=== PATIENT | female | born 1935 | race Caucasian/White ===

== ENCOUNTER 2016-08-13 14:19 | Inpatient (IN) | payer OTHER, BC ==
--- NOTE | 2016-08-13 14:41 | PDOC ---
History of Present Illness - General History Source: Patient, Family Exam Limitations: No Limitations - History of Present Illness Initial Comments: 08/13/16 14:44 Patient is a 81 year old female with significant PMH of Orthostatic HTN, Pulmonary fibrosis, hypothyroidism, sjogrens/scleroderma & addisons disease who presents to ED with abdominal pain. As per daughter, patient was diagnosed with UTI 2 weeks ago and started on Cipro. She was called on Thursday and told cultures showed bacteria was resistant to cipro and they started her on Cefdinir. Patient was nauseous all weekend with multiple episodes of vomiting. Patient attributed nausea to Cefdinir and stopped taking it Thursday morning. Since then vomiting has resolved but patient developed bilateral flank pain, LEFT>RIGHT. She also has had increased frequency of urination since then. She has had a mild fever at time, highest being 100.8. Patient also notes a mild nonproductive cough & constipation since thursday. Denies dysuria, but is a poor historian. <Rhys Wright - Last Filed: 08/13/16 16:10> <Ruben Collins - Last Filed: 08/13/16 16:50> - General Chief Complaint: Pain, Acute Stated Complaint: ABD PAIN Time Seen by Provider: 08/13/16 14:25 Past History - Travel Traveled outside of the country in the last 30 days: No Close contact w/someone who was outside of country & ill: No - Past Medical History Anemia: No COPD: Yes (pulmonary fibrosis) GI Disorders: Yes (reflux) HTN: (hypotension, orthostatic HTN) Thyroid Disease: Yes (hypo) Other medical history: Addisons, Sjogrens, Scleroderma - Surgical History Abdominal Surgery: Yes Cholecystectomy: Yes (1973) Orthopedic Surgery: Yes (rt knee arthroscopy) - Psycho/Social/Smoking Cessation Hx Anxiety: No Suicidal Ideation: No Smoking History: Former smoker Have you smoked in the past 12 months: No Number of Cigarettes Smoked Daily: 20 If you are a former smoker, when did you quit?: 1969 Hx Alcohol Use: No Drug/Substance Use Hx: No Substance Use Type: None Hx Substance Use Treatment: No <Rhys Wright - Last Filed: 08/13/16 16:10> <Ruben Collins - Last Filed: 08/13/16 16:50> - Past Medical History Allergies/Adverse Reactions: Allergies Allergy/AdvReac Type Severity Reaction Status Date / Time No Known Allergies Allergy Verified 08/13/16 14:37 Home Medications: Ambulatory Orders Ascorbic Acid [C-1000] 1,000 mg PO BID 08/13/16 Cholecalciferol (Vitamin D3) [Vitamin D3 -] 5,000 unit PO DAILY 08/13/16 Docusate Sodium 100 mg PO BID PRN 08/13/16 Fludrocortisone Acetate 0.15 mg PO BID 08/13/16 Fluoxetine HCl 20 mg PO HS 08/13/16 Hydrocortisone [Cortef -] 10 mg PO DAILY 08/13/16 Hydrocortisone [Cortef -] 15 mg PO HS 08/13/16 Lifitegrast [Xiidra] 1 each OP BID 08/13/16 Magnesium Chloride [Mag64] 64 mg PO DAILY 08/13/16 Magnesium Hydrox 2400MG/30Ml [Milk of Magnesia -] 30 ml PO QID PRN 08/13/16 Midodrine HCl 2.5 mg PO BID 08/13/16 Mineral Oil/Petrolatum,White [Genteal Pm Ointment] 3.5 gm OP PRN PRN 08/13/16 Mirtazapine 3.75 mg PO HS 08/13/16 Mv-Mn/FA/Coq10/Lycopene/Lutein [Theragran-M Premier 50+ Caplet] 1 each PO DAILY 08/13/16 Pantoprazole Sodium 40 mg PO DAILY 08/13/16 Potassium Chloride [Klor-Con] 20 meq PO BID 08/13/16 Prednisone [Deltasone -] 5 mg PO DAILY 08/13/16 Promethazine HCl 12.5 mg PO Q6H 08/13/16 Thyroid,Pork [[place] Thyroid] 30 mg PO BID 08/13/16 Review of Systems - Review of Systems Able to Perform ROS?: Yes Is the patient limited Lao proficient: No Constitutional: Yes: Fever HEENTM: No: Blurred Vision, Throat Swelling, Difficulty Swallowing Respiratory: Yes: Cough. No: SOB at Rest, Wheezing, Productive cough Cardiac (ROS): No: Chest Pain, Edema, Lightheadedness ABD/GI: Yes: Constipated, Nausea, Vomiting. No: Diarrhea : Yes: Frequency, Urgency. No: Burning Integumentary: No: Bruising, Change in Color Neurological: No: Headache, Numbness, Paresthesia, Tremors All Other Systems: Reviewed and Negative <Rhys Wright - Last Filed: 08/13/16 16:10> *Physical Exam - Physical Exam General Appearance: Yes: Nourished, Appropriately Dressed HEENT: positive: EOMI, [place], Pharynx Normal Neck: positive: Trachea midline, Normal Thyroid, Supple Respiratory/Chest: positive: Other (diminished breath sounds bilaterally, coarse breath sounds bilaterally). negative: Stridor, Wheezing Cardiovascular: positive: Regular Rhythm, Regular Rate, S1, S2 Gastrointestinal/Abdominal: positive: Normal Bowel Sounds, Other (mildly distended, mildly tenderness to deep palpation, constipated) Musculoskeletal: positive: Normal Inspection Extremity: positive: Normal Inspection, Normal Range of Motion Integumentary: positive: Normal Color, Dry, Warm Neurologic: positive: Fully Oriented, Alert, Normal Mood/Affect, Motor Strength 5/5 <Rhys Wright - Last Filed: 08/13/16 16:10> - Vital Signs Last Vital Signs Temp Pulse Resp BP Pulse Ox 98.4 F 89 18 144/100 100 08/13/16 14:37 08/13/16 14:37 08/13/16 14:37 08/13/16 14:37 08/13/16 15:00 <Ruben Collins - Last Filed: 08/13/16 16:50> Heart Score/ECG Review - ECG Impressions Comment:: 08/13/16 16:49 Twelve-lead EKG was performed and reviewed by me. There is normal sinus rhythm with a normal rate. rate of 84 RBBB new when compared with prior ekg 02/05/2016 <Ruben Collins - Last Filed: 08/13/16 16:50> ED Treatment Course - LABORATORY CBC & Chemistry Diagram: 08/13/16 15:00 08/13/16 15:00 - RADIOLOGY Radiology Studies Ordered: Category Date Time Status CHEST X-RAY PORTABLE* [RAD] Stat Radiology 08/13/16 14:39 Ordered <Rhys Wright - Last Filed: 08/13/16 16:10> - LABORATORY CBC & Chemistry Diagram: 08/13/16 15:00 08/13/16 15:00 - ADDITIONAL ORDERS Additional order review: Laboratory Results 0208/13/16 08/13/16 16:10 15:00 15:00 Sodium Potassium Chloride Carbon Dioxide Anion Gap BUN Creatinine Creat Clearance w eGFR Random Glucose Lactic Acid 1.521 Calcium Magnesium 2.2 D Total Bilirubin AST ALT Alkaline Phosphatase Creatine Kinase 98 Troponin I 0.02 Total Protein Albumin Urine Color Urine Appearance Urine pH Ur Specific [place] Urine Protein Urine Glucose (UA) Urine Ketones Urine Blood Urine Nitrite Urine Bilirubin Urine Urobilinogen Ur Leukocyte Esterase Urine RBC Urine WBC Urine Mucus 08/13/16 08/13/16 15:00 15:00 Sodium 133 L Potassium 2.6 L* D Chloride 89 L Carbon Dioxide 33 H D Anion Gap 11 BUN 21 H D Creatinine 1.0 D Creat Clearance w eGFR 53.21 Random Glucose 88 Lactic Acid Calcium 8.2 L Magnesium Total Bilirubin 0.4 AST 31 D ALT 15 Alkaline Phosphatase 117 D Creatine Kinase Troponin I Total Protein 6.9 Albumin 3.2 L Urine Color Yellow Urine Appearance Clear Urine pH 5.0 Ur Specific [place] 1.018 Urine Protein 1+ H Urine Glucose (UA) Negative Urine Ketones Trace H Urine Blood Negative Urine Nitrite Negative Urine Bilirubin Negative Urine Urobilinogen Negative Ur Leukocyte Esterase Negative Urine RBC 1 Urine WBC 1 Urine Mucus Rare 08/13/16 15:00 Influenza Types A,B Antigen (ANTIONETTE) - Final Nasopharyngeal Swab - Final 08/13/16 15:00 RBC 4.50 MCV 85.0 MCHC 33.2 RDW 16.5 H MPV 7.3 L - Medications Given in the ED: ED Medications Discontinued Medications Generic Name Dose Route Start Last Admin Trade Name Freq PRN Reason Stop Dose Admin Alprazolam 0.25 mg 08/13/16 15:28 08/13/16 15:37 Xanax - PO 08/13/16 15:29 0.25 mg ONCE ONE Administration Potassium Chloride 40 meq 08/13/16 16:07 08/13/16 16:16 Kcl Oral Solution - PO 08/13/16 16:08 40 meq ONCE ONE Administration <Ruben Collins - Last Filed: 08/13/16 16:50> Medical Decision Making - Medical Decision Making 08/13/16 14:55 Patient likely has UTI, as she has not been taking her antibiotic (Cefdinir) as prescribed due to nausea. As per her residence, cough is new and patient's oxygen saturation is 90%, which is below her baseline. Will order CBC, CMP, Lactic acid, Troponins. Ordered UA with culture for UTI. Ordered CXR & Influenza swab as well for cough. 08/13/16 16:02 Tested positive for influenza A. Will need to be admitted given her poor baseline pulmonary function & low oxygen saturation at present. Discussed with her PCP Dr. [place] and he agrees to admit patient under hospitalist service. Will discuss with hospitalist. 08/13/16 16:[address] Glez who agrees to admit patient for influenza. Potassium returned at 2.6. Ordered 40mEq oral potassium and will test magnesium level. <Rhys Wright - Last Filed: 08/13/16 16:10> *DC/Admit/Observation/Transfer - Discharge Dispostion Admit: Yes <Rhys Wright - Last Filed: 08/13/16 16:10> <Ruben Collins - Last Filed: 08/13/16 16:50> Diagnosis at time of Disposition: Influenza A, Hypokalemia, Pulmonary fibrosis - Referrals Referrals: STAFF,NOT ON [Primary Care Provider] -
[2016-08-13 14:47] VITALS: BMI 20.1
--- NOTE | 2016-08-13 14:58 | PDOC ---
Attending Attestation - Resident Resident Name: Rhys Wright - ED Attending Attestation I have performed the following: I have examined & evaluated the patient, The case was reviewed & discussed with the resident, I agree w/resident's findings & plan - HPI HPI: 08/13/16 16:11 81y F hx of pulmonary fibrosis, orthostatic htn, hypothyroidism sjorgrens/ scleroderma, addisons dz, presents with cough/fever, pt noted to have uti last week, was dx with uti when she went to urgent care, had her rx changed due, and presents today due to nausea/vomiting. pt also noted to have increased cough, since thursday that is nonproductive. on exam pt noted with sat of 88% on RA, pulm exam revealed diffuse crackles bilaterally. pt otherwise in no acute distress with no tacypnhea. pt flu +, cxr clear bijan ladmit due to hypoxia and comorbidities - Physicial Exam PE: 08/18/16 08:04 see above - Medical Decision Making 08/18/16 08:04 see above
[2016-08-13 15:28] LABS: MCH 28.2 pg (25.7-33.7); MCHC 33.2 g/dl (32.0-36.0); MEAN PLT VOLUME 7.3 fl (7.5-11.1); PLATELET COUNT 263 K/MM3 (134-434); RDW 16.5 % (11.6-15.6); WHITE BLOOD COUNT 6.9 K/mm3 (4.0-10.0)
[2016-08-13] MEDS ORDERED: ALPRAZolam 0.25 MG TABLET PO ONE (15:28)
[2016-08-13 15:32] LABS: URINE APPEARANCE CLEAR; URINE BILIRUBIN NEGATIVE (NEGATIVE); URINE BLOOD NEGATIVE (NEGATIVE); URINE COLOR YELLOW; URINE GLUCOSE (UA) NEGATIVE (NEGATIVE); URINE KETONE TRACE (NEGATIVE); URINE LEUK ESTERASE NEGATIVE (NEGATIVE); URINE NITRITE NEGATIVE (NEGATIVE); URINE UROBILINOGEN NEGATIVE E.U./dl (0.2-1.0)
[2016-08-13] MEDS ORDERED: ALPRAZolam 0.25 MG TABLET ONE (15:32)
[2016-08-13 15:38] LABS: URINE PROTEIN 1+ (NEGATIVE)
[2016-08-13 15:42] LABS: URINE MUCUS RARE; URINE RBC 1 /hpf (0-3); URINE WBC 1 /hpf (3-5)
[2016-08-13 15:58] LABS: ALBUMIN 3.2 g/dl (3.4-5.0); CALCIUM 8.2 mg/dL (8.5-10.1)
[2016-08-13 16:00] LABS: TROPONIN I 0.02 ng/ml (0.00-0.05)
[2016-08-13 16:01] LABS: BILIRUBIN,TOTAL 0.4 mg/dL (0.2-1.0); TOT PROT 6.9 g/dl (6.4-8.2)
[2016-08-13] MEDS ORDERED: POTASSIUM CHLORIDE 40 MEQ/30 ML UNIT DOSE CUP PO ONE (16:07)
[2016-08-13] MEDS ORDERED: POTASSIUM CHLORIDE 40 MEQ/30 ML UNIT DOSE CUP ONE (16:13)
[2016-08-13] MEDS ORDERED: OSELTAMIVIR PHOSPHATE 75 MG CAPSULE PO ONE (16:48)
--- NOTE | 2016-08-13 17:09 | HP ---
PCP: Guero Cuba CHIEF COMPLAINT: Weakness HISTORY OF PRESENT ILLNESS: This is an 81-year-old woman, resident of [facility], who comes to the ER today because of generalized weakness. About 2 weeks ago, she was treated for a UTI with Cipro. On 08/08, she was started on Cefdinir because the urine culture showed the bacteria was resistant to Cipro. Once she started taking Cefdinir, she developed abdominal pain, nausea, vomiting. She stopped taking it on 08/11 and the vomiting resolved. However, she has since had a non-productive cough, shortness of breath, chills and sweats. She has not had an appetite and has not been eating and drinking much. She was noted to have a temp 100.8. PAST MEDICAL HISTORY Pulmonary fibrosis Hypothyroidism Sjogren syndrome Scleroderma Raynaud's syndrome Adrenal insufficiency Orthostatic hypotension PAST SURGICAL HISTORY Cholecystectomy Allergies No Known Allergies Allergy (Verified 08/13/16 14:37) HOME MEDICATIONS 3 Medication Instructions Recorded Ascorbic Acid [C-1000] 1,000 mg PO BID 08/13/16 Cholecalciferol (Vitamin D3) 5,000 unit PO DAILY 08/13/16 [Vitamin D3 -] Docusate Sodium 100 mg PO BID PRN 08/13/16 Fludrocortisone Acetate 0.15 mg PO BID 08/13/16 Fluoxetine HCl 20 mg PO HS 08/13/16 Hydrocortisone [Cortef -] 10 mg PO DAILY 08/13/16 Hydrocortisone [Cortef -] 15 mg PO HS 08/13/16 Lifitegrast [Xiidra] 1 each OP BID 08/13/16 Magnesium Chloride [Mag64] 64 mg PO DAILY 08/13/16 Magnesium Hydrox 2400MG/30Ml [Milk 30 ml PO QID PRN 08/13/16 of Magnesia -] Midodrine HCl 2.5 mg PO BID 08/13/16 Mineral Oil/Petrolatum,White 3.5 gm OP PRN PRN 08/13/16 [Genteal Pm Ointment] Mirtazapine 3.75 mg PO HS 08/13/16 Mv-Mn/FA/Coq10/Lycopene/Lutein 1 each PO DAILY 08/13/16 [Theragran-M Premier 50+ Caplet] Pantoprazole Sodium 40 mg PO DAILY 08/13/16 Potassium Chloride [Klor-Con] 20 meq PO BID 08/13/16 Prednisone [Deltasone -] 5 mg PO DAILY 08/13/16 Promethazine HCl 12.5 mg PO Q6H 08/13/16 Thyroid,Pork [[place] Thyroid] 30 mg PO BID 08/13/16 Social History: Smoking: Quit smoking 44 years ago Alcohol: None Drugs: None Recent Travel: No Family History Mother - Heart disease Father - colon cancer REVIEW OF SYSTEMS CONSTITUTIONAL: Present: fever, chills, generalized weakness, malaise, loss of appetite HEENT: Absent: rhinorrhea, nasal congestion, throat pain, throat swelling, difficulty swallowing, mouth swelling, ear pain, eye pain, visual changes CARDIOVASCULAR: Absent: chest pain, syncope, palpitations, lightheadedness, peripheral edema RESPIRATORY: Present: cough, shortness of breath. Absent: orthopnea, wheezing, stridor, hemoptysis GASTROINTESTINAL: Present: abdominal pain, nausea, vomiting, constipation. Absent: abdominal distension, diarrhea, melena, hematochezia GENITOURINARY: Present: urinary frequency, flank pain. Absent: dysuria, urgency , hesitancy, hematuria MUSCULOSKELETAL: Absent: myalgia, arthralgia, joint swelling, back pain, neck pain SKIN: Absent: rash, itching, pallor HEMATOLOGIC/IMMUNOLOGIC: Absent: easy bleeding, easy bruising, lymphadenopathy, frequent infections ENDOCRINE: Absent: unexplained weight gain, unexplained weight loss, heat intolerance, cold intolerance NEUROLOGIC: Absent: headache, focal weakness, paresthesias, dizziness, unsteady gait, seizure, mental status changes, bladder or bowel incontinence PSYCHIATRIC: Absent: anxiety, depression, suicidal or homicidal ideation, hallucinations. PHYSICAL EXAMINATION Vital Signs Period Temp Pulse Resp BP Sys/Xavier Pulse Ox Last 24 Hr 98.4 F-100.2 F 89 18 144/100 90-100 GENERAL: Awake, alert, and fully oriented, in no acute distress. HEAD: Normal with no signs of trauma. EYES: Pupils equal, round and reactive to light, extraocular movements intact, sclerae anicteric, conjunctivae clear. EARS, NOSE, THROAT: Ears normal, nares patent, oropharynx clear without exudates. Moist mucous membranes. NECK: Normal range of motion, supple without lymphadenopathy, JVD, or masses. LUNGS: Bilateral rhonchi and crackles. No accessory muscle use. HEART: Regular rate and rhythm, normal S1 and S2, (+) 2/6 systolic murmur. ABDOMEN: Soft, nontender, not distended, normoactive bowel sounds, no guarding, no rebound, no masses. No hepatomegaly or splenomegaly. MUSCULOSKELETAL: Normal range of motion at all joints. No bony deformities or tenderness. No CVA tenderness. UPPER EXTREMITIES: 2+ pulses, warm, well-perfused. No cyanosis. No clubbing. Cap refill <2 seconds. No peripheral edema. LOWER EXTREMITIES: 1+ pulses, warm, well-perfused. No calf tenderness. No peripheral edema. NEUROLOGICAL: Cranial nerves II-XII intact. Normal speech. Gait not observed. PSYCHIATRIC: Cooperative. Good eye contact. Appropriate mood and affect. SKIN: Warm, dry, normal turgor, no rashes or lesions noted. Laboratory Results - last 24 hr 08/13/16 08/13/16 08/13/16 15:00 15:00 15:00 WBC 6.9 D RBC 4.50 Hgb 12.7 Hct 38.2 MCV 85.0 MCHC 33.2 RDW 16.5 H Plt Count 263 D MPV 7.3 L Sodium 133 L Potassium 2.6 L* D Chloride 89 L Carbon Dioxide 33 H D Anion Gap 11 BUN 21 H D Creatinine 1.0 D Creat Clearance w eGFR 53.21 Random Glucose 88 Lactic Acid Calcium 8.2 L Magnesium Total Bilirubin 0.4 AST 31 D ALT 15 Alkaline Phosphatase 117 D Creatine Kinase Troponin I Total Protein 6.9 Albumin 3.2 L Urine Color Yellow Urine Appearance Clear Urine pH 5.0 Ur Specific [place] 1.018 Urine Protein 1+ H Urine Glucose (UA) Negative Urine Ketones Trace H Urine Blood Negative Urine Nitrite Negative Urine Bilirubin Negative Urine Urobilinogen Negative Ur Leukocyte Esterase Negative Urine RBC 1 Urine WBC 1 Urine Mucus Rare 08/13/16 08/13/16 08/13/16 15:00 15:00 16:10 WBC RBC Hgb Hct MCV MCHC RDW Plt Count MPV Sodium Potassium Chloride Carbon Dioxide Anion Gap BUN Creatinine Creat Clearance w eGFR Random Glucose Lactic Acid 1.521 Calcium Magnesium 2.2 D Total Bilirubin AST ALT Alkaline Phosphatase Creatine Kinase 98 Troponin I 0.02 Total Protein Albumin Urine Color Urine Appearance Urine pH Ur Specific [place] Urine Protein Urine Glucose (UA) Urine Ketones Urine Blood Urine Nitrite Urine Bilirubin Urine Urobilinogen Ur Leukocyte Esterase Urine RBC Urine WBC Urine Mucus Chest x-ray: Chronic interstitial lung disease. No acute process. EKG: Sinus rhythm, rate 84. PACs. RBBB. ASSESSMENT/PLAN: This is an 81-year-old woman who presented to the ER with generalized weakness, cough, abdominal pain, nausea and vomiting. She was recently treated with Cipro followed by Cefdinir for UTI. She was found to have temp 100.2, O2 sat 90% on RA , WBC 6.9, sodium 133, potassium 2.6, BUN 21, creatinine 1.0. She is being admitted now for treatment of an emergent condition. 1. Hypokalemia secondary to vomiting and steroid use - Replete potassium IV and oral 2. Hyponatremia secondary to dehydration, vomiting, adrenal insufficiency - IV normal saline 3. Dehydration - IV fluid 4. Hypoxia secondary to influenza A with pulmonary fibrosis - Patient is not on oxygen at home - Tamiflu - Albuterol nebs as needed - Oxygen to keep saturation > 90% 5. Orthostatic hypotension, adrenal insufficiency - Continue [place]amini [place]jo 6. Scleroderma, Sjogren syndrome, Raynaud's syndrome 7. Hypothyroidism - Continue [place] thyroid Problem List - Problem (1) Hyponatremia Code(s): E87.1 - HYPO-OSMOLALITY AND HYPONATREMIA (2) Hypoxia Code(s): R09.02 - HYPOXEMIA Visit type - Emergency Visit Emergency Visit: Yes ED Registration Date: 08/13/16 Care time: The patient presented to the Emergency Department on the above date and was hospitalized for further evaluation of their emergent condition. - New Patient This patient is new to me today: Yes Date on this admission: 08/13/16 - Critical Care Critical Care patient: No
[2016-08-13] MEDS ORDERED: OSELTAMIVIR PHOSPHATE 75 MG CAPSULE ONE (17:10)
[2016-08-13] MEDS ORDERED: DOCUSATE SODIUM 100 MG CAPSULE (FP) PO PRN (17:13)
[2016-08-13] MEDS ORDERED: ACETAMINOPHEN 325 MG TABLET (FP) PO PRN (17:17)
[2016-08-13] MEDS ORDERED: ALBUTEROL SO4 0.083% IH SOL 2.5 MG/3 ML VIAL.NEB. NEB PRN (17:17)
[2016-08-13] MEDS ORDERED: ONDANSETRON 4 MG/2 ML VIAL IVPB PRN (17:17)
[2016-08-13] MEDS: SODIUM CHLORIDE 0.9%/KCL 1,000 ML IV SCH (18:42)
[2016-08-13] MEDS ORDERED: HYDROCORTISONE 5 MG TABLET PO SCH (22:00)
[2016-08-13] MEDS: MIRTAZAPINE 15 MG TABLET (FP) PO SCH (22:01)
[2016-08-13] MEDS: HEPARIN NA (PORCINE) 5,000 UNITS/ML 1ML VIAL SQ SCH ×2 (22:02→23:04)
[2016-08-13] MEDS: POTASSIUM CHLORIDE TABS 20 MEQ TABLET.ER (FP) PO SCH (22:02)
[2016-08-13] MEDS: ASCORBIC ACID 500 MG TABLET (FP) PO SCH (22:02)
[2016-08-13] MEDS: FLUoxetine HCL 20 MG CAPSULE (FP) PO SCH (22:36)
[2016-08-13] MEDS: FLUDROCORTISONE ACETATE 0.1 MG TABLET (FP) PO SCH (22:36)
[2016-08-13] MEDS: THYROID 30 MG TABLET PO SCH (22:36)
[2016-08-14] MEDS: HEPARIN NA (PORCINE) 5,000 UNITS/ML 1ML VIAL SQ SCH ×3 (05:10→21:45)
[2016-08-14] MEDS: SODIUM CHLORIDE 0.9%/KCL 1,000 ML IV SCH ×2 (06:27→16:37)
[2016-08-14] MEDS ORDERED: PT OWN MED DRAWER 7, Y5N ONE (09:28)
[2016-08-14] MEDS: MAGNESIUM CL 64 MG TABLET.SA PO SCH (09:54)
[2016-08-14] MEDS: CHOLECALCIFEROL (VITAMIN D3) 1,000 UNIT TABLET (FP) PO SCH (09:54)
[2016-08-14] MEDS: FLUDROCORTISONE ACETATE 0.1 MG TABLET (FP) PO SCH ×2 (09:54→22:52)
[2016-08-14] MEDS: MIDODRINE HCL 2.5 MG TABLET PO SCH ×2 (09:54→17:49)
[2016-08-14] MEDS: PANTOPRAZOLE 40 MG TABLET (FP) PO SCH (09:54)
[2016-08-14] MEDS: THYROID 30 MG TABLET PO SCH ×2 (09:54→21:43)
[2016-08-14] MEDS: POTASSIUM CHLORIDE TABS 20 MEQ TABLET.ER (FP) PO SCH ×2 (09:54→21:43)
[2016-08-14] MEDS: ASCORBIC ACID 500 MG TABLET (FP) PO SCH ×2 (09:54→21:43)
[2016-08-14] MEDS: MULTIVITAMINS THER W-MINERALS COMBO TABLET (FP) PO SCH (09:54)
[2016-08-14] MEDS ORDERED: HYDROCORTISONE 10 MG TABLET PO SCH (10:00)
[2016-08-14 10:11] LABS: BASOPHIL 0.8 % (0-2.0); MCH 28.9 pg (25.7-33.7); MCHC 33.8 g/dl (32.0-36.0); MEAN CELL VOLUME 85.7 fl (80-96); MEAN PLT VOLUME 7.1 fl (7.5-11.1); NEUTROPHILS 66.7 % (42.8-82.8); PLATELET COUNT 222 K/MM3 (134-434); WHITE BLOOD COUNT 6.6 K/mm3 (4.0-10.0)
[2016-08-14] MEDS ORDERED: OSELTAMIVIR PHOSPHATE 75 MG CAPSULE PO SCH (10:15)
[2016-08-14 10:33] LABS: ALBUMIN 3.2 g/dl (3.4-5.0); ANION GAP 11 (8-16); BILIRUBIN,TOTAL 0.3 mg/dL (0.2-1.0); CALCIUM 8.6 mg/dL (8.5-10.1); CO2 29 mmol/L (21-32); CREATININE 0.7 mg/dL (0.55-1.02); GLUCOSE,RANDOM 81 mg/dL (74-106); MAGNESIUM 2.2 mg/dL (1.8-2.4); SGOT/AST 37 U/L (15-37); SGPT/ALT 19 U/L (12-78); TOT PROT 6.7 g/dl (6.4-8.2)
[2016-08-14 10:38] LABS: ALK PHOS 115 U/L (45-117)
[2016-08-14] MEDS ORDERED: POTASSIUM CHLORIDE TABS 20 MEQ TABLET.ER (FP) PO ONE (12:05)
--- NOTE | 2016-08-14 12:05 | PN ---
Physical Exam: SUBJECTIVE: Patient seen and examined at bedside. Adult daughter Amber present. OBJECTIVE: Vital Signs Period Temp Pulse Resp BP Sys/Xavier Pulse Ox Last 24 Hr 98.1 F-98.8 F 73-85 18-20 138-154/82-99 98-98 GENERAL: The patient is awake, alert, and fully oriented, in no acute distress. Weak appearing. HEAD: Normal with no signs of trauma. EYES: PERRL, extraocular movements intact, sclera anicteric, conjunctiva clear. No ptosis. LUNGS: Diffuse rhonchi, expiratory wheezing. HEART: Regular rate and rhythm, S1, S2 without murmur, rub or gallop. ABDOMEN: Soft, nontender, nondistended, normoactive bowel sounds, no guarding, no rebound EXTREMITIES: 2+ pulses, warm, well-perfused, no edema. MUSCULOSKELETAL: bilateral lower rib tenderness NEUROLOGICAL: Cranial nerves II through XII grossly intact. Normal speech, gait not observed. PSYCH: Normal mood, normal affect. SKIN: Warm, dry, normal turgor, no rashes or lesions noted Laboratory Results - last 24 hr 08/14/16 08/14/16 08/14/16 09:55 09:55 14:40 WBC 6.6 RBC 4.31 Hgb 12.5 Hct 36.9 MCV 85.7 MCHC 33.8 RDW 17.0 H Plt Count 222 MPV 7.1 L Neutrophils % 66.7 Lymphocytes % 22.0 D Monocytes % 10.5 H Eosinophils % 0.0 D Basophils % 0.8 Puncture Site Right radial ABG pH 7.49 H ABG pCO2 at Pt Temp 39.9 ABG pO2 at Pt Temp 52.2 L ABG HCO3 29.9 H ABG O2 Sat (Measured) 88.4 L ABG O2 Content 14.3 L ABG Base Excess 6.4 H Francisco Test Positive O2 Delivery Device Nasal Oxygen Flow Rate 4lpm PEEP 0.0 Sodium 139 Potassium 3.2 L D Chloride 99 D Carbon Dioxide 29 Anion Gap 11 BUN 16 D Creatinine 0.7 D Creat Clearance w eGFR > 60 Random Glucose 81 Calcium 8.6 Magnesium 2.2 Total Bilirubin 0.3 D AST 37 ALT 19 D Alkaline Phosphatase 115 Total Protein 6.7 Albumin 3.2 L Active Medications Generic Name Dose Route Start Last Admin Trade Name Freq PRN Reason Stop Dose Admin Acetaminophen 650 mg 08/13/16 17:17 08/14/16 09:55 Tylenol - PO 650 mg Q4H PRN Administration FEVER OR PAIN Albuterol Sulfate 1 amp 08/13/16 17:17 08/14/16 09:20 Ventolin 0.083% Nebulizer Soln - NEB 1 amp Q4H PRN Administration SHORT OF BREATH/WHEEZING Ascorbic Acid 1,000 mg 08/13/16 22:00 08/14/16 09:54 Vitamin C - PO 1,000 mg BID СВЕТЛАНА Administration Cholecalciferol 5,000 unit 08/14/16 10:00 08/14/16 09:54 Vitamin D3 - PO 5,000 unit DAILY СВЕТЛАНА Administration Docusate Sodium 100 mg 08/13/16 17:13 Colace - PO BID PRN CONSTIPATION Fludrocortisone Acetate 0.15 mg 08/13/16 22:00 08/14/16 09:54 Florinef - PO 0.15 mg BID СВЕТЛАНА Administration Fluoxetine HCl 20 mg 08/13/16 22:00 08/13/16 22:36 Prozac - PO 20 mg HS СВЕТЛАНА Administration Heparin Sodium (Porcine) 5,000 unit 08/13/16 22:00 08/14/16 05:10 Heparin - SQ Not Given TID СВЕТЛАНА Hydrocortisone 10 mg 08/14/16 10:00 08/14/16 09:54 Cortef - PO 10 mg DAILY СВЕТЛАНА Administration Hydrocortisone 15 mg 08/13/16 22:00 08/13/16 22:02 Cortef - PO 15 mg HS СВЕТЛАНА Administration Potassium Chloride/Sodium Chloride 1,000 mls @ 83 mls/hr 08/13/16 17:30 06:27 Ns+20 Meq Kcl - IV 83 mls/hr ASDIR СВЕТЛАНА Administration Magnesium Chloride 64 mg 08/14/16 10:00 08/14/16 09:54 Slow-Mag - PO 64 mg DAILY СВЕТЛАНА Administration Midodrine 2.5 mg 08/13/16 18:00 08/14/16 09:54 Proamatine - PO 2.5 mg BID-MID СВЕТЛАНА Administration Mirtazapine 3.75 mg 08/13/16 22:00 08/13/16 22:01 Remeron - PO 3.75 mg HS СВЕТЛАНА Administration Multivitamins/Minerals 1 each 08/14/16 10:00 08/14/16 09:54 Theragran-M PO 1 each DAILY СВЕТЛАНА Administration Non-Formulary Medication 1 each 08/13/16 22:00 Lifitegrast [Xiidra] OP BID СВЕТЛАНА Ondansetron HCl 4 mg 08/13/16 17:17 Zofran Injection IVPB Q6H PRN NAUSEA Oseltamivir Phosphate 30 mg 08/14/16 12:00 Tamiflu - PO 08/19/16 11:59 BID СВЕТЛАНА Pantoprazole Sodium 40 mg 08/14/16 10:00 08/14/16 09:54 Protonix - PO 40 mg DAILY СВЕТЛАНА Administration Potassium Chloride 20 meq 08/13/16 22:00 08/14/16 09:54 K-Dur - PO 20 meq BID СВЕТЛАНА Administration Potassium Chloride 20 meq 08/14/16 12:05 K-Dur - PO 08/14/16 12:06 ONCE ONE Thyroid 30 mg 08/13/16 22:00 08/14/16 09:54 [place] Thyroid - PO 30 mg BID СВЕТЛАНА Administration Chest x-ray: Chronic interstitial lung disease. No acute process. ASSESSMENT/PLAN 81 year-old woman with a PMH of pulmonary fibrosis, achalasia s/p botox treatment (October 2015), aspiration pneumonia (October 2015), Sjogrens, Raynauds, hypothyroidism, adrenal insufficiency, orthostatic hypotension, scleroderma, T12 compression fracture, and frequent falls. Has been on antibiotics for past month for resistant UTI. Admitted for influenza A. Hypoxic respiratory failure secondary to Influenza A and pulmonary fibrosis --culture + influenza A --Tm 100.2, Tc 98.8, WBC wnl --may be aspiration component --elderly patient with adrenal insufficiency on chronic steroids, immunosuppressed, start Zosyn per ID --renally dosed Tamiflu --duonebs QID светлана --alb nebs PRN --IS Idiopathic pulmonary fibrosis --continue hydrocortisone Achalasia s/p botox treatment --coughing with liquids, h/o aspiration pna --will get swallow evaluation Orthostatic hypotension --continue florinef, midodrine Hypokalemia secondary to vomiting and steroid use - Replete potassium IV and oral Hyponatremia, resolved Orthostatic hypotension, adrenal insufficiency - Continue Cortef, Florinef Scleroderma, Sjogren syndrome, Raynaud's syndrome r/o UTI --treated over the past month with three different PO abx regimens for UTI --UA neg, UC neg, US renal unremarkable --no further workup indicated Bilateral lower rib pain --likely musculoskeletal --lidoderm patches Hypothyroidism - Continue [place] thyroid F/E/N Fluids: NS+20K@83mL/hr Electrolytes: replete as indicated Nutrition: soft diet DVT prophylaxis: subq heparin Dispo: continues to require inpatient care. Full Code. Visit type - Emergency Visit Emergency Visit: Yes ED Registration Date: 08/13/16 Care time: The patient presented to the Emergency Department on the above date and was hospitalized for further evaluation of their emergent condition. - New Patient This patient is new to me today: Yes Date on this admission: 08/14/16 - Critical Care Critical Care patient: No
[2016-08-14] MEDS: OSELTAMIVIR PHOSPHATE 30 MG CAPSULE PO SCH ×2 (12:58→21:43)
[2016-08-14] MEDS ORDERED: AMPICILLIN NA/SULBACTAM NA 3 GM in SODIUM CHLORIDE 100 ML IVPB ONE (14:15)
[2016-08-14 14:44] LABS: ARTERIAL BLD GAS O2 SATURATION 88.4 % (90-98.9); ARTERIAL BLOOD GAS BASE EXCESS 6.4 meq/l (-2-2); ARTERIAL BLOOD GAS HCO3 29.9 meq/L (22-26)
[2016-08-14 14:46] LABS: ALLENS TEST POSITIVE; ART PUNCT SITE RIGHT RADIAL; LPM/O2% 4LPM; PT. ON O2? YES; TYPE OF O2 NASAL
[2016-08-14 14:47] LABS: ARTERIAL BLOOD GAS PO2 52.2 mmHg (68-100); ARTERIAL BLOOD GAS pH 7.49 (7.35-7.45)
--- NOTE | 2016-08-14 16:48 | CON.PULM ---
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 She had been receiving antibiotics as an outpt for UTI. is sick at home, started coughing with no sputum 4 days prior to admission and experiencing subjective fevers and chills. Worsening shortness of breath, found to be hypoxic in the ER. She is a remote smoker, does not use any maintenance inhalers. 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 - History Source History Provided By: Patient, Family Member, Medical Record Limitations to Obtaining History: Clinical Condition - Past Medical History Cardio/Vascular: Yes: Other (orthostatic hypotension) Pulmonary: Yes: Pulmonary Fibrosis Rheumatology: Yes: Other (Sjogrens, Raynauds, scleroderma) Endocrine: Yes: Hypothyroidism, [place]'s Disease - Past Surgical History Past Surgical History: Yes: Cholecystectomy (open) - Alcohol/Substance Use Hx Alcohol Use: No History of Substance Use: reports: None - Smoking History Smoking history: Former smoker Have you smoked in the past 12 months: No Aproximately how many cigarettes per day: 20 If you are a former smoker, when did you quit?: 1969 - Social History ADL: Independent (lives with [facility]) 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 History of Recent Travel: No Home Medications - Allergies Allergies/Adverse Reactions: Allergies Allergy/AdvReac Type Severity Reaction Status Date / Time No Known Allergies Allergy Verified 08/13/16 14:37 - Home Medications Home Medications: Ambulatory Orders Ascorbic Acid [C-1000] 1,000 mg PO BID 08/13/16 Cholecalciferol (Vitamin D3) [Vitamin D3 -] 5,000 unit PO DAILY 08/13/16 Docusate Sodium 100 mg PO BID PRN 08/13/16 Fludrocortisone Acetate 0.15 mg PO BID 08/13/16 Fluoxetine HCl 20 mg PO HS 08/13/16 Hydrocortisone [Cortef -] 10 mg PO DAILY 08/13/16 Hydrocortisone [Cortef -] 15 mg PO HS 08/13/16 Lifitegrast [Xiidra] 1 each OP BID 08/13/16 Magnesium Chloride [Mag64] 64 mg PO DAILY 08/13/16 Magnesium Hydrox 2400MG/30Ml [Milk of Magnesia -] 30 ml PO QID PRN 08/13/16 Midodrine HCl 2.5 mg PO BID 08/13/16 Mineral Oil/Petrolatum,White [Genteal Pm Ointment] 3.5 gm OP PRN PRN 08/13/16 Mirtazapine 3.75 mg PO HS 08/13/16 Mv-Mn/FA/Coq10/Lycopene/Lutein [Theragran-M Premier 50+ Caplet] 1 each PO DAILY 08/13/16 Pantoprazole Sodium 40 mg PO DAILY 08/13/16 Potassium Chloride [Klor-Con] 20 meq PO BID 08/13/16 Prednisone [Deltasone -] 5 mg PO DAILY 08/13/16 Promethazine HCl 12.5 mg PO Q6H 08/13/16 Thyroid,Pork [[place] Thyroid] 30 mg PO BID 08/13/16 Family Disease History - Family Disease History Family Disease History: Heart Disease: Mother, CA: Father (colon) Review of Systems - Review of Systems Constitutional: reports: Chills, Fever, Malaise, Weakness Eyes: denies: Recent Change in Vision HENT: denies: Nasal Congestion, Throat Pain Neck: denies: Stiffness, Tenderness Cardiovascular: reports: Shortness of Breath. denies: Chest Pain, Edema, Palpitations Respiratory: reports: Cough, SOB, SOB on Exertion, Wheezing. denies: Hemoptysis Gastrointestinal: reports: Abdominal Pain, Constipation, Nausea, Vomiting Genitourinary: denies: Dysuria, Hematuria Neurological: denies: Dizziness, Headache Physical Exam Vital Sings: Vital Signs Temperature 98.6 F 08/14/16 08:00 Pulse Rate 73 08/14/16 08:00 Respiratory Rate 20 08/14/16 08:00 Blood Pressure 154/87 08/14/16 08:00 O2 Sat by Pulse Oximetry (%) 98 08/14/16 08:00 Constitutional: Yes: Mild Distress Eyes: Yes: Conjunctiva Clear, EOM Intact HENT: Yes: Atraumatic, Normocephalic Neck: Yes: Supple, Trachea Midline Cardiovascular: Yes: Regular Rate and Rhythm Respiratory: Yes: Rales, Rhonchi, Wheezes ...Clubbing: No Gastrointestinal: Yes: Normal Bowel Sounds, Soft. No: Tenderness Edema: No Neurological: Yes: Alert, Oriented Labs: CBC, BMP 08/14/16 09:55 08/14/16 09:55 ABG Results ABG pH 7.49 (7.35-7.45) H 08/14/16 14:40 ABG pCO2 at Pt Temp 39.9 mmHg (35-45) 08/14/16 14:40 ABG pO2 at Pt Temp 52.2 mmHg (68-100) L 08/14/16 14:40 ABG HCO3 29.9 meq/L (22-26) H 08/14/16 14:40 ABG O2 Sat (Measured) 88.4 % (90-98.9) L 08/14/16 14:40 ABG O2 Content 14.3 % vol (15-22) L 08/14/16 14:40 ABG Base Excess 6.4 meq/l (-2-2) H 08/14/16 14:40 Imaging - Results Chest X-ray: Report Reviewed, Image Reviewed (chronic interstitial changes) Problem List - Problems (1) Acute respiratory failure with hypoxia Code(s): J96.01 - ACUTE RESPIRATORY FAILURE WITH HYPOXIA (2) Influenza A Code(s): J10.1 - FLU DUE TO OTH IDENT INFLUENZA VIRUS W OTH RESP MANIFEST (3) Pulmonary fibrosis Code(s): J84.10 - PULMONARY FIBROSIS, UNSPECIFIED (4) Scleroderma Code(s): M34.9 - SYSTEMIC SCLEROSIS, UNSPECIFIED (5) Sjoegren syndrome Code(s): M35.00 - SICCA SYNDROME, UNSPECIFIED (6) Interstitial lung disease Code(s): J84.9 - INTERSTITIAL PULMONARY DISEASE, UNSPECIFIED (7) Hypothyroid Code(s): E03.9 - HYPOTHYROIDISM, UNSPECIFIED (8) Orthostatic hypotension Code(s): I95.1 - ORTHOSTATIC HYPOTENSION Assessment/Plan Acute Hypoxic Respiratory Failure Influenza A r/o Aspiration Pneumonia Scleroderma/Sjogrens Adrenal Insufficiency Immunocompromised Interstitial Lung Disease/Pulmonary Fibrosis - tamiflu - empiric antibiotics - f/u cultures - O2 to keep SpO2 >90% - will change her hydrocortisone to medrol for now - inhaled bronchodilators - aspiration precautions - DVT/GI prophylaxis - will follow Thank you for this consult Neftali More MD
--- NOTE | 2016-08-14 16:48 | CONSULT ---
Consult Consult Specialty:: infectious diseases Reason for Consultation:: influenza,cough,fever - History of Present Illness History of Present Illness: Mrs. Horn is a very pleasant 80 year old female with history of adrenal insufficiency and orthostatic hypotension whom i have known before and taken care of comes in with sob and cough and weakness patient has extensive history of rheumatological prolems including crest and pul fibrosis she is imuunocompromised and has had multiple UTI infections which were resistant to abx Now the patient comes with weakness cough and fever and was worked up and was found to had flu positive also the patient is c/o of bilateral back pain mainly on the lower rib cage patient currently feels weak daughter in room discussed the case with the daughter about the plan - History Source History Provided By: Patient, Family Member Limitations to Obtaining History: No Limitations - Past Medical History Cardio/Vascular: Yes: Other (orthostatic hypotension) Pulmonary: Yes: Pulmonary Fibrosis Rheumatology: Yes: Other (Sjogrens, Raynauds, scleroderma) Endocrine: Yes: Hypothyroidism, Horry's Disease - Past Surgical History Past Surgical History: Yes: Cholecystectomy (open) - Alcohol/Substance Use Hx Alcohol Use: No History of Substance Use: reports: None - Smoking History Smoking history: Former smoker Have you smoked in the past 12 months: No Aproximately how many cigarettes per day: 20 If you are a former smoker, when did you quit?: 1969 - Social History ADL: Independent (lives with [facility]) 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 History of Recent Travel: No Home Medications - Allergies Allergies/Adverse Reactions: Allergies Allergy/AdvReac Type Severity Reaction Status Date / Time No Known Allergies Allergy Verified 08/13/16 14:37 - Home Medications Home Medications: Ambulatory Orders Ascorbic Acid [C-1000] 1,000 mg PO BID 08/13/16 Cholecalciferol (Vitamin D3) [Vitamin D3 -] 5,000 unit PO DAILY 08/13/16 Docusate Sodium 100 mg PO BID PRN 08/13/16 Fludrocortisone Acetate 0.15 mg PO BID 08/13/16 Fluoxetine HCl 20 mg PO HS 08/13/16 Hydrocortisone [Cortef -] 10 mg PO DAILY 08/13/16 Hydrocortisone [Cortef -] 15 mg PO HS 08/13/16 Lifitegrast [Xiidra] 1 each OP BID 08/13/16 Magnesium Chloride [Mag64] 64 mg PO DAILY 08/13/16 Magnesium Hydrox 2400MG/30Ml [Milk of Magnesia -] 30 ml PO QID PRN 08/13/16 Midodrine HCl 2.5 mg PO BID 08/13/16 Mineral Oil/Petrolatum,White [Genteal Pm Ointment] 3.5 gm OP PRN PRN 08/13/16 Mirtazapine 3.75 mg PO HS 08/13/16 Mv-Mn/FA/Coq10/Lycopene/Lutein [Theragran-M Premier 50+ Caplet] 1 each PO DAILY 08/13/16 Pantoprazole Sodium 40 mg PO DAILY 08/13/16 Potassium Chloride [Klor-Con] 20 meq PO BID 08/13/16 Prednisone [Deltasone -] 5 mg PO DAILY 08/13/16 Promethazine HCl 12.5 mg PO Q6H 08/13/16 Thyroid,Pork [[place] Thyroid] 30 mg PO BID 08/13/16 Family Disease History - Family Disease History Family Disease History: Heart Disease: Mother, CA: Father (colon) Review of Systems - Review of Systems Constitutional: reports: Fever, Loss of Appetite, Weakness Eyes: reports: No Symptoms HENT: reports: No Symptoms Neck: reports: No Symptoms Cardiovascular: reports: No Symptoms Respiratory: reports: No Symptoms Gastrointestinal: reports: No Symptoms Genitourinary: reports: No Symptoms Breasts: reports: No Symptoms Reported Musculoskeletal: reports: Muscle Weakness Integumentary: reports: No Symptoms Neurological: reports: No Symptoms Endocrine: reports: No Symptoms Hematology/Lymphatic: reports: No Symptoms Psychiatric: reports: No Symptoms Physical Exam Vital Signs: Vital Signs Temperature 98.6 F 08/14/16 08:00 Pulse Rate 73 08/14/16 08:00 Respiratory Rate 20 08/14/16 08:00 Blood Pressure 154/87 08/14/16 08:00 O2 Sat by Pulse Oximetry (%) 98 08/14/16 08:00 Constitutional: Yes: Mild Distress, Thin Eyes: Yes: Conjunctiva Clear HENT: Yes: Atraumatic, Normocephalic Neck: Yes: Supple, Trachea Midline Cardiovascular: Yes: Regular Rate and Rhythm Respiratory: Yes: Regular, CTA Bilaterally, Rhonchi Gastrointestinal: Yes: Normal Bowel Sounds, Soft Musculoskeletal: Yes: Back Pain (muscular) Extremities: Yes: Other Neurological: Yes: Alert, Oriented Psychiatric: Yes: Alert Labs: CBC, BMP 08/14/16 09:55 08/14/16 09:55 Imaging - Results Chest X-ray: Report Reviewed, Image Reviewed Ultrasound: Report Reviewed, Image Reviewed Assessment/Plan This is an 81-year-old woman who presented to the ER with generalized weakness, cough, abdominal pain, nausea and vomiting. She was recently treated with Cipro followed by Cefdinir for UTI. She was found to have temp 100.2, O2 sat 90% on RA , WBC 6.9, sodium 133, potassium 2.6, BUN 21, creatinine 1.0. She is being admitted now for treatment of an emergent condition. 1. Hypokalemia 2. Hyponatremia 3. Dehydration 4. Hypoxia secondary to influenza A with pulmonary fibrosis 5. Orthostatic hypotension, adrenal insufficiency 6. Scleroderma, Sjogren syndrome, Raynaud's syndrome 7. Hypothyroidism this is a very immunocompromised patient there is a very high risk of her getting infection and pneumonia at the moment patient is afebrile with normal wbc plan i am going to start zosyn on the patient will await for all cx reports incentive rg rest hydration and pain control
[2016-08-14] MEDS ORDERED: LIDOCAINE 5% TOPICAL PATCH TP SCH (17:00)
--- NOTE | 2016-08-14 17:31 | EKG ---
Test Reason : Blood Pressure : / mmHG Vent. Rate : 084 BPM Atrial Rate : 084 BPM P-R Int : 140 ms QRS Dur : 136 ms QT Int : 436 ms P-R-T Axes : 016 010 -05 degrees QTc Int : 515 ms SINUS RHYTHM WITH PREMATURE ATRIAL COMPLEXES RIGHT BUNDLE BRANCH BLOCK ABNORMAL ECG WHEN COMPARED WITH ECG OF 05-FEB-2016 15:47, PREMATURE ATRIAL COMPLEXES ARE NOW PRESENT RIGHT BUNDLE BRANCH BLOCK IS NOW PRESENT Confirmed by LEANA REYNOLDS, MANUEL ([id number]) on 08/14/2016 5:31:16 PM Referred By: Confirmed By:MANUEL DUEÑAS MD
[2016-08-14] MEDS: LIDOCAINE 5% TOPICAL PATCH TP SCH ×2 (17:48)
[2016-08-14] MEDS: PIPERACILLIN/TAZOB 3.375 GM 50 ML IVPB SCH (17:49)
[2016-08-14] MEDS: methylPREDNISolone NA SUCC 40 MG/1 ML VIAL IVPB SCH (17:49)
[2016-08-14] MEDS: ALBUTEROL SO4 0.083% IH SOL 2.5 MG/3 ML VIAL.NEB. NEB SCH ×2 (18:55→23:59)
[2016-08-14] MEDS: MIRTAZAPINE 15 MG TABLET (FP) PO SCH (21:42)
[2016-08-14] MEDS: FLUoxetine HCL 20 MG CAPSULE (FP) PO SCH (21:43)
[2016-08-15] MEDS: methylPREDNISolone NA SUCC 40 MG/1 ML VIAL IVPB SCH ×3 (02:07→17:08)
[2016-08-15] MEDS: PIPERACILLIN/TAZOB 3.375 GM 50 ML IVPB SCH ×3 (02:07→17:08)
[2016-08-15] MEDS: HEPARIN NA (PORCINE) 5,000 UNITS/ML 1ML VIAL SQ SCH ×3 (05:51→22:36)
[2016-08-15] MEDS: ALBUTEROL SO4 0.083% IH SOL 2.5 MG/3 ML VIAL.NEB. NEB SCH ×3 (06:43→17:30)
[2016-08-15 07:44] LABS: BASOPHIL 0.2 % (0-2.0); MCH 28.3 pg (25.7-33.7); MCHC 33.2 g/dl (32.0-36.0); MEAN CELL VOLUME 85.2 fl (80-96); MEAN PLT VOLUME 7.7 fl (7.5-11.1); NEUTROPHILS 91.7 % (42.8-82.8); PLATELET COUNT 205 K/MM3 (134-434); RDW 16.4 % (11.6-15.6); WHITE BLOOD COUNT 9.1 K/mm3 (4.0-10.0)
[2016-08-15 08:18] LABS: ALBUMIN 2.9 g/dl (3.4-5.0); ALK PHOS 92 U/L (45-117); ANION GAP 11 (8-16); BILIRUBIN,TOTAL 0.3 mg/dL (0.2-1.0); CALCIUM 8.1 mg/dL (8.5-10.1); CO2 29 mmol/L (21-32); CREATININE 0.8 mg/dL (0.55-1.02); GLUCOSE,RANDOM 141 mg/dL (74-106); MAGNESIUM 1.9 mg/dL (1.8-2.4); SGOT/AST 37 U/L (15-37); SGPT/ALT 16 U/L (12-78); TOT PROT 6.5 g/dl (6.4-8.2)
[2016-08-15] MEDS ORDERED: PT OWN MED DRAWER 7, Y5N ONE (09:02)
[2016-08-15] MEDS: THYROID 30 MG TABLET PO SCH ×2 (09:32→22:36)
[2016-08-15] MEDS: FLUDROCORTISONE ACETATE 0.1 MG TABLET (FP) PO SCH ×2 (09:32→22:38)
[2016-08-15] MEDS: MIDODRINE HCL 2.5 MG TABLET PO SCH ×2 (09:32→17:08)
[2016-08-15] MEDS: POTASSIUM CHLORIDE TABS 20 MEQ TABLET.ER (FP) PO SCH ×2 (09:33→22:38)
[2016-08-15] MEDS: LIDOCAINE 5% TOPICAL PATCH TP SCH ×2 (09:33)
[2016-08-15] MEDS: MULTIVITAMINS THER W-MINERALS COMBO TABLET (FP) PO SCH (09:34)
[2016-08-15] MEDS: ASCORBIC ACID 500 MG TABLET (FP) PO SCH ×2 (09:34→22:38)
[2016-08-15] MEDS: MAGNESIUM CL 64 MG TABLET.SA PO SCH (09:34)
[2016-08-15] MEDS: CHOLECALCIFEROL (VITAMIN D3) 1,000 UNIT TABLET (FP) PO SCH (09:34)
[2016-08-15] MEDS: OSELTAMIVIR PHOSPHATE 30 MG CAPSULE PO SCH ×2 (09:34→22:37)
[2016-08-15] MEDS: PANTOPRAZOLE 40 MG TABLET (FP) PO SCH (09:34)
--- NOTE | 2016-08-15 09:36 | CONSULT ---
Admitting History and Physical - Primary Care Physician PCP: Layne Holm - Admission History of Present Illness: Per EMR: "HISTORY OF PRESENT ILLNESS: This is an 81-year-old woman, resident of [facility], who comes to the ER today because of generalized weakness. About 2 weeks ago, she was treated for a UTI with Cipro. On 08/08, she was started on Cefdinir because the urine culture showed the bacteria was resistant to Cipro. Once she started taking Cefdinir, she developed abdominal pain, nausea, vomiting. She stopped taking it on 08/11 and the vomiting resolved. However, she has since had a non-productive cough, shortness of breath, chills and sweats. She has not had an appetite and has not been eating and drinking much. She was noted to have a temp 100.8. PAST MEDICAL HISTORY Pulmonary fibrosis Hypothyroidism Sjogren syndrome Scleroderma Raynaud's syndrome Adrenal insufficiency Orthostatic hypotension PAST SURGICAL HISTORY Cholecystectomy" (+) Influenza Pt known to me from October 2015 admission. MBS- High grade esophageal obstruction EGD - Dr. Boogie Kuhn- Foreign body removal Ba swallow- [place] CT chest bilateral infiltrates EGD Schatzkis ring dilated/Botox injections "Date: 11/06/15 11:58 Initialization Date: 11/06/15 11:58 Progress Note, SHOP TAILOR - Note Progress Note: Tolerating chopped foods eg spaghetti and meatballs, roll from bakery. Dislikes sauces on food.Prefers bland tasting food. Drinking 1 ensure clear daily. Prefers Ensure compact. Reviewed elevated HOB, alternate solids with liquids, complete meal with liquid , several small meals per day. Follow up by RD regarding best supplement for this pt. Also reports getting diarrhea if she drinks to much." History Source: Patient, Family Member Limitations to Obtaining History: No Limitations - Past Medical History Cardiovascular: Yes: Other (orthostatic hypotension) Pulmonary: Yes: Pulmonary Fibrosis Rheumatology: Yes: Other (Sjogrens, Raynauds, scleroderma) Endocrine: Yes: Hypothyroidism, Raul's Disease - Past Surgical History Past Surgical History: Yes: Cholecystectomy (open) - Smoking History Smoking history: Former smoker Have you smoked in the past 12 months: No Aproximately how many cigarettes per day: 20 If you are a former smoker, when did you quit?: 1969 - Alcohol/Substance Use Hx Alcohol Use: No History of Substance Use: reports: None - Social History ADL: Independent (lives with last) 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 History of Recent Travel: No History - Admission Reason For Visit: INFLUENZA DUE TO INFLUENZA VIRUS; HYPOKALEMIA - Diagnostics X-ray: Report Reviewed - General Mental Status: Alert and Oriented, Awake and Alert, Able to Follow Commands Attention: Intact Ability to Follow Directions: Excellent Head/Neck Control: WFL - Hearing Hearing: Functional Hearing: Normal Speech Evaluation - Communication Primary Language: ERITREAN Communication: Yes: Within Normal Limits Oral Expression Ability: Yes: No Impairment - Speech Production Able to Make Needs Known: Yes: WNL Intelligibility: Yes: WNL - Speech Characteristics Voice Loudness: Normal Voice Pitch: Yes: Normal Voice Phonatory-based Quality: Yes: Dysphonia (mild. mild wheezing) Speech Clarity: < 100% Nasal Resonance: Normal Articulation: Yes: Precise Rate of Speech: Intact - Language/Auditory Comprehension Follows: Yes: 2 Stage Simple Commands Observation: Able to respond to yes/no queries: Yes, Comprehends Conversational Speech: Yes - Language/Verbal Expression Able to Respond to Simple Queries: Yes: WNL Able to Communicate Wants and Needs: Yes: WNL Functional Communication Status: Yes: WNL - Memory/Perception shelter Memory: Yes: WNL Short Term Memory: Yes: WNL - Swallow Evaluation/Bedside Assessment Current Nutritional Intake: Soft, Thin Liquids Oral Secretions: Yes: WFL (mild wheezing after pt drinks. reports a "tickle") Dentition: Yes: Adequate Facial Symmetry at Rest: Symmetrical Facial Symmetry on Retraction: Symmetrical Facial Movement: Controlled Sensation: Normal Against Resistance Opening: Normal Against Resistance Closing: Normal Pucker Lips: Normal Smile: Normal Lingual Movement: Normal Lingual Speed of Movement: Normal Lingual Movement Strgth Against Opposition: Normal Lingual Movement Characteristics: Normal Laryngeal Elevation: WFL Labial Seal: WFL Chewing: WFL Oral Prep Time: WFL A-P Transit: WFL Pocketing: None Timing of Swallow: WFL Coughing/Throat Clear: Yes (wheeze, brief throat clear) Recommendations - Speech Evaluation, Impression/Plan Impression: Pt with influenza. h/o achalasia/schatzski's ring, treated with dilitation/botox 10/26. Has been eating well, reg food/thin liquid, until a week ago with early saiety, wheezing, now with (+) flu. Bedside evaluation not conclusive. Case discussed with EXERCISE SCIENTIST/pt/daughter. - Dysphagia Impressions/Plan Dysphagia Impressions: Ongoing Evaluation *Silent aspiration: cannot be R/O at bedside Recommendations: BRITTANEY Ortega
--- NOTE | 2016-08-15 15:57 | PN ---
Physical Exam: SUBJECTIVE: Patient seen and examined at bedside. Feels better. OBJECTIVE: Vital Signs Period Temp Pulse Resp BP Sys/Xavier Pulse Ox Last 24 Hr 97.4 F-98.1 F 75-91 16-20 131-186/76-90 92-97 GENERAL: The patient is awake, alert, and fully oriented, in no acute distress. Voice is stronger today. HEAD: Normal with no signs of trauma. EYES: PERRL, extraocular movements intact, sclera anicteric, conjunctiva clear. No ptosis. LUNGS: Mild diffuse wheezing, improved from yesterday HEART: Regular rate and rhythm, S1, S2 without murmur, rub or gallop. ABDOMEN: Soft, nontender, nondistended, normoactive bowel sounds, no guarding, no rebound EXTREMITIES: 2+ pulses, warm, well-perfused, no edema. MUSCULOSKELETAL: bilateral lower rib tenderness NEUROLOGICAL: Cranial nerves II through XII grossly intact. Normal speech, gait not observed. PSYCH: Normal mood, normal affect. SKIN: Warm, dry, normal turgor, no rashes or lesions noted Laboratory Results - last 24 hr 08/15/16 08/15/16 06:00 06:00 WBC 9.1 D RBC 4.38 Hgb 12.4 Hct 37.3 MCV 85.2 MCHC 33.2 RDW 16.4 H Plt Count 205 MPV 7.7 Neutrophils % 91.7 H D Lymphocytes % 4.6 L D Monocytes % 3.5 L Eosinophils % 0.0 Basophils % 0.2 Sodium 139 Potassium 3.3 L Chloride 99 Carbon Dioxide 29 Anion Gap 11 BUN 11 D Creatinine 0.8 Creat Clearance w eGFR > 60 Random Glucose 141 H D Calcium 8.1 L Magnesium 1.9 Total Bilirubin 0.3 AST 37 ALT 16 Alkaline Phosphatase 92 Total Protein 6.5 Albumin 2.9 L Active Medications Generic Name Dose Route Start Last Admin Trade Name Freq PRN Reason Stop Dose Admin Acetaminophen 650 mg 08/13/16 17:17 08/14/16 09:55 Tylenol - PO 650 mg Q4H PRN Administration FEVER OR PAIN Albuterol Sulfate 1 amp 08/14/16 18:00 08/15/16 13:05 Ventolin 0.083% Nebulizer Soln - NEB Not Given QIDR СВЕТЛАНА Ascorbic Acid 1,000 mg 08/13/16 22:00 08/15/16 09:34 Vitamin C - PO 1,000 mg BID СВЕТЛАНА Administration Cholecalciferol 5,000 unit 08/14/16 10:00 08/15/16 09:34 Vitamin D3 - PO 5,000 unit DAILY СВЕТЛАНА Administration Docusate Sodium 100 mg 08/13/16 17:13 Colace - PO BID PRN CONSTIPATION Fludrocortisone Acetate 0.15 mg 08/13/16 22:00 08/15/16 09:32 Florinef - PO 0.15 mg BID СВЕТЛАНА Administration Fluoxetine HCl 20 mg 08/13/16 22:00 08/14/16 21:43 Prozac - PO 20 mg HS СВЕТЛАНА Administration Heparin Sodium (Porcine) 5,000 unit 08/13/16 22:00 08/15/16 15:00 Heparin - SQ 5,000 unit TID СВЕТЛАНА Administration Potassium Chloride/Sodium Chloride 1,000 mls @ 83 mls/hr 08/13/16 17:30 16:37 Ns+20 Meq Kcl - IV Not Given ASDIR СВЕТЛАНА Piperacillin Sod/Tazobactam Sod 50 mls @ 100 mls/hr 08/14/16 18:00 08/15/16 09: 34 Zosyn 3.375gm Ivpb (Pre-Docked) IVPB 100 mls/hr Q8H-IV СВЕТЛАНА Administration Lidocaine 1 patch 08/14/16 17:00 08/15/16 09:33 Lidoderm Patch - TP 1 patch DAILY СВЕТЛАНА Administration Lidocaine 1 patch 08/14/16 17:00 08/15/16 09:33 Lidoderm Patch - TP 1 patch DAILY СВЕТЛАНА Administration Magnesium Chloride 64 mg 08/14/16 10:00 08/15/16 09:34 Slow-Mag - PO 64 mg DAILY СВЕТЛАНА Administration Methylprednisolone Sodium Succinate 40 mg 08/14/16 18:00 08/15/16 09:34 Solu-Medrol - IVPB 40 mg Q8H-IV СВЕТЛАНА Administration Midodrine 2.5 mg 08/13/16 18:00 08/15/16 09:32 Proamatine - PO 2.5 mg BID-MID СВЕТЛАНА Administration Mirtazapine 3.75 mg 08/13/16 22:00 08/14/16 21:42 Remeron - PO 3.75 mg HS СВЕТЛАНА Administration Multivitamins/Minerals 1 each 08/14/16 10:00 08/15/16 09:34 Theragran-M PO 1 each DAILY СВЕТЛАНА Administration Non-Formulary Medication 1 each 08/13/16 22:00 Lifitegrast [Xiidra] OP BID СВЕТЛАНА Ondansetron HCl 4 mg 08/13/16 17:17 Zofran Injection IVPB Q6H PRN NAUSEA Oseltamivir Phosphate 30 mg 08/14/16 12:00 08/15/16 09:34 Tamiflu - PO 08/19/16 11:59 30 mg BID СВЕТЛАНА Administration Pantoprazole Sodium 40 mg 08/14/16 10:00 08/15/16 09:34 Protonix - PO 40 mg DAILY СВЕТЛАНА Administration Potassium Chloride 40 meq 08/15/16 22:00 K-Dur - PO BID СВЕТЛАНА Thyroid 30 mg 08/13/16 22:00 08/15/16 09:32 [place] Thyroid - PO 30 mg BID СВЕТЛАНА Administration ASSESSMENT/PLAN: Chest x-ray: Chronic interstitial lung disease. No acute process. ASSESSMENT/PLAN 81 year-old woman with a PMH of pulmonary fibrosis, achalasia s/p botox treatment (October 2015), aspiration pneumonia (October 2015), Sjogrens, Raynauds, hypothyroidism, adrenal insufficiency, orthostatic hypotension, scleroderma, T12 compression fracture, and frequent falls. Has been on antibiotics for past month for resistant UTI. Admitted for influenza A. Hypoxic respiratory failure secondary to Influenza A and pulmonary fibrosis --continuing to require 6L on NC --culture + influenza A --continue empiric Zosyn (day #2) --renally dosed Tamiflu --duonebs QID светлана --alb nebs PRN --IS Idiopathic pulmonary fibrosis --continue IV steroids per pulmonolgy Achalasia s/p botox treatment --modified barium swallow done; see diet below Orthostatic hypotension --continue florinef, midodrine Hypokalemia --repleted Orthostatic hypotension, adrenal insufficiency --continue Cortef, Florinef Scleroderma, Sjogren syndrome, Raynaud's syndrome r/o UTI --treated over the past month with three different PO abx regimens for UTI --UA neg, UC neg, US renal unremarkable --no further workup indicated Bilateral lower rib pain, improved --patient reports good relief with lidoderm patches Hypothyroidism - Continue [facility] thyroid F/E/N Fluids: NS+20K@83mL/hr Electrolytes: replete as indicated Nutrition: soft diet DVT prophylaxis: subq heparin Dispo: continues to require inpatient care. Full Code. Visit type - Emergency Visit Emergency Visit: Yes ED Registration Date: 08/13/16 Care time: The patient presented to the Emergency Department on the above date and was hospitalized for further evaluation of their emergent condition. - New Patient This patient is new to me today: No - Critical Care Critical Care patient: No
--- NOTE | 2016-08-15 15:59 | PN ---
Progress Note, Physician History of Present Illness: patient feels much better breathing better says her strength is coming back on nasal cannula - Current Medication List Current Medications: Active Medications Acetaminophen (Tylenol -) 650 mg PO Q4H PRN PRN Reason: FEVER OR PAIN Last Admin: 08/14/16 09:55 Dose: 650 mg Albuterol Sulfate (Ventolin 0.083% Nebulizer Soln -) 1 amp NEB QIDR [facility] Last Admin: 08/15/16 13:05 Dose: Not Given Ascorbic Acid (Vitamin C -) 1,000 mg PO BID [facility] Last Admin: 08/15/16 09:34 Dose: 1,000 mg Cholecalciferol (Vitamin D3 -) 5,000 unit PO DAILY [facility] Last Admin: 08/15/16 09:34 Dose: 5,000 unit Docusate Sodium (Colace -) 100 mg PO BID PRN PRN Reason: CONSTIPATION Fludrocortisone Acetate (Florinef -) 0.15 mg PO BID [facility] Last Admin: 08/15/16 09:32 Dose: 0.15 mg Fluoxetine HCl (Prozac -) 20 mg PO HS [facility] Last Admin: 08/14/16 21:43 Dose: 20 mg Heparin Sodium (Porcine) (Heparin -) 5,000 unit SQ TID [facility] Last Admin: 08/15/16 15:00 Dose: 5,000 unit Potassium Chloride/Sodium Chloride (Ns+20 Meq Kcl -) 1,000 mls @ 83 mls/hr IV ASDIR [facility] Last Admin: 08/14/16 16:37 Dose: Not Given Piperacillin Sod/Tazobactam Sod (Zosyn 3.375gm Ivpb (Pre-Docked)) 50 mls @ 100 mls/hr IVPB Q8H-IV [facility] Last Admin: 08/15/16 09:34 Dose: 100 mls/hr Lidocaine (Lidoderm Patch -) 1 patch TP DAILY [facility] Last Admin: 08/15/16 09:33 Dose: 1 patch Lidocaine (Lidoderm Patch -) 1 patch TP DAILY [facility] Last Admin: 08/15/16 09:33 Dose: 1 patch Magnesium Chloride (Slow-Mag -) 64 mg PO DAILY [facility] Last Admin: 08/15/16 09:34 Dose: 64 mg Methylprednisolone Sodium Succinate (Solu-Medrol -) 40 mg IVPB Q8H-IV [facility] Last Admin: 08/15/16 09:34 Dose: 40 mg Midodrine (Proamatine -) 2.5 mg PO BID-MID [facility] Last Admin: 08/15/16 09:32 Dose: 2.5 mg Mirtazapine (Remeron -) 3.75 mg PO HS [facility] Last Admin: 08/14/16 21:42 Dose: 3.75 mg Multivitamins/Minerals (Theragran-M) 1 each PO DAILY [facility] Last Admin: 08/15/16 09:34 Dose: 1 each Non-Formulary Medication (Lifitegrast [Xiidra]) 1 each OP BID [facility] Ondansetron HCl (Zofran Injection) 4 mg IVPB Q6H PRN PRN Reason: NAUSEA Oseltamivir Phosphate (Tamiflu -) 30 mg PO BID [facility] Stop: 08/19/16 11:59 Last Admin: 08/15/16 09:34 Dose: 30 mg Pantoprazole Sodium (Protonix -) 40 mg PO DAILY [facility] Last Admin: 08/15/16 09:34 Dose: 40 mg Potassium Chloride (K-Dur -) 40 meq PO BID [facility] Thyroid ([place] Thyroid -) 30 mg PO BID [facility] Last Admin: 08/15/16 09:32 Dose: 30 mg - Objective Vital Signs: Vital Signs Temperature 97.4 F L 08/15/16 14:19 Pulse Rate 87 08/15/16 14:19 Respiratory Rate 20 08/15/16 08:00 Blood Pressure 160/85 08/15/16 14:19 O2 Sat by Pulse Oximetry (%) 97 08/15/16 08:00 Constitutional: Yes: No Distress, Calm HENT: Yes: Atraumatic Neck: Yes: Supple Cardiovascular: Yes: Regular Rate and Rhythm Respiratory: Yes: Regular, Poor Air Entry, Rhonchi Gastrointestinal: Yes: Normal Bowel Sounds, Soft Musculoskeletal: Yes: WNL Extremities: Yes: Other Integumentary: Yes: WNL Neurological: Yes: Alert, Oriented Psychiatric: Yes: Alert Labs: CBC, BMP 08/15/16 06:00 08/15/16 06:00 Assessment/Plan This is an 81-year-old woman who presented to the ER with generalized weakness, cough, abdominal pain, nausea and vomiting. She was recently treated with Cipro followed by Cefdinir for UTI. She was found to have temp 100.2, O2 sat 90% on RA , WBC 6.9, sodium 133, potassium 2.6, BUN 21, creatinine 1.0. She is being admitted now for treatment of an emergent condition. 1. Hypokalemia 2. Hyponatremia 3. Dehydration 4. Hypoxia secondary to influenza A with pulmonary fibrosis 5. Orthostatic hypotension, adrenal insufficiency 6. Scleroderma, Sjogren syndrome, Raynaud's syndrome 7. Hypothyroidism immunocompromised - Problems (1) Acute respiratory failure with hypoxia Code(s): J96.01 - ACUTE RESPIRATORY FAILURE WITH HYPOXIA (2) Influenza A Code(s): J10.1 - FLU DUE TO OTH IDENT INFLUENZA VIRUS W OTH RESP MANIFEST (3) Pulmonary fibrosis Code(s): J84.10 - PULMONARY FIBROSIS, UNSPECIFIED (4) Scleroderma Code(s): M34.9 - SYSTEMIC SCLEROSIS, UNSPECIFIED (5) Sjoegren syndrome Code(s): M35.00 - SICCA SYNDROME, UNSPECIFIED (6) Interstitial lung disease Code(s): J84.9 - INTERSTITIAL PULMONARY DISEASE, UNSPECIFIED (7) Hypothyroid Code(s): E03.9 - HYPOTHYROIDISM, UNSPECIFIED (8) Orthostatic hypotension Code(s): I95.1 - ORTHOSTATIC HYPOTENSION plan continue current mgmt continue to monitor if patient stable we will deescalate abx continue incentive rg
--- NOTE | 2016-08-15 16:09 | PN ---
Progress Note, Physician History of Present Illness: PULMONARY ALERT,FEELING BETTER,LESS CONGESTED,LESS COUGH - Current Medication List Current Medications: Active Medications Acetaminophen (Tylenol -) 650 mg PO Q4H PRN PRN Reason: FEVER OR PAIN Last Admin: 08/14/16 09:55 Dose: 650 mg Albuterol Sulfate (Ventolin 0.083% Nebulizer Soln -) 1 amp NEB QIDR [facility] Last Admin: 08/15/16 13:05 Dose: Not Given Ascorbic Acid (Vitamin C -) 1,000 mg PO BID [facility] Last Admin: 08/15/16 09:34 Dose: 1,000 mg Cholecalciferol (Vitamin D3 -) 5,000 unit PO DAILY [facility] Last Admin: 08/15/16 09:34 Dose: 5,000 unit Docusate Sodium (Colace -) 100 mg PO BID PRN PRN Reason: CONSTIPATION Fludrocortisone Acetate (Florinef -) 0.15 mg PO BID [facility] Last Admin: 08/15/16 09:32 Dose: 0.15 mg Fluoxetine HCl (Prozac -) 20 mg PO HS [facility] Last Admin: 08/14/16 21:43 Dose: 20 mg Heparin Sodium (Porcine) (Heparin -) 5,000 unit SQ TID [facility] Last Admin: 08/15/16 15:00 Dose: 5,000 unit Potassium Chloride/Sodium Chloride (Ns+20 Meq Kcl -) 1,000 mls @ 83 mls/hr IV ASDIR [facility] Last Admin: 08/14/16 16:37 Dose: Not Given Piperacillin Sod/Tazobactam Sod (Zosyn 3.375gm Ivpb (Pre-Docked)) 50 mls @ 100 mls/hr IVPB Q8H-IV [facility] Last Admin: 08/15/16 09:34 Dose: 100 mls/hr Lidocaine (Lidoderm Patch -) 1 patch TP DAILY [facility] Last Admin: 08/15/16 09:33 Dose: 1 patch Lidocaine (Lidoderm Patch -) 1 patch TP DAILY [facility] Last Admin: 08/15/16 09:33 Dose: 1 patch Magnesium Chloride (Slow-Mag -) 64 mg PO DAILY [facility] Last Admin: 08/15/16 09:34 Dose: 64 mg Methylprednisolone Sodium Succinate (Solu-Medrol -) 40 mg IVPB Q8H-IV [facility] Last Admin: 08/15/16 09:34 Dose: 40 mg Midodrine (Proamatine -) 2.5 mg PO BID-MID [facility] Last Admin: 08/15/16 09:32 Dose: 2.5 mg Mirtazapine (Remeron -) 3.75 mg PO HS [facility] Last Admin: 08/14/16 21:42 Dose: 3.75 mg Multivitamins/Minerals (Theragran-M) 1 each PO DAILY [facility] Last Admin: 08/15/16 09:34 Dose: 1 each Non-Formulary Medication (Lifitegrast [Xiidra]) 1 each OP BID [facility] Ondansetron HCl (Zofran Injection) 4 mg IVPB Q6H PRN PRN Reason: NAUSEA Oseltamivir Phosphate (Tamiflu -) 30 mg PO BID [facility] Stop: 08/19/16 11:59 Last Admin: 08/15/16 09:34 Dose: 30 mg Pantoprazole Sodium (Protonix -) 40 mg PO DAILY [facility] Last Admin: 08/15/16 09:34 Dose: 40 mg Potassium Chloride (K-Dur -) 40 meq PO BID [facility] Thyroid ([place] Thyroid -) 30 mg PO BID [facility] Last Admin: 08/15/16 09:32 Dose: 30 mg - Objective Vital Signs: Vital Signs Temperature 97.4 F L 08/15/16 14:19 Pulse Rate 87 08/15/16 14:19 Respiratory Rate 20 08/15/16 08:00 Blood Pressure 160/85 08/15/16 14:19 O2 Sat by Pulse Oximetry (%) 97 08/15/16 08:00 Constitutional: Yes: Calm, Thin Eyes: Yes: WNL HENT: Yes: WNL, Other Cardiovascular: Yes: Regular Rate and Rhythm, S1, S2 Respiratory: Yes: Rales, Rhonchi Gastrointestinal: Yes: Normal Bowel Sounds, Soft Extremities: Yes: WNL Edema: No Labs: CBC, BMP 08/15/16 06:00 08/15/16 06:00 Assessment/Plan Problem List - Problems (1) Acute respiratory failure with hypoxia Code(s): J96.01 - ACUTE RESPIRATORY FAILURE WITH HYPOXIA (2) Influenza A Code(s): J10.1 - FLU DUE TO OTH IDENT INFLUENZA VIRUS W OTH RESP MANIFEST (3) Pulmonary fibrosis Code(s): J84.10 - PULMONARY FIBROSIS, UNSPECIFIED (4) Scleroderma Code(s): M34.9 - SYSTEMIC SCLEROSIS, UNSPECIFIED (5) Sjoegren syndrome Code(s): M35.00 - SICCA SYNDROME, UNSPECIFIED (6) Interstitial lung disease Code(s): J84.9 - INTERSTITIAL PULMONARY DISEASE, UNSPECIFIED (7) Hypothyroid Code(s): E03.9 - HYPOTHYROIDISM, UNSPECIFIED (8) Orthostatic hypotension Code(s): I95.1 - ORTHOSTATIC HYPOTENSION Assessment/Plan Acute Hypoxic Respiratory Failure Influenza A r/o Aspiration Pneumonia Scleroderma/Sjogrens Adrenal Insufficiency Immunocompromised Interstitial Lung Disease/Pulmonary Fibrosis - tamiflu - empiric antibiotics - f/u cultures - O2 to keep SpO2 >90 - inhaled bronchodilators - aspiration precautions - DVT/GI prophylaxis DR ALEJO
[2016-08-15] MEDS: SODIUM CHLORIDE 0.9%/KCL 1,000 ML IV SCH (17:08)
[2016-08-15] MEDS: FLUoxetine HCL 20 MG CAPSULE (FP) PO SCH (22:37)
[2016-08-15] MEDS: MIRTAZAPINE 15 MG TABLET (FP) PO SCH (22:37)
[2016-08-15] MEDS: TETRACAINE/BENZOCAINE/BUTAMBEN 20 GM SPR TP ONE ×2 (23:01→23:15)
[2016-08-16] MEDS: PIPERACILLIN/TAZOB 3.375 GM 50 ML IVPB SCH ×3 (02:28→17:40)
[2016-08-16] MEDS: methylPREDNISolone NA SUCC 40 MG/1 ML VIAL IVPB SCH ×3 (02:28→17:40)
[2016-08-16] MEDS: HEPARIN NA (PORCINE) 5,000 UNITS/ML 1ML VIAL SQ SCH ×3 (05:21→21:57)
[2016-08-16] MEDS: SODIUM CHLORIDE 0.9%/KCL 1,000 ML IV SCH (05:27)
[2016-08-16] MEDS: ALBUTEROL SO4 0.083% IH SOL 2.5 MG/3 ML VIAL.NEB. NEB SCH ×5 (05:44→23:45)
[2016-08-16] MEDS: LIDOCAINE 5% TOPICAL PATCH TP SCH ×2 (10:40)
[2016-08-16] MEDS: ASCORBIC ACID 500 MG TABLET (FP) PO SCH ×2 (10:44→21:58)
[2016-08-16] MEDS: THYROID 30 MG TABLET PO SCH ×2 (10:45→21:55)
[2016-08-16] MEDS: MIDODRINE HCL 2.5 MG TABLET PO SCH ×3 (10:45→19:53)
[2016-08-16] MEDS: MAGNESIUM CL 64 MG TABLET.SA PO SCH (10:45)
[2016-08-16] MEDS: FLUDROCORTISONE ACETATE 0.1 MG TABLET (FP) PO SCH ×2 (10:45→21:56)
[2016-08-16] MEDS: PANTOPRAZOLE 40 MG TABLET (FP) PO SCH (10:46)
[2016-08-16] MEDS: POTASSIUM CHLORIDE TABS 20 MEQ TABLET.ER (FP) PO SCH ×2 (10:46→17:39)
[2016-08-16] MEDS: MULTIVITAMINS THER W-MINERALS COMBO TABLET (FP) PO SCH (10:46)
[2016-08-16] MEDS: OSELTAMIVIR PHOSPHATE 30 MG CAPSULE PO SCH ×2 (10:47→21:58)
[2016-08-16] MEDS: CHOLECALCIFEROL (VITAMIN D3) 1,000 UNIT TABLET (FP) PO SCH (10:47)
--- NOTE | 2016-08-16 10:55 | PN ---
Progress Note (short form) - Note Progress Note: Still with congested cough. No CP. No acute events overnight. Intake & Output 08/13/16 08/14/16 08/15/16 08/16/16 23:59 23:59 23:59 23:59 Intake Total 2123 2966 963 Output Total 700 Balance -700 3 2966 963 Weight 109 lb 105 lb 4.8 oz 104 lb 12.8 oz 106 lb 1 oz Last Vital Signs Temp Pulse Resp BP Pulse Ox 97.5 F L 86 18 144/67 97 08/16/16 05:35 08/16/16 05:35 08/16/16 05:35 08/16/16 05:35 08/15/16 21:00 Active Medications Acetaminophen (Tylenol -) 650 mg PO Q4H PRN PRN Reason: FEVER OR PAIN Last Admin: 08/14/16 09:55 Dose: 650 mg Albuterol Sulfate (Ventolin 0.083% Nebulizer Soln -) 1 amp NEB QIDR [facility] Last Admin: 08/16/16 05:44 Dose: 1 amp Ascorbic Acid (Vitamin C -) 1,000 mg PO BID [facility] Last Admin: 08/15/16 22:38 Dose: 1,000 mg Cholecalciferol (Vitamin D3 -) 5,000 unit PO DAILY [facility] Last Admin: 08/15/16 09:34 Dose: 5,000 unit Docusate Sodium (Colace -) 100 mg PO BID PRN PRN Reason: CONSTIPATION Fludrocortisone Acetate (Florinef -) 0.15 mg PO BID [facility] Last Admin: 08/15/16 22:38 Dose: 0.15 mg Fluoxetine HCl (Prozac -) 20 mg PO HS [facility] Last Admin: 08/15/16 22:37 Dose: 20 mg Heparin Sodium (Porcine) (Heparin -) 5,000 unit SQ TID [facility] Last Admin: 08/16/16 05:21 Dose: 5,000 unit Potassium Chloride/Sodium Chloride (Ns+20 Meq Kcl -) 1,000 mls @ 83 mls/hr IV ASDIR [facility] Last Admin: 08/16/16 05:27 Dose: 83 mls/hr Piperacillin Sod/Tazobactam Sod (Zosyn 3.375gm Ivpb (Pre-Docked)) 50 mls @ 100 mls/hr IVPB Q8H-IV [facility] Last Admin: 08/16/16 02:28 Dose: 100 mls/hr Lidocaine (Lidoderm Patch -) 1 patch TP DAILY [facility] Last Admin: 08/15/16 09:33 Dose: 1 patch Lidocaine (Lidoderm Patch -) 1 patch TP DAILY [facility] Last Admin: 08/15/16 09:33 Dose: 1 patch Magnesium Chloride (Slow-Mag -) 64 mg PO DAILY [facility] Last Admin: 08/15/16 09:34 Dose: 64 mg Methylprednisolone Sodium Succinate (Solu-Medrol -) 40 mg IVPB Q8H-IV [facility] Last Admin: 08/16/16 02:28 Dose: 40 mg Midodrine (Proamatine -) 2.5 mg PO BID-MID [facility] Last Admin: 08/15/16 17:08 Dose: 2.5 mg Mirtazapine (Remeron -) 3.75 mg PO HS [facility] Last Admin: 08/15/16 22:37 Dose: 3.75 mg Multivitamins/Minerals (Theragran-M) 1 each PO DAILY [facility] Last Admin: 08/15/16 09:34 Dose: 1 each Non-Formulary Medication (Lifitegrast [Xiidra]) 1 each OP BID [facility] Ondansetron HCl (Zofran Injection) 4 mg IVPB Q6H PRN PRN Reason: NAUSEA Oseltamivir Phosphate (Tamiflu -) 30 mg PO BID [facility] Stop: 08/19/16 11:59 Last Admin: 08/15/16 22:37 Dose: 30 mg Pantoprazole Sodium (Protonix -) 40 mg PO DAILY [facility] Last Admin: 08/15/16 09:34 Dose: 40 mg Potassium Chloride (K-Dur -) 40 meq PO BID [facility] Last Admin: 08/15/16 22:38 Dose: 40 meq Thyroid ([place] Thyroid -) 30 mg PO BID [facility] Last Admin: 08/15/16 22:36 Dose: 30 mg Ascorbic Acid (Vitamin C -) 1,000 mg PO BID [facility] Last Admin: 08/15/16 09:34 Dose: 1,000 mg Cholecalciferol (Vitamin D3 -) 5,000 unit PO DAILY [facility] Last Admin: 08/15/16 09:34 Dose: 5,000 unit Docusate Sodium (Colace -) 100 mg PO BID PRN PRN Reason: CONSTIPATION Fludrocortisone Acetate (Florinef -) 0.15 mg PO BID [facility] Last Admin: 08/15/16 09:32 Dose: 0.15 mg Fluoxetine HCl (Prozac -) 20 mg PO HS [facility] Last Admin: 08/14/16 21:43 Dose: 20 mg Heparin Sodium (Porcine) (Heparin -) 5,000 unit SQ TID [facility] Last Admin: 08/15/16 15:00 Dose: 5,000 unit Potassium Chloride/Sodium Chloride (Ns+20 Meq Kcl -) 1,000 mls @ 83 mls/hr IV ASDIR [facility] Last Admin: 08/14/16 16:37 Dose: Not Given Piperacillin Sod/Tazobactam Sod (Zosyn 3.375gm Ivpb (Pre-Docked)) 50 mls @ 100 mls/hr IVPB Q8H-IV [facility] Last Admin: 08/15/16 09:34 Dose: 100 mls/hr Lidocaine (Lidoderm Patch -) 1 patch TP DAILY [facility] Constitutional: Yes: Thin, NAD Eyes: Yes: WNL HENT: Yes: WNL, Other Cardiovascular: Yes: Regular Rate and Rhythm, S1, S2 Respiratory: Yes: (+) congested cough, bilateral coarse Rhonchi, no wheeze Gastrointestinal: Yes: Normal Bowel Sounds, Soft Extremities: Yes: WNL Edema: No Labs: Assessment/Plan Problem List - Problems (1) Acute respiratory failure with hypoxia Code(s): J96.01 - ACUTE RESPIRATORY FAILURE WITH HYPOXIA (2) Influenza A Code(s): J10.1 - FLU DUE TO OTH IDENT INFLUENZA VIRUS W OTH RESP MANIFEST (3) Pulmonary fibrosis Code(s): J84.10 - PULMONARY FIBROSIS, UNSPECIFIED (4) Scleroderma Code(s): M34.9 - SYSTEMIC SCLEROSIS, UNSPECIFIED (5) Sjoegren syndrome Code(s): M35.00 - SICCA SYNDROME, UNSPECIFIED (6) Interstitial lung disease Code(s): J84.9 - INTERSTITIAL PULMONARY DISEASE, UNSPECIFIED (7) Hypothyroid Code(s): E03.9 - HYPOTHYROIDISM, UNSPECIFIED (8) Orthostatic hypotension Code(s): I95.1 - ORTHOSTATIC HYPOTENSION Assessment/Plan Acute Hypoxic Respiratory Failure Influenza A r/o Aspiration Pneumonia Scleroderma/Sjogrens Adrenal Insufficiency Immunocompromised Interstitial Lung Disease/Pulmonary Fibrosis - tamiflu - empiric antibiotics - f/u cultures - O2 to keep SpO2 >90 - inhaled bronchodilators - aspiration precautions - DVT/GI prophylaxis - Will start to taper Steroids in the AM is she remains stable/improved Dr Kincaid
[2016-08-16 11:03] LABS: BASOPHIL 0.1 % (0-2.0); MCHC 33.2 g/dl (32.0-36.0); MEAN CELL VOLUME 84.5 fl (80-96); MEAN PLT VOLUME 7.2 fl (7.5-11.1); NEUTROPHILS 91.2 % (42.8-82.8); PLATELET COUNT 201 K/MM3 (134-434); RDW 16.8 % (11.6-15.6); WHITE BLOOD COUNT 14.5 K/mm3 (4.0-10.0)
[2016-08-16 11:26] LABS: ALBUMIN 2.8 g/dl (3.4-5.0); ALK PHOS 93 U/L (45-117); ANION GAP 11 (8-16); BILIRUBIN,TOTAL 0.3 mg/dL (0.2-1.0); CALCIUM 8.2 mg/dL (8.5-10.1); CO2 30 mmol/L (21-32); CREATININE 0.8 mg/dL (0.55-1.02); GLUCOSE,RANDOM 125 mg/dL (74-106); MAGNESIUM 1.9 mg/dL (1.8-2.4); SGOT/AST 29 U/L (15-37); SGPT/ALT 16 U/L (12-78); TOT PROT 6.3 g/dl (6.4-8.2)
--- NOTE | 2016-08-16 13:22 | PN ---
Physical Exam: SUBJECTIVE: Patient seen and examined at bedside. Did not sleep well because she felt anxious. Denies pain. Denies sweats and chills. Weak cough. OBJECTIVE: Vital Signs Period Temp Pulse Resp BP Sys/Xavier Pulse Ox Last 24 Hr 97.4 F-97.8 F 50-89 18-20 144-160/67-86 97 GENERAL: The patient is awake, alert, and fully oriented, in no acute distress. HEAD: Normal with no signs of trauma. EYES: PERRL, extraocular movements intact, sclera anicteric, conjunctiva clear. No ptosis. LUNGS: Diffuse wheezing and rhonchi today HEART: Regular rate and rhythm, S1, S2 without murmur, rub or gallop. ABDOMEN: Soft, nontender, nondistended, normoactive bowel sounds, no guarding, no rebound EXTREMITIES: 2+ pulses, warm, well-perfused, no edema. MUSCULOSKELETAL: bilateral lower rib tenderness NEUROLOGICAL: Cranial nerves II through XII grossly intact. Normal speech, gait not observed. PSYCH: Normal mood, normal affect. SKIN: Warm, dry, normal turgor, no rashes or lesions noted Laboratory Results - last 24 hr 08/16/16 08/16/16 10:57 10:57 WBC 14.5 H D RBC 4.33 Hgb 12.1 Hct 36.5 MCV 84.5 MCHC 33.2 RDW 16.8 H Plt Count 201 MPV 7.2 L Neutrophils % 91.2 H Lymphocytes % 4.2 L Monocytes % 4.5 Eosinophils % 0.0 Basophils % 0.1 Sodium 142 Potassium 3.1 L Chloride 101 Carbon Dioxide 30 Anion Gap 11 BUN 9 Creatinine 0.8 Creat Clearance w eGFR > 60 Random Glucose 125 H Calcium 8.2 L Magnesium 1.9 Total Bilirubin 0.3 AST 29 D ALT 16 Alkaline Phosphatase 93 Total Protein 6.3 L Albumin 2.8 L Active Medications Generic Name Dose Route Start Last Admin Trade Name Freq PRN Reason Stop Dose Admin Acetaminophen 650 mg 08/13/16 17:17 08/14/16 09:55 Tylenol - PO 650 mg Q4H PRN Administration FEVER OR PAIN Albuterol Sulfate 1 amp 08/14/16 18:00 08/16/16 11:25 Ventolin 0.083% Nebulizer Soln - NEB 1 amp QIDR [facility] Administration Ascorbic Acid 1,000 mg 08/13/16 22:00 08/16/16 10:44 Vitamin C - PO 1,000 mg BID [facility] Administration Cholecalciferol 5,000 unit 08/14/16 10:00 08/16/16 10:47 Vitamin D3 - PO 5,000 unit DAILY [facility] Administration Docusate Sodium 100 mg 08/13/16 17:13 Colace - PO BID PRN CONSTIPATION Fludrocortisone Acetate 0.15 mg 08/13/16 22:00 08/16/16 10:45 Florinef - PO 0.15 mg BID [facility] Administration Fluoxetine HCl 20 mg 08/13/16 22:00 08/15/16 22:37 Prozac - PO 20 mg HS [facility] Administration Heparin Sodium (Porcine) 5,000 unit 08/13/16 22:00 08/16/16 05:21 Heparin - SQ 5,000 unit TID [facility] Administration Piperacillin Sod/Tazobactam Sod 50 mls @ 100 mls/hr 08/14/16 18:00 08/16/16 10: 40 Zosyn 3.375gm Ivpb (Pre-Docked) IVPB 100 mls/hr Q8H-IV [facility] Administration Lidocaine 1 patch 08/14/16 17:00 08/16/16 10:40 Lidoderm Patch - TP 1 patch DAILY [facility] Administration Lidocaine 1 patch 08/14/16 17:00 08/16/16 10:40 Lidoderm Patch - TP 1 patch DAILY [facility] Administration Magnesium Chloride 64 mg 08/14/16 10:00 08/16/16 10:45 Slow-Mag - PO 64 mg DAILY [facility] Administration Methylprednisolone Sodium Succinate 40 mg 08/14/16 18:00 08/16/16 10:47 Solu-Medrol - IVPB 40 mg Q8H-IV [facility] Administration Midodrine 2.5 mg 08/13/16 18:00 08/16/16 10:45 Proamatine - PO 2.5 mg BID-MID [facility] Administration Mirtazapine 3.75 mg 08/13/16 22:00 08/15/16 22:37 Remeron - PO 3.75 mg HS [facility] Administration Multivitamins/Minerals 1 each 08/14/16 10:00 08/16/16 10:46 Theragran-M PO 1 each DAILY [facility] Administration Non-Formulary Medication 1 each 08/16/16 22:00 Lifitegrast [Xiidra] OU BID [facility] Ondansetron HCl 4 mg 08/13/16 17:17 08/16/16 11:22 Zofran Injection IVPB 4 mg Q6H PRN Administration NAUSEA Oseltamivir Phosphate 30 mg 08/14/16 12:00 08/16/16 10:47 Tamiflu - PO 08/19/16 11:59 30 mg BID [facility] Administration Pantoprazole Sodium 40 mg 08/14/16 10:00 08/16/16 10:46 Protonix - PO 40 mg DAILY [facility] Administration Potassium Chloride 40 meq 08/16/16 13:30 K-Dur - PO Q6H [facility] Thyroid 30 mg 08/13/16 22:00 08/16/16 10:45 [place] Thyroid - PO 30 mg BID [facility] Administration ASSESSMENT/PLAN: Chest x-ray: Chronic interstitial lung disease. No acute process. ASSESSMENT/PLAN 81 year-old woman with a PMH of pulmonary fibrosis, achalasia s/p botox treatment (October 2015), aspiration pneumonia (October 2015), Sjogrens, Raynauds, hypothyroidism, adrenal insufficiency, orthostatic hypotension, scleroderma, T12 compression fracture, and frequent falls. Admitted for influenza A. Hypoxic respiratory failure secondary to Influenza A and pulmonary fibrosis --lungs slightly worse today and patient with weak cough; educated patient on need to get oob, ambulate, and cough with enough force to clear secretions; patient demonstrated strong cough --culture + influenza A --continue empiric Zosyn (day #3) --renally dosed Tamiflu --nebs, IS, daily bedside peakflows, chest PT BID --pre-post today to determine O2 requirements Idiopathic pulmonary fibrosis --continue IV steroids per pulmonolgy Achalasia s/p botox treatment --modified barium swallow done; see diet below Orthostatic hypotension --continue florinef, midodrine Hypokalemia secondary to chronic steroid use --increased oral K to 40meq q6h Orthostatic hypotension, adrenal insufficiency --continue Cortef, Florinef Scleroderma, Sjogren syndrome, Raynaud's syndrome r/o UTI --treated over the past month with three different PO abx regimens for UTI --UA neg, UC neg, US renal unremarkable --no further workup indicated Bilateral lower rib pain, improved --patient reports good relief with lidoderm patches Hypothyroidism - Continue [place] thyroid F/E/N Fluids: PO intake adequate Electrolytes: replete as indicated Nutrition: dysphagia chopped with thin liquids DVT prophylaxis: subq heparin Dispo: continues to require inpatient care. Full Code. Visit type - Emergency Visit Emergency Visit: Yes ED Registration Date: 08/13/16 Care time: The patient presented to the Emergency Department on the above date and was hospitalized for further evaluation of their emergent condition. - New Patient This patient is new to me today: No - Critical Care Critical Care patient: No
--- NOTE | 2016-08-16 17:08 | PN ---
Progress Note, Physician History of Present Illness: feels better says she is not able to bring anything feels something inside her chest breathing better - Current Medication List Current Medications: Active Medications Acetaminophen (Tylenol -) 650 mg PO Q4H PRN PRN Reason: FEVER OR PAIN Last Admin: 08/14/16 09:55 Dose: 650 mg Albuterol Sulfate (Ventolin 0.083% Nebulizer Soln -) 1 amp NEB QIDR [facility] Last Admin: 08/16/16 11:25 Dose: 1 amp Ascorbic Acid (Vitamin C -) 1,000 mg PO BID [facility] Last Admin: 08/16/16 10:44 Dose: 1,000 mg Cholecalciferol (Vitamin D3 -) 5,000 unit PO DAILY [facility] Last Admin: 08/16/16 10:47 Dose: 5,000 unit Docusate Sodium (Colace -) 100 mg PO BID PRN PRN Reason: CONSTIPATION Fludrocortisone Acetate (Florinef -) 0.15 mg PO BID [facility] Last Admin: 08/16/16 10:45 Dose: 0.15 mg Fluoxetine HCl (Prozac -) 20 mg PO HS [facility] Last Admin: 08/15/16 22:37 Dose: 20 mg Heparin Sodium (Porcine) (Heparin -) 5,000 unit SQ TID [facility] Last Admin: 08/16/16 15:43 Dose: 5,000 unit Piperacillin Sod/Tazobactam Sod (Zosyn 3.375gm Ivpb (Pre-Docked)) 50 mls @ 100 mls/hr IVPB Q8H-IV [facility] Last Admin: 08/16/16 10:40 Dose: 100 mls/hr Lidocaine (Lidoderm Patch -) 1 patch TP DAILY [facility] Last Admin: 08/16/16 10:40 Dose: 1 patch Lidocaine (Lidoderm Patch -) 1 patch TP DAILY [facility] Last Admin: 08/16/16 10:40 Dose: 1 patch Magnesium Chloride (Slow-Mag -) 64 mg PO DAILY [facility] Last Admin: 08/16/16 10:45 Dose: 64 mg Methylprednisolone Sodium Succinate (Solu-Medrol -) 40 mg IVPB Q8H-IV [facility] Last Admin: 08/16/16 10:47 Dose: 40 mg Midodrine (Proamatine -) 2.5 mg PO BID-MID [facility] Last Admin: 08/16/16 10:45 Dose: 2.5 mg Mirtazapine (Remeron -) 3.75 mg PO HS [facility] Last Admin: 08/15/16 22:37 Dose: 3.75 mg Multivitamins/Minerals (Theragran-M) 1 each PO DAILY [facility] Last Admin: 08/16/16 10:46 Dose: 1 each Non-Formulary Medication (Lifitegrast [Xiidra]) 1 each OU BID [facility] Ondansetron HCl (Zofran Injection) 4 mg IVPB Q6H PRN PRN Reason: NAUSEA Last Admin: 08/16/16 11:22 Dose: 4 mg Oseltamivir Phosphate (Tamiflu -) 30 mg PO BID [facility] Stop: 08/19/16 11:59 Last Admin: 08/16/16 10:47 Dose: 30 mg Pantoprazole Sodium (Protonix -) 40 mg PO DAILY [facility] Last Admin: 08/16/16 10:46 Dose: 40 mg Potassium Chloride (K-Dur -) 40 meq PO Q6HPO [facility] Thyroid ([place] Thyroid -) 30 mg PO BID [facility] Last Admin: 08/16/16 10:45 Dose: 30 mg - Objective Vital Signs: Vital Signs Temperature 98.0 F 08/16/16 14:00 Pulse Rate 77 08/16/16 15:50 Respiratory Rate 18 08/16/16 14:00 Blood Pressure 141/89 08/16/16 14:00 O2 Sat by Pulse Oximetry (%) 96 08/16/16 15:50 Constitutional: Yes: No Distress, Calm Cardiovascular: Yes: Regular Rate and Rhythm Respiratory: Yes: Regular, Poor Air Entry, Rhonchi Gastrointestinal: Yes: Normal Bowel Sounds, Soft Musculoskeletal: Yes: Other Extremities: Yes: WNL Neurological: Yes: Alert, Oriented Psychiatric: Yes: Alert Labs: CBC, BMP 08/16/16 10:57 08/16/16 10:57 Assessment/Plan This is an 81-year-old woman who presented to the ER with generalized weakness, cough, abdominal pain, nausea and vomiting. She was recently treated with Cipro followed by Cefdinir for UTI. She was found to have temp 100.2, O2 sat 90% on RA , WBC 6.9, sodium 133, potassium 2.6, BUN 21, creatinine 1.0. She is being admitted now for treatment of an emergent condition. 1. Hypokalemia 2. Hyponatremia 3. Dehydration 4. Hypoxia secondary to influenza A with pulmonary fibrosis 5. Orthostatic hypotension, adrenal insufficiency 6. Scleroderma, Sjogren syndrome, Raynaud's syndrome 7. Hypothyroidism immunocompromised - Problems (1) Acute respiratory failure with hypoxia Code(s): J96.01 - ACUTE RESPIRATORY FAILURE WITH HYPOXIA (2) Influenza A Code(s): J10.1 - FLU DUE TO OTH IDENT INFLUENZA VIRUS W OTH RESP MANIFEST (3) Pulmonary fibrosis Code(s): J84.10 - PULMONARY FIBROSIS, UNSPECIFIED (4) Scleroderma Code(s): M34.9 - SYSTEMIC SCLEROSIS, UNSPECIFIED (5) Sjoegren syndrome Code(s): M35.00 - SICCA SYNDROME, UNSPECIFIED (6) Interstitial lung disease Code(s): J84.9 - INTERSTITIAL PULMONARY DISEASE, UNSPECIFIED (7) Hypothyroid Code(s): E03.9 - HYPOTHYROIDISM, UNSPECIFIED (8) Orthostatic hypotension Code(s): I95.1 - ORTHOSTATIC HYPOTENSION plan continue current mgmt continue to monitor if patient stable we will stop abx tomorrow as patient stable continue incentive rg steroid taper
[2016-08-16] MEDS ORDERED: PT OWN MED DRAWER 7, Y5N ONE (21:25)
[2016-08-16] MEDS: MIRTAZAPINE 15 MG TABLET (FP) PO SCH (21:57)
[2016-08-16] MEDS: FLUoxetine HCL 20 MG CAPSULE (FP) PO SCH (21:57)
[2016-08-16] MEDS: PATIENT'S OWN MEDICATION (NON-FORMULARY) (Lifitegrast [Xiidra] 1 EACH) OU SCH (22:11)
[2016-08-16] MEDS: AMPICILLIN NA/SULBACTAM NA 3 GM in SODIUM CHLORIDE 100 ML IVPB SCH (23:59)
[2016-08-17] MEDS: AMPICILLIN NA/SULBACTAM NA 3 GM in SODIUM CHLORIDE 100 ML IVPB SCH
[2016-08-17] MEDS: POTASSIUM CHLORIDE TABS 20 MEQ TABLET.ER (FP) PO SCH ×5 (00:46→23:02)
[2016-08-17] MEDS: PIPERACILLIN/TAZOB 3.375 GM 50 ML IVPB SCH ×2 (02:56→09:43)
[2016-08-17] MEDS: methylPREDNISolone NA SUCC 40 MG/1 ML VIAL IVPB SCH ×3 (02:56→22:49)
[2016-08-17] MEDS: ALBUTEROL SO4 0.083% IH SOL 2.5 MG/3 ML VIAL.NEB. NEB SCH ×4 (06:30→23:13)
[2016-08-17] MEDS: HEPARIN NA (PORCINE) 5,000 UNITS/ML 1ML VIAL SQ SCH ×3 (06:58→22:47)
[2016-08-17 07:57] LABS: ALK PHOS 90 U/L (45-117); ANION GAP 11 (8-16); BILIRUBIN,TOTAL 0.4 mg/dL (0.2-1.0); CALCIUM 8.7 mg/dL (8.5-10.1); CO2 30 mmol/L (21-32); CREATININE 0.8 mg/dL (0.55-1.02); GLUCOSE,RANDOM 134 mg/dL (74-106); MAGNESIUM 1.8 mg/dL (1.8-2.4); SGOT/AST 26 U/L (15-37); SGPT/ALT 15 U/L (12-78); TOT PROT 6.6 g/dl (6.4-8.2)
[2016-08-17 08:35] LABS: MCHC 32.6 g/dl (32.0-36.0); MEAN CELL VOLUME 85.9 fl (80-96); MEAN PLT VOLUME 8.1 fl (7.5-11.1); NEUTROPHILS 93.7 % (42.8-82.8); PLATELET COUNT 217 K/MM3 (134-434); RDW 17.1 % (11.6-15.6); WHITE BLOOD COUNT 16.2 K/mm3 (4.0-10.0)
[2016-08-17] MEDS: LIDOCAINE 5% TOPICAL PATCH TP SCH ×2 (09:44)
[2016-08-17] MEDS: FLUDROCORTISONE ACETATE 0.1 MG TABLET (FP) PO SCH ×2 (09:44→22:46)
[2016-08-17] MEDS: CHOLECALCIFEROL (VITAMIN D3) 1,000 UNIT TABLET (FP) PO SCH (09:45)
[2016-08-17] MEDS: OSELTAMIVIR PHOSPHATE 30 MG CAPSULE PO SCH ×2 (09:45→22:49)
[2016-08-17] MEDS: MIDODRINE HCL 2.5 MG TABLET PO SCH ×2 (09:46→17:06)
[2016-08-17] MEDS: PANTOPRAZOLE 40 MG TABLET (FP) PO SCH (09:46)
[2016-08-17] MEDS: MULTIVITAMINS THER W-MINERALS COMBO TABLET (FP) PO SCH (09:46)
[2016-08-17] MEDS: ASCORBIC ACID 500 MG TABLET (FP) PO SCH ×2 (09:46→22:53)
[2016-08-17] MEDS: THYROID 30 MG TABLET PO SCH ×2 (09:47→22:46)
[2016-08-17] MEDS: MAGNESIUM CL 64 MG TABLET.SA PO SCH (09:47)
[2016-08-17] MEDS ORDERED: LORazepam 0.5 MG TABLET PO ONE (10:00)
--- NOTE | 2016-08-17 11:39 | PN ---
Progress Note (short form) - Note Progress Note: Still with congested cough. Phlegm is yellow/greenish. No CP. No acute events overnight. Intake & Output 08/14/16 08/15/16 08/16/16 08/17/16 23:59 23:59 23:59 23:59 Intake Total 3 2966 1813 50 Balance 3 2966 1813 50 Weight 105 lb 4.8 oz 104 lb 12.8 oz 106 lb 1 oz 106 lb 6 oz Last Vital Signs Temp Pulse Resp BP Pulse Ox 97.4 F L 84 18 141/82 96 08/17/16 01:56 08/17/16 01:56 08/17/16 01:56 08/17/16 01:56 08/16/16 21:00 Active Medications Acetaminophen (Tylenol -) 650 mg PO Q4H PRN PRN Reason: FEVER OR PAIN Last Admin: 08/14/16 09:55 Dose: 650 mg Albuterol Sulfate (Ventolin 0.083% Nebulizer Soln -) 1 amp NEB QIDR [facility] Last Admin: 08/17/16 06:30 Dose: 1 amp Ascorbic Acid (Vitamin C -) 1,000 mg PO BID [facility] Last Admin: 08/17/16 09:46 Dose: 1,000 mg Cholecalciferol (Vitamin D3 -) 5,000 unit PO DAILY [facility] Last Admin: 08/17/16 09:45 Dose: 5,000 unit Docusate Sodium (Colace -) 100 mg PO BID PRN PRN Reason: CONSTIPATION Fludrocortisone Acetate (Florinef -) 0.15 mg PO BID [facility] Last Admin: 08/17/16 09:44 Dose: 0.15 mg Fluoxetine HCl (Prozac -) 20 mg PO HS [facility] Last Admin: 08/16/16 21:57 Dose: 20 mg Heparin Sodium (Porcine) (Heparin -) 5,000 unit SQ TID [facility] Last Admin: 08/17/16 06:58 Dose: 5,000 unit Piperacillin Sod/Tazobactam Sod (Zosyn 3.375gm Ivpb (Pre-Docked)) 50 mls @ 100 mls/hr IVPB Q8H-IV [facility] Last Admin: 08/17/16 09:43 Dose: 100 mls/hr Lidocaine (Lidoderm Patch -) 1 patch TP DAILY [facility] Last Admin: 08/17/16 09:44 Dose: 1 patch Lidocaine (Lidoderm Patch -) 1 patch TP DAILY [facility] Last Admin: 08/17/16 09:44 Dose: 1 patch Magnesium Chloride (Slow-Mag -) 64 mg PO DAILY [facility] Last Admin: 08/17/16 09:47 Dose: 64 mg Methylprednisolone Sodium Succinate (Solu-Medrol -) 40 mg IVPB Q8H-IV [facility] Last Admin: 08/17/16 09:44 Dose: 40 mg Midodrine (Proamatine -) 2.5 mg PO BID-MID [facility] Last Admin: 08/17/16 09:46 Dose: 2.5 mg Mirtazapine (Remeron -) 3.75 mg PO HS [facility] Last Admin: 08/16/16 21:57 Dose: 3.75 mg Multivitamins/Minerals (Theragran-M) 1 each PO DAILY [facility] Last Admin: 08/17/16 09:46 Dose: 1 each Non-Formulary Medication (Lifitegrast [Xiidra]) 1 each OU BID [facility] Last Admin: 08/16/16 22:11 Dose: 1 each Ondansetron HCl (Zofran Injection) 4 mg IVPB Q6H PRN PRN Reason: NAUSEA Last Admin: 08/16/16 11:22 Dose: 4 mg Oseltamivir Phosphate (Tamiflu -) 30 mg PO BID [facility] Stop: 08/19/16 11:59 Last Admin: 08/17/16 09:45 Dose: 30 mg Pantoprazole Sodium (Protonix -) 40 mg PO DAILY [facility] Last Admin: 08/17/16 09:46 Dose: 40 mg Potassium Chloride (K-Dur -) 40 meq PO Q6HPO [facility] Last Admin: 08/17/16 06:58 Dose: 40 meq Thyroid ([place] Thyroid -) 30 mg PO BID [facility] Last Admin: 08/17/16 09:47 Dose: 30 mg Constitutional: Yes: Thin, NAD Eyes: Yes: WNL HENT: Yes: WNL, Other Cardiovascular: Yes: Regular Rate and Rhythm, S1, S2 Respiratory: Yes: (+) congested cough, bilateral coarse Rhonchi, no wheeze Gastrointestinal: Yes: Normal Bowel Sounds, Soft Extremities: Yes: WNL Edema: No Labs: Laboratory Results - last 24 hr 08/17/16 08/17/16 06:15 06:15 WBC 16.2 H RBC 4.74 Hgb 13.3 Hct 40.7 MCV 85.9 MCHC 32.6 RDW 17.1 H Plt Count 217 MPV 8.1 D Neutrophils % 93.7 H Lymphocytes % 2.7 L D Monocytes % 3.6 L Eosinophils % 0.0 Basophils % 0.0 Sodium 142 Potassium 3.7 Chloride 101 Carbon Dioxide 30 Anion Gap 11 BUN 10 Creatinine 0.8 Creat Clearance w eGFR > 60 Random Glucose 134 H Calcium 8.7 Magnesium 1.8 Total Bilirubin 0.4 D AST 26 ALT 15 Alkaline Phosphatase 90 Total Protein 6.6 Albumin 3.0 L Assessment/Plan Problem List - Problems (1) Acute respiratory failure with hypoxia Code(s): J96.01 - ACUTE RESPIRATORY FAILURE WITH HYPOXIA (2) Influenza A Code(s): J10.1 - FLU DUE TO OTH IDENT INFLUENZA VIRUS W OTH RESP MANIFEST (3) Pulmonary fibrosis Code(s): J84.10 - PULMONARY FIBROSIS, UNSPECIFIED (4) Scleroderma Code(s): M34.9 - SYSTEMIC SCLEROSIS, UNSPECIFIED (5) Sjoegren syndrome Code(s): M35.00 - SICCA SYNDROME, UNSPECIFIED (6) Interstitial lung disease Code(s): J84.9 - INTERSTITIAL PULMONARY DISEASE, UNSPECIFIED (7) Hypothyroid Code(s): E03.9 - HYPOTHYROIDISM, UNSPECIFIED (8) Orthostatic hypotension Code(s): I95.1 - ORTHOSTATIC HYPOTENSION Assessment/Plan Acute Hypoxic Respiratory Failure Influenza A R/O Aspiration Pneumonia Scleroderma/Sjogrens Adrenal Insufficiency Immunocompromised Interstitial Lung Disease/Pulmonary Fibrosis - tamiflu 30 BID - (?) D/C Zosyn - No respiratory cultures are sent / pending - O2 to keep SpO2 >90 - inhaled bronchodilators - aspiration precautions - DVT/GI prophylaxis - Steroid taper Dr Kincaid
[2016-08-17] MEDS ORDERED: methylPREDNISolone NA SUCC 40 MG/1 ML VIAL IVPB SCH (11:45)
[2016-08-17] MEDS ORDERED: MELATONIN 5 MG TABLETS PO PRN (12:04)
[2016-08-17] MEDS: PATIENT'S OWN MEDICATION (NON-FORMULARY) (Lifitegrast [Xiidra] 1 EACH) OU SCH ×2 (12:15→22:48)
--- NOTE | 2016-08-17 13:24 | PN ---
Physical Exam: SUBJECTIVE: Patient seen and examined at bedside. States she feels very weak and with rattling cough. At baseline she does not cough even though she has IPF. She gets dressed every day, occasionally goes shopping (does not drive) and to restaurants for meals. OBJECTIVE: Vital Signs Period Temp Pulse Resp BP Sys/Xavier Pulse Ox Last 24 Hr 97.4 F-98.1 F 77-95 18-20 141-164/68-106 96-97 GENERAL: The patient is awake, alert, and fully oriented, in no acute distress. HEAD: Normal with no signs of trauma. EYES: PERRL, extraocular movements intact, sclera anicteric, conjunctiva clear. No ptosis. LUNGS: Coarse breath sounds, no wheezing HEART: Regular rate and rhythm, S1, S2 without murmur, rub or gallop. ABDOMEN: Soft, nontender, nondistended, normoactive bowel sounds, no guarding, no rebound EXTREMITIES: 2+ pulses, warm, well-perfused, no edema. MUSCULOSKELETAL: bilateral lower rib tenderness NEUROLOGICAL: Cranial nerves II through XII grossly intact. Normal speech, gait not observed. PSYCH: Normal mood, normal affect. SKIN: Warm, dry, normal turgor, no rashes or lesions noted Laboratory Results - last 24 hr 08/17/16 08/17/16 06:15 06:15 WBC 16.2 H RBC 4.74 Hgb 13.3 Hct 40.7 MCV 85.9 MCHC 32.6 RDW 17.1 H Plt Count 217 MPV 8.1 D Neutrophils % 93.7 H Lymphocytes % 2.7 L D Monocytes % 3.6 L Eosinophils % 0.0 Basophils % 0.0 Sodium 142 Potassium 3.7 Chloride 101 Carbon Dioxide 30 Anion Gap 11 BUN 10 Creatinine 0.8 Creat Clearance w eGFR > 60 Random Glucose 134 H Calcium 8.7 Magnesium 1.8 Total Bilirubin 0.4 D AST 26 ALT 15 Alkaline Phosphatase 90 Total Protein 6.6 Albumin 3.0 L Active Medications Generic Name Dose Route Start Last Admin Trade Name Freq PRN Reason Stop Dose Admin Acetaminophen 650 mg 08/13/16 17:17 08/14/16 09:55 Tylenol - PO 650 mg Q4H PRN Administration FEVER OR PAIN Albuterol Sulfate 1 amp 08/14/16 18:00 08/17/16 06:30 Ventolin 0.083% Nebulizer Soln - NEB 1 amp QIDR [facility] Administration Ascorbic Acid 1,000 mg 08/13/16 22:00 08/17/16 09:46 Vitamin C - PO 1,000 mg BID [facility] Administration Cholecalciferol 5,000 unit 08/14/16 10:00 08/17/16 09:45 Vitamin D3 - PO 5,000 unit DAILY [facility] Administration Docusate Sodium 100 mg 08/13/16 17:13 Colace - PO BID PRN CONST[facility] Fludrocortisone Acetate 0.15 mg 08/13/16 22:00 08/17/16 09:44 Florinef - PO 0.15 mg BID [facility] Administration Fluoxetine HCl 20 mg 08/13/16 22:00 08/16/16 21:57 Prozac - PO 20 mg HS [facility] Administration Heparin Sodium (Porcine) 5,000 unit 08/13/16 22:00 08/17/16 06:58 Heparin - SQ 5,000 unit TID [facility] Administration Piperacillin Sod/Tazobactam Sod 50 mls @ 100 mls/hr 08/14/16 18:00 08/17/16 09: 43 Zosyn 3.375gm Ivpb (Pre-Docked) IVPB 100 mls/hr Q8H-IV [facility] Administration Lidocaine 1 patch 08/14/16 17:00 08/17/16 09:44 Lidoderm Patch - TP 1 patch DAILY [facility] Administration Lidocaine 1 patch 08/14/16 17:00 08/17/16 09:44 Lidoderm Patch - TP 1 patch DAILY [facility] Administration Magnesium Chloride 64 mg 08/14/16 10:00 08/17/16 09:47 Slow-Mag - PO 64 mg DAILY [facility] Administration Melatonin 5 mg 08/17/16 12:04 Melatonin PO HS PRN [facility]OMN[facility] Methylprednisolone Sodium Succinate 30 mg 08/17/16 12:00 Solu-Medrol - IVPB BID [facility] Midodrine 2.5 mg 08/13/16 18:00 08/17/16 09:46 Proamatine - PO 2.5 mg BID-MID [facility] Administration Mirtazapine 3.75 mg 08/13/16 22:00 08/16/16 21:57 Remeron - PO 3.75 mg HS [facility] Administration Multivitamins/Minerals 1 each 08/14/16 10:00 08/17/16 09:46 Theragran-M PO 1 each DAILY [facility] Administration Non-Formulary Medication 1 each 08/16/16 22:00 08/17/16 12:15 Lifitegrast [Xiidra] OU 1 each BID [facility] Administration Ondansetron HCl 4 mg 08/13/16 17:17 08/16/16 11:22 Zofran Injection IVPB 4 mg Q6H PRN Administration NAUSEA Oseltamivir Phosphate 30 mg 08/17/16 22:00 Tamiflu - PO 08/18/16 22:01 BID [facility] Pantoprazole Sodium 40 mg 08/14/16 10:00 08/17/16 09:46 Protonix - PO 40 mg DAILY [facility] Administration Potassium Chloride 40 meq 08/16/16 18:00 08/17/16 12:15 K-Dur - PO 40 meq Q6HPO [facility] Administration Thyroid 30 mg 08/13/16 22:00 08/17/16 09:47 [place] Thyroid - PO 30 mg BID [facility] Administration Chest x-ray: Chronic interstitial lung disease. No acute process. ASSESSMENT/PLAN 81 year-old woman with a PMH of pulmonary fibrosis, achalasia s/p botox treatment (October 2015), aspiration pneumonia (October 2015), Sjogrens, Raynauds, hypothyroidism, adrenal insufficiency, orthostatic hypotension, scleroderma, T12 compression fracture, and frequent falls. Admitted for influenza A. Hypoxic respiratory failure secondary to Influenza A and pulmonary fibrosis --lungs slightly improved on exam today, but continues to be hypoxic satting 83% on room air --continue empiric Zosyn (day #4) --renally dosed Tamiflu, last dose Thursday night --nebs, IS, daily bedside peakflows, chest PT BID Idiopathic pulmonary fibrosis --tapering IV steroids Achalasia s/p botox treatment --modified barium swallow done; see diet below Orthostatic hypotension --continue florinef, midodrine Hypokalemia secondary to chronic steroid use --increased oral K to 40meq q6h Orthostatic hypotension, adrenal insufficiency --continue Cortef, Florinef Scleroderma, Sjogren syndrome, Raynaud's syndrome r/o UTI --treated over the past month with three different PO abx regimens for UTI --UA neg, UC neg, US renal unremarkable --no further workup indicated Bilateral lower rib pain, improved --patient reports good relief with lidoderm patches Hypothyroidism - Continue [place] thyroid F/E/N Fluids: PO intake adequate Electrolytes: replete as indicated Nutrition: dysphagia chopped with thin liquids DVT prophylaxis: subq heparin Dispo: continues to require inpatient care. Full Code. Visit type - Emergency Visit Emergency Visit: Yes ED Registration Date: 08/13/16 Care time: The patient presented to the Emergency Department on the above date and was hospitalized for further evaluation of their emergent condition. - New Patient This patient is new to me today: No - Critical Care Critical Care patient: No
--- NOTE | 2016-08-17 14:42 | PN ---
Progress Note, CARE MANAGER CNA - Note Progress Note: 81 yo female seen at bedside for follow up to [facility] by LLISS with a recommendation for ground solids and thin liquids at tolerated. Chart review indicates pt is consuming approximately 50% of all meals. Pt just finished lunch and did not want to attempt po trial at this time. Pt and chargeback specialist Cheri reported no evidence of aspiration with po intake. Recommendations: continue dysphagia ground and thin liquids as tolerated. OOB for meals and 1hr post (when possible). Alternate solids and liquids. Observed standard aspiration precautions. Consider liquid supplements.
--- NOTE | 2016-08-17 15:29 | PN ---
Progress Note, Physician History of Present Illness: patient doing much better feels better no complaints - Current Medication List Current Medications: Active Medications Acetaminophen (Tylenol -) 650 mg PO Q4H PRN PRN Reason: FEVER OR PAIN Last Admin: 08/14/16 09:55 Dose: 650 mg Albuterol Sulfate (Ventolin 0.083% Nebulizer Soln -) 1 amp NEB QIDR [facility] Last Admin: 08/17/16 12:05 Dose: 1 amp Ascorbic Acid (Vitamin C -) 1,000 mg PO BID [facility] Last Admin: 08/17/16 09:46 Dose: 1,000 mg Cholecalciferol (Vitamin D3 -) 5,000 unit PO DAILY [facility] Last Admin: 08/17/16 09:45 Dose: 5,000 unit Docusate Sodium (Colace -) 100 mg PO BID PRN PRN Reason: CONSTIPATION Fludrocortisone Acetate (Florinef -) 0.15 mg PO BID [facility] Last Admin: 08/17/16 09:44 Dose: 0.15 mg Fluoxetine HCl (Prozac -) 20 mg PO HS [facility] Last Admin: 08/16/16 21:57 Dose: 20 mg Heparin Sodium (Porcine) (Heparin -) 5,000 unit SQ TID [facility] Last Admin: 08/17/16 06:58 Dose: 5,000 unit Piperacillin Sod/Tazobactam Sod (Zosyn 3.375gm Ivpb (Pre-Docked)) 50 mls @ 100 mls/hr IVPB Q8H-IV [facility] Last Admin: 08/17/16 09:43 Dose: 100 mls/hr Lidocaine (Lidoderm Patch -) 1 patch TP DAILY [facility] Last Admin: 08/17/16 09:44 Dose: 1 patch Lidocaine (Lidoderm Patch -) 1 patch TP DAILY [facility] Last Admin: 08/17/16 09:44 Dose: 1 patch Magnesium Chloride (Slow-Mag -) 64 mg PO DAILY [facility] Last Admin: 08/17/16 09:47 Dose: 64 mg Melatonin (Melatonin) 5 mg PO HS PRN PRN Reason: INSOMNIA Methylprednisolone Sodium Succinate (Solu-Medrol -) 30 mg IVPB BID [facility] Midodrine (Proamatine -) 2.5 mg PO BID-MID [facility] Last Admin: 08/17/16 09:46 Dose: 2.5 mg Mirtazapine (Remeron -) 3.75 mg PO HS [facility] Last Admin: 08/16/16 21:57 Dose: 3.75 mg Multivitamins/Minerals (Theragran-M) 1 each PO DAILY [facility] Last Admin: 08/17/16 09:46 Dose: 1 each Non-Formulary Medication (Lifitegrast [Xiidra]) 1 each OU BID [facility] Last Admin: 08/17/16 12:15 Dose: 1 each Ondansetron HCl (Zofran Injection) 4 mg IVPB Q6H PRN PRN Reason: NAUSEA Last Admin: 08/16/16 11:22 Dose: 4 mg Oseltamivir Phosphate (Tamiflu -) 30 mg PO BID [facility] Stop: 08/18/16 22:01 Pantoprazole Sodium (Protonix -) 40 mg PO DAILY [facility] Last Admin: 08/17/16 09:46 Dose: 40 mg Potassium Chloride (K-Dur -) 40 meq PO Q6HPO [facility] Last Admin: 08/17/16 12:15 Dose: 40 meq Thyroid ([place] Thyroid -) 30 mg PO BID [facility] Last Admin: 08/17/16 09:47 Dose: 30 mg - Objective Vital Signs: Vital Signs Temperature 97.8 F 08/17/16 15:00 Pulse Rate 92 H 08/17/16 15:00 Respiratory Rate 18 08/17/16 15:00 Blood Pressure 150/80 08/17/16 07:00 O2 Sat by Pulse Oximetry (%) 97 08/17/16 09:00 Constitutional: Yes: No Distress, Calm Cardiovascular: Yes: Regular Rate and Rhythm Respiratory: Yes: Regular, Rhonchi Gastrointestinal: Yes: Normal Bowel Sounds, Soft Musculoskeletal: Yes: WNL Extremities: Yes: WNL Neurological: Yes: Alert, Oriented Psychiatric: Yes: Alert Labs: CBC, BMP 08/17/16 06:15 08/17/16 06:15 Assessment/Plan This is an 81-year-old woman who presented to the ER with generalized weakness, cough, abdominal pain, nausea and vomiting. She was recently treated with Cipro followed by Cefdinir for UTI. She was found to have temp 100.2, O2 sat 90% on RA , WBC 6.9, sodium 133, potassium 2.6, BUN 21, creatinine 1.0. She is being admitted now for treatment of an emergent condition. 1. Hypokalemia 2. Hyponatremia 3. Dehydration 4. Hypoxia secondary to influenza A with pulmonary fibrosis 5. Orthostatic hypotension, adrenal insufficiency 6. Scleroderma, Sjogren syndrome, Raynaud's syndrome 7. Hypothyroidism immunocompromised - Problems (1) Acute respiratory failure with hypoxia Code(s): J96.01 - ACUTE RESPIRATORY FAILURE WITH HYPOXIA (2) Influenza A Code(s): J10.1 - FLU DUE TO OTH IDENT INFLUENZA VIRUS W OTH RESP MANIFEST (3) Pulmonary fibrosis Code(s): J84.10 - PULMONARY FIBROSIS, UNSPECIFIED (4) Scleroderma Code(s): M34.9 - SYSTEMIC SCLEROSIS, UNSPECIFIED (5) Sjoegren syndrome Code(s): M35.00 - SICCA SYNDROME, UNSPECIFIED (6) Interstitial lung disease Code(s): J84.9 - INTERSTITIAL PULMONARY DISEASE, UNSPECIFIED (7) Hypothyroid Code(s): E03.9 - HYPOTHYROIDISM, UNSPECIFIED (8) Orthostatic hypotension Code(s): I95.1 - ORTHOSTATIC HYPOTENSION plan continue to monitor if patient stable stopped abx continue incentive rg
[2016-08-17] MEDS ORDERED: PT OWN MED DRAWER 7, Y5N ONE (16:38)
[2016-08-17] MEDS: MIRTAZAPINE 15 MG TABLET (FP) PO SCH (22:48)
[2016-08-17] MEDS: FLUoxetine HCL 20 MG CAPSULE (FP) PO SCH (22:48)
[2016-08-18] MEDS ORDERED: amLODIPine BESYLATE 5 MG TABLET (FP) PO ONE ×2 (01:13→05:45)
--- NOTE | 2016-08-18 01:19 | HOSP ---
Subjective - Review of Symptoms Events since last encounter: Hospitalist Encounter Notified by RN that the patient's BP is 155-199 118-110 Per RN patient has no complaints of CP or SOB Hx Orthostatic HTN on Midodrine 2.5mg BID Norvasc 5mg po x1 now Midodrine held x 1 day secondary to HTN Continue to monitor BP 05:43- Informed by RN the BP remains elevated, 2nd dose Norvasc given Physical Examination Vital Signs: Vital Signs Temperature 98.1 F 08/18/16 00:30 Pulse Rate 93 H 08/18/16 00:30 Respiratory Rate 22 08/18/16 00:30 Blood Pressure 193/110 08/18/16 00:30 O2 Sat by Pulse Oximetry (%) 92 L 08/17/16 21:00 Labs: CBC, BMP 08/17/16 06:15 08/17/16 06:15
[2016-08-18] MEDS: ALBUTEROL SO4 0.083% IH SOL 2.5 MG/3 ML VIAL.NEB. NEB SCH ×4 (05:50→23:45)
[2016-08-18] MEDS: HEPARIN NA (PORCINE) 5,000 UNITS/ML 1ML VIAL SQ SCH ×3 (06:17→21:20)
[2016-08-18] MEDS: POTASSIUM CHLORIDE TABS 20 MEQ TABLET.ER (FP) PO SCH ×4 (06:18→17:53)
--- NOTE | 2016-08-18 08:59 | PN ---
Progress Note (short form) - Note Progress Note: Subjective: The patient was seen and examined at the bedside, she states she is feeling better today. She reports her breathing has improved. Hypertensive overnight, Norvasc 10mg given. Now BP 142/90 (my manual read). Midodrine discontinued Current Medications Generic Name Dose Route Start Last Admin Trade Name Freq PRN Reason Stop Dose Admin Acetaminophen 650 mg 08/13/16 17:17 08/14/16 09:55 Tylenol - PO 650 mg Q4H PRN Administration FEVER OR PAIN Albuterol Sulfate 1 amp 08/14/16 18:00 08/18/16 05:50 Ventolin 0.083% Nebulizer Soln - NEB 1 amp QIDR BOBBY Administration Ascorbic Acid 1,000 mg 08/13/16 22:00 08/17/16 22:53 Vitamin C - PO 1,000 mg BID BOBBY Administration Cholecalciferol 5,000 unit 08/14/16 10:00 08/17/16 09:45 Vitamin D3 - PO 5,000 unit DAILY BOBBY Administration Docusate Sodium 100 mg 08/13/16 17:13 Colace - PO BID PRN CONSTIPATION Fludrocortisone Acetate 0.15 mg 08/13/16 22:00 08/17/16 22:46 Florinef - PO 0.15 mg BID BOBBY Administration Fluoxetine HCl 20 mg 08/13/16 22:00 08/17/16 22:48 Prozac - PO 20 mg HS BOBBY Administration Heparin Sodium (Porcine) 5,000 unit 08/13/16 22:00 08/18/16 06:17 Heparin - SQ 5,000 unit TID BOBBY Administration Lidocaine 1 patch 08/14/16 17:00 08/17/16 09:44 Lidoderm Patch - TP 1 patch DAILY BOBBY Administration Lidocaine 1 patch 08/14/16 17:00 08/17/16 09:44 Lidoderm Patch - TP 1 patch DAILY BOBBY Administration Magnesium Chloride 64 mg 08/14/16 10:00 08/17/16 09:47 Slow-Mag - PO 64 mg DAILY BOBBY Administration Melatonin 5 mg 08/17/16 12:04 Melatonin PO HS PRN INSOMNIA Methylprednisolone Sodium Succinate 30 mg 08/17/16 12:00 08/17/16 22:49 Solu-Medrol - IVPB 30 mg BID BOBBY Administration Mirtazapine 3.75 mg 08/13/16 22:00 08/17/16 22:48 Remeron - PO 3.75 mg HS BOBBY Administration Multivitamins/Minerals 1 each 08/14/16 10:00 08/17/16 09:46 Theragran-M PO 1 each DAILY BOBBY Administration Non-Formulary Medication 1 each 08/16/16 22:00 08/17/16 22:48 Lifitegrast [Xiidra] OU 1 each BID BOBBY Administration Ondansetron HCl 4 mg 08/13/16 17:17 08/16/16 11:22 Zofran Injection IVPB 4 mg Q6H PRN Administration NAUSEA Oseltamivir Phosphate 30 mg 08/17/16 22:00 08/17/16 22:49 Tamiflu - PO 08/18/16 22:01 30 mg BID BOBBY Administration Pantoprazole Sodium 40 mg 08/14/16 10:00 08/17/16 09:46 Protonix - PO 40 mg DAILY BOBBY Administration Potassium Chloride 40 meq 08/16/16 18:00 08/18/16 06:18 K-Dur - PO 40 meq Q6HPO BOBBY Administration Thyroid 30 mg 08/13/16 22:00 08/17/16 22:46 [place] Thyroid - PO 30 mg BID BOBBY Administration Objective: Vital Signs Period Temp Pulse Resp BP Sys/Xavier Pulse Ox Last 24 Hr 97.7 F-98.1 F 88-96 18-22 143-203/79-118 92-97 Physical Exam: General: NAD, A&Ox3 Lungs: B/l course rhonchi. + cough Heart: RRR, S1S2 Abd: Soft, non-tender, non-distended. Normoactive bowel sounds Ext: Warm, well-perfused. 2+ DP/PT bilaterally Neuro: CN 2-12 intact CBCD WBC 16.2 K/mm3 (4.0-10.0) H 08/17/16 06:15 RBC 4.74 M/mm3 (3.60-5.2) 08/17/16 06:15 Hgb 13.3 GM/dL (10.7-15.3) 08/17/16 06:15 Hct 40.7 % (32.4-45.2) 08/17/16 06:15 MCV 85.9 fl (80-96) 08/17/16 06:15 MCHC 32.6 g/dl (32.0-36.0) 08/17/16 06:15 RDW 17.1 % (11.6-15.6) H 08/17/16 06:15 Plt Count 217 K/MM3 (134-434) 08/17/16 06:15 MPV 8.1 fl (7.5-11.1) D 08/17/16 06:15 CMP Sodium 142 mmol/L (136-145) 08/17/16 06:15 Potassium 3.7 mmol/L (3.5-5.1) 08/17/16 06:15 Chloride 101 mmol/L (98-107) 08/17/16 06:15 Carbon Dioxide 30 mmol/L (21-32) 08/17/16 06:15 Anion Gap 11 (8-16) 08/17/16 06:15 BUN 10 mg/dL (7-18) 08/17/16 06:15 Creatinine 0.8 mg/dL (0.55-1.02) 08/17/16 06:15 Creat Clearance w eGFR > 60 (>60) 08/17/16 06:15 Random Glucose 134 mg/dL (74-106) H 08/17/16 06:15 Calcium 8.7 mg/dL (8.5-10.1) 08/17/16 06:15 Total Bilirubin 0.4 mg/dL (0.2-1.0) D 08/17/16 06:15 AST 26 U/L (15-37) 08/17/16 06:15 ALT 15 U/L (12-78) 08/17/16 06:15 Alkaline Phosphatase 90 U/L (45-117) 08/17/16 06:15 Total Protein 6.6 g/dl (6.4-8.2) 08/17/16 06:15 Albumin 3.0 g/dl (3.4-5.0) L 08/17/16 06:15 CARDIAC ENZYMES Creatine Kinase 98 IU/L (26-192) 08/13/16 15:00 Troponin I 0.02 ng/ml (0.00-0.05) 08/13/16 15:00 Microbiology 08/13/16 15:00 Urine - Urine Clean Catch Urine Culture - Final NO GROWTH OBTAINED 08/13/16 15:00 Nasopharyngeal Swab Influenza Types A,B Antigen (ANTIONETTE) - Final. Influenza A positive 08/13/16 15:00 Nasopharyngeal Swab - Final Imaging: Chest x-ray: Chronic interstitial lung disease. No acute process. Assessment: This is an 81 year old female with PMHx of pulmonary fibrosis, achalasia s/p botox treatment (October 2015), aspiration pneumonia (October 2015), Sjogrens, Raynauds, hypothyroidism, adrenal insufficiency, orthostatic hypotension, scleroderma, T12 compression fracture, and frequent falls who presented to the ED with generalized weakness and was found to have influenza A. Plan: 1) Pulmonary: Acute hypoxic respiratory failure 08/14 influenza A and complicated by pulmonary fibrosis - Patient requiring more O2 via NC today, continue to wean down - Continue Tamiflu - Zosyn 08/14-08/17 - Keep O2 saturation >90% - Continue Solu-medrol, taper per pulmonary - Will need per/post O2 prior to discharge - Chest PT bid - Appreciate pulmonary consult - Appreciate ID consult 2) Cardiology: Orthostatic hypotension - Now with hypertension during hospitalization - Stop Midodrine - Given Norvasc 10mg po this AM - BP now 142/90 - Continue to monitor closely - Orthostatics 3) Neuro: B/l lower rib pain - Improving with Lidoderm patches 4) Scleroderma, Sjogren syndrome, Raynaud's syndrome - Stable 5) Endocrine: Hypothyroidism - Continue [place] thyroid 6) F/E/N: - Dysphagia chopped - Monitor electrolytes 7) Prophylaxis: - Heparin 5,000u sq tid - PT 8) Dispo: - Requires continued inpatient care CODE STATUS: FULL CODE Visit type - Emergency Visit Emergency Visit: Yes ED Registration Date: 08/13/16 Care time: The patient presented to the Emergency Department on the above date and was hospitalized for further evaluation of their emergent condition. - New Patient This patient is new to me today: Yes Date on this admission: 08/18/16 - Critical Care Critical Care patient: No
[2016-08-18] MEDS: ASCORBIC ACID 500 MG TABLET (FP) PO SCH ×2 (10:21→21:20)
[2016-08-18] MEDS: PANTOPRAZOLE 40 MG TABLET (FP) PO SCH (10:22)
[2016-08-18] MEDS: methylPREDNISolone NA SUCC 40 MG/1 ML VIAL IVPB SCH (10:22)
[2016-08-18] MEDS: THYROID 30 MG TABLET PO SCH ×2 (10:22→21:21)
[2016-08-18] MEDS: FLUDROCORTISONE ACETATE 0.1 MG TABLET (FP) PO SCH ×2 (10:22→21:13)
[2016-08-18] MEDS: OSELTAMIVIR PHOSPHATE 30 MG CAPSULE PO SCH ×2 (10:22→21:18)
[2016-08-18] MEDS: LIDOCAINE 5% TOPICAL PATCH TP SCH ×2 (10:22→10:23)
[2016-08-18] MEDS: MULTIVITAMINS THER W-MINERALS COMBO TABLET (FP) PO SCH (10:23)
[2016-08-18] MEDS: CHOLECALCIFEROL (VITAMIN D3) 1,000 UNIT TABLET (FP) PO SCH (10:23)
[2016-08-18] MEDS: MAGNESIUM CL 64 MG TABLET.SA PO SCH (10:23)
--- NOTE | 2016-08-18 11:25 | PN ---
Progress Note (short form) - Note Progress Note: PULMONARY/CCM Pt more short of breath this AM. Hypertensive overnight to 180s/110. +cough and wheezing. No fevers recorded. Saturating 93% on 50% ventimask. Tachypneic at rest. Last Vital Signs Temp Pulse Resp BP Pulse Ox 98.0 F 95 H 22 182/110 92 L 08/18/16 01:30 08/18/16 05:41 08/18/16 01:30 08/18/16 05:41 08/17/16 21:00 Intake & Output 08/15/16 08/16/16 08/17/16 08/18/16 23:59 23:59 23:59 23:59 Intake Total 2966 1813 50 0 Balance 2966 1813 50 0 Weight 104 lb 12.8 oz 106 lb 1 oz 106 lb 6 oz 101 lb 6 oz Gen: tachypneic at rest with SCM retractions Heart: RRR Lung: diffuse rhonchi, wheezes Abd: soft, nontender Ext: no edema CBC, BMP 08/17/16 06:15 08/17/16 06:15 Active Medications Acetaminophen (Tylenol -) 650 mg PO Q4H PRN PRN Reason: FEVER OR PAIN Last Admin: 08/14/16 09:55 Dose: 650 mg Albuterol Sulfate (Ventolin 0.083% Nebulizer Soln -) 1 amp NEB QIDR [facility] Last Admin: 08/18/16 05:50 Dose: 1 amp Ascorbic Acid (Vitamin C -) 1,000 mg PO BID [facility] Last Admin: 08/18/16 10:21 Dose: 1,000 mg Cholecalciferol (Vitamin D3 -) 5,000 unit PO DAILY [facility] Last Admin: 08/18/16 10:23 Dose: 5,000 unit Docusate Sodium (Colace -) 100 mg PO BID PRN PRN Reason: CONSTIPATION Fludrocortisone Acetate (Florinef -) 0.15 mg PO BID [facility] Last Admin: 08/18/16 10:22 Dose: 0.15 mg Fluoxetine HCl (Prozac -) 20 mg PO HS [facility] Last Admin: 08/17/16 22:48 Dose: 20 mg Heparin Sodium (Porcine) (Heparin -) 5,000 unit SQ TID [facility] Last Admin: 08/18/16 06:17 Dose: 5,000 unit Lidocaine (Lidoderm Patch -) 1 patch TP DAILY [facility] Last Admin: 08/18/16 10:22 Dose: 1 patch Lidocaine (Lidoderm Patch -) 1 patch TP DAILY [facility] Last Admin: 08/18/16 10:23 Dose: 1 patch Magnesium Chloride (Slow-Mag -) 64 mg PO DAILY [facility] Last Admin: 08/18/16 10:23 Dose: 64 mg Melatonin (Melatonin) 5 mg PO HS PRN PRN Reason: INSOMNIA Methylprednisolone Sodium Succinate (Solu-Medrol -) 30 mg IVPB TID [facility] Mirtazapine (Remeron -) 3.75 mg PO HS [facility] Last Admin: 08/17/16 22:48 Dose: 3.75 mg Multivitamins/Minerals (Theragran-M) 1 each PO DAILY [facility] Last Admin: 08/18/16 10:23 Dose: 1 each Non-Formulary Medication (Lifitegrast [Xiidra]) 1 each OU BID [facility] Last Admin: 08/17/16 22:48 Dose: 1 each Ondansetron HCl (Zofran Injection) 4 mg IVPB Q6H PRN PRN Reason: NAUSEA Last Admin: 08/16/16 11:22 Dose: 4 mg Oseltamivir Phosphate (Tamiflu -) 30 mg PO BID [facility] Stop: 08/18/16 22:01 Last Admin: 08/18/16 10:22 Dose: 30 mg Pantoprazole Sodium (Protonix -) 40 mg PO DAILY [facility] Last Admin: 08/18/16 10:22 Dose: 40 mg Potassium Chloride (K-Dur -) 40 meq PO Q6HPO [facility] Last Admin: 08/18/16 06:18 Dose: 40 meq Thyroid ([place] Thyroid -) 30 mg PO BID [facility] Last Admin: 08/18/16 10:22 Dose: 30 mg A/P Acute Hypoxic Respiratory Failure Influenza A Interstitial Lung Disease Scleroderma/Sjogren Syndrome Adrenal Insufficiency Hypertensive Urgency overnight - ?Acute Pulmonary Edema - stat CXR - will increase medrol empirically - will give lasix if CXR showing congestion - continue tamiflu - O2 to keep SpO2 >90% - may need BiPAP to assist in work of breathing - low threshold for ICU transfer - DVT prophylaxis Problem List - Problems (1) Acute respiratory failure with hypoxia Code(s): J96.01 - ACUTE RESPIRATORY FAILURE WITH HYPOXIA (2) Influenza A Code(s): J10.1 - FLU DUE TO OTH IDENT INFLUENZA VIRUS W OTH RESP MANIFEST (3) Pulmonary fibrosis Code(s): J84.10 - PULMONARY FIBROSIS, UNSPECIFIED (4) Scleroderma Code(s): M34.9 - SYSTEMIC SCLEROSIS, UNSPECIFIED (5) Sjoegren syndrome Code(s): M35.00 - SICCA SYNDROME, UNSPECIFIED (6) Interstitial lung disease Code(s): J84.9 - INTERSTITIAL PULMONARY DISEASE, UNSPECIFIED (7) Hypothyroid Code(s): E03.9 - HYPOTHYROIDISM, UNSPECIFIED (8) Orthostatic hypotension Code(s): I95.1 - ORTHOSTATIC HYPOTENSION
[2016-08-18] MEDS ORDERED: FUROSEMIDE 40 MG/4 ML INJECTABLE VIAL IVPUSH ONE (11:32)
[2016-08-18] MEDS: PATIENT'S OWN MEDICATION (NON-FORMULARY) (Lifitegrast [Xiidra] 1 EACH) OU SCH ×2 (12:33→21:20)
[2016-08-18] MEDS ORDERED: PIPERACILLIN/TAZOB 3.375 GM/50 ML PRE-DOCKED IVPB ONE (13:15)
[2016-08-18] MEDS ORDERED: PT OWN MED DRAWER 7, Y5N ONE ×2 (13:44→21:10)
[2016-08-18] MEDS ORDERED: methylPREDNISolone NA SUCC 40 MG/1 ML VIAL IVPB SCH (14:00)
[2016-08-18] MEDS ORDERED: ONDANSETRON 4 MG/2 ML VIAL IVPB PRN (14:48)
[2016-08-18] MEDS ORDERED: DOCUSATE SODIUM 100 MG CAPSULE (FP) PO PRN (14:48)
[2016-08-18] MEDS ORDERED: ACETAMINOPHEN 325 MG TABLET (FP) PO PRN (14:48)
[2016-08-18] MEDS: PIPERACILLIN/TAZOB 3.375 GM 50 ML IVPB SCH (17:39)
[2016-08-18] MEDS: methylPREDNISolone NA SUCC 125 MG/2 ML VIAL IVPB SCH (17:40)
--- NOTE | 2016-08-18 17:44 | PN ---
Progress Note, Physician History of Present Illness: events noted patient suddenly became hypoxic was not able to talk was transferred to icu on venti mask now on 50 percent still sob but feeling better icu thought there might be pul congestion, xray showin bilateral increased infiltrates patient was given diuretic - Current Medication List Current Medications: Active Medications Acetaminophen (Tylenol -) 650 mg PO Q4H PRN PRN Reason: FEVER OR PAIN Albuterol Sulfate (Ventolin 0.083% Nebulizer Soln -) 1 amp NEB QIDR BOBBY Ascorbic Acid (Vitamin C -) 1,000 mg PO BID BOBBY Cholecalciferol (Vitamin D3 -) 5,000 unit PO DAILY BOBBY Docusate Sodium (Colace -) 100 mg PO BID PRN PRN Reason: CONSTIPATION Fludrocortisone Acetate (Florinef -) 0.15 mg PO BID BOBBY Fluoxetine HCl (Prozac -) 20 mg PO HS [facility] Heparin Sodium (Porcine) (Heparin -) 5,000 unit SQ TID BOBBY Piperacillin Sod/Tazobactam Sod (Zosyn 3.375gm Ivpb (Pre-Docked)) 50 mls @ 100 mls/hr IVPB Q8H-IV [facility] Lidocaine (Lidoderm Patch -) 1 patch TP DAILY [facility] Lidocaine (Lidoderm Patch -) 1 patch TP DAILY [facility] Magnesium Chloride (Slow-Mag -) 64 mg PO DAILY [facility] Melatonin (Melatonin) 5 mg PO HS PRN PRN Reason: INSOMNIA Methylprednisolone Sodium Succinate (Solu-Medrol -) 60 mg IVPB Q8H-IV [facility] Mirtazapine (Remeron -) 3.75 mg PO HS [facility] Multivitamins/Minerals (Theragran-M) 1 each PO DAILY [facility] Non-Formulary Medication (Lifitegrast [Xiidra]) 1 each OU BID [facility] Ondansetron HCl (Zofran Injection) 4 mg IVPB Q6H PRN PRN Reason: NAUSEA Oseltamivir Phosphate (Tamiflu -) 30 mg PO BID BOBBY Stop: 08/18/16 22:01 Oseltamivir Phosphate (Tamiflu -) 30 mg PO BID BOBBY Stop: 08/19/16 22:01 Pantoprazole Sodium (Protonix -) 40 mg PO DAILY [facility] Potassium Chloride (K-Dur -) 40 meq PO Q6HPO BOBBY Thyroid ([place] Thyroid -) 30 mg PO BID BOBBY - Objective Vital Signs: Vital Signs Temperature 97.2 F L 08/18/16 14:30 Pulse Rate 94 H 08/18/16 16:10 Respiratory Rate 22 08/18/16 16:10 Blood Pressure 145/96 08/18/16 16:10 O2 Sat by Pulse Oximetry (%) 95 08/18/16 14:23 Constitutional: Yes: Calm, Mild Distress HENT: Yes: Atraumatic Neck: Yes: Supple Cardiovascular: Yes: Regular Rate and Rhythm Respiratory: Yes: On Venti-Mask, Poor Air Entry, Rhonchi, Other (crackles diffuse) Gastrointestinal: Yes: Normal Bowel Sounds, Soft Musculoskeletal: Yes: WNL Extremities: Yes: WNL Neurological: Yes: Alert, Oriented Psychiatric: Yes: Alert, Oriented Labs: CBC, BMP 08/17/16 06:15 08/17/16 06:15 Assessment/Plan This is an 81-year-old woman who presented to the ER with generalized weakness, cough, abdominal pain, nausea and vomiting. She was recently treated with Cipro followed by Cefdinir for UTI. She was found to have temp 100.2, O2 sat 90% on RA , WBC 6.9, sodium 133, potassium 2.6, BUN 21, creatinine 1.0. She is being admitted now for treatment of an emergent condition. 1. Hypokalemia 2. Hyponatremia 3. Dehydration 4. Hypoxia secondary to influenza A with pulmonary fibrosis 5. Orthostatic hypotension, adrenal insufficiency 6. Scleroderma, Sjogren syndrome, Raynaud's syndrome 7. Hypothyroidism immunocompromised - Problems (1) Acute respiratory failure with hypoxia Code(s): J96.01 - ACUTE RESPIRATORY FAILURE WITH HYPOXIA (2) Influenza A Code(s): J10.1 - FLU DUE TO OTH IDENT INFLUENZA VIRUS W OTH RESP MANIFEST (3) Pulmonary fibrosis Code(s): J84.10 - PULMONARY FIBROSIS, UNSPECIFIED (4) Scleroderma Code(s): M34.9 - SYSTEMIC SCLEROSIS, UNSPECIFIED (5) Sjoegren syndrome Code(s): M35.00 - SICCA SYNDROME, UNSPECIFIED (6) Interstitial lung disease Code(s): J84.9 - INTERSTITIAL PULMONARY DISEASE, UNSPECIFIED (7) Hypothyroid Code(s): E03.9 - HYPOTHYROIDISM, UNSPECIFIED (8) Orthostatic hypotension Code(s): I95.1 - ORTHOSTATIC HYPOTENSION resp failure looking at her xray and the symptoms the patient could have congestion as well as new infiltrates also one thing which is worrying me is does the patient have PJP pneumonia plan i have restarted iv abx close watch on the patient if does not improve ct scan of the chest i have send b-d glucan if continues to remain hypoxic might consider adding abx incentive rg rest as per primary cc time 45 min
[2016-08-18] MEDS ORDERED: POTASSIUM CHLORIDE 40 MEQ/30 ML UNIT DOSE CUP PO SCH (18:00)
[2016-08-18] MEDS ORDERED: methylPREDNISolone NA SUCC 125 MG/2 ML VIAL IVPB SCH (18:00)
[2016-08-18] MEDS ORDERED: PIPERACILLIN/TAZOB 3.375 GM/50 ML PRE-DOCKED IVPB SCH ×2 (18:00)
[2016-08-18] MEDS: FLUoxetine HCL 20 MG CAPSULE (FP) PO SCH (21:17)
[2016-08-18] MEDS: MIRTAZAPINE 15 MG TABLET (FP) PO SCH (21:18)
[2016-08-18] MEDS ORDERED: MELATONIN 5 MG TABLETS PO PRN (22:00)
[2016-08-18] MEDS ORDERED: OSELTAMIVIR PHOSPHATE 30 MG CAPSULE PO SCH (22:00)
[2016-08-19] MEDS: methylPREDNISolone NA SUCC 125 MG/2 ML VIAL IVPB SCH ×3 (01:07→17:01)
[2016-08-19] MEDS: PIPERACILLIN/TAZOB 3.375 GM 50 ML IVPB SCH ×3 (01:08→17:00)
[2016-08-19 05:40] LABS: MCH 28.1 pg (25.7-33.7); MCHC 32.7 g/dl (32.0-36.0); MEAN CELL VOLUME 85.8 fl (80-96); PLATELET COUNT 238 K/MM3 (134-434); RDW 17.5 % (11.6-15.6); WHITE BLOOD COUNT 14.9 K/mm3 (4.0-10.0)
[2016-08-19 06:00] LABS: CALCIUM 8.9 mg/dL (8.5-10.1); MAGNESIUM 1.9 mg/dL (1.8-2.4); PHOSPHOROUS 3.1 mg/dL (2.5-4.9)
[2016-08-19] MEDS: HEPARIN NA (PORCINE) 5,000 UNITS/ML 1ML VIAL SQ SCH ×3 (06:09→21:54)
[2016-08-19] MEDS: ALBUTEROL SO4 0.083% IH SOL 2.5 MG/3 ML VIAL.NEB. NEB SCH ×4 (06:31→23:04)
[2016-08-19 07:40] LABS: ARTERIAL BLD GAS O2 SATURATION 81.6 % (90-98.9); ARTERIAL BLOOD GAS BASE EXCESS 5.4 meq/l (-2-2)
[2016-08-19 07:46] LABS: ALLENS TEST POSITIVE; ART PUNCT SITE LEFT RADIAL; PT. ON O2? YES
[2016-08-19 07:47] LABS: ARTERIAL BLOOD GAS PO2 42.6 mmHg (68-100); ARTERIAL BLOOD GAS pH 7.52 (7.35-7.45); LPM/O2% 3L; TYPE OF O2 NASAL
[2016-08-19] MEDS ORDERED: PT OWN MED DRAWER 7, Y5N ONE ×3 (10:00→22:51)
[2016-08-19] MEDS: FLUDROCORTISONE ACETATE 0.1 MG TABLET (FP) PO SCH ×2 (10:38→21:56)
[2016-08-19] MEDS: POTASSIUM CHLORIDE 40 MEQ/30 ML UNIT DOSE CUP PO SCH (10:38)
[2016-08-19] MEDS: THYROID 30 MG TABLET PO SCH ×2 (10:38→22:50)
[2016-08-19] MEDS: LIDOCAINE 5% TOPICAL PATCH TP SCH ×2 (10:39→10:40)
[2016-08-19] MEDS: PANTOPRAZOLE 40 MG TABLET (FP) PO SCH (10:41)
[2016-08-19] MEDS: PATIENT'S OWN MEDICATION (NON-FORMULARY) (Lifitegrast [Xiidra] 1 EACH) OU SCH ×2 (10:41→22:03)
[2016-08-19] MEDS: MAGNESIUM CL 64 MG TABLET.SA PO SCH (10:41)
[2016-08-19] MEDS: MULTIVITAMINS THER W-MINERALS COMBO TABLET (FP) PO SCH (10:42)
[2016-08-19] MEDS: OSELTAMIVIR PHOSPHATE 30 MG CAPSULE PO SCH ×2 (10:42→21:55)
[2016-08-19] MEDS: ASCORBIC ACID 500 MG TABLET (FP) PO SCH ×2 (10:42→21:54)
[2016-08-19] MEDS: CHOLECALCIFEROL (VITAMIN D3) 1,000 UNIT TABLET (FP) PO SCH (10:42)
--- NOTE | 2016-08-19 11:36 | PN ---
Physical Exam: SUBJECTIVE: Patient seen and examined at bedside on venti mask 50%, able to speak in full sentences with slight difficulty. She states she is feeling better , and denies headache, dizziness, light headedness or vertigo, chest pain, nausea/vomiting/diarrhea. OBJECTIVE: Vital Signs Period Temp Pulse Resp BP Sys/Xavier Pulse Ox Last 24 Hr 97.2 F-98.3 F 86-102 18-26 100-154/67-98 90-97 GENERAL: The patient is awake, alert, and oriented to person and place, in no acute distress. LUNGS: Bilateral rhonchi to auscultation bilaterally. HEART: Regular rate and rhythm, S1, S2 ABDOMEN: Soft, nontender, nondistended, normoactive bowel sounds. EXTREMITIES: [place], warm, dry, no edema, capillary refill 3 seconds. NEUROLOGICAL: Cranial nerves II through XII grossly intact. Normal slow with breathing, gait not observed. PSYCH: Normal mood, normal affect. SKIN: Warm, dry, poor turgor CBCD WBC 14.9 K/mm3 (4.0-10.0) H 08/19/16 05:00 RBC 4.37 M/mm3 (3.60-5.2) 08/19/16 05:00 Hgb 12.3 GM/dL (10.7-15.3) 08/19/16 05:00 Hct 37.5 % (32.4-45.2) 08/19/16 05:00 MCV 85.8 fl (80-96) 08/19/16 05:00 MCHC 32.7 g/dl (32.0-36.0) 08/19/16 05:00 RDW 17.5 % (11.6-15.6) H 08/19/16 05:00 Plt Count 238 K/MM3 (134-434) 08/19/16 05:00 MPV 8.0 fl (7.5-11.1) 08/19/16 05:00 CMP Sodium 143 mmol/L (136-145) 08/19/16 05:00 Potassium 4.3 mmol/L (3.5-5.1) 08/19/16 05:00 Chloride 98 mmol/L (98-107) 08/19/16 05:00 Carbon Dioxide 31 mmol/L (21-32) 08/19/16 05:00 Anion Gap 14 (8-16) 08/19/16 05:00 BUN 21 mg/dL (7-18) H D 08/19/16 05:00 Creatinine 1.0 mg/dL (0.55-1.02) D 08/19/16 05:00 Creat Clearance w eGFR > 60 (>60) 08/17/16 06:15 Random Glucose 138 mg/dL (74-106) H 08/19/16 05:00 Calcium 8.9 mg/dL (8.5-10.1) 08/19/16 05:00 Total Bilirubin 0.4 mg/dL (0.2-1.0) D 08/17/16 06:15 AST 26 U/L (15-37) 08/17/16 06:15 ALT 15 U/L (12-78) 08/17/16 06:15 Alkaline Phosphatase 90 U/L (45-117) 08/17/16 06:15 Total Protein 6.6 g/dl (6.4-8.2) 08/17/16 06:15 Albumin 3.0 g/dl (3.4-5.0) L 08/17/16 06:15 CARDIAC ENZYMES Creatine Kinase 98 IU/L (26-192) 08/13/16 15:00 Troponin I 0.02 ng/ml (0.00-0.05) 08/13/16 15:00 Laboratory Results - last 24 hr 08/19/16 08/19/16 08/19/16 05:00 05:00 07:25 WBC 14.9 H RBC 4.37 Hgb 12.3 Hct 37.5 MCV 85.8 MCHC 32.7 RDW 17.5 H Plt Count 238 MPV 8.0 Puncture Site Left radial ABG pH 7.52 H ABG pCO2 at Pt Temp 34.9 L ABG pO2 at Pt Temp 42.6 L* ABG HCO3 28.0 H ABG O2 Sat (Measured) 81.6 L ABG O2 Content 14.5 L ABG Base Excess 5.4 H [place] Test Positive O2 Delivery Device Nasal Oxygen Flow Rate 3l PEEP 0.0 Sodium 143 Potassium 4.3 Chloride 98 Carbon Dioxide 31 Anion Gap 14 BUN 21 H D Creatinine 1.0 D Random Glucose 138 H Calcium 8.9 Phosphorus 3.1 D Magnesium 1.9 Active Medications Generic Name Dose Route Start Last Admin Trade Name Freq PRN Reason Stop Dose Admin Acetaminophen 650 mg 08/18/16 14:48 Tylenol - PO Q4H PRN FEVER OR PAIN Albuterol Sulfate 1 amp 08/18/16 18:00 08/19/16 06:31 Ventolin 0.083% Nebulizer Soln - NEB 1 amp QIDR BOBBY Administration Ascorbic Acid 1,000 mg 08/18/16 22:00 08/19/16 10:42 Vitamin C - PO 1,000 mg BID BOBBY Administration Cholecalciferol 5,000 unit 08/19/16 10:00 08/19/16 10:42 Vitamin D3 - PO 5,000 unit DAILY BOBBY Administration Docusate Sodium 100 mg 08/18/16 14:48 Colace - PO BID PRN CONSTIPATION Fludrocortisone Acetate 0.15 mg 08/18/16 22:00 08/19/16 10:38 Florinef - PO 0.15 mg BID BOBBY Administration Fluoxetine HCl 20 mg 08/18/16 22:00 08/18/16 21:17 Prozac - PO 20 mg HS BOBBY Administration Heparin Sodium (Porcine) 5,000 unit 08/18/16 22:00 08/19/16 06:09 Heparin - SQ 5,000 unit TID BOBBY Administration Piperacillin Sod/Tazobactam Sod 50 mls @ 100 mls/hr 08/18/16 18:00 08/19/16 10: 43 Zosyn 3.375gm Ivpb (Pre-Docked) IVPB 100 mls/hr Q8H-IV BOBBY Administration Lidocaine 1 patch 08/19/16 10:00 08/19/16 10:39 Lidoderm Patch - TP 1 patch DAILY BOBBY Administration Lidocaine 1 patch 08/19/16 10:00 08/19/16 10:40 Lidoderm Patch - TP 1 patch DAILY [facility]BY Administration Magnesium Chloride 64 mg 08/19/16 10:00 08/19/16 10:41 Slow-Mag - PO 64 mg DAILY [facility] Administration Melatonin 5 mg 08/18/16 22:00 Melatonin PO HS PRN INSOMNIA Methylprednisolone Sodium Succinate 60 mg 08/18/16 18:00 08/19/16 10:41 Solu-Medrol - IVPB 60 mg Q8H-IV [facility]OBBY Administration Mirtazapine 3.75 mg 08/18/16 22:00 08/18/16 21:18 Remeron - PO 3.75 mg HS BOBBY Administration Multivitamins/Minerals 1 each 08/19/16 10:00 08/19/16 10:42 Theragran-M PO 1 each DAILY [facility]BY Administration Non-Formulary Medication 1 each 08/18/16 22:00 08/19/16 10:41 Lifitegrast [Xiidra] OU 1 each BID [facility] Administration Ondansetron HCl 4 mg 08/18/16 14:48 Zofran Injection IVPB Q6H PRN NAUSEA Oseltamivir Phosphate 30 mg 08/18/16 22:00 08/19/16 10:42 Tamiflu - PO 08/19/16 22:01 30 mg BID BOBBY Administration Pantoprazole Sodium 40 mg 08/19/16 10:00 08/19/16 10:41 Protonix - PO 40 mg DAILY BOBBY Administration Potassium Chloride 40 meq 08/19/16 10:00 08/19/16 10:38 Kcl Oral Solution - PO 40 meq DAILY BOBBY Administration Thyroid 30 mg 08/18/16 22:00 08/19/16 10:38 [place] Thyroid - PO 30 mg BID BOBBY Administration Microbiology 08/13/16 15:00 Urine - Urine Clean Catch Urine Culture - Final NO GROWTH OBTAINED 08/13/16 15:00 Nasopharyngeal Swab Influenza Types A,B Antigen (ANTIONETTE) - Final 08/13/16 15:00 Nasopharyngeal Swab - Final Imaging 08/18/16 - Extensive bilateral interstitial thickening is seen with interval patchy air disc space disease is seen in the left and to a lesser extent right upper lobe is suggestive of super imposed pneumonic infiltrates. 08/19/16 - Extensive bilateral interstitial thickening with patchy air disc space disease in the upper lobes is noted again. ASSESSMENT: This is a 81 year old female with a PMHx of pulmonary fibrosis, achalasia (s/p botox in 2016), aspiration pneumonia (2016), Sjogrens, Raynauds, hypothyroidism , adrenal insufficiency, orthostatic hypotension, scleroderma, T12 compression fraction, and frequent falls; presented to the ED with generalized weakness, and was found to have Influenza A. PLAN: Pulmonary: Acute hypoxic respiratory failure d/t influenza A and complicated by pulmonary fibrosis - Pt advanced from 3L/NC to Venti Mask 50% this morning (desaturated to 90%) - Influenza A antigen was detected - If pt continues to desaturate on Venti Mask, advance to high flow NC - Keep oxygen saturation > 90% - Continue Tamiflu - Continue Solumedrol 60 mg IVPB q8h - Zosyn continued (d/c on 08/17 and restarted on 08/18) - Follow up ABG - Chest PT BID Cardiology: Orthostatic Hypotension - Hypertension resolved - Continue to monitor closely - Orthostatic vital signs - Hold midodrine, will restart if patient becomes hypotensive Renal: - BUN increased from 10 to 21, Creatinine increased from 0.8 to 1.0 post lasix - Monitor labs closely Endocrine: Hypothyroidism - Continue [place] thyroid Sclerodoma, Sjogren syndrome, Raynaud's syndrome: - Stable F/E/N: - Advance diet from thin liquids - Replete as needed Propylaxis: - Heparin SQ 5000 units TID - Physical Therapy Dispo: - Requires continued ICU care CODE STATUS: FULL CODE Visit type - Emergency Visit Emergency Visit: Yes ED Registration Date: 08/13/16 Care time: The patient presented to the Emergency Department on the above date and was hospitalized for further evaluation of their emergent condition. - New Patient This patient is new to me today: No - Critical Care Critical Care patient: Yes Total Critical Care Time (in minutes): 45 Critical Care Statement: The care of this patient involved high complexity decision making to prevent further life threatening deterioration of the patient 's condition and/or to evalute & treat vital organ system(s) failure or risk of failure.
--- NOTE | 2016-08-19 12:07 | PN ---
Teaching Attending Note Name of Resident: Juanpablo Rai ATTENDING PHYSICIAN STATEMENT I saw and evaluated the patient. I reviewed the resident's note and discussed the case with the resident. I agree with the resident's findings and plan as documented. SUBJECTIVE: Patient seen and examined in the ICU. Transferred last night due increased SOB and hypoxemia. Awake and alert on VM O2. Congested cough with copius yellow/greenish sputum. Intake & Output 08/16/16 08/17/16 08/18/16 08/19/16 23:59 23:59 23:59 23:59 Intake Total 1813 50 650 100 Balance 1813 50 650 100 Weight 106 lb 1 oz 106 lb 6 oz 106 lb 8 oz 106 lb 4 oz Last Vital Signs Temp Pulse Resp BP Pulse Ox 98.0 F 97 H 18 114/78 97 08/19/16 12:00 08/19/16 12:00 08/19/16 12:00 08/19/16 12:00 08/19/16 09:15 Active Medications Acetaminophen (Tylenol -) 650 mg PO Q4H PRN PRN Reason: FEVER OR PAIN Albuterol Sulfate (Ventolin 0.083% Nebulizer Soln -) 1 amp NEB QIDR [facility] Last Admin: 08/19/16 10:45 Dose: 1 amp Ascorbic Acid (Vitamin C -) 1,000 mg PO BID [facility] Last Admin: 08/19/16 10:42 Dose: 1,000 mg Cholecalciferol (Vitamin D3 -) 5,000 unit PO DAILY [facility] Last Admin: 08/19/16 10:42 Dose: 5,000 unit Docusate Sodium (Colace -) 100 mg PO BID PRN PRN Reason: CONSTIPATION Fludrocortisone Acetate (Florinef -) 0.15 mg PO BID [facility] Last Admin: 08/19/16 10:38 Dose: 0.15 mg Fluoxetine HCl (Prozac -) 20 mg PO HS [facility] Last Admin: 08/18/16 21:17 Dose: 20 mg Heparin Sodium (Porcine) (Heparin -) 5,000 unit SQ TID [facility] Last Admin: 08/19/16 06:09 Dose: 5,000 unit Piperacillin Sod/Tazobactam Sod (Zosyn 3.375gm Ivpb (Pre-Docked)) 50 mls @ 100 mls/hr IVPB Q8H-IV [facility] Last Admin: 08/19/16 10:43 Dose: 100 mls/hr Lidocaine (Lidoderm Patch -) 1 patch TP DAILY [facility] Last Admin: 08/19/16 10:39 Dose: 1 patch Lidocaine (Lidoderm Patch -) 1 patch TP DAILY [facility] Last Admin: 08/19/16 10:40 Dose: 1 patch Magnesium Chloride (Slow-Mag -) 64 mg PO DAILY [facility] Last Admin: 08/19/16 10:41 Dose: 64 mg Melatonin (Melatonin) 5 mg PO HS PRN PRN Reason: INSOMNIA Methylprednisolone Sodium Succinate (Solu-Medrol -) 60 mg IVPB Q8H-IV [facility] Last Admin: 08/19/16 10:41 Dose: 60 mg Mirtazapine (Remeron -) 3.75 mg PO HS [facility] Last Admin: 08/18/16 21:18 Dose: 3.75 mg Multivitamins/Minerals (Theragran-M) 1 each PO DAILY [facility] Last Admin: 08/19/16 10:42 Dose: 1 each Non-Formulary Medication (Lifitegrast [Xiidra]) 1 each OU BID [facility] Last Admin: 08/19/16 10:41 Dose: 1 each Ondansetron HCl (Zofran Injection) 4 mg IVPB Q6H PRN PRN Reason: NAUSEA Oseltamivir Phosphate (Tamiflu -) 30 mg PO BID [facility] Stop: 08/19/16 22:01 Last Admin: 08/19/16 10:42 Dose: 30 mg Pantoprazole Sodium (Protonix -) 40 mg PO DAILY [facility] Last Admin: 08/19/16 10:41 Dose: 40 mg Potassium Chloride (Kcl Oral Solution -) 40 meq PO DAILY [facility] Last Admin: 08/19/16 10:38 Dose: 40 meq Thyroid ([place] Thyroid -) 30 mg PO BID [facility] Last Admin: 08/19/16 10:38 Dose: 30 mg Constitutional: Yes: Thin, Mildly tachypneic Eyes: Yes: WNL HENT: Yes: WNL, Other Cardiovascular: Yes: Regular Rate and Rhythm, S1, S2 Respiratory: Yes: (+) congested cough, bilateral coarse Rhonchi, no wheeze Gastrointestinal: Yes: Normal Bowel Sounds, Soft Extremities: Yes: WNL Edema: No Labs: Laboratory Results - last 24 hr 08/19/16 08/19/16 08/19/16 05:00 05:00 07:25 WBC 14.9 H RBC 4.37 Hgb 12.3 Hct 37.5 MCV 85.8 MCHC 32.7 RDW 17.5 H Plt Count 238 MPV 8.0 Puncture Site Left radial ABG pH 7.52 H ABG pCO2 at Pt Temp 34.9 L ABG pO2 at Pt Temp 42.6 L* ABG HCO3 28.0 H ABG O2 Sat (Measured) 81.6 L ABG O2 Content 14.5 L ABG Base Excess 5.4 H Francisco Test Positive O2 Delivery Device Nasal Oxygen Flow Rate 3l PEEP 0.0 Sodium 143 Potassium 4.3 Chloride 98 Carbon Dioxide 31 Anion Gap 14 BUN 21 H D Creatinine 1.0 D Random Glucose 138 H Calcium 8.9 Phosphorus 3.1 D Magnesium 1.9 Assessment/Plan Problem List - Problems (1) Acute respiratory failure with hypoxia Code(s): J96.01 - ACUTE RESPIRATORY FAILURE WITH HYPOXIA (2) Influenza A Code(s): J10.1 - FLU DUE TO OTH IDENT INFLUENZA VIRUS W OTH RESP MANIFEST (3) Pulmonary fibrosis Code(s): J84.10 - PULMONARY FIBROSIS, UNSPECIFIED (4) Scleroderma Code(s): M34.9 - SYSTEMIC SCLEROSIS, UNSPECIFIED (5) Sjoegren syndrome Code(s): M35.00 - SICCA SYNDROME, UNSPECIFIED (6) Interstitial lung disease Code(s): J84.9 - INTERSTITIAL PULMONARY DISEASE, UNSPECIFIED (7) Hypothyroid Code(s): E03.9 - HYPOTHYROIDISM, UNSPECIFIED (8) Orthostatic hypotension Code(s): I95.1 - ORTHOSTATIC HYPOTENSION Assessment/Plan Acute Hypoxic Respiratory Failure Influenza A R/O Aspiration Pneumonia Scleroderma/Sjogrens Adrenal Insufficiency Immunocompromised Interstitial Lung Disease/Pulmonary Fibrosis - tamiflu 30 BID - ABX per ID - Send respiratory cultures - O2 to keep SpO2 >90 - inhaled bronchodilators - aspiration precautions - DVT/GI prophylaxis - Steroid at current - BD TX - PO as tolerated - Would hold on further diuresis as CXR reveals significant chronic interstitial disease dating back to 2007 Dr Kincaid CCTime 35"
--- NOTE | 2016-08-19 13:16 | PN ---
Progress Note, BLOOD BANK ASSISTANT - Note Progress Note: Selected Entries 08/17/16 08/18/16 08/18/16 18:07 08:00 18:46 Breakfast 50% Lunch Supper 50% 25% 08/19/16 12:45 Breakfast 75% Lunch Supper Laboratory Tests 08/17/16 08/19/16 06:15 05:00 WBC 16.2 H 14.9 H Now in ICU as she became hypoxic. Had a small amount of lunch, per her daughter.Droplet precautions for Influenza a.
--- NOTE | 2016-08-19 15:47 | PN ---
Progress Note, Physician History of Present Illness: patient seen and examined at bedside in ICU complains of green/yellow sputum production with cough transferred to ICU for worsening shortness of breath - Current Medication List Current Medications: Active Medications Acetaminophen (Tylenol -) 650 mg PO Q4H PRN PRN Reason: FEVER OR PAIN Albuterol Sulfate (Ventolin 0.083% Nebulizer Soln -) 1 amp NEB QIDR [facility] Last Admin: 08/19/16 10:45 Dose: 1 amp Ascorbic Acid (Vitamin C -) 1,000 mg PO BID [facility] Last Admin: 08/19/16 10:42 Dose: 1,000 mg Cholecalciferol (Vitamin D3 -) 5,000 unit PO DAILY [facility] Last Admin: 08/19/16 10:42 Dose: 5,000 unit Docusate Sodium (Colace -) 100 mg PO BID PRN PRN Reason: CONSTIPATION Fludrocortisone Acetate (Florinef -) 0.15 mg PO BID [facility] Last Admin: 08/19/16 10:38 Dose: 0.15 mg Fluoxetine HCl (Prozac -) 20 mg PO HS [facility] Last Admin: 08/18/16 21:17 Dose: 20 mg Heparin Sodium (Porcine) (Heparin -) 5,000 unit SQ TID [facility] Last Admin: 08/19/16 13:35 Dose: 5,000 unit Piperacillin Sod/Tazobactam Sod (Zosyn 3.375gm Ivpb (Pre-Docked)) 50 mls @ 100 mls/hr IVPB Q8H-IV [facility] Last Admin: 08/19/16 10:43 Dose: 100 mls/hr Lidocaine (Lidoderm Patch -) 1 patch TP DAILY [facility] Last Admin: 08/19/16 10:39 Dose: 1 patch Lidocaine (Lidoderm Patch -) 1 patch TP DAILY [facility] Last Admin: 08/19/16 10:40 Dose: 1 patch Magnesium Chloride (Slow-Mag -) 64 mg PO DAILY [facility] Last Admin: 08/19/16 10:41 Dose: 64 mg Melatonin (Melatonin) 5 mg PO HS PRN PRN Reason: INSOMNIA Methylprednisolone Sodium Succinate (Solu-Medrol -) 60 mg IVPB Q8H-IV [facility] Last Admin: 08/19/16 10:41 Dose: 60 mg Mirtazapine (Remeron -) 3.75 mg PO HS [facility] Last Admin: 08/18/16 21:18 Dose: 3.75 mg Multivitamins/Minerals (Theragran-M) 1 each PO DAILY [facility] Last Admin: 08/19/16 10:42 Dose: 1 each Non-Formulary Medication (Lifitegrast [Xiidra]) 1 each OU BID [facility] Last Admin: 08/19/16 10:41 Dose: 1 each Ondansetron HCl (Zofran Injection) 4 mg IVPB Q6H PRN PRN Reason: NAUSEA Oseltamivir Phosphate (Tamiflu -) 30 mg PO BID [facility] Stop: 08/19/16 22:01 Last Admin: 08/19/16 10:42 Dose: 30 mg Pantoprazole Sodium (Protonix -) 40 mg PO DAILY [facility] Last Admin: 08/19/16 10:41 Dose: 40 mg Potassium Chloride (Kcl Oral Solution -) 40 meq PO DAILY [facility] Last Admin: 08/19/16 10:38 Dose: 40 meq Thyroid ([place] Thyroid -) 30 mg PO BID [facility] Last Admin: 08/19/16 10:38 Dose: 30 mg - Objective Vital Signs: Vital Signs Temperature 97.8 F 08/19/16 14:00 Pulse Rate 96 H 08/19/16 14:00 Respiratory Rate 19 08/19/16 14:00 Blood Pressure 121/78 08/19/16 14:00 O2 Sat by Pulse Oximetry (%) 97 08/19/16 09:15 Constitutional: Yes: Cachectic, Thin Eyes: Yes: EOM Intact HENT: Yes: Atraumatic Neck: Yes: Supple Cardiovascular: Yes: Regular Rate and Rhythm Respiratory: Yes: Other (crackles bronchial breat sounds) Gastrointestinal: Yes: Normal Bowel Sounds, Soft Edema: No Labs: CBC, BMP 08/19/16 05:00 08/19/16 05:00 - ....Imaging Chest X-ray: Report Reviewed, Image Reviewed Assessment/Plan 81F with multiple medical problems transferred to ICU for worsening shortness of breath. Acute hypoxic respiratory failure: patient has interstitial lung disease/pulmonary fibrosis continue solu-medrol and fludricortisone-will also help with her adrenal insufficiency continue O2 PRN - transitioned from ventimask to nasal cannula bronchodilators patient is immunocompromised continue antibiotics hold off on diuresis for now patient is not fluid overloaded Influenza A: continue tamiflu Leukocystosis: patient may have a super imposed pneumonia possible due to steroids will trend CXR will do BGM and ISS since on steroids continue zosyn Hypothyroidism: continue armour thyroid Mood disorder: continue prozac continue remeron unspecified severe protein calorie malnutrition: patient has poor oral intake she is cachectic borderline BMI FEN: no IVF continue PO magnesium and PO potassium dysphagia chopped diet PPx: HSQ Protonix PT consult to avoid deconditioning
--- NOTE | 2016-08-19 16:49 | PN ---
Progress Note, Physician History of Present Illness: events noted patient was hypoxic this morning also had altered mental status patient was put on venti mask - Current Medication List Current Medications: Active Medications Acetaminophen (Tylenol -) 650 mg PO Q4H PRN PRN Reason: FEVER OR PAIN Albuterol Sulfate (Ventolin 0.083% Nebulizer Soln -) 1 amp NEB QIDR [facility] Last Admin: 08/19/16 10:45 Dose: 1 amp Ascorbic Acid (Vitamin C -) 1,000 mg PO BID [facility] Last Admin: 08/19/16 10:42 Dose: 1,000 mg Cholecalciferol (Vitamin D3 -) 5,000 unit PO DAILY [facility] Last Admin: 08/19/16 10:42 Dose: 5,000 unit Docusate Sodium (Colace -) 100 mg PO BID PRN PRN Reason: CONSTIPATION Fludrocortisone Acetate (Florinef -) 0.15 mg PO BID [facility] Last Admin: 08/19/16 10:38 Dose: 0.15 mg Fluoxetine HCl (Prozac -) 20 mg PO HS [facility] Last Admin: 08/18/16 21:17 Dose: 20 mg Heparin Sodium (Porcine) (Heparin -) 5,000 unit SQ TID [facility] Last Admin: 08/19/16 13:35 Dose: 5,000 unit Piperacillin Sod/Tazobactam Sod (Zosyn 3.375gm Ivpb (Pre-Docked)) 50 mls @ 100 mls/hr IVPB Q8H-IV [facility] Last Admin: 08/19/16 10:43 Dose: 100 mls/hr Insulin Aspart (Novolog Vial Sliding Scale -) 1 vial SQ ACHS [facility] PRN Reason: Protocol Lidocaine (Lidoderm Patch -) 1 patch TP DAILY [facility] Last Admin: 08/19/16 10:39 Dose: 1 patch Lidocaine (Lidoderm Patch -) 1 patch TP DAILY [facility] Last Admin: 08/19/16 10:40 Dose: 1 patch Magnesium Chloride (Slow-Mag -) 64 mg PO DAILY [facility] Last Admin: 08/19/16 10:41 Dose: 64 mg Melatonin (Melatonin) 5 mg PO HS PRN PRN Reason: INSOMNIA Methylprednisolone Sodium Succinate (Solu-Medrol -) 60 mg IVPB Q8H-IV [facility] Last Admin: 08/19/16 10:41 Dose: 60 mg Mirtazapine (Remeron -) 3.75 mg PO HS [facility] Last Admin: 08/18/16 21:18 Dose: 3.75 mg Multivitamins/Minerals (Theragran-M) 1 each PO DAILY [facility] Last Admin: 08/19/16 10:42 Dose: 1 each Non-Formulary Medication (Lifitegrast [Xiidra]) 1 each OU BID [facility] Last Admin: 08/19/16 10:41 Dose: 1 each Ondansetron HCl (Zofran Injection) 4 mg IVPB Q6H PRN PRN Reason: NAUSEA Oseltamivir Phosphate (Tamiflu -) 30 mg PO BID [facility] Stop: 08/19/16 22:01 Last Admin: 08/19/16 10:42 Dose: 30 mg Pantoprazole Sodium (Protonix -) 40 mg PO DAILY [facility] Last Admin: 08/19/16 10:41 Dose: 40 mg Potassium Chloride (Kcl Oral Solution -) 40 meq PO DAILY [facility] Last Admin: 08/19/16 10:38 Dose: 40 meq Thyroid ([place] Thyroid -) 30 mg PO BID [facility] Last Admin: 08/19/16 10:38 Dose: 30 mg - Objective Vital Signs: Vital Signs Temperature 97.6 F 08/19/16 16:00 Pulse Rate 98 H 08/19/16 16:00 Respiratory Rate 19 08/19/16 16:00 Blood Pressure 139/88 08/19/16 16:00 O2 Sat by Pulse Oximetry (%) 97 08/19/16 09:15 Constitutional: Yes: No Distress, Calm Neck: Yes: Supple Cardiovascular: Yes: Regular Rate and Rhythm, Tachycardia Respiratory: Yes: Regular, Rhonchi, Other (crackles all over) Gastrointestinal: Yes: Normal Bowel Sounds, Soft Musculoskeletal: Yes: WNL Extremities: Yes: WNL Neurological: Yes: Alert, Oriented Psychiatric: Yes: Alert Labs: CBC, BMP 08/19/16 05:00 08/19/16 05:00 Assessment/Plan This is an 81-year-old woman who presented to the ER with generalized weakness, cough, abdominal pain, nausea and vomiting. She was recently treated with Cipro followed by Cefdinir for UTI. She was found to have temp 100.2, O2 sat 90% on RA , WBC 6.9, sodium 133, potassium 2.6, BUN 21, creatinine 1.0. She is being admitted now for treatment of an emergent condition. 1. Hypokalemia 2. Hyponatremia 3. Dehydration 4. Hypoxia secondary to influenza A with pulmonary fibrosis 5. Orthostatic hypotension, adrenal insufficiency 6. Scleroderma, Sjogren syndrome, Raynaud's syndrome 7. Hypothyroidism immunocompromised - Problems (1) Acute respiratory failure with hypoxia Code(s): J96.01 - ACUTE RESPIRATORY FAILURE WITH HYPOXIA (2) Influenza A Code(s): J10.1 - FLU DUE TO OTH IDENT INFLUENZA VIRUS W OTH RESP MANIFEST (3) Pulmonary fibrosis Code(s): J84.10 - PULMONARY FIBROSIS, UNSPECIFIED (4) Scleroderma Code(s): M34.9 - SYSTEMIC SCLEROSIS, UNSPECIFIED (5) Sjoegren syndrome Code(s): M35.00 - SICCA SYNDROME, UNSPECIFIED (6) Interstitial lung disease Code(s): J84.9 - INTERSTITIAL PULMONARY DISEASE, UNSPECIFIED (7) Hypothyroid Code(s): E03.9 - HYPOTHYROIDISM, UNSPECIFIED (8) Orthostatic hypotension Code(s): I95.1 - ORTHOSTATIC HYPOTENSION resp failure looking at her xray and the symptoms the patient could have congestion as well as new infiltrates also one thing which is worrying me is does the patient have PJP pneumonia plan patient now better still needing face mask patient daughter in room continue watching very carefully i suggest patient get a ct scan of the chest when patient is stable if patient keeps on getting hypoxic awaiting final results wbc marginally down cc time 45 min
[2016-08-19] MEDS: INSULIN SLIDING SCALE (NOVOLOG) 1 VIAL SQ SCH ×2 (16:59→22:50)
[2016-08-19] MEDS: FLUoxetine HCL 20 MG CAPSULE (FP) PO SCH (21:55)
[2016-08-19] MEDS: MIRTAZAPINE 15 MG TABLET (FP) PO SCH (22:02)
[2016-08-20] MEDS: PIPERACILLIN/TAZOB 3.375 GM 50 ML IVPB SCH ×3 (02:15→17:08)
[2016-08-20] MEDS: methylPREDNISolone NA SUCC 125 MG/2 ML VIAL IVPB SCH ×3 (02:15→17:17)
[2016-08-20 05:59] LABS: MCH 28.3 pg (25.7-33.7); MCHC 33.5 g/dl (32.0-36.0); MEAN CELL VOLUME 84.4 fl (80-96); MEAN PLT VOLUME 7.8 fl (7.5-11.1); PLATELET COUNT 265 K/MM3 (134-434); WHITE BLOOD COUNT 15.4 K/mm3 (4.0-10.0)
[2016-08-20] MEDS: ALBUTEROL SO4 0.083% IH SOL 2.5 MG/3 ML VIAL.NEB. NEB SCH ×2 (06:15→11:46)
[2016-08-20 06:31] LABS: ALBUMIN 2.7 g/dl (3.4-5.0); ANION GAP 10 (8-16); CALCIUM 8.8 mg/dL (8.5-10.1); CO2 32 mmol/L (21-32); GLUCOSE,RANDOM 132 mg/dL (74-106); MAGNESIUM 1.9 mg/dL (1.8-2.4); PHOSPHOROUS 2.9 mg/dL (2.5-4.9); SGOT/AST 14 U/L (15-37)
[2016-08-20 06:34] LABS: ALK PHOS 72 U/L (45-117); BILIRUBIN,TOTAL 0.3 mg/dL (0.2-1.0); CREATININE 0.9 mg/dL (0.55-1.02); SGPT/ALT 18 U/L (12-78); TOT PROT 6.1 g/dl (6.4-8.2)
[2016-08-20] MEDS: HEPARIN NA (PORCINE) 5,000 UNITS/ML 1ML VIAL SQ SCH ×3 (06:49→22:25)
[2016-08-20] MEDS: INSULIN SLIDING SCALE (NOVOLOG) 1 VIAL SQ SCH ×4 (06:49→22:26)
[2016-08-20 07:29] LABS: ARTERIAL BLD GAS O2 SATURATION 98.1 % (90-98.9); ARTERIAL BLOOD GAS BASE EXCESS 6.5 meq/l (-2-2); ARTERIAL BLOOD GAS HCO3 30.2 meq/L (22-26); ARTERIAL BLOOD GAS pH 7.49 (7.35-7.45)
[2016-08-20 07:30] LABS: ALLENS TEST POSITIVE
[2016-08-20 07:31] LABS: ART PUNCT SITE LEFT RADIAL; LPM/O2% 50%; PT. ON O2? YES; TYPE OF O2 VENTI MASK
--- NOTE | 2016-08-20 09:04 | PN ---
Progress Note (short form) - Note Progress Note: Subjective: The patient was seen and examined in the ICU. She reports still having difficulty breathing. She is 98% on 4L NC. BP elevated, will watch for now, add antihypertenisve if remains elevated Current Medications Generic Name Dose Route Start Last Admin Trade Name Freq PRN Reason Stop Dose Admin Acetaminophen 650 mg 08/18/16 14:48 08/20/16 06:51 Tylenol - PO 650 mg Q4H PRN Administration FEVER OR PAIN Albuterol Sulfate 1 amp 08/18/16 18:00 08/20/16 06:15 Ventolin 0.083% Nebulizer Soln - NEB 1 amp QIDR [facility] Administration Ascorbic Acid 1,000 mg 08/18/16 22:00 08/19/16 21:54 Vitamin C - PO 1,000 mg BID [facility] Administration Cholecalciferol 5,000 unit 08/19/16 10:00 08/19/16 10:42 Vitamin D3 - PO 5,000 unit DAILY [facility] Administration Docusate Sodium 100 mg 08/18/16 14:48 Colace - PO BID PRN CONSTIPATION Fludrocortisone Acetate 0.15 mg 08/18/16 22:00 08/19/16 21:56 Florinef - PO 0.15 mg BID [facility] Administration Fluoxetine HCl 20 mg 08/18/16 22:00 08/19/16 21:55 Prozac - PO 20 mg HS [facility] Administration Heparin Sodium (Porcine) 5,000 unit 08/18/16 22:00 08/20/16 06:49 Heparin - SQ 5,000 unit TID [facility] Administration Piperacillin Sod/Tazobactam Sod 50 mls @ 100 mls/hr 08/18/16 18:00 08/20/16 02: 15 Zosyn 3.375gm Ivpb (Pre-Docked) IVPB 100 mls/hr Q8H-IV [facility] Administration Insulin Aspart 1 vial 08/19/16 16:30 08/20/16 06:49 Novolog Vial Sliding Scale - SQ Not Given ACHS [facility] Protocol Lidocaine 1 patch 08/19/16 10:00 08/19/16 10:39 Lidoderm Patch - TP 1 patch DAILY [facility] Administration Lidocaine 1 patch 08/19/16 10:00 08/19/16 10:40 Lidoderm Patch - TP 1 patch DAILY [facility] Administration Magnesium Chloride 64 mg 08/19/16 10:00 08/19/16 10:41 Slow-Mag - PO 64 mg DAILY [facility] Administration Melatonin 5 mg 08/18/16 22:00 Melatonin PO HS PRN INSOMNIA Methylprednisolone Sodium Succinate 60 mg 08/18/16 18:00 08/20/16 02:15 Solu-Medrol - IVPB 60 mg Q8H-IV [facility] Administration Mirtazapine 3.75 mg 08/18/16 22:00 08/19/16 22:02 Remeron - PO 3.75 mg HS [facility] Administration Multivitamins/Minerals 1 each 08/19/16 10:00 08/19/16 10:42 Theragran-M PO 1 each DAILY [facility] Administration Non-Formulary Medication 1 each 08/18/16 22:00 08/19/16 22:03 Lifitegrast [Xiidra] OU 1 each BID [facility] Administration Ondansetron HCl 4 mg 08/18/16 14:48 Zofran Injection IVPB Q6H PRN NAUSEA Pantoprazole Sodium 40 mg 08/19/16 10:00 08/19/16 10:41 Protonix - PO 40 mg DAILY [facility] Administration Potassium Chloride 40 meq 08/19/16 10:00 08/19/16 10:38 Kcl Oral Solution - PO 40 meq DAILY [facility] Administration Thyroid 30 mg 08/18/16 22:00 08/19/16 22:50 [place] Thyroid - PO 30 mg BID [facility] Administration Objective: Vital Signs Period Temp Pulse Resp BP Sys/Xavier Pulse Ox Last 24 Hr 97.4 F-98.3 F 82-102 13-22 97-160/66-92 97-97 Physical Exam: General: NAD, A&Ox3 Lungs: B/l course rhonchi Heart: RRR, S1S2 Abd: Soft, non-tender, non-distended. Normoactive bowel sounds Ext: Warm, well-perfused. 2+ DP/PT bilaterally Neuro: CN 2-12 intact CBCD WBC 15.4 K/mm3 (4.0-10.0) H 08/20/16 05:15 RBC 4.05 M/mm3 (3.60-5.2) 08/20/16 05:15 Hgb 11.5 GM/dL (10.7-15.3) 08/20/16 05:15 Hct 34.2 % (32.4-45.2) 08/20/16 05:15 MCV 84.4 fl (80-96) 08/20/16 05:15 MCHC 33.5 g/dl (32.0-36.0) 08/20/16 05:15 RDW 17.0 % (11.6-15.6) H 08/20/16 05:15 Plt Count 265 K/MM3 (134-434) 08/20/16 05:15 MPV 7.8 fl (7.5-11.1) 08/20/16 05:15 CMP Sodium 141 mmol/L (136-145) 08/20/16 05:15 Potassium 3.7 mmol/L (3.5-5.1) 08/20/16 05:15 Chloride 99 mmol/L (98-107) 08/20/16 05:15 Carbon Dioxide 32 mmol/L (21-32) 08/20/16 05:15 Anion Gap 10 (8-16) 08/20/16 05:15 BUN 30 mg/dL (7-18) H D 08/20/16 05:15 Creatinine 0.9 mg/dL (0.55-1.02) 08/20/16 05:15 Creat Clearance w eGFR > 60 (>60) 08/20/16 05:15 Random Glucose 132 mg/dL (74-106) H 08/20/16 05:15 Calcium 8.8 mg/dL (8.5-10.1) 08/20/16 05:15 Total Bilirubin 0.3 mg/dL (0.2-1.0) D 08/20/16 05:15 AST 14 U/L (15-37) L D 08/20/16 05:15 ALT 18 U/L (12-78) 08/20/16 05:15 Alkaline Phosphatase 72 U/L (45-117) 08/20/16 05:15 Total Protein 6.1 g/dl (6.4-8.2) L 08/20/16 05:15 Albumin 2.7 g/dl (3.4-5.0) L 08/20/16 05:15 CARDIAC ENZYMES Creatine Kinase 98 IU/L (26-192) 08/13/16 15:00 Troponin I 0.02 ng/ml (0.00-0.05) 08/13/16 15:00 Microbiology 08/13/16 15:00 Urine - Urine Clean Catch Urine Culture - Final NO GROWTH OBTAINED 08/13/16 15:00 Nasopharyngeal Swab Influenza Types A,B Antigen (ANTIONETTE) - Final 08/13/16 15:00 Nasopharyngeal Swab - Final Imaging: Chest x-ray: Chronic interstitial lung disease. No acute process. Assessment: This is an 81 year old female with PMHx of pulmonary fibrosis, achalasia s/p botox treatment (October 2015), aspiration pneumonia (October 2015), Sjogrens, Raynauds, hypothyroidism, adrenal insufficiency, orthostatic hypotension, scleroderma, T12 compression fracture, and frequent falls who presented to the ED with generalized weakness and was found to have influenza A. Plan: 1) Pulmonary: Acute hypoxic respiratory failure 08/14 influenza A and complicated by pulmonary fibrosis - Remains in ICU - Chest X-ray with patchy airspace disease - ABG 08/19 with low O2, improving ABG today - O2 via NC as needed, requiring 4L NC now, SpO2 98% - Keep O2 saturation >90% - Completed Tamiflu - Zosyn 08/14-08/17, restarted on 08/18 - Continue Solu-medrol - Chest PT bid - Chest CT once stable - F/u sputum culture - F/u respiratory virus panel - Appreciate pulmonary consult - Appreciate ID consult 2) Cardiology: Orthostatic hypotension - Remains hypertensive - Continue to hold Midodrine - Continue to monitor closely - Orthostatics 3) Neuro: B/l lower rib pain - Improving with Lidoderm patches 4) Scleroderma, Sjogren syndrome, Raynaud's syndrome - Stable 5) Endocrine: Hypothyroidism - Continue [place] thyroid 6) F/E/N: - Dysphagia chopped - Monitor electrolytes - Severe protein malnutrition 7) Prophylaxis: - Heparin 5,000u sq tid - PT 8) Dispo: - Requires continued ICU care CODE STATUS: FULL CODE Visit type - Emergency Visit Emergency Visit: Yes ED Registration Date: 08/13/16 Care time: The patient presented to the Emergency Department on the above date and was hospitalized for further evaluation of their emergent condition. - New Patient This patient is new to me today: No - Critical Care Critical Care patient: Yes Total Critical Care Time (in minutes): 45 Critical Care Statement: The care of this patient involved high complexity decision making to prevent further life threatening deterioration of the patient 's condition and/or to evalute & treat vital organ system(s) failure or risk of failure.
[2016-08-20] MEDS: THYROID 30 MG TABLET PO SCH ×2 (10:48→22:25)
[2016-08-20] MEDS: FLUDROCORTISONE ACETATE 0.1 MG TABLET (FP) PO SCH ×2 (10:48→22:25)
[2016-08-20] MEDS: POTASSIUM CHLORIDE 40 MEQ/30 ML UNIT DOSE CUP PO SCH (10:49)
[2016-08-20] MEDS: ASCORBIC ACID 500 MG TABLET (FP) PO SCH ×2 (10:50→22:26)
[2016-08-20] MEDS: LIDOCAINE 5% TOPICAL PATCH TP SCH ×2 (10:52→10:53)
[2016-08-20] MEDS: CHOLECALCIFEROL (VITAMIN D3) 1,000 UNIT TABLET (FP) PO SCH (10:54)
--- NOTE | 2016-08-20 11:03 | PN ---
Progress Note, PATENT CLERK - Note Progress Note: Limited appetite. Case reviewed with primary nurse and RD. Consider continued Dys chopped, with added foods such as chopped egg/tuna, cottage cheese, per pts preferences. Magic cup,ensure compact.
[2016-08-20] MEDS: PANTOPRAZOLE 40 MG TABLET (FP) PO SCH (11:12)
[2016-08-20] MEDS: MAGNESIUM CL 64 MG TABLET.SA PO SCH (11:13)
[2016-08-20] MEDS: PATIENT'S OWN MEDICATION (NON-FORMULARY) (Lifitegrast [Xiidra] 1 EACH) OU SCH ×2 (11:18→22:26)
--- NOTE | 2016-08-20 12:55 | PN ---
Teaching Attending Note Name of Resident: Juanpablo Rai ATTENDING PHYSICIAN STATEMENT I saw and evaluated the patient. I reviewed the resident's note and discussed the case with the resident. I agree with the resident's findings and plan as documented. SUBJECTIVE: Pt seen and examined in the ICU. Reports breathing better today. +nonproductive cough without wheezing. No fevers or chills. OBJECTIVE: Last Vital Signs Temp Pulse Resp BP Pulse Ox 97.4 F L 95 H 22 160/92 98 08/20/16 08:00 08/20/16 10:03 08/20/16 08:00 08/20/16 08:00 08/20/16 10:03 Intake & Output 08/17/16 08/18/16 08/19/16 08/20/16 23:59 23:59 23:59 23:59 Intake Total 50 650 850 350 Balance 50 650 850 350 Weight 106 lb 6 oz 106 lb 8 oz 106 lb 4 oz 107 lb 2 oz Gen: less tachypneic HEENT: dry mucous membranes Heart: RRR Lung: bilateral rhonchi, rales Abd: soft, nontender Ext: no edema CBC, BMP 08/20/16 05:15 08/20/16 05:15 CXR: clearing upper lobe infiltrates/congestion Active Medications Acetaminophen (Tylenol -) 650 mg PO Q4H PRN PRN Reason: FEVER OR PAIN Last Admin: 08/20/16 06:51 Dose: 650 mg Albuterol Sulfate (Ventolin 0.083% Nebulizer Soln -) 1 amp NEB QIDR [facility] Last Admin: 08/20/16 11:46 Dose: 1 amp Ascorbic Acid (Vitamin C -) 1,000 mg PO BID [facility] Last Admin: 08/20/16 10:50 Dose: 1,000 mg Cholecalciferol (Vitamin D3 -) 5,000 unit PO DAILY [facility] Last Admin: 08/20/16 10:54 Dose: 5,000 unit Docusate Sodium (Colace -) 100 mg PO BID PRN PRN Reason: CONSTIPATION Fludrocortisone Acetate (Florinef -) 0.15 mg PO BID [facility] Last Admin: 08/20/16 10:48 Dose: 0.15 mg Fluoxetine HCl (Prozac -) 20 mg PO HS [facility] Last Admin: 08/19/16 21:55 Dose: 20 mg Heparin Sodium (Porcine) (Heparin -) 5,000 unit SQ TID [facility] Last Admin: 08/20/16 06:49 Dose: 5,000 unit Piperacillin Sod/Tazobactam Sod (Zosyn 3.375gm Ivpb (Pre-Docked)) 50 mls @ 100 mls/hr IVPB Q8H-IV [facility] Last Admin: 08/20/16 10:52 Dose: 100 mls/hr Insulin Aspart (Novolog Vial Sliding Scale -) 1 vial SQ ACHS [facility] PRN Reason: Protocol Last Admin: 08/20/16 06:49 Dose: Not Given Lidocaine (Lidoderm Patch -) 1 patch TP DAILY [facility] Last Admin: 08/20/16 10:52 Dose: 1 patch Lidocaine (Lidoderm Patch -) 1 patch TP DAILY [facility] Last Admin: 08/20/16 10:53 Dose: 1 patch Magnesium Chloride (Slow-Mag -) 64 mg PO DAILY [facility] Last Admin: 08/20/16 11:13 Dose: 64 mg Melatonin (Melatonin) 5 mg PO HS PRN PRN Reason: INSOMNIA Methylprednisolone Sodium Succinate (Solu-Medrol -) 60 mg IVPB Q8H-IV [facility] Last Admin: 08/20/16 11:12 Dose: 60 mg Mirtazapine (Remeron -) 3.75 mg PO HS [facility] Last Admin: 08/19/16 22:02 Dose: 3.75 mg Multivitamins/Minerals (Theragran-M) 1 each PO DAILY [facility] Last Admin: 08/19/16 10:42 Dose: 1 each Non-Formulary Medication (Lifitegrast [Xiidra]) 1 each OU BID [facility] Last Admin: 08/20/16 11:18 Dose: 1 each Ondansetron HCl (Zofran Injection) 4 mg IVPB Q6H PRN PRN Reason: NAUSEA Pantoprazole Sodium (Protonix -) 40 mg PO DAILY [facility] Last Admin: 08/20/16 11:12 Dose: 40 mg Potassium Chloride (Kcl Oral Solution -) 40 meq PO DAILY [facility] Last Admin: 08/20/16 10:49 Dose: 40 meq Thyroid ([place] Thyroid -) 30 mg PO BID [facility] Last Admin: 08/20/16 10:48 Dose: 30 mg ASSESSMENT AND PLAN: Acute Hypoxic Respiratory Failure Influenza A Interstitial Lung Disease Scleroderma/Sjogren Syndrome Adrenal Insufficiency Hypertensive Urgency episode - ?Acute Pulmonary Edema vs Pneumonia - continue medrol at current dose - continue antibiotics - sputum culture if she produces any - lasix as needed, can hold today as she appears dry - tamiflu completed - O2 to keep SpO2 >90% - PO as tolerated - DVT/GI prophylaxis - continue ICU monitoring Problem List - Problems (1) Acute respiratory failure with hypoxia Code(s): J96.01 - ACUTE RESPIRATORY FAILURE WITH HYPOXIA (2) Influenza A Code(s): J10.1 - FLU DUE TO OTH IDENT INFLUENZA VIRUS W OTH RESP MANIFEST (3) Pulmonary fibrosis Code(s): J84.10 - PULMONARY FIBROSIS, UNSPECIFIED (4) Scleroderma Code(s): M34.9 - SYSTEMIC SCLEROSIS, UNSPECIFIED (5) Sjoegren syndrome Code(s): M35.00 - SICCA SYNDROME, UNSPECIFIED (6) Interstitial lung disease Code(s): J84.9 - INTERSTITIAL PULMONARY DISEASE, UNSPECIFIED (7) Hypothyroid Code(s): E03.9 - HYPOTHYROIDISM, UNSPECIFIED (8) Orthostatic hypotension Code(s): I95.1 - ORTHOSTATIC HYPOTENSION
[2016-08-20] MEDS ORDERED: ALBUTEROL SO4 0.083% IH SOL 2.5 MG/3 ML VIAL.NEB. NEB PRN (13:36)
--- NOTE | 2016-08-20 14:31 | PN ---
Progress Note, Physician History of Present Illness: patient seen and examined at bedside in ICU complains of dry cough today otherwise feels better - Current Medication List Current Medications: Active Medications Acetaminophen (Tylenol -) 650 mg PO Q4H PRN PRN Reason: FEVER OR PAIN Last Admin: 08/20/16 06:51 Dose: 650 mg Albuterol Sulfate (Ventolin 0.083% Nebulizer Soln -) 1 amp NEB QIDR PRN PRN Reason: shortness of breath/wheezing Albuterol/Ipratropium (Duoneb -) 1 amp NEB QIDR [facility] Ascorbic Acid (Vitamin C -) 1,000 mg PO BID [facility] Last Admin: 08/20/16 10:50 Dose: 1,000 mg Cholecalciferol (Vitamin D3 -) 5,000 unit PO DAILY [facility] Last Admin: 08/20/16 10:54 Dose: 5,000 unit Docusate Sodium (Colace -) 100 mg PO BID PRN PRN Reason: CONSTIPATION Fludrocortisone Acetate (Florinef -) 0.15 mg PO BID [facility] Last Admin: 08/20/16 10:48 Dose: 0.15 mg Fluoxetine HCl (Prozac -) 20 mg PO HS [facility] Last Admin: 08/19/16 21:55 Dose: 20 mg Heparin Sodium (Porcine) (Heparin -) 5,000 unit SQ TID [facility] Last Admin: 08/20/16 06:49 Dose: 5,000 unit Piperacillin Sod/Tazobactam Sod (Zosyn 3.375gm Ivpb (Pre-Docked)) 50 mls @ 100 mls/hr IVPB Q8H-IV [facility] Last Admin: 08/20/16 10:52 Dose: 100 mls/hr Insulin Aspart (Novolog Vial Sliding Scale -) 1 vial SQ ACHS [facility] PRN Reason: Protocol Last Admin: 08/20/16 06:49 Dose: Not Given Lidocaine (Lidoderm Patch -) 1 patch TP DAILY [facility] Last Admin: 08/20/16 10:52 Dose: 1 patch Lidocaine (Lidoderm Patch -) 1 patch TP DAILY [facility] Last Admin: 08/20/16 10:53 Dose: 1 patch Magnesium Chloride (Slow-Mag -) 64 mg PO DAILY [facility] Last Admin: 08/20/16 11:13 Dose: 64 mg Melatonin (Melatonin) 5 mg PO HS PRN PRN Reason: INSOMNIA Methylprednisolone Sodium Succinate (Solu-Medrol -) 60 mg IVPB Q8H-IV [facility] Last Admin: 08/20/16 11:12 Dose: 60 mg Mirtazapine (Remeron -) 3.75 mg PO HS [facility] Last Admin: 08/19/16 22:02 Dose: 3.75 mg Multivitamins/Minerals (Theragran-M) 1 each PO DAILY [facility] Last Admin: 08/19/16 10:42 Dose: 1 each Non-Formulary Medication (Lifitegrast [Xiidra]) 1 each OU BID [facility] Last Admin: 08/20/16 11:18 Dose: 1 each Ondansetron HCl (Zofran Injection) 4 mg IVPB Q6H PRN PRN Reason: NAUSEA Pantoprazole Sodium (Protonix -) 40 mg PO DAILY [facility] Last Admin: 08/20/16 11:12 Dose: 40 mg Potassium Chloride (Kcl Oral Solution -) 40 meq PO DAILY [facility] Last Admin: 08/20/16 10:49 Dose: 40 meq Thyroid ([place] Thyroid -) 30 mg PO BID [facility] Last Admin: 08/20/16 10:48 Dose: 30 mg - Objective Vital Signs: Vital Signs Temperature 97.4 F L 08/20/16 08:00 Pulse Rate 95 H 08/20/16 10:03 Respiratory Rate 22 08/20/16 08:00 Blood Pressure 160/92 08/20/16 08:00 O2 Sat by Pulse Oximetry (%) 98 08/20/16 10:03 Constitutional: Yes: Cachectic, Thin Eyes: Yes: EOM Intact HENT: Yes: Atraumatic Neck: Yes: Supple Cardiovascular: Yes: Regular Rate and Rhythm Respiratory: Yes: Other (crackles rhonchi diffusely. bronchial breath sounds) Gastrointestinal: Yes: Normal Bowel Sounds, Soft Edema: No Labs: CBC, BMP 08/20/16 05:15 08/20/16 05:15 Assessment/Plan 81F with multiple medical problems transferred to ICU for worsening shortness of breath. Acute hypoxic respiratory failure: patient has interstitial lung disease/pulmonary fibrosis continue solu-medrol and fludricortisone-will also help with her adrenal insufficiency continue O2 PRN - transitioned from ventimask to nasal cannula bronchodilators patient is immunocompromised continue antibiotics hold off on diuresis for now patient is not fluid overloaded daily CXR Will hold off on chest CT for now. patient states she cannot lay flat at this time and suspicion for PCP pneumonia is very low Influenza A: tamiflu course completed ok to stop droplet precautions Leukocystosis: patient may have a super imposed pneumonia possible to be due to steroids will trend CXR will do BGM and ISS since on steroids continue zosyn per ID Hypothyroidism: continue armour thyroid Mood disorder: continue prozac continue remeron unspecified severe protein calorie malnutrition: patient has poor oral intake she is cachectic borderline BMI FEN: no IVF continue PO magnesium and PO potassium-hypokalemia improved dysphagia chopped diet PPx: HSQ Protonix PT consult to avoid deconditioning
[2016-08-20] MEDS: MULTIVITAMINS THER W-MINERALS COMBO TABLET (FP) PO SCH (16:58)
--- NOTE | 2016-08-20 17:17 | PN ---
Progress Note, Physician History of Present Illness: events noted patient much better today breathing better numbers improving - Current Medication List Current Medications: Active Medications Acetaminophen (Tylenol -) 650 mg PO Q4H PRN PRN Reason: FEVER OR PAIN Last Admin: 08/20/16 06:51 Dose: 650 mg Albuterol Sulfate (Ventolin 0.083% Nebulizer Soln -) 1 amp NEB QIDR PRN PRN Reason: shortness of breath/wheezing Albuterol/Ipratropium (Duoneb -) 1 amp NEB QIDR [facility] Ascorbic Acid (Vitamin C -) 1,000 mg PO BID [facility] Last Admin: 08/20/16 10:50 Dose: 1,000 mg Cholecalciferol (Vitamin D3 -) 5,000 unit PO DAILY [facility] Last Admin: 08/20/16 10:54 Dose: 5,000 unit Docusate Sodium (Colace -) 100 mg PO BID PRN PRN Reason: CONSTIPATION Fludrocortisone Acetate (Florinef -) 0.15 mg PO BID [facility] Last Admin: 08/20/16 10:48 Dose: 0.15 mg Fluoxetine HCl (Prozac -) 20 mg PO HS [facility] Last Admin: 08/19/16 21:55 Dose: 20 mg Heparin Sodium (Porcine) (Heparin -) 5,000 unit SQ TID [facility] Last Admin: 08/20/16 06:49 Dose: 5,000 unit Piperacillin Sod/Tazobactam Sod (Zosyn 3.375gm Ivpb (Pre-Docked)) 50 mls @ 100 mls/hr IVPB Q8H-IV [facility] Last Admin: 08/20/16 10:52 Dose: 100 mls/hr Insulin Aspart (Novolog Vial Sliding Scale -) 1 vial SQ ACHS [facility] PRN Reason: Protocol Last Admin: 08/20/16 06:49 Dose: Not Given Lidocaine (Lidoderm Patch -) 1 patch TP DAILY [facility] Last Admin: 08/20/16 10:52 Dose: 1 patch Lidocaine (Lidoderm Patch -) 1 patch TP DAILY [facility] Last Admin: 08/20/16 10:53 Dose: 1 patch Magnesium Chloride (Slow-Mag -) 64 mg PO DAILY [facility] Last Admin: 08/20/16 11:13 Dose: 64 mg Melatonin (Melatonin) 5 mg PO HS PRN PRN Reason: INSOMNIA Methylprednisolone Sodium Succinate (Solu-Medrol -) 60 mg IVPB Q8H-IV [facility] Last Admin: 08/20/16 11:12 Dose: 60 mg Mirtazapine (Remeron -) 3.75 mg PO HS [facility] Last Admin: 08/19/16 22:02 Dose: 3.75 mg Multivitamins/Minerals (Theragran-M) 1 each PO DAILY [facility] Last Admin: 08/19/16 10:42 Dose: 1 each Non-Formulary Medication (Lifitegrast [Xiidra]) 1 each OU BID [facility] Last Admin: 08/20/16 11:18 Dose: 1 each Ondansetron HCl (Zofran Injection) 4 mg IVPB Q6H PRN PRN Reason: NAUSEA Pantoprazole Sodium (Protonix -) 40 mg PO DAILY [facility] Last Admin: 08/20/16 11:12 Dose: 40 mg Potassium Chloride (Kcl Oral Solution -) 40 meq PO DAILY [facility] Last Admin: 08/20/16 10:49 Dose: 40 meq Thyroid ([place] Thyroid -) 30 mg PO BID [facility] Last Admin: 08/20/16 10:48 Dose: 30 mg - Objective Vital Signs: Vital Signs Temperature 98.4 F 08/20/16 14:00 Pulse Rate 100 H 08/20/16 14:00 Respiratory Rate 18 08/20/16 14:00 Blood Pressure 116/68 08/20/16 14:00 O2 Sat by Pulse Oximetry (%) 98 08/20/16 10:03 Constitutional: Yes: No Distress, Calm Neck: Yes: Supple, Trachea Midline Respiratory: Yes: On Nasal O2, Rhonchi, Other (crackles bilaterally) Gastrointestinal: Yes: Normal Bowel Sounds, Soft Musculoskeletal: Yes: WNL Extremities: Yes: WNL Neurological: Yes: Alert, Oriented Psychiatric: Yes: Alert, Oriented Labs: CBC, BMP 08/20/16 05:15 08/20/16 05:15 Assessment/Plan This is an 81-year-old woman who presented to the ER with generalized weakness, cough, abdominal pain, nausea and vomiting. She was recently treated with Cipro followed by Cefdinir for UTI. She was found to have temp 100.2, O2 sat 90% on RA , WBC 6.9, sodium 133, potassium 2.6, BUN 21, creatinine 1.0. She is being admitted now for treatment of an emergent condition. 1. Hypokalemia 2. Hyponatremia 3. Dehydration 4. Hypoxia secondary to influenza A with pulmonary fibrosis 5. Orthostatic hypotension, adrenal insufficiency 6. Scleroderma, Sjogren syndrome, Raynaud's syndrome 7. Hypothyroidism immunocompromised - Problems (1) Acute respiratory failure with hypoxia Code(s): J96.01 - ACUTE RESPIRATORY FAILURE WITH HYPOXIA (2) Influenza A Code(s): J10.1 - FLU DUE TO OTH IDENT INFLUENZA VIRUS W OTH RESP MANIFEST (3) Pulmonary fibrosis Code(s): J84.10 - PULMONARY FIBROSIS, UNSPECIFIED (4) Scleroderma Code(s): M34.9 - SYSTEMIC SCLEROSIS, UNSPECIFIED (5) Sjoegren syndrome Code(s): M35.00 - SICCA SYNDROME, UNSPECIFIED (6) Interstitial lung disease Code(s): J84.9 - INTERSTITIAL PULMONARY DISEASE, UNSPECIFIED (7) Hypothyroid Code(s): E03.9 - HYPOTHYROIDISM, UNSPECIFIED (8) Orthostatic hypotension Code(s): I95.1 - ORTHOSTATIC HYPOTENSION resp failure looking at her xray and the symptoms the patient could have congestion as well as new infiltrates also one thing which is worrying me is does the patient have PJP pneumonia plan patient now better breathing better still not completely better awaiting final results cc time 40 min
[2016-08-20] MEDS: ALBUTEROL SO4 2.5/IPRATROPIUM 0.5 INH SOL 3 ML VIAL.NEB. NEB SCH (19:15)
[2016-08-20] MEDS ORDERED: PT OWN MED DRAWER 7, Y5N ONE (22:13)
[2016-08-20] MEDS: MIRTAZAPINE 15 MG TABLET (FP) PO SCH (22:26)
[2016-08-20] MEDS: FLUoxetine HCL 20 MG CAPSULE (FP) PO SCH (22:26)
[2016-08-21] MEDS: ALBUTEROL SO4 2.5/IPRATROPIUM 0.5 INH SOL 3 ML VIAL.NEB. NEB SCH ×5 (00:03→23:08)
[2016-08-21] MEDS: methylPREDNISolone NA SUCC 125 MG/2 ML VIAL IVPB SCH ×2 (01:35→09:40)
[2016-08-21] MEDS: PIPERACILLIN/TAZOB 3.375 GM 50 ML IVPB SCH ×3 (01:35→17:30)
[2016-08-21 05:57] LABS: MCH 28.1 pg (25.7-33.7); MCHC 33.2 g/dl (32.0-36.0); MEAN CELL VOLUME 84.8 fl (80-96); MEAN PLT VOLUME 7.5 fl (7.5-11.1); PLATELET COUNT 301 K/MM3 (134-434)
[2016-08-21 06:45] LABS: ALBUMIN 2.6 g/dl (3.4-5.0); ANION GAP 11 (8-16); BILIRUBIN,TOTAL 0.3 mg/dL (0.2-1.0); CALCIUM 8.7 mg/dL (8.5-10.1); CO2 31 mmol/L (21-32); CREATININE 0.8 mg/dL (0.55-1.02); GLUCOSE,RANDOM 114 mg/dL (74-106); MAGNESIUM 2.1 mg/dL (1.8-2.4); PHOSPHOROUS 2.7 mg/dL (2.5-4.9); SGOT/AST 14 U/L (15-37); SGPT/ALT 18 U/L (12-78); TOT PROT 5.9 g/dl (6.4-8.2)
[2016-08-21 06:46] LABS: ALK PHOS 72 U/L (45-117)
[2016-08-21] MEDS: HEPARIN NA (PORCINE) 5,000 UNITS/ML 1ML VIAL SQ SCH ×3 (07:15→21:40)
[2016-08-21] MEDS: INSULIN SLIDING SCALE (NOVOLOG) 1 VIAL SQ SCH ×4 (07:16→21:41)
[2016-08-21 07:22] LABS: ALLENS TEST POSITIVE; ARTERIAL BLD GAS O2 SATURATION 92.1 % (90-98.9); ARTERIAL BLOOD GAS HCO3 30.1 meq/L (22-26)
[2016-08-21 07:23] LABS: ART PUNCT SITE LEFT RADIAL; ARTERIAL BLOOD GAS PO2 58.8 mmHg (68-100); ARTERIAL BLOOD GAS pH 7.52 (7.35-7.45); LPM/O2% 3.5L; PT. ON O2? YES; TYPE OF O2 NASAL
[2016-08-21] MEDS ORDERED: PT OWN MED DRAWER 7, Y5N ONE (09:25)
[2016-08-21] MEDS: LIDOCAINE 5% TOPICAL PATCH TP SCH ×2 (09:30)
[2016-08-21] MEDS: PANTOPRAZOLE 40 MG TABLET (FP) PO SCH (09:32)
[2016-08-21] MEDS: THYROID 30 MG TABLET PO SCH ×2 (09:33→21:39)
[2016-08-21] MEDS: FLUDROCORTISONE ACETATE 0.1 MG TABLET (FP) PO SCH ×2 (09:34→21:39)
[2016-08-21] MEDS: MAGNESIUM CL 64 MG TABLET.SA PO SCH (09:35)
[2016-08-21] MEDS: MULTIVITAMINS THER W-MINERALS COMBO TABLET (FP) PO SCH (09:36)
--- NOTE | 2016-08-21 09:39 | PN ---
Progress Note (short form) - Note Progress Note: Patient seen and examined in the ICU. Remains mildly tachypneic at rest. Reports breathing feels a little better today. Persistent nonproductive cough without wheezing. No fevers or chills. CXR: No gross change from yesterday OBJECTIVE: Intake & Output 08/18/16 08/19/16 08/20/16 08/21/16 23:59 23:59 23:59 23:59 Intake Total 650 850 850 Balance 650 850 850 Weight 106 lb 8 oz 106 lb 4 oz 107 lb 2 oz 111 lb 11.2 oz Last Vital Signs Temp Pulse Resp BP Pulse Ox 97.8 F 97 H 20 170/90 94 L 08/21/16 06:00 08/21/16 08:00 08/21/16 08:00 08/21/16 08:00 08/20/16 20:06 Active Medications Acetaminophen (Tylenol -) 650 mg PO Q4H PRN PRN Reason: FEVER OR PAIN Last Admin: 08/20/16 06:51 Dose: 650 mg Albuterol Sulfate (Ventolin 0.083% Nebulizer Soln -) 1 amp NEB QIDR PRN PRN Reason: shortness of breath/wheezing Albuterol/Ipratropium (Duoneb -) 1 amp NEB QIDR [facility] Last Admin: 08/21/16 05:45 Dose: 1 amp Ascorbic Acid (Vitamin C -) 1,000 mg PO BID [facility] Last Admin: 08/20/16 22:26 Dose: 1,000 mg Cholecalciferol (Vitamin D3 -) 5,000 unit PO DAILY [facility] Last Admin: 08/20/16 10:54 Dose: 5,000 unit Docusate Sodium (Colace -) 100 mg PO BID PRN PRN Reason: CONSTIPATION Fludrocortisone Acetate (Florinef -) 0.15 mg PO BID [facility] Last Admin: 08/20/16 22:25 Dose: 0.15 mg Fluoxetine HCl (Prozac -) 20 mg PO HS [facility] Last Admin: 08/20/16 22:26 Dose: Not Given Heparin Sodium (Porcine) (Heparin -) 5,000 unit SQ TID [facility] Last Admin: 08/21/16 07:15 Dose: 5,000 unit Piperacillin Sod/Tazobactam Sod (Zosyn 3.375gm Ivpb (Pre-Docked)) 50 mls @ 100 mls/hr IVPB Q8H-IV [facility] Last Admin: 08/21/16 01:35 Dose: 100 mls/hr Insulin Aspart (Novolog Vial Sliding Scale -) 1 vial SQ ACHS [facility] PRN Reason: Protocol Last Admin: 08/21/16 07:16 Dose: Not Given Lidocaine (Lidoderm Patch -) 1 patch TP DAILY [facility] Last Admin: 08/20/16 10:52 Dose: 1 patch Lidocaine (Lidoderm Patch -) 1 patch TP DAILY [facility] Last Admin: 08/20/16 10:53 Dose: 1 patch Magnesium Chloride (Slow-Mag -) 64 mg PO DAILY [facility] Last Admin: 08/20/16 11:13 Dose: 64 mg Melatonin (Melatonin) 5 mg PO HS PRN PRN Reason: INSOMNIA Methylprednisolone Sodium Succinate (Solu-Medrol -) 60 mg IVPB Q8H-IV [facility] Last Admin: 08/21/16 01:35 Dose: 60 mg Mirtazapine (Remeron -) 3.75 mg PO HS [facility] Last Admin: 08/20/16 22:26 Dose: Not Given Multivitamins/Minerals (Theragran-M) 1 each PO DAILY [facility] Last Admin: 08/20/16 16:58 Dose: 1 each Non-Formulary Medication (Lifitegrast [Xiidra]) 1 each OU BID [facility] Last Admin: 08/20/16 22:26 Dose: Not Given Ondansetron HCl (Zofran Injection) 4 mg IVPB Q6H PRN PRN Reason: NAUSEA Pantoprazole Sodium (Protonix -) 40 mg PO DAILY [facility] Last Admin: 08/20/16 11:12 Dose: 40 mg Potassium Chloride (Kcl Oral Solution -) 40 meq PO DAILY [facility] Last Admin: 08/20/16 10:49 Dose: 40 meq Thyroid ([place] Thyroid -) 30 mg PO BID [facility] Last Admin: 08/20/16 22:25 Dose: 30 mg Gen: Awake and alert, mildly tachypneic at rest HEENT: dry mucous membranes Heart: RRR Lung: bilateral scattered rhonchi and rales Abd: soft, nontender Ext: no edema Laboratory Results - last 24 hr 08/21/16 08/21/16 08/21/16 05:05 05:05 07:10 WBC 16.0 H RBC 4.08 Hgb 11.5 Hct 34.6 MCV 84.8 MCHC 33.2 RDW 17.0 H Plt Count 301 MPV 7.5 Neutrophils % Y Lymphocytes % Y Puncture Site Left radial ABG pH 7.52 H ABG pCO2 at Pt Temp 37.5 ABG pO2 at Pt Temp 58.8 L D ABG HCO3 30.1 H ABG O2 Sat (Measured) 92.1 ABG O2 Content 14.9 L ABG Base Excess 7.0 H Francisco Test Positive O2 Delivery Device Nasal Oxygen Flow Rate 3.5l PEEP 0.0 Sodium 142 Potassium 4.0 Chloride 100 Carbon Dioxide 31 Anion Gap 11 BUN 29 H Creatinine 0.8 Creat Clearance w eGFR > 60 Random Glucose 114 H Calcium 8.7 Phosphorus 2.7 Magnesium 2.1 Total Bilirubin 0.3 AST 14 L ALT 18 Alkaline Phosphatase 72 Total Protein 5.9 L Albumin 2.6 L Problem List - Problems (1) Acute respiratory failure with hypoxia Code(s): J96.01 - ACUTE RESPIRATORY FAILURE WITH HYPOXIA (2) Influenza A Code(s): J10.1 - FLU DUE TO OTH IDENT INFLUENZA VIRUS W OTH RESP MANIFEST (3) Pulmonary fibrosis Code(s): J84.10 - PULMONARY FIBROSIS, UNSPECIFIED (4) Scleroderma Code(s): M34.9 - SYSTEMIC SCLEROSIS, UNSPECIFIED (5) Sjoegren syndrome Code(s): M35.00 - SICCA SYNDROME, UNSPECIFIED (6) Interstitial lung disease Code(s): J84.9 - INTERSTITIAL PULMONARY DISEASE, UNSPECIFIED (7) Hypothyroid Code(s): E03.9 - HYPOTHYROIDISM, UNSPECIFIED (8) Orthostatic hypotension Code(s): I95.1 - ORTHOSTATIC HYPOTENSION ASSESSMENT AND PLAN: Acute Hypoxic Respiratory Failure Influenza A Interstitial Lung Disease Scleroderma/Sjogren Syndrome Adrenal Insufficiency (?) Hypertensive Urgency episode - ?Acute Pulmonary Edema vs Pneumonia - Taper medrol - continue antibiotics per ID - Daily assessment for lasix, can hold today as she appears dry - tamiflu completed - O2 to keep SpO2 >90% - PO as tolerated - DVT/GI prophylaxis - 4W / 4S monitoring Dr Kincaid CCTime 35"
[2016-08-21] MEDS: CHOLECALCIFEROL (VITAMIN D3) 1,000 UNIT TABLET (FP) PO SCH (09:41)
[2016-08-21] MEDS: ASCORBIC ACID 500 MG TABLET (FP) PO SCH ×2 (09:41→21:42)
[2016-08-21] MEDS ORDERED: methylPREDNISolone NA SUCC 40 MG/1 ML VIAL IVPB SCH (10:00)
[2016-08-21] MEDS: POTASSIUM CHLORIDE 40 MEQ/30 ML UNIT DOSE CUP PO SCH (10:22)
[2016-08-21] MEDS: PATIENT'S OWN MEDICATION (NON-FORMULARY) (Lifitegrast [Xiidra] 1 EACH) OU SCH ×2 (12:23→21:46)
--- NOTE | 2016-08-21 14:06 | PN ---
Progress Note (short form) - Note Progress Note: Subjective: The patient was seen and examined in the ICU. She reports feeling better today. Current Medications Generic Name Dose Route Start Last Admin Trade Name Lc PRN Reason Stop Dose Admin Acetaminophen 650 mg 08/18/16 14:48 08/20/16 06:51 Tylenol - PO 650 mg Q4H PRN Administration FEVER OR PAIN Albuterol Sulfate 1 amp 08/20/16 13:36 Ventolin 0.083% Nebulizer Soln - NEB QIDR PRN shortness of breath/wheezing Albuterol/Ipratropium 1 amp 08/20/16 18:00 08/21/16 05:45 Duoneb - NEB 1 amp QIDR BOBBY Administration Ascorbic Acid 1,000 mg 08/18/16 22:00 08/21/16 09:41 Vitamin C - PO 1,000 mg BID BOBBY Administration Cholecalciferol 5,000 unit 08/19/16 10:00 08/21/16 09:41 Vitamin D3 - PO 5,000 unit DAILY BOBBY Administration Docusate Sodium 100 mg 08/18/16 14:48 Colace - PO BID PRN CONSTIPATION Fludrocortisone Acetate 0.15 mg 08/18/16 22:00 08/21/16 09:34 Florinef - PO 0.15 mg BID BOBBY Administration Fluoxetine HCl 20 mg 08/18/16 22:00 08/20/16 22:26 Prozac - PO Not Given HS BOBBY Heparin Sodium (Porcine) 5,000 unit 08/18/16 22:00 08/21/16 13:39 Heparin - SQ 5,000 unit TID BOBBY Administration Piperacillin Sod/Tazobactam Sod 50 mls @ 100 mls/hr 08/18/16 18:00 08/21/16 09: 29 Zosyn 3.375gm Ivpb (Pre-Docked) IVPB 100 mls/hr Q8H-IV BOBBY Administration Insulin Aspart 1 vial 08/19/16 16:30 08/21/16 12:23 Novolog Vial Sliding Scale - SQ Not Given ACHS BOBBY Protocol Lidocaine 1 patch 08/19/16 10:00 08/21/16 09:30 Lidoderm Patch - TP 1 patch DAILY BOBBY Administration Lidocaine 1 patch 08/19/16 10:00 08/21/16 09:30 Lidoderm Patch - TP 1 patch DAILY BOBBY Administration Magnesium Chloride 64 mg 08/19/16 10:00 08/21/16 09:35 Slow-Mag - PO 64 mg DAILY BOBBY Administration Melatonin 5 mg 08/18/16 22:00 08/21/16 09:34 Melatonin PO 5 mg HS PRN Administration INSOMNIA Methylprednisolone Sodium Succinate 40 mg 08/21/16 10:00 08/21/16 10:22 Solu-Medrol - IVPB 40 mg Q8H-IV BOBBY Administration Mirtazapine 3.75 mg 08/18/16 22:00 08/20/16 22:26 Remeron - PO Not Given HS BOBBY Multivitamins/Minerals 1 each 08/19/16 10:00 08/21/16 09:36 Theragran-M PO 1 each DAILY BOBBY Administration Non-Formulary Medication 1 each 08/18/16 22:00 08/21/16 12:23 Lifitegrast [Xiidra] OU Not Given BID BOBBY Ondansetron HCl 4 mg 08/18/16 14:48 Zofran Injection IVPB Q6H PRN NAUSEA Pantoprazole Sodium 40 mg 08/19/16 10:00 08/21/16 09:32 Protonix - PO 40 mg DAILY BOBBY Administration Potassium Chloride 40 meq 08/19/16 10:00 08/21/16 10:22 Kcl Oral Solution - PO 40 meq DAILY BOBBY Administration Thyroid 30 mg 08/18/16 22:00 08/21/16 09:33 [place] Thyroid - PO 30 mg BID BOBBY Administration Objective: Vital Signs Period Temp Pulse Resp BP Sys/Xavier Pulse Ox Last 24 Hr 97.2 F-98.4 F 85-100 18-24 108-170/68-91 93-94 Physical Exam: General: NAD, A&Ox3 Lungs: B/l course rhonchi Heart: RRR, S1S2 Abd: Soft, non-tender, non-distended. Normoactive bowel sounds Ext: Warm, well-perfused. 2+ DP/PT bilaterally Neuro: CN 2-12 intact CBCD WBC 16.0 K/mm3 (4.0-10.0) H 08/21/16 05:05 RBC 4.08 M/mm3 (3.60-5.2) 08/21/16 05:05 Hgb 11.5 GM/dL (10.7-15.3) 08/21/16 05:05 Hct 34.6 % (32.4-45.2) 08/21/16 05:05 MCV 84.8 fl (80-96) 08/21/16 05:05 MCHC 33.2 g/dl (32.0-36.0) 08/21/16 05:05 RDW 17.0 % (11.6-15.6) H 08/21/16 05:05 Plt Count 301 K/MM3 (134-434) 08/21/16 05:05 MPV 7.5 fl (7.5-11.1) 08/21/16 05:05 CMP Sodium 142 mmol/L (136-145) 08/21/16 05:05 Potassium 4.0 mmol/L (3.5-5.1) 08/21/16 05:05 Chloride 100 mmol/L (98-107) 08/21/16 05:05 Carbon Dioxide 31 mmol/L (21-32) 08/21/16 05:05 Anion Gap 11 (8-16) 08/21/16 05:05 BUN 29 mg/dL (7-18) H 08/21/16 05:05 Creatinine 0.8 mg/dL (0.55-1.02) 08/21/16 05:05 Creat Clearance w eGFR > 60 (>60) 08/21/16 05:05 Random Glucose 114 mg/dL (74-106) H 08/21/16 05:05 Calcium 8.7 mg/dL (8.5-10.1) 08/21/16 05:05 Total Bilirubin 0.3 mg/dL (0.2-1.0) 08/21/16 05:05 AST 14 U/L (15-37) L 08/21/16 05:05 ALT 18 U/L (12-78) 08/21/16 05:05 Alkaline Phosphatase 72 U/L (45-117) 08/21/16 05:05 Total Protein 5.9 g/dl (6.4-8.2) L 08/21/16 05:05 Albumin 2.6 g/dl (3.4-5.0) L 08/21/16 05:05 CARDIAC ENZYMES Creatine Kinase 98 IU/L (26-192) 08/13/16 15:00 Troponin I 0.02 ng/ml (0.00-0.05) 08/13/16 15:00 Microbiology 08/13/16 15:00 Urine - Urine Clean Catch Urine Culture - Final NO GROWTH OBTAINED 08/13/16 15:00 Nasopharyngeal Swab Influenza Types A,B Antigen (ANTIONETTE) - Final 08/13/16 15:00 Nasopharyngeal Swab - Final Imaging: Chest x-ray: Chronic interstitial lung disease. No acute process. Assessment: This is an 81 year old female with PMHx of pulmonary fibrosis, achalasia s/p botox treatment (October 2015), aspiration pneumonia (October 2015), Sjogrens, Raynauds, hypothyroidism, adrenal insufficiency, orthostatic hypotension, scleroderma, T12 compression fracture, and frequent falls who presented to the ED with generalized weakness and was found to have influenza A. Plan: 1) Pulmonary: Acute hypoxic respiratory failure 08/14 influenza A and complicated by pulmonary fibrosis - Chest X-ray today with diffuse interstitial and alveolar changes have increased slightly - Keep O2 saturation >90% - Completed Tamiflu - Zosyn 08/14-08/17, restarted on 08/18 - Continue Solu-medrol, taper per pulmonary - Chest PT bid - F/u sputum culture, uncollected - F/u respiratory virus panel, pending - Appreciate pulmonary consult - Appreciate ID consult 2) Cardiology: Orthostatic hypotension - Still with episodes of hypertensive - Continue to hold Midodrine - Continue to monitor closely - Orthostatics 3) Neuro: B/l lower rib pain - Improving with Lidoderm patches 4) Scleroderma, Sjogren syndrome, Raynaud's syndrome - Stable 5) Endocrine: Hypothyroidism - Continue [place] thyroid 6) F/E/N: - Dysphagia chopped - Monitor electrolytes - Severe protein malnutrition 7) Prophylaxis: - Heparin 5,000u sq tid - PT 8) Dispo: - Requires continued ICU care CODE STATUS: FULL CODE Visit type - Emergency Visit Emergency Visit: Yes ED Registration Date: 08/13/16 Care time: The patient presented to the Emergency Department on the above date and was hospitalized for further evaluation of their emergent condition. - New Patient This patient is new to me today: No - Critical Care Critical Care patient: No
[2016-08-21] MEDS ORDERED: ONDANSETRON 4 MG/2 ML VIAL IVPB PRN (15:48)
[2016-08-21] MEDS ORDERED: MELATONIN 5 MG TABLETS PO PRN (15:48)
[2016-08-21] MEDS ORDERED: ACETAMINOPHEN 325 MG TABLET (FP) PO PRN (15:48)
[2016-08-21] MEDS ORDERED: ALBUTEROL SO4 0.083% IH SOL 2.5 MG/3 ML VIAL.NEB. NEB PRN (15:48)
[2016-08-21] MEDS ORDERED: DOCUSATE SODIUM 100 MG CAPSULE (FP) PO PRN (15:48)
[2016-08-21] MEDS ORDERED: HEMOQUE TEST 1 EACH EACH ONE (17:19)
[2016-08-21] MEDS: methylPREDNISolone NA SUCC 40 MG/1 ML VIAL IVPB SCH (17:30)
[2016-08-21] MEDS ORDERED: METOPROLOL TARTRATE 5 MG/5 ML VIAL IVPUSH ONE (18:28)
[2016-08-21] MEDS ORDERED: METOPROLOL TARTRATE 25 MG TABLET (FP) PO ONE (18:45)
[2016-08-21] MEDS: FLUoxetine HCL 20 MG CAPSULE (FP) PO SCH (21:41)
[2016-08-21] MEDS: MIRTAZAPINE 15 MG TABLET (FP) PO SCH (21:42)
[2016-08-22] MEDS: methylPREDNISolone NA SUCC 40 MG/1 ML VIAL IVPB SCH ×3 (02:00→17:05)
[2016-08-22] MEDS: PIPERACILLIN/TAZOB 3.375 GM 50 ML IVPB SCH ×3 (02:00→17:05)
[2016-08-22] MEDS: HEPARIN NA (PORCINE) 5,000 UNITS/ML 1ML VIAL SQ SCH ×3 (05:44→21:58)
[2016-08-22 06:22] LABS: MCH 28.3 pg (25.7-33.7); MCHC 33.2 g/dl (32.0-36.0); MEAN CELL VOLUME 85.3 fl (80-96); MEAN PLT VOLUME 7.6 fl (7.5-11.1); PLATELET COUNT 320 K/MM3 (134-434); RDW 17.3 % (11.6-15.6); WHITE BLOOD COUNT 15.9 K/mm3 (4.0-10.0)
[2016-08-22] MEDS: ALBUTEROL SO4 2.5/IPRATROPIUM 0.5 INH SOL 3 ML VIAL.NEB. NEB SCH ×4 (06:35→23:05)
[2016-08-22] MEDS: INSULIN SLIDING SCALE (NOVOLOG) 1 VIAL SQ SCH ×4 (07:05→21:56)
[2016-08-22 07:40] LABS: ALBUMIN 2.5 g/dl (3.4-5.0); ANION GAP 8 (8-16); CALCIUM 8.5 mg/dL (8.5-10.1); CO2 34 mmol/L (21-32); CREATININE 0.8 mg/dL (0.55-1.02); GLUCOSE,RANDOM 69 mg/dL (74-106); SGOT/AST 18 U/L (15-37); SGPT/ALT 18 U/L (12-78)
[2016-08-22 07:43] LABS: ALK PHOS 66 U/L (45-117); BILIRUBIN,TOTAL 0.3 mg/dL (0.2-1.0); TOT PROT 5.6 g/dl (6.4-8.2)
[2016-08-22] MEDS: THYROID 30 MG TABLET PO SCH ×2 (09:08→21:58)
[2016-08-22] MEDS: MAGNESIUM CL 64 MG TABLET.SA PO SCH (09:08)
[2016-08-22] MEDS: FLUDROCORTISONE ACETATE 0.1 MG TABLET (FP) PO SCH ×2 (09:09→21:58)
[2016-08-22] MEDS: ASCORBIC ACID 500 MG TABLET (FP) PO SCH ×2 (09:10→21:59)
[2016-08-22] MEDS: METOPROLOL TARTRATE 5 MG/5 ML VIAL IVPUSH ONE ×3 (09:11→12:18)
[2016-08-22] MEDS ORDERED: PT OWN MED DRAWER 7, Y5N ONE (09:18)
[2016-08-22] MEDS: MULTIVITAMINS THER W-MINERALS COMBO TABLET (FP) PO SCH (09:19)
[2016-08-22] MEDS: CHOLECALCIFEROL (VITAMIN D3) 1,000 UNIT TABLET (FP) PO SCH (09:20)
[2016-08-22] MEDS: POTASSIUM CHLORIDE 40 MEQ/30 ML UNIT DOSE CUP PO SCH (09:20)
[2016-08-22] MEDS: PANTOPRAZOLE 40 MG TABLET (FP) PO SCH (09:20)
[2016-08-22] MEDS: PATIENT'S OWN MEDICATION (NON-FORMULARY) (Lifitegrast [Xiidra] 1 EACH) OU SCH ×2 (09:21→21:57)
[2016-08-22] MEDS: LIDOCAINE 5% TOPICAL PATCH TP SCH ×2 (09:21)
--- NOTE | 2016-08-22 13:21 | PN ---
Teaching Attending Note Name of Resident: Rhys Wright ATTENDING PHYSICIAN STATEMENT I saw and evaluated the patient. I reviewed the resident's note and discussed the case with the resident. I agree with the resident's findings and plan as documented. SUBJECTIVE: Patient seen and examined in the ICU. Remains mildly tachypneic at rest. Reports breathing feels about the same as yesterday. Persistent nonproductive cough without wheezing. No fevers or chills. OBJECTIVE: Intake & Output 08/19/16 08/20/16 08/21/16 08/22/16 23:59 23:59 23:59 23:59 Intake Total 850 850 760 250 Balance 850 850 760 250 Weight 106 lb 4 oz 107 lb 2 oz 111 lb 11.2 oz 112 lb 3.2 oz Last Vital Signs Temp Pulse Resp BP Pulse Ox 98.0 F 78 16 164/89 93 L 08/22/16 08:00 08/22/16 12:18 08/22/16 08:15 08/22/16 12:18 08/22/16 11:10 Active Medications Acetaminophen (Tylenol -) 650 mg PO Q4H PRN PRN Reason: FEVER OR PAIN Albuterol Sulfate (Ventolin 0.083% Nebulizer Soln -) 1 amp NEB QIDR PRN PRN Reason: shortness of breath/wheezing Albuterol/Ipratropium (Duoneb -) [address] [facility] Last Admin: 08/22/16 11:10 Dose: 1 amp Ascorbic Acid (Vitamin C -) 1,[address] [facility] Last Admin: 08/22/16 09:10 Dose: 1,000 mg Cholecalciferol (Vitamin D3 -) 5,[address] [facility] Last Admin: 08/22/16 09:20 Dose: 5,000 unit Docusate Sodium (Colace -) 100 mg PO BID PRN PRN Reason: CONSTIPATION Fludrocortisone Acetate (Florinef -) 0.[address] [facility] Last Admin: 08/22/16 09:09 Dose: 0.15 mg Fluoxetine HCl (Prozac -) [address] [facility] Last Admin: 08/21/16 21:41 Dose: 20 mg Heparin Sodium (Porcine) (Heparin -) 5,[address] [facility] Last Admin: 08/22/16 05:44 Dose: 5,000 unit Piperacillin Sod/Tazobactam Sod (Zosyn 3.375gm Ivpb (Pre-Docked)) 50 mls @ 100 mls/hr IVPB Q8H-IV [facility] Last Admin: 08/22/16 09:10 Dose: 100 mls/hr Insulin Aspart (Novolog Vial Sliding Scale -) 1 vial SQ ACHS BOBBY PRN Reason: Protocol Last Admin: 08/22/16 12:17 Dose: Not Given Lidocaine (Lidoderm Patch -) [address] [facility] Last Admin: 08/22/16 09:21 Dose: 1 patch Lidocaine (Lidoderm Patch -) [address] [facility] Last Admin: 08/22/16 09:21 Dose: 1 patch Magnesium Chloride (Slow-Mag -) [address] [facility] Last Admin: 08/22/16 09:08 Dose: 64 mg Melatonin (Melatonin) 5 mg PO HS PRN PRN Reason: INSOMNIA Methylprednisolone Sodium Succinate (Solu-Medrol -) 40 [address] IVPB Q8H-IV [facility] Last Admin: 08/22/16 09:10 Dose: 40 mg Mirtazapine (Remeron -) 3.[address] [facility] Last Admin: 08/21/16 21:42 Dose: 3.75 mg Multivitamins/Minerals (Theragran-M) [address] [facility] Last Admin: 08/22/16 09:19 Dose: 1 each Non-Formulary Medication (Lifitegrast [Xiidra]) [address] [facility] Last Admin: 08/22/16 09:21 Dose: Not Given Ondansetron HCl (Zofran Injection) 4 mg IVPB Q6H PRN PRN Reason: NAUSEA Pantoprazole Sodium (Protonix -) [address] [facility] Last Admin: 08/22/16 09:20 Dose: 40 mg Potassium Chloride (Kcl Oral Solution -) [address] [facility] Last Admin: 08/22/16 09:20 Dose: 40 meq Thyroid ([place] Thyroid -) [address] [facility] Last Admin: 08/22/16 09:08 Dose: 30 mg Gen: Awake and alert, mildly tachypneic at rest HEENT: dry mucous membranes Heart: RRR Lung: bilateral scattered rhonchi and rales Abd: soft, nontender Ext: no edema Laboratory Results - last 24 hr 08/19/16 08/19/16 08/19/16 05:00 16:49 22:46 WBC RBC Hgb Hct MCV MCHC RDW Plt Count MPV Sodium Potassium Chloride Carbon Dioxide Anion Gap BUN Creatinine Creat Clearance w eGFR POC Glucometer 140.47653 163.60502 Random Glucose Calcium Total Bilirubin AST ALT Alkaline Phosphatase Total Protein Albumin Beta-(1,3)-D-Glucan < 31 08/20/16 08/20/16 08/20/16 06:35 12:10 17:04 WBC RBC Hgb Hct MCV MCHC RDW Plt Count MPV Sodium Potassium Chloride Carbon Dioxide Anion Gap BUN Creatinine Creat Clearance w eGFR POC Glucometer 134.54130 140.57516 149.27532 Random Glucose Calcium Total Bilirubin AST ALT Alkaline Phosphatase Total Protein Albumin Beta-(1,3)-D-Glucan 08/20/16 08/21/16 08/21/16 21:25 12:21 17:22 WBC RBC Hgb Hct MCV MCHC RDW Plt Count MPV Sodium Potassium Chloride Carbon Dioxide Anion Gap BUN Creatinine Creat Clearance w eGFR POC Glucometer 176.33193 119.82082 109.75295 Random Glucose Calcium Total Bilirubin AST ALT Alkaline Phosphatase Total Protein Albumin Beta-(1,3)-D-Glucan 08/21/16 08/22/16 08/22/16 21:38 05:15 05:15 WBC 15.9 H RBC 4.04 Hgb 11.4 Hct 34.4 MCV 85.3 MCHC 33.2 RDW 17.3 H Plt Count 320 MPV 7.6 Sodium 142 Potassium 3.6 Chloride 100 Carbon Dioxide 34 H Anion Gap 8 BUN 24 H Creatinine 0.8 Creat Clearance w eGFR > 60 POC Glucometer 174.04438 Random Glucose 69 L D Calcium 8.5 Total Bilirubin 0.3 AST 18 D ALT 18 Alkaline Phosphatase 66 Total Protein 5.6 L Albumin 2.5 L Beta-(1,3)-D-Glucan 08/22/16 05:37 WBC RBC Hgb Hct MCV MCHC RDW Plt Count MPV Sodium Potassium Chloride Carbon Dioxide Anion Gap BUN Creatinine Creat Clearance w eGFR POC Glucometer 82.94091 Random Glucose Calcium Total Bilirubin AST ALT Alkaline Phosphatase Total Protein Albumin Beta-(1,3)-D-Glucan Problem List - Problems (1) Acute respiratory failure with hypoxia Code(s): J96.01 - ACUTE RESPIRATORY FAILURE WITH HYPOXIA (2) Influenza A Code(s): J10.1 - FLU DUE TO OTH IDENT INFLUENZA VIRUS W OTH RESP MANIFEST (3) Pulmonary fibrosis Code(s): J84.10 - PULMONARY FIBROSIS, UNSPECIFIED (4) Scleroderma Code(s): M34.9 - SYSTEMIC SCLEROSIS, UNSPECIFIED (5) Sjoegren syndrome Code(s): M35.00 - SICCA SYNDROME, UNSPECIFIED (6) Interstitial lung disease Code(s): J84.9 - INTERSTITIAL PULMONARY DISEASE, UNSPECIFIED (7) Hypothyroid Code(s): E03.9 - HYPOTHYROIDISM, UNSPECIFIED (8) Orthostatic hypotension Code(s): I95.1 - ORTHOSTATIC HYPOTENSION ASSESSMENT AND PLAN: Acute Hypoxic Respiratory Failure Influenza A Interstitial Lung Disease Scleroderma/Sjogren Syndrome Adrenal Insufficiency (?) Hypertensive Urgency episode - ?Acute Pulmonary Edema vs Pneumonia - Taper medrol - continue antibiotics per ID - Daily assessment for lasix, can hold today as she appears dry - tamiflu completed - O2 to keep SpO2 >90% - PO as tolerated - DVT/GI prophylaxis - 4W / 4S monitoring Dr Kincaid CCTime 35"
--- NOTE | 2016-08-22 13:30 | PN ---
Physical Exam: SUBJECTIVE: Patient seen and examined in the ICU, in no acute distress. States she feels better, but still weak Tolerating the 3 liters of nasal cannula. OBJECTIVE: Vital Signs Period Temp Pulse Resp BP Sys/Xavier Pulse Ox Last 24 Hr 97.8 F-98.8 F 68-95 16-18 140-183/70-98 93-96 GENERAL: The patient is awake, alert, and fully oriented, in no acute distress. HEAD: Normal with no signs of trauma. EYES: PERRL, extraocular movements intact, sclera anicteric, conjunctiva clear. No ptosis. ENT: Ears normal, nares patent, oropharynx clear without exudates, moist mucous membranes. NECK: Trachea midline, full range of motion, supple. LUNGS: anterior lungs sounds with scattered rhonchi and wheezing, congestion, posterior lungs with scattered rhonchi. HEART: Regular rate and rhythm ABDOMEN: Soft, nontender, nondistended, normoactive bowel sounds, no guarding, no rebound, no hepatosplenomegaly, no masses. EXTREMITIES: 2+ pulses, warm, well-perfused, no edema. NEUROLOGICAL: Normal speech, gait not observed. PSYCH: Normal mood, normal affect. SKIN: Warm, dry, normal turgor, no rashes or lesions noted Laboratory Results - last 24 hr 08/19/16 08/19/16 08/19/16 05:00 16:49 22:46 WBC RBC Hgb Hct MCV MCHC RDW Plt Count MPV Sodium Potassium Chloride Carbon Dioxide Anion Gap BUN Creatinine Creat Clearance w eGFR POC Glucometer 140.24668 163.62277 Random Glucose Calcium Total Bilirubin AST ALT Alkaline Phosphatase Total Protein Albumin Beta-(1,3)-D-Glucan < 31 08/20/16 08/20/16 08/20/16 06:35 12:10 17:04 WBC RBC Hgb Hct MCV MCHC RDW Plt Count MPV Sodium Potassium Chloride Carbon Dioxide Anion Gap BUN Creatinine Creat Clearance w eGFR POC Glucometer 134.62282 140.97113 149.42682 Random Glucose Calcium Total Bilirubin AST ALT Alkaline Phosphatase Total Protein Albumin Beta-(1,3)-D-Glucan 08/20/16 08/21/16 08/21/16 21:25 12:21 17:22 WBC RBC Hgb Hct MCV MCHC RDW Plt Count MPV Sodium Potassium Chloride Carbon Dioxide Anion Gap BUN Creatinine Creat Clearance w eGFR POC Glucometer 176.04139 119.73182 109.66642 Random Glucose Calcium Total Bilirubin AST ALT Alkaline Phosphatase Total Protein Albumin Beta-(1,3)-D-Glucan 08/21/16 08/22/16 08/22/16 21:38 05:15 05:15 WBC 15.9 H RBC 4.04 Hgb 11.4 Hct 34.4 MCV 85.3 MCHC 33.2 RDW 17.3 H Plt Count 320 MPV 7.6 Sodium 142 Potassium 3.6 Chloride 100 Carbon Dioxide 34 H Anion Gap 8 BUN 24 H Creatinine 0.8 Creat Clearance w eGFR > 60 POC Glucometer 174.88168 Random Glucose 69 L D Calcium 8.5 Total Bilirubin 0.3 AST 18 D ALT 18 Alkaline Phosphatase 66 Total Protein 5.6 L Albumin 2.5 L Beta-(1,3)-D-Glucan 08/22/16 05:37 WBC RBC Hgb Hct MCV MCHC RDW Plt Count MPV Sodium Potassium Chloride Carbon Dioxide Anion Gap BUN Creatinine Creat Clearance w eGFR POC Glucometer 82.08820 Random Glucose Calcium Total Bilirubin AST ALT Alkaline Phosphatase Total Protein Albumin Beta-(1,3)-D-Glucan Active Medications Generic Name Dose Route Start Last Admin Trade Name Freq PRN Reason Stop Dose Admin Acetaminophen 650 mg 08/21/16 15:48 Tylenol - PO Q4H PRN FEVER OR PAIN Albuterol Sulfate 1 amp 08/21/16 15:48 Ventolin 0.083% Nebulizer Soln - NEB QIDR PRN shortness of breath/wheezing Albuterol/Ipratropium 1 amp 08/21/16 18:00 08/22/16 11:10 Duoneb - NEB 1 amp QIDR BOBBY Administration Ascorbic Acid 1,000 mg 08/21/16 22:00 08/22/16 09:10 Vitamin C - PO 1,000 mg BID BOBBY Administration Cholecalciferol 5,000 unit 08/22/16 10:00 08/22/16 09:20 Vitamin D3 - PO 5,000 unit DAILY BOBBY Administration Docusate Sodium 100 mg 08/21/16 15:48 Colace - PO BID PRN CONSTIPATION Fludrocortisone Acetate 0.15 mg 08/21/16 22:00 08/22/16 09:09 Florinef - PO 0.15 mg BID BOBBY Administration Fluoxetine HCl 20 mg 08/21/16 22:00 08/21/16 21:41 Prozac - PO 20 mg HS BOBBY Administration Heparin Sodium (Porcine) 5,000 unit 08/21/16 22:00 08/22/16 05:44 Heparin - SQ 5,000 unit TID BOBBY Administration Piperacillin Sod/Tazobactam Sod 50 mls @ 100 mls/hr 08/21/16 18:00 08/22/16 09: 10 Zosyn 3.375gm Ivpb (Pre-Docked) IVPB 100 mls/hr Q8H-IV BOBBY Administration Insulin Aspart 1 vial 08/21/16 16:30 08/22/16 12:17 Novolog Vial Sliding Scale - SQ Not Given ACHS BOBBY Protocol Lidocaine 1 patch 08/22/16 10:00 08/22/16 09:21 Lidoderm Patch - TP 1 patch DAILY BOBBY Administration Lidocaine 1 patch 08/22/16 10:00 08/22/16 09:21 Lidoderm Patch - TP 1 patch DAILY BOBBY Administration Magnesium Chloride 64 mg 08/22/16 10:00 08/22/16 09:08 Slow-Mag - PO 64 mg DAILY BOBBY Administration Melatonin 5 mg 08/21/16 15:48 Melatonin PO HS PRN INSOMNIA Methylprednisolone Sodium Succinate 40 mg 08/21/16 18:00 08/22/16 09:10 Solu-Medrol - IVPB 40 mg Q8H-IV BOBBY Administration Mirtazapine 3.75 mg 08/21/16 22:00 08/21/16 21:42 Remeron - PO 3.75 mg HS BOBBY Administration Multivitamins/Minerals 1 each 08/22/16 10:00 08/22/16 09:19 Theragran-M PO 1 each DAILY BOBBY Administration Non-Formulary Medication 1 each 08/21/16 22:00 08/22/16 09:21 Lifitegrast [Xiidra] OU Not Given BID BOBBY Ondansetron HCl 4 mg 08/21/16 15:48 Zofran Injection IVPB Q6H PRN NAUSEA Pantoprazole Sodium 40 mg 08/22/16 10:00 08/22/16 09:20 Protonix - PO 40 mg DAILY BOBBY Administration Potassium Chloride 40 meq 08/22/16 10:00 08/22/16 09:20 Kcl Oral Solution - PO 40 meq DAILY BOBBY Administration Thyroid 30 mg 08/21/16 22:00 08/22/16 09:08 [place] Thyroid - PO 30 mg BID BOBBY Administration ASSESSMENT/PLAN: Patient is an 81 year old female who is a resident of the [facility]. She has a significant past medical history of pulmonary fibrosis, hypothyroidism, sjogren syndrome, scleroderma, raynaud's syndrome, adrenal insufficiency and orthostatic hypotension. She presented to the ED on with generalized weakness. She was being treated as an outpatient for a UTI (with Cipro) but had to be switched to Cefdinir because urine cultures showed that the bacteria was resistent to Cipro. Once she started the Cefdinir , she experienced abdominal pain, nausea and vomiting and therefore has stopped taking it. She has since had a non productive cough, shortness of brath, chills and sweats. She reports poor appetite. On admission she was found to be positive for Influenza A. Pulmonary: Shortness of breath - slowly improving Plan: Hypoxia secondary to influenza A with pulmonary fibrosis On Solumedrol 40mg q8 Influenza A positive, but has since completed Tamiflu On Zosyn per ID Tolerating 3 liters of nasal cannula but having dyspnea on minimal exertion Wean off oxygen as tolerated, not oxygen dependent at [facility] Duonebs, Albuterol for shortness of breath Respiratory panel pending Pulmonary following Cardiology: Chronic orthostatic hypotension Plan: Was hypertensive this morning, given Lopressor Will need orthostatics assessments when she clinically improves Midodrine on hold Endocrine: Hypothyroidism - chronic Plan: On [place] Thyroid 30-mg PO BID Diabetes Mellitus - chronic Plan: Novolog sliding scale, tighter control if BGMs are elevated may add Levemir while on steroids if BGMs become elevated Continue to trend F.E.N. Fluids: tolerating PO - no IVF Electrolytes: within normal limits Nutrition: dysphasia chopped diet, aspiration precautions Prophylaxis: DVT: on Heparin 5000 sq TID GI: Protonix 40mg daily PT evaluation Disposition: Requires ICU monitoring, full code. Visit type - Emergency Visit Emergency Visit: Yes ED Registration Date: 08/13/16 Care time: The patient presented to the Emergency Department on the above date and was hospitalized for further evaluation of their emergent condition. - New Patient This patient is new to me today: Yes Date on this admission: 11/01/16 - Critical Care Critical Care patient: No - Discharge Referral Referred to [facility] No
--- NOTE | 2016-08-22 15:44 | PN ---
Physical Exam: SUBJECTIVE: Patient seen and examined at bedside in ICU. States she feels well but breathing sounds worse. Mildly tachypneic during interview. OBJECTIVE: Vital Signs Period Temp Pulse Resp BP Sys/Xavier Pulse Ox Last 24 Hr 97.8 F-98.4 F 68-90 16-18 118-183/70-98 93-96 GENERAL: AAOx3, pleasant, mildly tachypneic during long sentences HEENT: Atraumatic, EOMI, PERRLA, Dry mucous membranes LUNGS: diminished breath soudns bilaterally, mild sccatered rhonchi & rales HEART: Regular rate and rhythm, S1, S2 without murmur, rub or gallop. ABDOMEN: Soft, nontender, nondistended EXTREMITIES: 2+ pulses, warm, well-perfused, no edema. NEUROLOGICAL: Cranial nerves II through XII grossly intact. Normal speech, gait not observed. PSYCH: Normal mood, normal affect. SKIN: Warm, dry, normal turgor, no rashes or lesions noted Laboratory Results - last 24 hr 08/19/16 08/19/16 08/19/16 05:00 16:49 22:46 WBC RBC Hgb Hct MCV MCHC RDW Plt Count MPV Sodium Potassium Chloride Carbon Dioxide Anion Gap BUN Creatinine Creat Clearance w eGFR POC Glucometer 140.35926 163.38152 Random Glucose Calcium Total Bilirubin AST ALT Alkaline Phosphatase Total Protein Albumin Beta-(1,3)-D-Glucan < 31 08/20/16 08/20/16 08/20/16 06:35 12:10 17:04 WBC RBC Hgb Hct MCV MCHC RDW Plt Count MPV Sodium Potassium Chloride Carbon Dioxide Anion Gap BUN Creatinine Creat Clearance w eGFR POC Glucometer 134.17396 140.71103 [phone] Random Glucose Calcium Total Bilirubin AST ALT Alkaline Phosphatase Total Protein Albumin Beta-(1,3)-D-Glucan 08/20/16 08/21/16 08/21/16 21:25 12:21 17:22 WBC RBC Hgb Hct MCV MCHC RDW Plt Count MPV Sodium Potassium Chloride Carbon Dioxide Anion Gap BUN Creatinine Creat Clearance w eGFR POC Glucometer 176.22235 119.55767 109.10751 Random Glucose Calcium Total Bilirubin AST ALT Alkaline Phosphatase Total Protein Albumin Beta-(1,3)-D-Glucan 08/21/16 08/22/16 08/22/16 21:38 05:15 05:15 WBC 15.9 H RBC 4.04 Hgb 11.4 Hct 34.4 MCV 85.3 MCHC 33.2 RDW 17.3 H Plt Count 320 MPV 7.6 Sodium 142 Potassium 3.6 Chloride 100 Carbon Dioxide 34 H Anion Gap 8 BUN 24 H Creatinine 0.8 Creat Clearance w eGFR > 60 POC Glucometer 174.26827 Random Glucose 69 L D Calcium 8.5 Total Bilirubin 0.3 AST 18 D ALT 18 Alkaline Phosphatase 66 Total Protein 5.6 L Albumin 2.5 L Beta-(1,3)-D-Glucan 08/22/16 05:37 WBC RBC Hgb Hct MCV MCHC RDW Plt Count MPV Sodium Potassium Chloride Carbon Dioxide Anion Gap BUN Creatinine Creat Clearance w eGFR POC Glucometer 82.01210 Random Glucose Calcium Total Bilirubin AST ALT Alkaline Phosphatase Total Protein Albumin Beta-(1,3)-D-Glucan Active Medications Generic Name Dose Route Start Last Admin Trade Name Freq PRN Reason Stop Dose Admin Acetaminophen 650 mg 08/21/16 15:48 Tylenol - PO Q4H PRN FEVER OR PAIN Albuterol Sulfate 1 amp 08/21/16 15:48 Ventolin 0.083% Nebulizer Soln - NEB QIDR PRN shortness of breath/wheezing Albuterol/Ipratropium 1 amp 08/21/16 18:00 08/22/16 11:10 Duoneb - NEB 1 amp QIDR BOBBY Administration Ascorbic Acid 1,000 mg 08/21/16 22:00 08/22/16 09:10 Vitamin C - PO 1,000 mg BID [facility] Administration Cholecalciferol 5,000 unit 08/22/16 10:00 08/22/16 09:20 Vitamin D3 - PO 5,000 unit DAILY [facility]BY Administration Docusate Sodium 100 mg 08/21/16 15:48 Colace - PO BID PRN CONSTIPATION Fludrocortisone Acetate 0.15 mg 08/21/16 22:00 08/22/16 09:09 Florinef - PO 0.15 mg BID [facility] Administration Fluoxetine HCl 20 mg 08/21/16 22:00 08/21/16 21:41 Prozac - PO 20 mg HS B[facility]BY Administration Heparin Sodium (Porcine) 5,000 unit 08/21/16 22:00 08/22/16 14:44 Heparin - SQ 5,000 unit TID [facility] Administration Piperacillin Sod/Tazobactam Sod 50 mls @ 100 mls/hr 08/21/16 18:00 08/22/16 09: 10 Zosyn 3.375gm Ivpb (Pre-Docked) IVPB 100 mls/hr Q8H-IV [facility] Administration Insulin Aspart 1 vial 08/21/16 16:30 08/22/16 12:17 Novolog Vial Sliding Scale - SQ Not Given ACHS [facility] Protocol Lidocaine 1 patch 08/22/16 10:00 08/22/16 09:21 Lidoderm Patch - TP 1 patch DAILY [facility] Administration Lidocaine 1 patch 08/22/16 10:00 08/22/16 09:21 Lidoderm Patch - TP 1 patch DAILY [facility] Administration Magnesium Chloride 64 mg 08/22/16 10:00 08/22/16 09:08 Slow-Mag - PO 64 mg DAILY [facility] Administration Melatonin 5 mg 08/21/16 15:48 Melatonin PO HS PRN INSOMNIA Methylprednisolone Sodium Succinate 40 mg 08/21/16 18:00 08/22/16 09:10 Solu-Medrol - IVPB 40 mg Q8H-IV [facility] Administration Mirtazapine 3.75 mg 08/21/16 22:00 08/21/16 21:42 Remeron - PO 3.75 mg HS [facility]BY Administration Multivitamins/Minerals 1 each 08/22/16 10:00 08/22/16 09:19 Theragran-M PO 1 each DAILY [facility] Administration Non-Formulary Medication 1 each 08/21/16 22:00 08/22/16 09:21 Lifitegrast [Xiidra] OU Not Given BID [facility] Ondansetron HCl 4 mg 08/21/16 15:48 Zofran Injection IVPB Q6H PRN NAUSEA Pantoprazole Sodium 40 mg 08/22/16 10:00 08/22/16 09:20 Protonix - PO 40 mg DAILY [facility] Administration Potassium Chloride 40 meq 08/22/16 10:00 08/22/16 09:20 Kcl Oral Solution - PO 40 meq DAILY [facility] Administration Thyroid 30 mg 08/21/16 22:00 08/22/16 09:08 [place] Thyroid - PO 30 mg BID BOBBY Administration ASSESSMENT/PLAN: 81 year old female with significant PMH of ILD, Aspiration pneumonia, Scleroderma, hypothyroid, adrenal insufficiency who is in ICU with Acute hypoxic respiratory failure. #Acute Hypoxic respiratory failure, Influenza superimposed on history of ILD -CXR mostly unchanged: bilateral interstitial disease w/ possible RUL infiltrate ? -keep o2 sat>90% -Zosyn ongoing, as per ID -Tamiflu completed -Solumedrol ongoing -Chest PT -F/u cultures #Orthostatic Hypotension - holding Midodrine #Hypothyroidism -Continue [place] thyroid Prophylaxis -Heparin -PPI Visit type - Emergency Visit Emergency Visit: Yes ED Registration Date: 08/13/16 Care time: The patient presented to the Emergency Department on the above date and was hospitalized for further evaluation of their emergent condition. - New Patient This patient is new to me today: Yes Date on this admission: 08/22/16 - Critical Care Critical Care patient: Yes Total Critical Care Time (in minutes): 45 Critical Care Statement: The care of this patient involved high complexity decision making to prevent further life threatening deterioration of the patient 's condition and/or to evalute & treat vital organ system(s) failure or risk of failure.
--- NOTE | 2016-08-22 15:48 | PN ---
Progress Note, Physician History of Present Illness: patient not feeling well says she was sob worse than on wed currently comfortable no other events - Current Medication List Current Medications: Active Medications Acetaminophen (Tylenol -) 650 mg PO Q4H PRN PRN Reason: FEVER OR PAIN Albuterol Sulfate (Ventolin 0.083% Nebulizer Soln -) 1 amp NEB QIDR PRN PRN Reason: shortness of breath/wheezing Albuterol/Ipratropium (Duoneb -) 1 amp NEB QIDR [facility] Last Admin: 08/22/16 11:10 Dose: 1 amp Ascorbic Acid (Vitamin C -) 1,000 mg PO BID [facility] Last Admin: 08/22/16 09:10 Dose: 1,000 mg Cholecalciferol (Vitamin D3 -) 5,000 unit PO DAILY [facility] Last Admin: 08/22/16 09:20 Dose: 5,000 unit Docusate Sodium (Colace -) 100 mg PO BID PRN PRN Reason: CONSTIPATION Fludrocortisone Acetate (Florinef -) 0.15 mg PO BID [facility] Last Admin: 08/22/16 09:09 Dose: 0.15 mg Fluoxetine HCl (Prozac -) 20 mg PO HS [facility] Last Admin: 08/21/16 21:41 Dose: 20 mg Heparin Sodium (Porcine) (Heparin -) 5,000 unit SQ TID [facility] Last Admin: 08/22/16 14:44 Dose: 5,000 unit Piperacillin Sod/Tazobactam Sod (Zosyn 3.375gm Ivpb (Pre-Docked)) 50 mls @ 100 mls/hr IVPB Q8H-IV [facility] Last Admin: 08/22/16 09:10 Dose: 100 mls/hr Insulin Aspart (Novolog Vial Sliding Scale -) 1 vial SQ ACHS [facility] PRN Reason: Protocol Last Admin: 08/22/16 12:17 Dose: Not Given Lidocaine (Lidoderm Patch -) 1 patch TP DAILY [facility] Last Admin: 08/22/16 09:21 Dose: 1 patch Lidocaine (Lidoderm Patch -) 1 patch TP DAILY [facility] Last Admin: 08/22/16 09:21 Dose: 1 patch Magnesium Chloride (Slow-Mag -) 64 mg PO DAILY [facility] Last Admin: 08/22/16 09:08 Dose: 64 mg Melatonin (Melatonin) 5 mg PO HS PRN PRN Reason: INSOMNIA Methylprednisolone Sodium Succinate (Solu-Medrol -) 40 mg IVPB Q8H-IV [facility] Last Admin: 08/22/16 09:10 Dose: 40 mg Mirtazapine (Remeron -) 3.75 mg PO HS [facility] Last Admin: 08/21/16 21:42 Dose: 3.75 mg Multivitamins/Minerals (Theragran-M) 1 each PO DAILY [facility] Last Admin: 08/22/16 09:19 Dose: 1 each Non-Formulary Medication (Lifitegrast [Xiidra]) 1 each OU BID [facility] Last Admin: 08/22/16 09:21 Dose: Not Given Ondansetron HCl (Zofran Injection) 4 mg IVPB Q6H PRN PRN Reason: NAUSEA Pantoprazole Sodium (Protonix -) 40 mg PO DAILY [facility] Last Admin: 08/22/16 09:20 Dose: 40 mg Potassium Chloride (Kcl Oral Solution -) 40 meq PO DAILY [facility] Last Admin: 08/22/16 09:20 Dose: 40 meq Thyroid ([place] Thyroid -) 30 mg PO BID [facility] Last Admin: 08/22/16 09:08 Dose: 30 mg - Objective Vital Signs: Vital Signs Temperature 98.0 F 08/22/16 08:00 Pulse Rate 71 08/22/16 12:18 Respiratory Rate 18 08/22/16 12:18 Blood Pressure 118/72 08/22/16 12:18 O2 Sat by Pulse Oximetry (%) 93 L 08/22/16 11:10 Constitutional: Yes: No Distress, Calm Eyes: Yes: Conjunctiva Clear HENT: Yes: Atraumatic Neck: Yes: Supple Cardiovascular: Yes: Regular Rate and Rhythm Respiratory: Yes: Rhonchi, Other (crackles) Gastrointestinal: Yes: Normal Bowel Sounds, Soft Musculoskeletal: Yes: WNL Extremities: Yes: WNL Neurological: Yes: Alert, Oriented Psychiatric: Yes: Alert Labs: CBC, BMP 08/22/16 05:15 08/22/16 05:15 Assessment/Plan This is an 81-year-old woman who presented to the ER with generalized weakness, cough, abdominal pain, nausea and vomiting. She was recently treated with Cipro followed by Cefdinir for UTI. She was found to have temp 100.2, O2 sat 90% on RA , WBC 6.9, sodium 133, potassium 2.6, BUN 21, creatinine 1.0. She is being admitted now for treatment of an emergent condition. 1. Hypokalemia 2. Hyponatremia 3. Dehydration 4. Hypoxia secondary to influenza A with pulmonary fibrosis 5. Orthostatic hypotension, adrenal insufficiency 6. Scleroderma, Sjogren syndrome, Raynaud's syndrome 7. Hypothyroidism immunocompromised - Problems (1) Acute respiratory failure with hypoxia Code(s): J96.01 - ACUTE RESPIRATORY FAILURE WITH HYPOXIA (2) Influenza A Code(s): J10.1 - FLU DUE TO OTH IDENT INFLUENZA VIRUS W OTH RESP MANIFEST (3) Pulmonary fibrosis Code(s): J84.10 - PULMONARY FIBROSIS, UNSPECIFIED (4) Scleroderma Code(s): M34.9 - SYSTEMIC SCLEROSIS, UNSPECIFIED (5) Sjoegren syndrome Code(s): M35.00 - SICCA SYNDROME, UNSPECIFIED (6) Interstitial lung disease Code(s): J84.9 - INTERSTITIAL PULMONARY DISEASE, UNSPECIFIED (7) Hypothyroid Code(s): E03.9 - HYPOTHYROIDISM, UNSPECIFIED (8) Orthostatic hypotension Code(s): I95.1 - ORTHOSTATIC HYPOTENSION resp failure patients b-d glucan wnl plan continue current mgmt watch for hypoxia continue abx for now wbc still on the higher side will consider deescalating in a day or so resp support
[2016-08-22] MEDS ORDERED: HEMOQUE TEST 1 EACH EACH ONE (21:50)
[2016-08-22] MEDS: MIRTAZAPINE 15 MG TABLET (FP) PO SCH (21:59)
[2016-08-22] MEDS: FLUoxetine HCL 20 MG CAPSULE (FP) PO SCH (21:59)
[2016-08-23] MEDS: methylPREDNISolone NA SUCC 40 MG/1 ML VIAL IVPB SCH ×3 (01:15→18:00)
[2016-08-23] MEDS: PIPERACILLIN/TAZOB 3.375 GM 50 ML IVPB SCH ×3 (01:45→18:00)
[2016-08-23] MEDS: ALBUTEROL SO4 2.5/IPRATROPIUM 0.5 INH SOL 3 ML VIAL.NEB. NEB SCH ×4 (06:00→23:25)
[2016-08-23] MEDS: HEPARIN NA (PORCINE) 5,000 UNITS/ML 1ML VIAL SQ SCH ×3 (06:27→22:12)
[2016-08-23] MEDS: INSULIN SLIDING SCALE (NOVOLOG) 1 VIAL SQ SCH ×4 (06:31→22:13)
[2016-08-23 07:43] LABS: MCH 28.1 pg (25.7-33.7); MEAN CELL VOLUME 85.1 fl (80-96); MEAN PLT VOLUME 7.4 fl (7.5-11.1); PLATELET COUNT 310 K/MM3 (134-434); WHITE BLOOD COUNT 14.8 K/mm3 (4.0-10.0)
[2016-08-23 08:24] LABS: ALBUMIN 2.6 g/dl (3.4-5.0); ALK PHOS 76 U/L (45-117); ANION GAP 9 (8-16); BILIRUBIN,TOTAL 0.4 mg/dL (0.2-1.0); CALCIUM 8.7 mg/dL (8.5-10.1); CO2 33 mmol/L (21-32); CREATININE 0.8 mg/dL (0.55-1.02); GLUCOSE,RANDOM 90 mg/dL (74-106); SGOT/AST 16 U/L (15-37); SGPT/ALT 20 U/L (12-78)
[2016-08-23] MEDS ORDERED: POTASSIUM CHLORIDE 40 MEQ/30 ML UNIT DOSE CUP PO ONE (08:37)
[2016-08-23] MEDS: POTASSIUM CHLORIDE 40 MEQ/30 ML UNIT DOSE CUP PO SCH (09:30)
[2016-08-23 09:59] LABS: PLATELET COMMENT2 NO CLOTTING DETECTED; PLATELET ESTIMATE ADEQUATE (NORMAL)
[2016-08-23] MEDS: LIDOCAINE 5% TOPICAL PATCH TP SCH ×2 (10:04→10:06)
[2016-08-23] MEDS: CHOLECALCIFEROL (VITAMIN D3) 1,000 UNIT TABLET (FP) PO SCH (10:05)
[2016-08-23] MEDS: PATIENT'S OWN MEDICATION (NON-FORMULARY) (Lifitegrast [Xiidra] 1 EACH) OU SCH ×2 (10:06→22:13)
[2016-08-23] MEDS: MULTIVITAMINS THER W-MINERALS COMBO TABLET (FP) PO SCH (10:06)
[2016-08-23] MEDS: PANTOPRAZOLE 40 MG TABLET (FP) PO SCH (10:06)
[2016-08-23] MEDS: ASCORBIC ACID 500 MG TABLET (FP) PO SCH ×2 (10:07→22:15)
[2016-08-23] MEDS ORDERED: PT OWN MED DRAWER 7, Y5N ONE (10:09)
[2016-08-23] MEDS: THYROID 30 MG TABLET PO SCH ×2 (10:10→22:11)
[2016-08-23] MEDS: MAGNESIUM CL 64 MG TABLET.SA PO SCH (10:10)
[2016-08-23] MEDS: FLUDROCORTISONE ACETATE 0.1 MG TABLET (FP) PO SCH ×2 (10:11→22:12)
--- NOTE | 2016-08-23 10:56 | PN ---
Progress Note, Physician History of Present Illness: PULMONARY AWAKE,MILDLY CONGESTED,+COUGH - Current Medication List Current Medications: Active Medications Acetaminophen (Tylenol -) 650 mg PO Q4H PRN PRN Reason: FEVER OR PAIN Albuterol Sulfate (Ventolin 0.083% Nebulizer Soln -) 1 amp NEB QIDR PRN PRN Reason: shortness of breath/wheezing Albuterol/Ipratropium (Duoneb -) 1 amp NEB QIDR [facility] Last Admin: 08/23/16 06:00 Dose: 1 amp Ascorbic Acid (Vitamin C -) 1,000 mg PO BID [facility] Last Admin: 08/23/16 10:07 Dose: 1,000 mg Cholecalciferol (Vitamin D3 -) 5,000 unit PO DAILY [facility] Last Admin: 08/23/16 10:05 Dose: 5,000 unit Docusate Sodium (Colace -) 100 mg PO BID PRN PRN Reason: CONSTIPATION Fludrocortisone Acetate (Florinef -) 0.15 mg PO BID [facility] Last Admin: 08/23/16 10:11 Dose: 0.15 mg Fluoxetine HCl (Prozac -) 20 mg PO HS [facility] Last Admin: 08/22/16 21:59 Dose: 20 mg Heparin Sodium (Porcine) (Heparin -) 5,000 unit SQ TID [facility] Last Admin: 08/23/16 06:27 Dose: 5,000 unit Piperacillin Sod/Tazobactam Sod (Zosyn 3.375gm Ivpb (Pre-Docked)) 50 mls @ 100 mls/hr IVPB Q8H-IV [facility] Last Admin: 08/23/16 10:07 Dose: 100 mls/hr Insulin Aspart (Novolog Vial Sliding Scale -) 1 vial SQ ACHS [facility] PRN Reason: Protocol Last Admin: 08/23/16 06:31 Dose: Not Given Lidocaine (Lidoderm Patch -) 1 patch TP DAILY [facility] Last Admin: 08/23/16 10:04 Dose: 1 patch Lidocaine (Lidoderm Patch -) 1 patch TP DAILY [facility] Last Admin: 08/23/16 10:06 Dose: 1 patch Magnesium Chloride (Slow-Mag -) 64 mg PO DAILY [facility] Last Admin: 08/23/16 10:10 Dose: 64 mg Melatonin (Melatonin) 5 mg PO HS PRN PRN Reason: INSOMNIA Methylprednisolone Sodium Succinate (Solu-Medrol -) 40 mg IVPB Q8H-IV [facility] Last Admin: 08/23/16 10:06 Dose: 40 mg Mirtazapine (Remeron -) 3.75 mg PO HS [facility] Last Admin: 08/22/16 21:59 Dose: 3.75 mg Multivitamins/Minerals (Theragran-M) 1 each PO DAILY [facility] Last Admin: 08/23/16 10:06 Dose: 1 each Non-Formulary Medication (Lifitegrast [Xiidra]) 1 each OU BID [facility] Last Admin: 08/23/16 10:06 Dose: Not Given Ondansetron HCl (Zofran Injection) 4 mg IVPB Q6H PRN PRN Reason: NAUSEA Pantoprazole Sodium (Protonix -) 40 mg PO DAILY [facility] Last Admin: 08/23/16 10:06 Dose: 40 mg Potassium Chloride (Kcl Oral Solution -) 40 meq PO DAILY [facility] Last Admin: 08/22/16 09:20 Dose: 40 meq Thyroid ([place] Thyroid -) 30 mg PO BID [facility] Last Admin: 08/23/16 10:10 Dose: 30 mg - Objective Vital Signs: Vital Signs Temperature 97.9 F 08/23/16 07:48 Pulse Rate 76 08/23/16 07:48 Respiratory Rate 18 08/23/16 07:48 Blood Pressure 130/74 08/23/16 07:48 O2 Sat by Pulse Oximetry (%) 93 L 08/22/16 20:00 Constitutional: Yes: Calm, Thin Eyes: Yes: WNL Neck: Yes: WNL Cardiovascular: Yes: Regular Rate and Rhythm, S1, S2 Respiratory: Yes: Rales, Rhonchi (BILATERAL RALES AND RHONCHI) Gastrointestinal: Yes: Normal Bowel Sounds, Soft Extremities: Yes: WNL Edema: No Labs: CBC, BMP 08/23/16 06:00 08/23/16 06:00 Assessment/Plan ASSESSMENT AND PLAN: Acute Hypoxic Respiratory Failure Influenza A Interstitial Lung Disease Scleroderma/Sjogren Syndrome Adrenal Insufficiency Hypertensive Urgency episode - ?Acute Pulmonary Edema vs Pneumonia - continue medrol - antibiotics as per id - sputum culture if she produces any - lasix prn - O2 to keep SpO2 >90% - PO as tolerated - DVT/GI prophylaxis - chest x-ray today Problem List - Problems (1) Acute respiratory failure with hypoxia Code(s): J96.01 - ACUTE RESPIRATORY FAILURE WITH HYPOXIA (2) Influenza A Code(s): J10.1 - FLU DUE TO OTH IDENT INFLUENZA VIRUS W OTH RESP MANIFEST (3) Pulmonary fibrosis Code(s): J84.10 - PULMONARY FIBROSIS, UNSPECIFIED (4) Scleroderma Code(s): M34.9 - SYSTEMIC SCLEROSIS, UNSPECIFIED (5) Sjoegren syndrome Code(s): M35.00 - SICCA SYNDROME, UNSPECIFIED (6) Interstitial lung disease Code(s): J84.9 - INTERSTITIAL PULMONARY DISEASE, UNSPECIFIED (7) Hypothyroid Code(s): E03.9 - HYPOTHYROIDISM, UNSPECIFIED (8) Orthostatic hypotension Code(s): I95.1 - ORTHOSTATIC HYPOTENSION
--- NOTE | 2016-08-23 11:28 | PN ---
Physical Exam: SUBJECTIVE: Patient seen and examined. She is still have some dyspnea on minimal exertion. On 3-4 liters of continuous oxygen Will give Lasix 20mg x 1 today for dyspnea OBJECTIVE: Period Temp Pulse Resp BP Sys/Xavier Pulse Ox Last 24 Hr 97.9 F-98.4 F 71-78 18-20 118-164/72-92 93-93 GENERAL: The patient is awake, alert, and fully oriented, in no acute distress. HEAD: Normal with no signs of trauma. EYES: PERRL, extraocular movements intact, sclera anicteric, conjunctiva clear. No ptosis. ENT: Ears normal, nares patent, oropharynx clear without exudates, moist mucous membranes. NECK: Trachea midline, full range of motion, supple. LUNGS: anterior lungs sounds with scattered rhonchi and wheezing, congestion, posterior lungs with scattered rhonchi. HEART: Regular rate and rhythm ABDOMEN: Soft, nontender, nondistended, normoactive bowel sounds, no guarding, no rebound, no hepatosplenomegaly, no masses. EXTREMITIES: 2+ pulses, warm, well-perfused, no edema. NEUROLOGICAL: Normal speech, gait not observed. PSYCH: Normal mood, normal affect. SKIN: Warm, dry, normal turgor, no rashes or lesions noted Laboratory Results - last 24 hr 08/22/16 08/23/16 08/23/16 21:55 06:00 06:00 WBC 14.8 H RBC 4.31 Hgb 12.1 Hct 36.7 MCV 85.1 MCHC 33.0 RDW 17.0 H Plt Count 310 MPV 7.4 L Neutrophils % 86.0 H Lymphocytes % 3.0 L D Monocytes % 6.0 Eosinophils % 1.0 D Band Neutrophils 4.0 D Platelet Estimate Adequate Platelet Comment No clotting detected Sodium 142 Potassium 3.2 L Chloride 100 Carbon Dioxide 33 H Anion Gap 9 BUN 27 H Creatinine 0.8 Creat Clearance w eGFR > 60 POC Glucometer 163.05878 Random Glucose 90 D Calcium 8.7 Total Bilirubin 0.4 D AST 16 ALT 20 Alkaline Phosphatase 76 Total Protein 6.0 L Albumin 2.6 L 08/23/16 06:01 WBC RBC Hgb Hct MCV MCHC RDW Plt Count MPV Neutrophils % Lymphocytes % Monocytes % Eosinophils % Band Neutrophils Platelet Estimate Platelet Comment Sodium Potassium Chloride Carbon Dioxide Anion Gap BUN Creatinine Creat Clearance w eGFR POC Glucometer 109 Random Glucose Calcium Total Bilirubin AST ALT Alkaline Phosphatase Total Protein Albumin Active Medications Generic Name Dose Route Start Last Admin Trade Name Freq PRN Reason Stop Dose Admin Acetaminophen 650 mg 08/21/16 15:48 Tylenol - PO Q4H PRN FEVER OR PAIN Albuterol Sulfate 1 amp 08/21/16 15:48 Ventolin 0.083% Nebulizer Soln - NEB QIDR PRN shortness of breath/wheezing Albuterol/Ipratropium 1 amp 08/21/16 18:00 08/23/16 06:00 Duoneb - NEB 1 amp QIDR [facility] Administration Ascorbic Acid 1,000 mg 08/21/16 22:00 08/23/16 10:07 Vitamin C - PO 1,000 mg BID [facility] Administration Cholecalciferol 5,000 unit 08/22/16 10:00 08/23/16 10:05 Vitamin D3 - PO 5,000 unit DAILY [facility] Administration Docusate Sodium 100 mg 08/21/16 15:48 Colace - PO BID PRN CONSTIPATION Fludrocortisone Acetate 0.15 mg 08/21/16 22:00 08/23/16 10:11 Florinef - PO 0.15 mg BID [facility] Administration Fluoxetine HCl 20 mg 08/21/16 22:00 08/22/16 21:59 Prozac - PO 20 mg HS [facility] Administration Heparin Sodium (Porcine) 5,000 unit 08/21/16 22:00 08/23/16 06:27 Heparin - SQ 5,000 unit TID [facility] Administration Piperacillin Sod/Tazobactam Sod 50 mls @ 100 mls/hr 08/21/16 18:00 08/23/16 10: 07 Zosyn 3.375gm Ivpb (Pre-Docked) IVPB 100 mls/hr Q8H-IV [facility] Administration Insulin Aspart 1 vial 08/21/16 16:30 08/23/16 06:31 Novolog Vial Sliding Scale - SQ Not Given ACHS [facility] Protocol Lidocaine 1 patch 08/22/16 10:00 08/23/16 10:04 Lidoderm Patch - TP 1 patch DAILY [facility] Administration Lidocaine 1 patch 08/22/16 10:00 08/23/16 10:06 Lidoderm Patch - TP 1 patch DAILY [facility] Administration Magnesium Chloride 64 mg 08/22/16 10:00 08/23/16 10:10 Slow-Mag - PO 64 mg DAILY [facility] Administration Melatonin 5 mg 08/21/16 15:48 Melatonin PO HS PRN INSOMNIA Methylprednisolone Sodium Succinate 40 mg 08/21/16 18:00 08/23/16 10:06 Solu-Medrol - IVPB 40 mg Q8H-IV [facility] Administration Mirtazapine 3.75 mg 08/21/16 22:00 08/22/16 21:59 Remeron - PO 3.75 mg HS [facility] Administration Multivitamins/Minerals 1 each 08/22/16 10:00 08/23/16 10:06 Theragran-M PO 1 each DAILY [facility] Administration Non-Formulary Medication 1 each 08/21/16 22:00 08/23/16 10:06 Lifitegrast [Xiidra] OU Not Given BID [facility] Ondansetron HCl 4 mg 08/21/16 15:48 Zofran Injection IVPB Q6H PRN NAUSEA Pantoprazole Sodium 40 mg 08/22/16 10:00 08/23/16 10:06 Protonix - PO 40 mg DAILY [facility] Administration Potassium Chloride 40 meq 08/22/16 10:00 08/22/16 09:20 Kcl Oral Solution - PO 40 meq DAILY [facility] Administration Thyroid 30 mg 08/21/16 22:00 08/23/16 10:10 [place] Thyroid - PO 30 mg BID [facility] Administration ASSESSMENT/PLAN: Patient is an 81 year old female who is a resident of the [facility]. She has a significant past medical history of pulmonary fibrosis, hypothyroidism, sjogren syndrome, scleroderma, raynaud's syndrome, adrenal insufficiency and orthostatic hypotension. She presented to the ED on with generalized weakness. She was being treated as an outpatient for a UTI (with Cipro) but had to be switched to Cefdinir because urine cultures showed that the bacteria was resistent to Cipro. Once she started the Cefdinir, she experienced abdominal pain, nausea and vomiting and therefore has stopped taking it. She has since had a non productive cough, shortness of brath, chills and sweats. She reports poor appetite. On admission she was found to be positive for Influenza A and has since finished a course of Tamiflu. Pulmonary: Shortness of breath - having dyspnea on 3-4 liters of nasal cannula Plan: Hypoxia secondary to influenza A with pulmonary fibrosis On Solumedrol 40mg q8 Influenza A positive, but has since completed Tamiflu On Zosyn since 08/21/2016 per ID Wean off oxygen as tolerated, not oxygen dependent at assisted living Duonebs, Albuterol for shortness of breath Respiratory panel pending Pulmonary following Lasix 20mg x 1 ordered Cardiology: Chronic orthostatic hypotension Plan: BP stable, will need orthostatics assessments when she clinically improves Midodrine on hold Endocrine: Hypothyroidism - chronic Plan: On [place] Thyroid 30-mg PO BID Diabetes Mellitus - chronic Plan: Novolog sliding scale, tighter control if BGMs are elevated Continue to trend F.E.N. Fluids: tolerating PO - no IVF Electrolytes: HypoKalemia, on 40meq KCL daily, given an additional 20 MEQ KCL x 1 for K of 3.2 Nutrition: dysphasia chopped diet, aspiration precautions Prophylaxis: DVT: on Heparin 5000 sq TID GI: Protonix 40mg daily PT evaluation - fall precautions Disposition: Requires inpatient hospitalization. Full Code. Visit type - Emergency Visit Emergency Visit: Yes ED Registration Date: 08/13/16 Care time: The patient presented to the Emergency Department on the above date and was hospitalized for further evaluation of their emergent condition. - New Patient This patient is new to me today: No - Critical Care Critical Care patient: No - Discharge Referral Referred to [facility] No
[2016-08-23] MEDS ORDERED: FUROSEMIDE 40 MG TABLET (FP) PO ONE (15:33)
--- NOTE | 2016-08-23 16:10 | PN ---
Progress Note, Physician History of Present Illness: doing well no new issues - Current Medication List Current Medications: Active Medications Acetaminophen (Tylenol -) 650 mg PO Q4H PRN PRN Reason: FEVER OR PAIN Albuterol Sulfate (Ventolin 0.083% Nebulizer Soln -) 1 amp NEB QIDR PRN PRN Reason: shortness of breath/wheezing Albuterol/Ipratropium (Duoneb -) 1 amp NEB QIDR [facility] Last Admin: 08/23/16 11:54 Dose: 1 amp Ascorbic Acid (Vitamin C -) 1,000 mg PO BID [facility] Last Admin: 08/23/16 10:07 Dose: 1,000 mg Cholecalciferol (Vitamin D3 -) 5,000 unit PO DAILY [facility] Last Admin: 08/23/16 10:05 Dose: 5,000 unit Docusate Sodium (Colace -) 100 mg PO BID PRN PRN Reason: CONSTIPATION Fludrocortisone Acetate (Florinef -) 0.15 mg PO BID [facility] Last Admin: 08/23/16 10:11 Dose: 0.15 mg Fluoxetine HCl (Prozac -) 20 mg PO HS [facility] Last Admin: 08/22/16 21:59 Dose: 20 mg Heparin Sodium (Porcine) (Heparin -) 5,000 unit SQ TID [facility] Last Admin: 08/23/16 13:55 Dose: 5,000 unit Piperacillin Sod/Tazobactam Sod (Zosyn 3.375gm Ivpb (Pre-Docked)) 50 mls @ 100 mls/hr IVPB Q8H-IV [facility] Last Admin: 08/23/16 10:07 Dose: 100 mls/hr Insulin Aspart (Novolog Vial Sliding Scale -) 1 vial SQ ACHS [facility] PRN Reason: Protocol Lidocaine (Lidoderm Patch -) 1 patch TP DAILY [facility] Last Admin: 08/23/16 10:04 Dose: 1 patch Lidocaine (Lidoderm Patch -) 1 patch TP DAILY [facility] Last Admin: 08/23/16 10:06 Dose: 1 patch Magnesium Chloride (Slow-Mag -) 64 mg PO DAILY [facility] Last Admin: 08/23/16 10:10 Dose: 64 mg Melatonin (Melatonin) 5 mg PO HS PRN PRN Reason: INSOMNIA Methylprednisolone Sodium Succinate (Solu-Medrol -) 40 mg IVPB Q8H-IV [facility] Last Admin: 08/23/16 10:06 Dose: 40 mg Mirtazapine (Remeron -) 3.75 mg PO HS [facility] Last Admin: 08/22/16 21:59 Dose: 3.75 mg Multivitamins/Minerals (Theragran-M) 1 each PO DAILY [facility] Last Admin: 08/23/16 10:06 Dose: 1 each Non-Formulary Medication (Lifitegrast [Xiidra]) 1 each OU BID [facility] Last Admin: 08/23/16 10:06 Dose: Not Given Ondansetron HCl (Zofran Injection) 4 mg IVPB Q6H PRN PRN Reason: NAUSEA Pantoprazole Sodium (Protonix -) 40 mg PO DAILY [facility] Last Admin: 08/23/16 10:06 Dose: 40 mg Potassium Chloride (Kcl Oral Solution -) 40 meq PO DAILY [facility] Last Admin: 08/23/16 09:30 Dose: 40 meq Thyroid ([place] Thyroid -) 30 mg PO BID [facility] Last Admin: 08/23/16 10:10 Dose: 30 mg - Objective Vital Signs: Vital Signs Temperature 97.9 F 08/23/16 07:48 Pulse Rate 76 08/23/16 07:48 Respiratory Rate 18 08/23/16 07:48 Blood Pressure 130/74 08/23/16 07:48 O2 Sat by Pulse Oximetry (%) 93 L 08/22/16 20:00 Constitutional: Yes: No Distress, Calm Cardiovascular: Yes: Regular Rate and Rhythm Respiratory: Yes: Regular, Poor Air Entry, Rhonchi, Wheezes Gastrointestinal: Yes: Normal Bowel Sounds, Soft Musculoskeletal: Yes: WNL Extremities: Yes: WNL Neurological: Yes: Alert, Oriented Psychiatric: Yes: Alert Labs: CBC, BMP 08/23/16 06:00 08/23/16 06:00 Assessment/Plan This is an 81-year-old woman who presented to the ER with generalized weakness, cough, abdominal pain, nausea and vomiting. She was recently treated with Cipro followed by Cefdinir for UTI. She was found to have temp 100.2, O2 sat 90% on RA , WBC 6.9, sodium 133, potassium 2.6, BUN 21, creatinine 1.0. She is being admitted now for treatment of an emergent condition. 1. Hypokalemia 2. Hyponatremia 3. Dehydration 4. Hypoxia secondary to influenza A with pulmonary fibrosis 5. Orthostatic hypotension, adrenal insufficiency 6. Scleroderma, Sjogren syndrome, Raynaud's syndrome 7. Hypothyroidism immunocompromised - Problems (1) Acute respiratory failure with hypoxia Code(s): J96.01 - ACUTE RESPIRATORY FAILURE WITH HYPOXIA (2) Influenza A Code(s): J10.1 - FLU DUE TO OTH IDENT INFLUENZA VIRUS W OTH RESP MANIFEST (3) Pulmonary fibrosis Code(s): J84.10 - PULMONARY FIBROSIS, UNSPECIFIED (4) Scleroderma Code(s): M34.9 - SYSTEMIC SCLEROSIS, UNSPECIFIED (5) Sjoegren syndrome Code(s): M35.00 - SICCA SYNDROME, UNSPECIFIED (6) Interstitial lung disease Code(s): J84.9 - INTERSTITIAL PULMONARY DISEASE, UNSPECIFIED (7) Hypothyroid Code(s): E03.9 - HYPOTHYROIDISM, UNSPECIFIED (8) Orthostatic hypotension Code(s): I95.1 - ORTHOSTATIC HYPOTENSION resp failure patients b-d glucan wnl plan continue current mgmt watch for hypoxia continue abx for now wbc still on the higher side will stop abx tomorrow resp support
[2016-08-23] MEDS: LORAZEPAM CARPU-JECT 2 MG/ML DISP.SYRIN IVPUSH PRN (18:00)
[2016-08-23] MEDS: MIRTAZAPINE 15 MG TABLET (FP) PO SCH (22:15)
[2016-08-23] MEDS: FLUoxetine HCL 20 MG CAPSULE (FP) PO SCH (22:15)
[2016-08-24] MEDS: methylPREDNISolone NA SUCC 40 MG/1 ML VIAL IVPB SCH ×3 (01:00→17:08)
[2016-08-24] MEDS: PIPERACILLIN/TAZOB 3.375 GM 50 ML IVPB SCH ×3 (01:00→17:08)
[2016-08-24] MEDS: HEPARIN NA (PORCINE) 5,000 UNITS/ML 1ML VIAL SQ SCH ×3 (06:28→21:35)
[2016-08-24] MEDS: ALBUTEROL SO4 2.5/IPRATROPIUM 0.5 INH SOL 3 ML VIAL.NEB. NEB SCH ×4 (06:35→23:11)
[2016-08-24 07:31] LABS: MCH 27.8 pg (25.7-33.7); MCHC 32.8 g/dl (32.0-36.0); MEAN CELL VOLUME 84.7 fl (80-96); MEAN PLT VOLUME 7.3 fl (7.5-11.1); PLATELET COUNT 314 K/MM3 (134-434); RDW 17.5 % (11.6-15.6); WHITE BLOOD COUNT 17.1 K/mm3 (4.0-10.0)
[2016-08-24 08:02] LABS: ALBUMIN 2.5 g/dl (3.4-5.0); CALCIUM 8.5 mg/dL (8.5-10.1)
[2016-08-24 08:08] LABS: ALK PHOS 71 U/L (45-117); ANION GAP 8 (8-16); BILIRUBIN,TOTAL 0.5 mg/dL (0.2-1.0); CO2 32 mmol/L (21-32); CREATININE 0.7 mg/dL (0.55-1.02); GLUCOSE,RANDOM 101 mg/dL (74-106); SGOT/AST 19 U/L (15-37); SGPT/ALT 24 U/L (12-78); TOT PROT 5.9 g/dl (6.4-8.2)
[2016-08-24] MEDS: INSULIN SLIDING SCALE (NOVOLOG) 1 VIAL SQ SCH ×4 (08:26→21:55)
[2016-08-24] MEDS: LORAZEPAM CARPU-JECT 2 MG/ML DISP.SYRIN IVPUSH PRN ×2 (08:30→14:26)
[2016-08-24] MEDS ORDERED: POTASSIUM CHLORIDE 40 MEQ/30 ML UNIT DOSE CUP PO ONE (08:57)
[2016-08-24 10:10] LABS: METAMYELOCYTE 2 % (0-2); PLATELET ESTIMATE ADEQUATE (NORMAL)
--- NOTE | 2016-08-24 10:29 | PN ---
Progress Note, Physician History of Present Illness: PULMONARY ALERT,LESS CONGESTED,+COUGH - Current Medication List Current Medications: Active Medications Acetaminophen (Tylenol -) 650 mg PO Q4H PRN PRN Reason: FEVER OR PAIN Albuterol Sulfate (Ventolin 0.083% Nebulizer Soln -) 1 amp NEB QIDR PRN PRN Reason: shortness of breath/wheezing Albuterol/Ipratropium (Duoneb -) 1 amp NEB QIDR [facility] Last Admin: 08/24/16 06:35 Dose: 1 amp Ascorbic Acid (Vitamin C -) 1,000 mg PO BID [facility] Last Admin: 08/23/16 22:15 Dose: Not Given Cholecalciferol (Vitamin D3 -) 5,000 unit PO DAILY [facility] Last Admin: 08/23/16 10:05 Dose: 5,000 unit Docusate Sodium (Colace -) 100 mg PO BID PRN PRN Reason: CONSTIPATION Fludrocortisone Acetate (Florinef -) 0.15 mg PO BID [facility] Last Admin: 08/23/16 22:12 Dose: Not Given Fluoxetine HCl (Prozac -) 20 mg PO HS [facility] Last Admin: 08/23/16 22:15 Dose: Not Given Heparin Sodium (Porcine) (Heparin -) 5,000 unit SQ TID [facility] Last Admin: 08/24/16 06:28 Dose: Not Given Piperacillin Sod/Tazobactam Sod (Zosyn 3.375gm Ivpb (Pre-Docked)) 50 mls @ 100 mls/hr IVPB Q8H-IV [facility] Last Admin: 08/24/16 01:00 Dose: 100 mls/hr Potassium Chloride (Potassium Chloride 10 Meq Premix Ivpb -) 100 mls @ 100 mls/ hr IVPB Q60M [facility] Stop: 08/24/16 11:59 Insulin Aspart (Novolog Vial Sliding Scale -) 1 vial SQ ACHS [facility] PRN Reason: Protocol Last Admin: 08/24/16 08:26 Dose: Not Given Lidocaine (Lidoderm Patch -) 1 patch TP DAILY [facility] Last Admin: 08/23/16 10:04 Dose: 1 patch Lidocaine (Lidoderm Patch -) 1 patch TP DAILY [facility] Last Admin: 08/23/16 10:06 Dose: 1 patch Lorazepam (Ativan Injection -) 0.5 mg IVPUSH Q6H PRN PRN Reason: ANXIETY Last Admin: 02/12/17 08:30 Dose: 0.5 mg Magnesium Chloride (Slow-Mag -) 64 mg PO DAILY [facility] Last Admin: 08/23/16 10:10 Dose: 64 mg Melatonin (Melatonin) 5 mg PO HS PRN PRN Reason: INSOMNIA Methylprednisolone Sodium Succinate (Solu-Medrol -) 40 mg IVPB Q8H-IV [facility] Last Admin: 08/24/16 01:00 Dose: 40 mg Mirtazapine (Remeron -) 3.75 mg PO HS [facility] Last Admin: 08/23/16 22:15 Dose: Not Given Multivitamins/Minerals (Theragran-M) 1 each PO DAILY [facility] Last Admin: 08/23/16 10:06 Dose: 1 each Non-Formulary Medication (Lifitegrast [Xiidra]) 1 each OU BID [facility] Last Admin: 08/23/16 22:13 Dose: Not Given Ondansetron HCl (Zofran Injection) 4 mg IVPB Q6H PRN PRN Reason: NAUSEA Pantoprazole Sodium (Protonix -) 40 mg PO DAILY [facility] Last Admin: 08/23/16 10:06 Dose: 40 mg Potassium Chloride (Kcl Oral Solution -) 40 meq PO DAILY [facility] Last Admin: 08/23/16 09:30 Dose: 40 meq Thyroid ([place] Thyroid -) 30 mg PO BID [facility] Last Admin: 08/23/16 22:11 Dose: Not Given - Objective Vital Signs: Vital Signs Temperature 98.2 F 08/24/16 01:00 Pulse Rate 81 08/24/16 01:00 Respiratory Rate 19 08/24/16 01:00 Blood Pressure 139/75 08/24/16 01:00 O2 Sat by Pulse Oximetry (%) 95 08/23/16 10:00 Constitutional: Yes: Well Nourished, Calm Eyes: Yes: WNL HENT: Yes: WNL Neck: Yes: WNL Cardiovascular: Yes: Regular Rate and Rhythm, S1, S2 Respiratory: Yes: Rales, Rhonchi (SCATTERED RHONCHI AND RALES) Gastrointestinal: Yes: Normal Bowel Sounds, Soft Extremities: Yes: WNL Edema: No Labs: CBC, BMP 08/24/16 05:35 08/24/16 05:35 Assessment/Plan ASSESSMENT AND PLAN: Acute Hypoxic Respiratory Failure Influenza A Interstitial Lung Disease Scleroderma/Sjogren Syndrome Adrenal Insufficiency S/P Hypertensive Urgency episode - ?Acute Pulmonary Edema vs Pneumonia - continue medrol - antibiotics as per id - lasix prn - O2 to keep SpO2 >90% - PO as tolerated - DVT/GI prophylaxis - chest x-ray today Problem List - Problems (1) Acute respiratory failure with hypoxia Code(s): J96.01 - ACUTE RESPIRATORY FAILURE WITH HYPOXIA (2) Influenza A Code(s): J10.1 - FLU DUE TO OTH IDENT INFLUENZA VIRUS W OTH RESP MANIFEST (3) Pulmonary fibrosis Code(s): J84.10 - PULMONARY FIBROSIS, UNSPECIFIED (4) Scleroderma Code(s): M34.9 - SYSTEMIC SCLEROSIS, UNSPECIFIED (5) Sjoegren syndrome Code(s): M35.00 - SICCA SYNDROME, UNSPECIFIED (6) Interstitial lung disease Code(s): J84.9 - INTERSTITIAL PULMONARY DISEASE, UNSPECIFIED (7) Hypothyroid Code(s): E03.9 - HYPOTHYROIDISM, UNSPECIFIED (8) Orthostatic hypotension Code(s): I95.1 - ORTHOSTATIC HYPOTENSION
--- NOTE | 2016-08-24 10:49 | PN ---
Physical Exam: SUBJECTIVE: Patient seen and examined. She denies chest pain or shortness of breath Had episodes of vtach overnight troponins negative Potassium repleted, mag levels within normal limits Reported to be intermittently confused, likely due to Ativan which has been stopped OBJECTIVE: Vital Signs Period Temp Pulse Resp BP Sys/Xavier Pulse Ox Last 24 Hr 97.1 F-98.7 F 70-94 16-19 108-139/70-75 GENERAL: The patient is awake, alert, and fully oriented, in no acute distress - having intermittent confusion after Ativan started. HEAD: Normal with no signs of trauma. EYES: PERRL, extraocular movements intact, sclera anicteric, conjunctiva clear. No ptosis. ENT: Ears normal, nares patent, oropharynx clear without exudates, moist mucous membranes. NECK: Trachea midline, full range of motion, supple. LUNGS: anterior lungs sounds with scattered rhonchi and wheezing, congestion, posterior lungs with scattered rhonchi. HEART: Regular rate and rhythm ABDOMEN: Soft, nontender, nondistended, normoactive bowel sounds, no guarding, no rebound, no hepatosplenomegaly, no masses. EXTREMITIES: 2+ pulses, warm, well-perfused, no edema. NEUROLOGICAL: Normal speech, gait not observed. PSYCH: Normal mood, normal affect. SKIN: Warm, dry, normal turgor, no rashes or lesions noted Laboratory Results - last 24 hr 08/23/16 08/23/16 08/24/16 12:01 17:32 05:35 WBC 17.1 H RBC 4.13 Hgb 11.5 Hct 35.0 MCV 84.7 MCHC 32.8 RDW 17.5 H Plt Count 314 MPV 7.3 L Neutrophils % 84.0 H Lymphocytes % 7.0 L D Monocytes % 1.0 L D Eosinophils % 0.0 D Basophils % 0.0 Band Neutrophils 4.0 Metamyelocytes 2 Myelocytes 2 Differential Comment Manual diff done Platelet Estimate Adequate Sodium Potassium Chloride Carbon Dioxide Anion Gap BUN Creatinine Creat Clearance w eGFR POC Glucometer 137 100 Random Glucose Calcium Total Bilirubin AST ALT Alkaline Phosphatase Total Protein Albumin 08/24/16 05:35 WBC RBC Hgb Hct MCV MCHC RDW Plt Count MPV Neutrophils % Lymphocytes % Monocytes % Eosinophils % Basophils % Band Neutrophils Metamyelocytes Myelocytes Differential Comment Platelet Estimate Sodium 141 Potassium 3.2 L Chloride 101 Carbon Dioxide 32 Anion Gap 8 BUN 23 H Creatinine 0.7 Creat Clearance w eGFR > 60 POC Glucometer Random Glucose 101 Calcium 8.5 Total Bilirubin 0.5 D AST 19 ALT 24 Alkaline Phosphatase 71 Total Protein 5.9 L Albumin 2.5 L Active Medications Generic Name Dose Route Start Last Admin Trade Name Freq PRN Reason Stop Dose Admin Acetaminophen 650 mg 08/21/16 15:48 Tylenol - PO Q4H PRN FEVER OR PAIN Albuterol Sulfate 1 amp 08/21/16 15:48 Ventolin 0.083% Nebulizer Soln - NEB QIDR PRN shortness of breath/wheezing Albuterol/Ipratropium 1 amp 08/21/16 18:00 08/24/16 06:35 Duoneb - NEB 1 amp QIDR [facility] Administration Ascorbic Acid 1,000 mg 08/21/16 22:00 08/23/16 22:15 Vitamin C - PO Not Given BID [facility] Cholecalciferol 5,000 unit 08/22/16 10:00 08/23/16 10:05 Vitamin D3 - PO 5,000 unit DAILY [facility] Administration Docusate Sodium 100 mg 08/21/16 15:48 Colace - PO BID PRN CONSTIPATION Fludrocortisone Acetate 0.15 mg 08/21/16 22:00 08/23/16 22:12 Florinef - PO Not Given BID [facility] Fluoxetine HCl 20 mg 08/21/16 22:00 08/23/16 22:15 Prozac - PO Not Given HS [facility] Heparin Sodium (Porcine) 5,000 unit 08/21/16 22:00 08/24/16 06:28 Heparin - SQ Not Given TID [facility] Piperacillin Sod/Tazobactam Sod 50 mls @ 100 mls/hr 08/21/16 18:00 08/24/16 01: 00 Zosyn 3.375gm Ivpb (Pre-Docked) IVPB 100 mls/hr Q8H-IV [facility] Administration Potassium Chloride 100 mls @ 100 mls/hr 08/24/16 10:00 Potassium Chloride 10 Meq Premix Ivpb - IVPB 08/24/16 11:59 Q60M [facility] Insulin Aspart 1 vial 08/23/16 15:50 08/24/16 08:26 Novolog Vial Sliding Scale - SQ Not Given ACHS [facility] Protocol Lidocaine 1 patch 08/22/16 10:00 08/23/16 10:04 Lidoderm Patch - TP 1 patch DAILY [facility] Administration Lidocaine 1 patch 08/22/16 10:00 08/23/16 10:06 Lidoderm Patch - TP 1 patch DAILY [facility] Administration Lorazepam 0.5 mg 08/23/16 16:34 08/24/16 08:30 Ativan Injection - IVPUSH 0.5 mg Q6H PRN Administration ANXIETY Magnesium Chloride 64 mg 08/22/16 10:00 08/23/16 10:10 Slow-Mag - PO 64 mg DAILY [facility] Administration Melatonin 5 mg 08/21/16 15:48 Melatonin PO HS PRN INSOMNIA Methylprednisolone Sodium Succinate 40 mg 08/21/16 18:00 08/24/16 01:00 Solu-Medrol - IVPB 40 mg Q8H-IV [facility] Administration Mirtazapine 3.75 mg 08/21/16 22:00 08/23/16 22:15 Remeron - PO Not Given HS [facility] Multivitamins/Minerals 1 each 08/22/16 10:00 08/23/16 10:06 Theragran-M PO 1 each DAILY [facility] Administration Non-Formulary Medication 1 each 08/21/16 22:00 08/23/16 22:13 Lifitegrast [Xiidra] OU Not Given BID [facility] Ondansetron HCl 4 mg 08/21/16 15:48 Zofran Injection IVPB Q6H PRN [facility] Pantoprazole Sodium 40 mg 08/22/16 10:00 08/23/16 10:06 Protonix - PO 40 mg DAILY [facility] Administration Potassium Chloride 40 meq 08/22/16 10:00 08/23/16 09:30 Kcl Oral Solution - PO 40 meq DAILY [facility] Administration Thyroid 30 mg 08/21/16 22:00 08/23/16 22:11 [place] Thyroid - PO Not Given BID [facility] ASSESSMENT/PLAN: Patient is an 81 year old female who is a resident of the [facility]. She has a significant past medical history of pulmonary fibrosis, hypothyroidism, sjogren syndrome, scleroderma, raynaud's syndrome, adrenal insufficiency and orthostatic hypotension. She presented to the ED on with generalized weakness. She was being treated as an outpatient for a UTI (with Cipro) but had to be switched to Cefdinir because urine cultures showed that the bacteria was resistent to Cipro. Once she started the Cefdinir, she experienced abdominal pain, nausea and vomiting and therefore has stopped taking it. She has since had a non productive cough, shortness of brath, chills and sweats. She reports poor appetite. On admission she was found to be positive for Influenza A and has since finished a course of Tamiflu. Pulmonary: Shortness of breath - Hypoxia secondary to influenza A with pulmonary fibrosis On Solumedrol 40mg q8 Influenza A positive, but has since completed Tamiflu On Zosyn since 08/21/2016 per ID WBC bumped up today, started on Clindamycin Wean off oxygen as tolerated, not oxygen dependent at assisted living Duonebs, Albuterol for shortness of breath Pulmonary following Chest xray 08/24/16 with no significant changes since prior study Cardiology: Chronic orthostatic hypotension Plan: Midodrine on hold, secondary to hypertensive episodes pt started on Lopressor 12.5 BID Had runs of vtach overnight, she denies chest pain Troponins x 1 negative Cardiology consulted Endocrine: Hypothyroidism - chronic Plan: On [place] Thyroid 30-mg PO BID Diabetes Mellitus - chronic Plan: Novolog sliding scale, tighter control if BGMs are elevated Continue to trend F.E.N. Fluids: tolerating PO - no IVF Electrolytes: HypoKalemia, given two K riders, pt also on 40meq KCL scheduled Nutrition: dysphasia chopped diet, aspiration precautions poor appetite reported, will order supplements Prophylaxis: DVT: on Heparin 5000 sq TID GI: Protonix 40mg daily PT evaluation - fall precautions Disposition: Requires inpatient hospitalization. Full Code. Visit type - Emergency Visit Emergency Visit: Yes ED Registration Date: 08/13/16 Care time: The patient presented to the Emergency Department on the above date and was hospitalized for further evaluation of their emergent condition. - New Patient This patient is new to me today: No - Critical Care Critical Care patient: No - Discharge Referral Referred to [facility] Med P.C.: No
[2016-08-24] MEDS: LIDOCAINE 5% TOPICAL PATCH TP SCH ×2 (10:51→10:52)
[2016-08-24] MEDS: THYROID 30 MG TABLET PO SCH ×2 (10:51→21:34)
[2016-08-24] MEDS: FLUDROCORTISONE ACETATE 0.1 MG TABLET (FP) PO SCH ×2 (10:51→21:35)
[2016-08-24] MEDS: PATIENT'S OWN MEDICATION (NON-FORMULARY) (Lifitegrast [Xiidra] 1 EACH) OU SCH ×2 (10:51→21:54)
[2016-08-24] MEDS: POTASSIUM CHLORIDE 40 MEQ/30 ML UNIT DOSE CUP PO SCH (10:51)
[2016-08-24] MEDS: CHOLECALCIFEROL (VITAMIN D3) 1,000 UNIT TABLET (FP) PO SCH (10:52)
[2016-08-24] MEDS: PANTOPRAZOLE 40 MG TABLET (FP) PO SCH (10:53)
[2016-08-24] MEDS: MAGNESIUM CL 64 MG TABLET.SA PO SCH (10:53)
[2016-08-24] MEDS: ASCORBIC ACID 500 MG TABLET (FP) PO SCH ×2 (10:53→21:40)
[2016-08-24] MEDS: MULTIVITAMINS THER W-MINERALS COMBO TABLET (FP) PO SCH (10:53)
[2016-08-24] MEDS: KCL 10 MEQ IVPB 100 ML IVPB SCH ×2 (11:00→14:44)
[2016-08-24] MEDS ORDERED: KCL 10 MEQ IVPB 100 ML IVPB ONE (14:30)
[2016-08-24 16:23] LABS: ARTERIAL BLD GAS O2 SATURATION 95.7 % (90-98.9); ARTERIAL BLOOD GAS BASE EXCESS 8.6 meq/l (-2-2); ARTERIAL BLOOD GAS HCO3 32.4 meq/L (22-26); ARTERIAL BLOOD GAS PO2 74.6 mmHg (68-100)
[2016-08-24 16:24] LABS: ALLENS TEST POSITIVE; ART PUNCT SITE RIGHT RADIAL; LPM/O2% 4L; PT. ON O2? YES; TYPE OF O2 NASAL
--- NOTE | 2016-08-24 16:32 | PN ---
Progress Note, Physician History of Present Illness: doing well patient was confused again patient was very anxious marinating o2 sat - Current Medication List Current Medications: Active Medications Acetaminophen (Tylenol -) 650 mg PO Q4H PRN PRN Reason: FEVER OR PAIN Albuterol Sulfate (Ventolin 0.083% Nebulizer Soln -) 1 amp NEB QIDR PRN PRN Reason: shortness of breath/wheezing Albuterol/Ipratropium (Duoneb -) 1 amp NEB QIDR [facility] Last Admin: 08/24/16 12:20 Dose: 1 amp Ascorbic Acid (Vitamin C -) 1,000 mg PO BID [facility] Last Admin: 08/24/16 10:53 Dose: 1,000 mg Cholecalciferol (Vitamin D3 -) 5,000 unit PO DAILY [facility] Last Admin: 08/24/16 10:52 Dose: 5,000 unit Clindamycin HCl (Cleocin -) 300 mg PO Q6HPO [facility] Docusate Sodium (Colace -) 100 mg PO BID PRN PRN Reason: CONSTIPATION Fludrocortisone Acetate (Florinef -) 0.15 mg PO BID [facility] Last Admin: 08/24/16 10:51 Dose: 0.15 mg Fluoxetine HCl (Prozac -) 20 mg PO HS [facility] Last Admin: 08/23/16 22:15 Dose: Not Given Heparin Sodium (Porcine) (Heparin -) 5,000 unit SQ TID [facility] Last Admin: 08/24/16 14:25 Dose: 5,000 unit Piperacillin Sod/Tazobactam Sod (Zosyn 3.375gm Ivpb (Pre-Docked)) 50 mls @ 100 mls/hr IVPB Q8H-IV [facility] Last Admin: 08/24/16 10:53 Dose: 100 mls/hr Insulin Aspart (Novolog Vial Sliding Scale -) 1 vial SQ ACHS [facility] PRN Reason: Protocol Last Admin: 08/24/16 12:02 Dose: Not Given Lidocaine (Lidoderm Patch -) 1 patch TP DAILY [facility] Last Admin: 08/24/16 10:51 Dose: 1 patch Lidocaine (Lidoderm Patch -) 1 patch TP DAILY [facility] Last Admin: 08/24/16 10:52 Dose: Not Given Lorazepam (Ativan Injection -) 0.5 mg IVPUSH Q6H PRN PRN Reason: ANXIETY Last Admin: 08/24/16 14:26 Dose: 0.5 mg Magnesium Chloride (Slow-Mag -) 64 mg PO DAILY [facility] Last Admin: 08/24/16 10:53 Dose: 64 mg Melatonin (Melatonin) 5 mg PO HS PRN PRN Reason: INSOMNIA Methylprednisolone Sodium Succinate (Solu-Medrol -) 40 mg IVPB Q8H-IV [facility] Last Admin: 08/24/16 10:53 Dose: 40 mg Mirtazapine (Remeron -) 3.75 mg PO HS [facility] Last Admin: 08/23/16 22:15 Dose: Not Given Multivitamins/Minerals (Theragran-M) 1 each PO DAILY [facility] Last Admin: 08/24/16 10:53 Dose: 1 each Non-Formulary Medication (Lifitegrast [Xiidra]) 1 each OU BID [facility] Last Admin: 08/24/16 10:51 Dose: 1 each Ondansetron HCl (Zofran Injection) 4 mg IVPB Q6H PRN PRN Reason: NAUSEA Pantoprazole Sodium (Protonix -) 40 mg PO DAILY [facility] Last Admin: 08/24/16 10:53 Dose: 40 mg Potassium Chloride (Kcl Oral Solution -) 40 meq PO DAILY [facility] Last Admin: 08/24/16 10:51 Dose: Not Given Thyroid ([place] Thyroid -) 30 mg PO BID [facility] Last Admin: 08/24/16 10:51 Dose: 30 mg - Objective Vital Signs: Vital Signs Temperature 98.2 F 08/24/16 01:00 Pulse Rate 82 08/24/16 14:25 Respiratory Rate 20 08/24/16 14:00 Blood Pressure 118/66 08/24/16 14:00 O2 Sat by Pulse Oximetry (%) 96 08/24/16 14:25 Constitutional: Yes: Calm, Anxious Eyes: Yes: Conjunctiva Clear Cardiovascular: Yes: Regular Rate and Rhythm Respiratory: Yes: Regular, Rales, Wheezes, Other (crackles) Gastrointestinal: Yes: Normal Bowel Sounds, Soft Musculoskeletal: Yes: WNL Extremities: Yes: WNL Neurological: Yes: Alert, Oriented Psychiatric: Yes: Alert Labs: CBC, BMP 08/24/16 05:35 08/24/16 05:35 Assessment/Plan This is an 81-year-old woman who presented to the ER with generalized weakness, cough, abdominal pain, nausea and vomiting. She was recently treated with Cipro followed by Cefdinir for UTI. She was found to have temp 100.2, O2 sat 90% on RA , WBC 6.9, sodium 133, potassium 2.6, BUN 21, creatinine 1.0. She is being admitted now for treatment of an emergent condition. 1. Hypokalemia 2. Hyponatremia 3. Dehydration 4. Hypoxia secondary to influenza A with pulmonary fibrosis 5. Orthostatic hypotension, adrenal insufficiency 6. Scleroderma, Sjogren syndrome, Raynaud's syndrome 7. Hypothyroidism immunocompromised - Problems (1) Acute respiratory failure with hypoxia Code(s): J96.01 - ACUTE RESPIRATORY FAILURE WITH HYPOXIA (2) Influenza A Code(s): J10.1 - FLU DUE TO OTH IDENT INFLUENZA VIRUS W OTH RESP MANIFEST (3) Pulmonary fibrosis Code(s): J84.10 - PULMONARY FIBROSIS, UNSPECIFIED (4) Scleroderma Code(s): M34.9 - SYSTEMIC SCLEROSIS, UNSPECIFIED (5) Sjoegren syndrome Code(s): M35.00 - SICCA SYNDROME, UNSPECIFIED (6) Interstitial lung disease Code(s): J84.9 - INTERSTITIAL PULMONARY DISEASE, UNSPECIFIED (7) Hypothyroid Code(s): E03.9 - HYPOTHYROIDISM, UNSPECIFIED (8) Orthostatic hypotension Code(s): I95.1 - ORTHOSTATIC HYPOTENSION resp failure plan continue current mgmt watch for hypoxia continue abx for now wbc started to climb up patient on steroids will continue abx will see the wbc tomorrow i am very worried that she might be brewing something will add clinda for now will evaluate tomorrow again then we will decide on if the abx should be continued or not
[2016-08-24] MEDS ORDERED: PT OWN MED DRAWER 7, Y5N ONE ×2 (16:51→21:14)
[2016-08-24] MEDS ORDERED: INSULIN (NOVOLOG) ASPART 100 UNITS/ML 10ML VIAL ONE (16:56)
[2016-08-24] MEDS: METOPROLOL TARTRATE 25 MG TABLET (FP) PO SCH ×2 (17:07→21:38)
[2016-08-24] MEDS: CLINDAMYCIN HCL 150 MG CAPSULE (FP) PO SCH (17:55)
[2016-08-24] MEDS: FLUoxetine HCL 20 MG CAPSULE (FP) PO SCH (21:38)
[2016-08-24] MEDS: MIRTAZAPINE 15 MG TABLET (FP) PO SCH (21:39)
[2016-08-25] MEDS: CLINDAMYCIN HCL 150 MG CAPSULE (FP) PO SCH ×5 (00:10→23:25)
[2016-08-25] MEDS: methylPREDNISolone NA SUCC 40 MG/1 ML VIAL IVPB SCH ×3 (02:45→17:24)
[2016-08-25] MEDS: PIPERACILLIN/TAZOB 3.375 GM 50 ML IVPB SCH ×2 (02:45→09:14)
[2016-08-25] MEDS: ALBUTEROL SO4 2.5/IPRATROPIUM 0.5 INH SOL 3 ML VIAL.NEB. NEB SCH ×3 (05:38→18:25)
[2016-08-25] MEDS: INSULIN SLIDING SCALE (NOVOLOG) 1 VIAL SQ SCH ×4 (06:02→21:25)
[2016-08-25] MEDS: HEPARIN NA (PORCINE) 5,000 UNITS/ML 1ML VIAL SQ SCH ×3 (06:02→21:24)
[2016-08-25 07:12] LABS: MCHC 32.7 g/dl (32.0-36.0); MEAN CELL VOLUME 85.6 fl (80-96); MEAN PLT VOLUME 7.3 fl (7.5-11.1); PLATELET COUNT 320 K/MM3 (134-434); WHITE BLOOD COUNT 22.3 K/mm3 (4.0-10.0)
[2016-08-25 07:46] LABS: ALBUMIN 2.8 g/dl (3.4-5.0); ANION GAP 11 (8-16); BILIRUBIN,TOTAL 0.7 mg/dL (0.2-1.0); CALCIUM 8.4 mg/dL (8.5-10.1); CO2 33 mmol/L (21-32); CREATININE 0.7 mg/dL (0.55-1.02); GLUCOSE,RANDOM 91 mg/dL (74-106); SGOT/AST 24 U/L (15-37); SGPT/ALT 31 U/L (12-78); TOT PROT 6.2 g/dl (6.4-8.2)
[2016-08-25 07:47] LABS: ALK PHOS 76 U/L (45-117)
[2016-08-25] MEDS ORDERED: POTASSIUM CHLORIDE 40 MEQ/30 ML UNIT DOSE CUP PO ONE (07:54)
[2016-08-25] MEDS ORDERED: METOPROLOL TARTRATE 25 MG TABLET (FP) PO SCH (07:58)
[2016-08-25] MEDS: KCL 10 MEQ IVPB 100 ML IVPB SCH ×2 (08:23→09:17)
[2016-08-25] MEDS: LIDOCAINE 5% TOPICAL PATCH TP SCH ×2 (09:16)
[2016-08-25] MEDS: ASCORBIC ACID 500 MG TABLET (FP) PO SCH ×2 (09:16→21:24)
[2016-08-25] MEDS: POTASSIUM CHLORIDE 40 MEQ/30 ML UNIT DOSE CUP PO SCH (09:17)
[2016-08-25] MEDS: MULTIVITAMINS THER W-MINERALS COMBO TABLET (FP) PO SCH (09:17)
[2016-08-25] MEDS: PANTOPRAZOLE 40 MG TABLET (FP) PO SCH (09:17)
[2016-08-25] MEDS: CHOLECALCIFEROL (VITAMIN D3) 1,000 UNIT TABLET (FP) PO SCH (09:17)
[2016-08-25 09:47] LABS: PLATELET ESTIMATE ADEQUATE (NORMAL)
[2016-08-25] MEDS ORDERED: amLODIPine BESYLATE 2.5 MG TABLET (FP) PO SCH (10:00)
--- NOTE | 2016-08-25 10:15 | PN ---
Progress Note, Physician History of Present Illness: pulmonary alert,feeling better,less dyspneic,stilll congested. - Current Medication List Current Medications: Active Medications Acetaminophen (Tylenol -) 650 mg PO Q4H PRN PRN Reason: FEVER OR PAIN Albuterol Sulfate (Ventolin 0.083% Nebulizer Soln -) 1 amp NEB QIDR PRN PRN Reason: shortness of breath/wheezing Albuterol/Ipratropium (Duoneb -) 1 amp NEB QIDR [facility] Last Admin: 08/25/16 05:38 Dose: 1 amp Amlodipine Besylate (Norvasc -) 2.5 mg PO DAILY [facility] Last Admin: 08/25/16 09:14 Dose: 2.5 mg Ascorbic Acid (Vitamin C -) 1,000 mg PO BID [facility] Last Admin: 08/25/16 09:16 Dose: 1,000 mg Cholecalciferol (Vitamin D3 -) 5,000 unit PO DAILY [facility] Last Admin: 08/25/16 09:17 Dose: 5,000 unit Clindamycin HCl (Cleocin -) 300 mg PO Q6HPO [facility] Last Admin: 08/25/16 06:02 Dose: 300 mg Docusate Sodium (Colace -) 100 mg PO BID PRN PRN Reason: CONSTIPATION Fludrocortisone Acetate (Florinef -) 0.15 mg PO BID [facility] Last Admin: 08/24/16 21:35 Dose: 0.15 mg Fluoxetine HCl (Prozac -) 20 mg PO HS [facility] Last Admin: 08/24/16 21:38 Dose: 20 mg Heparin Sodium (Porcine) (Heparin -) 5,000 unit SQ TID [facility] Last Admin: 08/25/16 06:02 Dose: 5,000 unit Piperacillin Sod/Tazobactam Sod (Zosyn 3.375gm Ivpb (Pre-Docked)) 50 mls @ 100 mls/hr IVPB Q8H-IV [facility] Last Admin: 08/25/16 09:14 Dose: 100 mls/hr Insulin Aspart (Novolog Vial Sliding Scale -) 1 vial SQ ACHS [facility] PRN Reason: Protocol Last Admin: 08/25/16 06:02 Dose: Not Given Lidocaine (Lidoderm Patch -) 1 patch TP DAILY [facility] Last Admin: 08/25/16 09:16 Dose: 1 patch Lidocaine (Lidoderm Patch -) 1 patch TP DAILY [facility] Last Admin: 08/25/16 09:16 Dose: 1 patch Magnesium Chloride (Slow-Mag -) 64 mg PO DAILY [facility] Last Admin: 08/24/16 10:53 Dose: 64 mg Melatonin (Melatonin) 5 mg PO HS PRN PRN Reason: INSOMNIA Methylprednisolone Sodium Succinate (Solu-Medrol -) 40 mg IVPB Q8H-IV [facility] Last Admin: 08/25/16 09:15 Dose: 40 mg Metoprolol Tartrate (Lopressor -) 25 mg PO BID [facility] Last Admin: 08/25/16 08:30 Dose: 25 mg Mirtazapine (Remeron -) 3.75 mg PO HS [facility] Last Admin: 08/24/16 21:39 Dose: 3.75 mg Multivitamins/Minerals (Theragran-M) 1 each PO DAILY [facility] Last Admin: 08/25/16 09:17 Dose: 1 each Non-Formulary Medication (Lifitegrast [Xiidra]) 1 each OU BID [facility] Last Admin: 08/24/16 21:54 Dose: 1 each Ondansetron HCl (Zofran Injection) 4 mg IVPB Q6H PRN PRN Reason: NAUSEA Pantoprazole Sodium (Protonix -) 40 mg PO DAILY [facility] Last Admin: 08/25/16 09:17 Dose: 40 mg Potassium Chloride (Kcl Oral Solution -) 40 meq PO DAILY [facility] Last Admin: 08/25/16 09:17 Dose: 40 meq Thyroid ([place] Thyroid -) 30 mg PO BID [facility] Last Admin: 08/24/16 21:34 Dose: 30 mg - Objective Vital Signs: Vital Signs Temperature 98.8 F 08/25/16 05:59 Pulse Rate 78 08/25/16 09:00 Respiratory Rate 16 08/25/16 09:00 Blood Pressure 190/110 08/25/16 09:00 O2 Sat by Pulse Oximetry (%) 97 08/24/16 21:00 Constitutional: Yes: Calm, Thin Eyes: Yes: WNL HENT: Yes: WNL Cardiovascular: Yes: Regular Rate and Rhythm, S1, S2 Respiratory: Yes: Rhonchi (bilateral rhonchi) Gastrointestinal: Yes: Normal Bowel Sounds, Soft Extremities: Yes: WNL Edema: No Labs: CBC, BMP 08/25/16 05:35 08/25/16 05:35 - ....Imaging Chest X-ray: Report Reviewed, Image Reviewed (no change) Assessment/Plan ASSESSMENT AND PLAN: Acute Hypoxic Respiratory Failure Influenza A Interstitial Lung Disease Scleroderma/Sjogren Syndrome Adrenal Insufficiency S/P Hypertensive Urgency episode - ?Acute Pulmonary Edema vs Pneumonia - continue medrol - antibiotics as per id - lasix prn - O2 to keep SpO2 >90% - PO as tolerated - DVT/GI prophylaxis - replete lytes - BP meds Problem List - Problems (1) Acute respiratory failure with hypoxia Code(s): J96.01 - ACUTE RESPIRATORY FAILURE WITH HYPOXIA (2) Influenza A Code(s): J10.1 - FLU DUE TO OTH IDENT INFLUENZA VIRUS W OTH RESP MANIFEST (3) Pulmonary fibrosis Code(s): J84.10 - PULMONARY FIBROSIS, UNSPECIFIED (4) Scleroderma Code(s): M34.9 - SYSTEMIC SCLEROSIS, UNSPECIFIED (5) Sjoegren syndrome Code(s): M35.00 - SICCA SYNDROME, UNSPECIFIED (6) Interstitial lung disease Code(s): J84.9 - INTERSTITIAL PULMONARY DISEASE, UNSPECIFIED (7) Hypothyroid Code(s): E03.9 - HYPOTHYROIDISM, UNSPECIFIED (8) Orthostatic hypotension Code(s): I95.1 - ORTHOSTATIC HYPOTENSION
[2016-08-25] MEDS ORDERED: PT OWN MED DRAWER 7, Y5N ONE ×3 (10:19→12:22)
--- NOTE | 2016-08-25 10:41 | PN ---
Physical Exam: SUBJECTIVE: Patient seen and examined. She denies any chest pain, abdominal pain, headaches or any other discomfort. OBJECTIVE: GENERAL: The patient is awake, alert, and fully oriented, in no acute distress - no confusion overnight. HEAD: Normal with no signs of trauma. EYES: PERRL, extraocular movements intact, sclera anicteric, conjunctiva clear. No ptosis. ENT: Ears normal, nares patent, oropharynx clear without exudates, moist mucous membranes. NECK: Trachea midline, full range of motion, supple. LUNGS: anterior lungs sounds with scattered rhonchi and wheezing, congestion, posterior lungs with scattered rhonchi. HEART: Regular rate and rhythm, SR on desk monitor ABDOMEN: Soft, nontender, nondistended, normoactive bowel sounds, no guarding, no rebound, no hepatosplenomegaly, no masses. EXTREMITIES: 2+ pulses, warm, well-perfused, no edema. NEUROLOGICAL: Normal speech, gait not observed. PSYCH: Normal mood, normal affect. SKIN: Warm, dry, normal turgor, no rashes or lesions noted Vital Signs Period Temp Pulse Resp BP Sys/Xavier Pulse Ox Last 24 Hr 97.0 F-98.8 F 78-92 16-20 118-190/66-110 96-97 Laboratory Results - last 24 hr 08/24/16 08/24/16 08/24/16 10:20 10:20 11:54 WBC RBC Hgb Hct MCV MCHC RDW Plt Count MPV Neutrophils % Lymphocytes % Monocytes % Band Neutrophils Differential Comment Platelet Estimate Puncture Site ABG pH ABG pCO2 at Pt Temp ABG pO2 at Pt Temp ABG HCO3 ABG O2 Sat (Measured) ABG O2 Content ABG Base Excess Francisco Test O2 Delivery Device Oxygen Flow Rate PEEP Sodium Potassium Chloride Carbon Dioxide Anion Gap BUN Creatinine Creat Clearance w eGFR POC Glucometer 122 Random Glucose Calcium Magnesium 2.1 Total Bilirubin AST ALT Alkaline Phosphatase Troponin I < 0.02 Total Protein Albumin 08/24/16 08/24/16 08/24/16 16:20 17:05 22:00 WBC RBC Hgb Hct MCV MCHC RDW Plt Count MPV Neutrophils % Lymphocytes % Monocytes % Band Neutrophils Differential Comment Platelet Estimate Puncture Site Right radial ABG pH 7.50 H ABG pCO2 at Pt Temp 41.7 ABG pO2 at Pt Temp 74.6 D ABG HCO3 32.4 H ABG O2 Sat (Measured) 95.7 ABG O2 Content 15.1 ABG Base Excess 8.6 H Francisco Test Positive O2 Delivery Device Nasal Oxygen Flow Rate 4l PEEP 0.0 Sodium Potassium Chloride Carbon Dioxide Anion Gap BUN Creatinine Creat Clearance w eGFR POC Glucometer 77 138 Random Glucose Calcium Magnesium Total Bilirubin AST ALT Alkaline Phosphatase Troponin I Total Protein Albumin 08/25/16 08/25/16 08/25/16 05:35 05:35 06:12 WBC 22.3 H D RBC 4.29 Hgb 12.0 Hct 36.7 MCV 85.6 MCHC 32.7 RDW 17.0 H Plt Count 320 MPV 7.3 L Neutrophils % 93.0 H Lymphocytes % 5.0 L D Monocytes % 1.0 L Band Neutrophils 1.0 D Differential Comment Manual diff done Platelet Estimate Adequate Puncture Site ABG pH ABG pCO2 at Pt Temp ABG pO2 at Pt Temp ABG HCO3 ABG O2 Sat (Measured) ABG O2 Content ABG Base Excess Francisco Test O2 Delivery Device Oxygen Flow Rate PEEP Sodium 139 Potassium 2.7 L* Chloride 95 L Carbon Dioxide 33 H Anion Gap 11 BUN 17 D Creatinine 0.7 Creat Clearance w eGFR > 60 POC Glucometer 97 Random Glucose 91 Calcium 8.4 L Magnesium Total Bilirubin 0.7 D AST 24 D ALT 31 D Alkaline Phosphatase 76 Troponin I Total Protein 6.2 L Albumin 2.8 L Active Medications Generic Name Dose Route Start Last Admin Trade Name Freq PRN Reason Stop Dose Admin Acetaminophen 650 mg 08/21/16 15:48 Tylenol - PO Q4H PRN FEVER OR PAIN Albuterol Sulfate 1 amp 08/21/16 15:48 Ventolin 0.083% Nebulizer Soln - NEB QIDR PRN shortness of breath/wheezing Albuterol/Ipratropium 1 amp 08/21/16 18:00 08/25/16 05:38 Duoneb - NEB 1 amp QIDR [facility] Administration Amlodipine Besylate 2.5 mg 08/25/16 10:00 08/25/16 09:14 Norvasc - PO 2.5 mg DAILY [facility] Administration Ascorbic Acid 1,000 mg 08/21/16 22:00 08/25/16 09:16 Vitamin C - PO 1,000 mg BID [facility] Administration Cholecalciferol 5,000 unit 08/22/16 10:00 08/25/16 09:17 Vitamin D3 - PO 5,000 unit DAILY [facility] Administration Clindamycin HCl 300 mg 08/24/16 18:00 08/25/16 06:02 Cleocin - PO 300 mg Q6HPO [facility] Administration Docusate Sodium 100 mg 08/21/16 15:48 Colace - PO BID PRN CONSTIPATION Fludrocortisone Acetate 0.15 mg 08/21/16 22:00 08/24/16 21:35 Florinef - PO 0.15 mg BID [facility] Administration Fluoxetine HCl 20 mg 08/21/16 22:00 08/24/16 21:38 Prozac - PO 20 mg HS [facility] Administration Heparin Sodium (Porcine) 5,000 unit 08/21/16 22:00 08/25/16 06:02 Heparin - SQ 5,000 unit TID [facility] Administration Piperacillin Sod/Tazobactam Sod 50 mls @ 100 mls/hr 08/21/16 18:00 08/25/16 09: 14 Zosyn 3.375gm Ivpb (Pre-Docked) IVPB 100 mls/hr Q8H-IV [facility] Administration Insulin Aspart 1 vial 08/23/16 15:50 08/25/16 06:02 Novolog Vial Sliding Scale - SQ Not Given ACHS [facility] Protocol Lidocaine 1 patch 08/22/16 10:00 08/25/16 09:16 Lidoderm Patch - TP 1 patch DAILY [facility] Administration Lidocaine 1 patch 08/22/16 10:00 08/25/16 09:16 Lidoderm Patch - TP 1 patch DAILY [facility] Administration Magnesium Chloride 64 mg 08/22/16 10:00 08/24/16 10:53 Slow-Mag - PO 64 mg DAILY [facility] Administration Melatonin 5 mg 08/21/16 15:48 Melatonin PO HS PRN INSOMNIA Methylprednisolone Sodium Succinate 40 mg 08/21/16 18:00 08/25/16 09:15 Solu-Medrol - IVPB 40 mg Q8H-IV [facility] Administration Metoprolol Tartrate 25 mg 08/25/16 07:58 08/25/16 08:30 Lopressor - PO 25 mg BID [facility] Administration Mirtazapine 3.75 mg 08/21/16 22:00 08/24/16 21:39 Remeron - PO 3.75 mg HS [facility] Administration Multivitamins/Minerals 1 each 08/22/16 10:00 08/25/16 09:17 Theragran-M PO 1 each DAILY [facility] Administration Non-Formulary Medication 1 each 08/21/16 22:00 08/24/16 21:54 Lifitegrast [Xiidra] OU 1 each BID [facility] Administration Ondansetron HCl 4 mg 08/21/16 15:48 Zofran Injection IVPB Q6H PRN NAUSEA Pantoprazole Sodium 40 mg 08/22/16 10:00 08/25/16 09:17 Protonix - PO 40 mg DAILY [facility] Administration Potassium Chloride 40 meq 08/22/16 10:00 08/25/16 09:17 Kcl Oral Solution - PO 40 meq DAILY [facility] Administration Thyroid 30 mg 08/21/16 22:00 08/24/16 21:34 [place] Thyroid - PO 30 mg BID [facility] Administration ASSESSMENT/PLAN: Patient is an 81 year old female who is a resident of the [facility]. She has a significant past medical history of pulmonary fibrosis, hypothyroidism, sjogren syndrome, scleroderma, raynaud's syndrome, adrenal insufficiency and orthostatic hypotension. She presented to the ED on with generalized weakness. She was being treated as an outpatient for a UTI (with Cipro) but had to be switched to Cefdinir because urine cultures showed that the bacteria was resistent to Cipro. Once she started the Cefdinir, she experienced abdominal pain, nausea and vomiting and therefore has stopped taking it. She has since had a non productive cough, shortness of breath, chills and sweats. She reports poor appetite. On admission she was found to be positive for Influenza A and has since finished a course of Tamiflu. She was in the ICU from 08/13 - 08/22. She was transferred to telemetry on 08/22. ID: Leukocytosis - acute Assessment/Plan: WBC trending up (17>22.3) she remains afebrile, her vitals signs are stable She is currently on Zosyn and Clindamycin 300mg q 6 was added yesterday She reports having some loose stool, c diff ordered Blood cultures sent yesterday Shortness of breath - Hypoxia secondary to influenza A with pulmonary fibrosis On Solumedrol 40mg q8 Influenza A positive, but has since completed Tamiflu On Zosyn since 08/21/2016 per and Clindamycin started yesterday Wean off oxygen as tolerated, not oxygen dependent at assisted living, currently on 4 liters of nasal cannula Needs chest physiotherapy Duonebs, Albuterol for shortness of breath Pulmonary following Chest xray 08/24/16 with no significant changes since prior study Cardiology: Hypertensive Urgency - acute Assessment/Plan: BP trending up, elevated this morning, Increased Lopressor to 25mg BID and added Norvasc 2.5mg daily Pt remains asymptomatic Cardiology consulted Chronic orthostatic hypotension Assessment/Plan: Midodrine on hold, secondary to hypertensive episodes Endocrine: Hypothyroidism - chronic Plan: On [place] Thyroid 30-mg PO BID Diabetes Mellitus - chronic Plan: Novolog sliding scale, tighter control if BGMs are elevated Continue to trend F.E.N. Fluids: tolerating PO - no IVF Electrolytes: HypoKalemia, given two K riders, pt also on 40meq KCL scheduled - repeat potassium levels this afternoon Nutrition: dysphasia chopped diet, aspiration precautions poor appetite reported, will order supplements Prophylaxis: DVT: on Heparin 5000 sq TID GI: Protonix 40mg daily PT evaluation - fall precautions Disposition: Requires inpatient hospitalization. Full Code. Visit type - Emergency Visit Emergency Visit: Yes ED Registration Date: 08/13/16 Care time: The patient presented to the Emergency Department on the above date and was hospitalized for further evaluation of their emergent condition. - New Patient This patient is new to me today: No - Critical Care Critical Care patient: No - Discharge Referral Referred to [facility] Yes Physician Referral: Eloy Lazar MD ([facility])
[2016-08-25] MEDS: PATIENT'S OWN MEDICATION (NON-FORMULARY) (Lifitegrast [Xiidra] 1 EACH) OU SCH ×2 (11:13→21:38)
[2016-08-25] MEDS: THYROID 30 MG TABLET PO SCH ×2 (12:17→21:25)
[2016-08-25] MEDS: FLUDROCORTISONE ACETATE 0.1 MG TABLET (FP) PO SCH ×2 (12:17→21:26)
[2016-08-25] MEDS: MAGNESIUM CL 64 MG TABLET.SA PO SCH (12:17)
--- NOTE | 2016-08-25 17:03 | PN ---
Progress Note, Physician History of Present Illness: doing well daughter in room doing well today clinically cough still present - Current Medication List Current Medications: Active Medications Acetaminophen (Tylenol -) 650 mg PO Q4H PRN PRN Reason: FEVER OR PAIN Albuterol Sulfate (Ventolin 0.083% Nebulizer Soln -) 1 amp NEB QIDR PRN PRN Reason: shortness of breath/wheezing Albuterol/Ipratropium (Duoneb -) 1 amp NEB QIDR [facility] Last Admin: 08/25/16 12:30 Dose: 1 amp Amlodipine Besylate (Norvasc -) 2.5 mg PO DAILY [facility] Last Admin: 08/25/16 09:14 Dose: 2.5 mg Ascorbic Acid (Vitamin C -) 1,000 mg PO BID [facility] Last Admin: 08/25/16 09:16 Dose: 1,000 mg Cholecalciferol (Vitamin D3 -) 5,000 unit PO DAILY [facility] Last Admin: 08/25/16 09:17 Dose: 5,000 unit Clindamycin HCl (Cleocin -) 300 mg PO Q6HPO [facility] Last Admin: 08/25/16 12:22 Dose: 300 mg Docusate Sodium (Colace -) 100 mg PO BID PRN PRN Reason: CONSTIPATION Fludrocortisone Acetate (Florinef -) 0.15 mg PO BID [facility] Last Admin: 08/25/16 12:17 Dose: 0.15 mg Fluoxetine HCl (Prozac -) 20 mg PO HS [facility] Last Admin: 08/24/16 21:38 Dose: 20 mg Heparin Sodium (Porcine) (Heparin -) 5,000 unit SQ TID [facility] Last Admin: 08/25/16 14:38 Dose: 5,000 unit Piperacillin Sod/Tazobactam Sod (Zosyn 3.375gm Ivpb (Pre-Docked)) 50 mls @ 100 mls/hr IVPB Q8H-IV [facility] Last Admin: 08/25/16 09:14 Dose: 100 mls/hr Insulin Aspart (Novolog Vial Sliding Scale -) 1 vial SQ ACHS [facility] PRN Reason: Protocol Last Admin: 08/25/16 12:18 Dose: Not Given Lidocaine (Lidoderm Patch -) 1 patch TP DAILY [facility] Last Admin: 08/25/16 09:16 Dose: 1 patch Lidocaine (Lidoderm Patch -) 1 patch TP DAILY [facility] Last Admin: 08/25/16 09:16 Dose: 1 patch Magnesium Chloride (Slow-Mag -) 64 mg PO DAILY [facility] Last Admin: 08/25/16 12:17 Dose: 64 mg Melatonin (Melatonin) 5 mg PO HS PRN PRN Reason: INSOMNIA Methylprednisolone Sodium Succinate (Solu-Medrol -) 40 mg IVPB Q8H-IV [facility] Last Admin: 08/25/16 09:15 Dose: 40 mg Metoprolol Tartrate (Lopressor -) 25 mg PO BID [facility] Last Admin: 08/25/16 08:30 Dose: 25 mg Mirtazapine (Remeron -) 3.75 mg PO HS [facility] Last Admin: 08/24/16 21:39 Dose: 3.75 mg Multivitamins/Minerals (Theragran-M) 1 each PO DAILY [facility] Last Admin: 08/25/16 09:17 Dose: 1 each Non-Formulary Medication (Lifitegrast [Xiidra]) 1 each OU BID [facility] Last Admin: 08/24/16 21:54 Dose: 1 each Ondansetron HCl (Zofran Injection) 4 mg IVPB Q6H PRN PRN Reason: NAUSEA Pantoprazole Sodium (Protonix -) 40 mg PO DAILY [facility] Last Admin: 08/25/16 09:17 Dose: 40 mg Potassium Chloride (Kcl Oral Solution -) 40 meq PO DAILY [facility] Last Admin: 08/25/16 09:17 Dose: 40 meq Thyroid ([place] Thyroid -) 30 mg PO BID [facility] Last Admin: 08/25/16 12:17 Dose: 30 mg - Objective Vital Signs: Vital Signs Temperature 97.7 F 08/25/16 14:15 Pulse Rate 81 08/25/16 14:15 Respiratory Rate 18 08/25/16 14:15 Blood Pressure 158/90 08/25/16 14:15 O2 Sat by Pulse Oximetry (%) 93 L 08/25/16 09:00 Constitutional: Yes: No Distress, Calm Cardiovascular: Yes: Regular Rate and Rhythm Respiratory: Yes: Regular, Poor Air Entry, Rhonchi Gastrointestinal: Yes: Normal Bowel Sounds, Soft Musculoskeletal: Yes: WNL Extremities: Yes: WNL Neurological: Yes: Alert, Oriented Psychiatric: Yes: Alert Labs: CBC, BMP 08/25/16 05:35 08/25/16 05:35 Assessment/Plan This is an 81-year-old woman who presented to the ER with generalized weakness, cough, abdominal pain, nausea and vomiting. She was recently treated with Cipro followed by Cefdinir for UTI. She was found to have temp 100.2, O2 sat 90% on RA , WBC 6.9, sodium 133, potassium 2.6, BUN 21, creatinine 1.0. She is being admitted now for treatment of an emergent condition. 1. Hypokalemia 2. Hyponatremia 3. Dehydration 4. Hypoxia secondary to influenza A with pulmonary fibrosis 5. Orthostatic hypotension, adrenal insufficiency 6. Scleroderma, Sjogren syndrome, Raynaud's syndrome 7. Hypothyroidism immunocompromised - Problems (1) Acute respiratory failure with hypoxia Code(s): J96.01 - ACUTE RESPIRATORY FAILURE WITH HYPOXIA (2) Influenza A Code(s): J10.1 - FLU DUE TO OTH IDENT INFLUENZA VIRUS W OTH RESP MANIFEST (3) Pulmonary fibrosis Code(s): J84.10 - PULMONARY FIBROSIS, UNSPECIFIED (4) Scleroderma Code(s): M34.9 - SYSTEMIC SCLEROSIS, UNSPECIFIED (5) Sjoegren syndrome Code(s): M35.00 - SICCA SYNDROME, UNSPECIFIED (6) Interstitial lung disease Code(s): J84.9 - INTERSTITIAL PULMONARY DISEASE, UNSPECIFIED (7) Hypothyroid Code(s): E03.9 - HYPOTHYROIDISM, UNSPECIFIED (8) Orthostatic hypotension Code(s): I95.1 - ORTHOSTATIC HYPOTENSION resp failure leukocytosis plan wbc still climbing patient on clinda will see what is the wbc tomorrow repeat urine cx blood cx xray results noted and picture seen patient on steroids
--- NOTE | 2016-08-25 19:11 | CONSULT ---
Consult - text type - Consultation Consultation Note: Cardiology cough, dyspnea 158/90 normal cardiac exam ronchi, bronchial braeth sounds abdomen soft mild leg edema Impression: 81 year old female who is a resident of the [facility]. She has a significant past medical history of pulmonary fibrosis, hypothyroidism, sjogren syndrome, scleroderma, raynaud's syndrome, adrenal insufficiency and orthostatic hypotension. She presented to the ED on 08/13/2016 with generalized weakness. BP mildly elevated currently stable from cardiac standpoint hypoxic resp failure, with Influenza A IPF Rec: Echocardiogram stop metoprolol due to bronchspasm Increase amlodipine to 5 mg BID
[2016-08-25 20:29] LABS: URINE APPEARANCE SLCLOUDY; URINE BILIRUBIN NEGATIVE (NEGATIVE); URINE BLOOD NEGATIVE (NEGATIVE); URINE COLOR YELLOW; URINE GLUCOSE (UA) NEGATIVE (NEGATIVE); URINE KETONE NEGATIVE (NEGATIVE); URINE LEUK ESTERASE NEGATIVE (NEGATIVE); URINE NITRITE NEGATIVE (NEGATIVE); URINE PROTEIN NEGATIVE (NEGATIVE); URINE UROBILINOGEN NEGATIVE E.U./dl (0.2-1.0)
[2016-08-25] MEDS: amLODIPine BESYLATE 2.5 MG TABLET (FP) PO SCH (21:24)
[2016-08-25] MEDS: FLUoxetine HCL 20 MG CAPSULE (FP) PO SCH (21:24)
[2016-08-25] MEDS: MIRTAZAPINE 15 MG TABLET (FP) PO SCH (21:24)
[2016-08-26] MEDS: ALBUTEROL SO4 2.5/IPRATROPIUM 0.5 INH SOL 3 ML VIAL.NEB. NEB SCH ×3 (00:15→11:06)
[2016-08-26] MEDS: methylPREDNISolone NA SUCC 40 MG/1 ML VIAL IVPB SCH ×3 (03:22→11:41)
[2016-08-26] MEDS: INSULIN SLIDING SCALE (NOVOLOG) 1 VIAL SQ SCH ×2 (06:57→11:52)
[2016-08-26] MEDS: HEPARIN NA (PORCINE) 5,000 UNITS/ML 1ML VIAL SQ SCH ×2 (07:00→14:57)
[2016-08-26] MEDS: CLINDAMYCIN HCL 150 MG CAPSULE (FP) PO SCH ×2 (07:00→11:57)
[2016-08-26 08:19] LABS: MCHC 32.8 g/dl (32.0-36.0); MEAN CELL VOLUME 85.2 fl (80-96); MEAN PLT VOLUME 7.6 fl (7.5-11.1); PLATELET COUNT 319 K/MM3 (134-434); RDW 16.9 % (11.6-15.6)
[2016-08-26 08:40] LABS: ALBUMIN 2.7 g/dl (3.4-5.0); ANION GAP 9 (8-16); CALCIUM 8.7 mg/dL (8.5-10.1); CO2 34 mmol/L (21-32); GLUCOSE,RANDOM 99 mg/dL (74-106)
[2016-08-26 08:44] LABS: ALK PHOS 74 U/L (45-117); BILIRUBIN,TOTAL 0.4 mg/dL (0.2-1.0); CREATININE 0.8 mg/dL (0.55-1.02); SGOT/AST 17 U/L (15-37); SGPT/ALT 29 U/L (12-78); TOT PROT 5.9 g/dl (6.4-8.2)
--- NOTE | 2016-08-26 09:17 | DS ---
Physical Exam: SUBJECTIVE: Patient seen and examined. Denies any chest pain or shortness of breath. States she feels better today. No confusion reported overnight. OBJECTIVE: Vital Signs Period Temp Pulse Resp BP Sys/Xavier Pulse Ox Last 24 Hr 97.6 [id number] F 80-90 16-18 127-172/74-96 98 PHYSICAL EXAM GENERAL: The patient is awake, alert, and fully oriented, in no acute distress - no confusion overnight. HEAD: Normal with no signs of trauma. EYES: PERRL, extraocular movements intact, sclera anicteric, conjunctiva clear. No ptosis. ENT: Ears normal, nares patent, oropharynx clear without exudates, moist mucous membranes. NECK: Trachea midline, full range of motion, supple. LUNGS: anterior lungs sounds with scattered rhonchi and wheezing, congestion, posterior lungs with scattered rhonchi. HEART: Regular rate and rhythm, SR on monitoring tech ABDOMEN: Soft, nontender, nondistended, normoactive bowel sounds, no guarding, no rebound, no hepatosplenomegaly, no masses. EXTREMITIES: 2+ pulses, warm, well-perfused, no edema. NEUROLOGICAL: Normal speech, gait not observed. PSYCH: Normal mood, normal affect. SKIN: Warm, dry, normal turgor, no rashes or lesions noted LABS Laboratory Results - last 24 hr 08/25/16 08/25/16 08/25/16 05:35 12:02 17:22 WBC RBC Hgb Hct MCV MCHC RDW Plt Count MPV Neutrophils % 93.0 H Lymphocytes % 5.0 L D Monocytes % 1.0 L Band Neutrophils 1.0 D Differential Comment Manual diff done Platelet Estimate Adequate Sodium Potassium Chloride Carbon Dioxide Anion Gap BUN Creatinine Creat Clearance w eGFR POC Glucometer 98 148 Random Glucose Calcium Total Bilirubin AST ALT Alkaline Phosphatase Total Protein Albumin Urine Color Urine Appearance Urine pH Ur Specific [place] Urine Protein Urine Glucose (UA) Urine Ketones Urine Blood Urine Nitrite Urine Bilirubin Urine Urobilinogen Ur Leukocyte Esterase 08/25/16 08/25/16 08/26/16 19:00 21:23 05:45 WBC 18.0 H RBC 4.15 Hgb 11.6 Hct 35.4 MCV 85.2 MCHC 32.8 RDW 16.9 H Plt Count 319 MPV 7.6 Neutrophils % Y Lymphocytes % Y Monocytes % Band Neutrophils Differential Comment Platelet Estimate Sodium Potassium Chloride Carbon Dioxide Anion Gap BUN Creatinine Creat Clearance w eGFR POC Glucometer 154 Random Glucose Calcium Total Bilirubin AST ALT Alkaline Phosphatase Total Protein Albumin Urine Color Yellow Urine Appearance Slcloudy Urine pH 7.0 D Ur Specific [place] 1.017 Urine Protein Negative Urine Glucose (UA) Negative Urine Ketones Negative Urine Blood Negative Urine Nitrite Negative Urine Bilirubin Negative Urine Urobilinogen Negative Ur Leukocyte Esterase Negative 08/26/16 08/26/16 05:45 05:53 WBC RBC Hgb Hct MCV MCHC RDW Plt Count MPV Neutrophils % Lymphocytes % Monocytes % Band Neutrophils Differential Comment Platelet Estimate Sodium 139 Potassium 3.4 L D Chloride 96 L Carbon Dioxide 34 H Anion Gap 9 BUN 20 H Creatinine 0.8 Creat Clearance w eGFR > 60 POC Glucometer 102 Random Glucose 99 Calcium 8.7 Total Bilirubin 0.4 D AST 17 D ALT 29 Alkaline Phosphatase 74 Total Protein 5.9 L Albumin 2.7 L Urine Color Urine Appearance Urine pH Ur Specific [place] Urine Protein Urine Glucose (UA) Urine Ketones Urine Blood Urine Nitrite Urine Bilirubin Urine Urobilinogen Ur Leukocyte Esterase HOSPITAL COURSE: Date of Admission:08/13/16 Date of Discharge: 08/26/16 ASSESSMENT/PLAN: Patient is an 81 year old female who is a resident of the [facility]. She has a significant past medical history of pulmonary fibrosis, hypothyroidism, sjogren syndrome, scleroderma, raynaud's syndrome, adrenal insufficiency and orthostatic hypotension. She presented to the ED on with generalized weakness. She was being treated as an outpatient for a UTI (with Cipro) but had to be switched to Cefdinir because urine cultures showed that the bacteria was resistent to Cipro. Once she started the Cefdinir, she experienced abdominal pain, nausea and vomiting and therefore has stopped taking it. She has since had a non productive cough, shortness of breath, chills and sweats. She reports poor appetite. On admission she was found to be positive for Influenza A and has since finished a course of Tamiflu. ID: Leukocytosis - improving Assessment/Plan: WBC trending down, she remains afebrile, her vitals signs are stable She is currently on Clindamycin 300mg q 6hrs which will continue for 5 more days Blood cultures sent yesterday - ngtd Shortness of breath - Hypoxia secondary to influenza A with pulmonary fibrosis On a Prednisone taper Influenza A positive, but has since completed Tamiflu Wean off oxygen as tolerated, not oxygen dependent at assisted living, will need oxygen on discharge Chest xray 08/24/16 with no significant changes since prior study Cardiology: Hypertensive Urgency - improving Assessment/Plan: Norvasc 2.5mg BID Cardiology consulted, echo ordered Chronic orthostatic hypotension Assessment/Plan: Midodrine on hold, secondary to hypertensive episodes Endocrine: Hypothyroidism - chronic Plan: On [place] Thyroid 30-mg PO BID Diabetes Mellitus - chronic Plan: Novolog sliding scale, tighter control if BGMs are elevated Continue to trend F.E.N. Fluids: tolerating PO - no IVF Electrolytes: slight HypoKalemia, on daily Potassium supplements Nutrition: dysphasia chopped diet, aspiration precautions poor appetite reported, will order supplements Disposition: Discharge today with close PCP follow up. Full Code. Minutes to complete discharge: 45 Discharge Summary Reason For Visit: INFLUENZA DUE TO INFLUENZA VIRUS; HYPOKALEMIA Current Active Problems Acute respiratory failure with hypoxia (Acute) Dehydration (Acute) Hypokalemia (Acute) Hyponatremia (Acute) Hypoxia (Acute) Influenza A (Acute) Interstitial lung disease (Acute) Weakness generalized (Acute) Weight loss, unintentional (Acute) Adrenal insufficiency (Chronic) Ambulatory dysfunction (Chronic) Decreased appetite (Chronic) Dysphagia (Chronic) Dysphonia (Chronic) Frequent falls (Chronic) Hypothyroid (Chronic) Odynophagia (Chronic) Orthostatic hypotension (Chronic) Osteoporosis (Chronic) Pulmonary fibrosis (Chronic) Raynaud disease (Chronic) Renal insufficiency, mild (Chronic) Scleroderma (Chronic) Sjoegren syndrome (Chronic) Condition: Improved - Instructions Diet, Activity, Other Instructions: Prednisone taper as follows: Prednisone 100mg feb 14 Prednisone 100mg feb 15 Prednisone 80mg feb 16 Prednisone 80mg feb 17 Prednisone 60mg feb 18 Prednisone 60mg feb 19 Prednisone 40mg feb 20 Prednisone 40mg feb 21 Prednisone 20mg feb 22 Prednisone 20mg feb 23 Prednisone 10mg feb 24 Prednisone 10mg feb 25 Prednisone 5mg daily - back to patient's daily dose Please discontinue the Midodrine HCL as patient's blood pressure has been elevated. Please check blood pressures as she is now on Amlodopine 2.5mg twice per day. Also note she is on 5 more days of Clindamycin. Please call Tasneem Lee [employer]ODUCT DEVELOPMENT ENGINEER [phone] with any questions. Referrals: STAFF,NOT ON [Primary Care Provider] - Disposition: CUSTODIAL FACILITY - Home Medications Comprehensive Discharge Medication List: Ambulatory Orders Ascorbic Acid [C-1000] 1,000 mg PO BID 08/13/16 Cholecalciferol (Vitamin D3) [Vitamin D3 -] 5,000 unit PO DAILY 08/13/16 Docusate Sodium 100 mg PO BID PRN 08/13/16 Fludrocortisone Acetate 0.15 mg PO BID 08/13/16 Fluoxetine HCl 20 mg PO HS 08/13/16 Hydrocortisone [Cortef -] 10 mg PO DAILY 08/13/16 Hydrocortisone [Cortef -] 15 mg PO HS 08/13/16 Lifitegrast [Xiidra] 1 each OP BID 08/13/16 Magnesium Chloride [Mag64] 64 mg PO DAILY 08/13/16 Magnesium Hydrox 2400MG/30Ml [Milk of Magnesia -] 30 ml PO QID PRN 08/13/16 Midodrine HCl 2.5 mg PO BID 08/13/16 Mineral Oil/Petrolatum,White [Genteal Pm Ointment] 3.5 gm OP PRN PRN 08/13/16 Mirtazapine 3.75 mg PO HS 08/13/16 Mv-Mn/FA/Coq10/Lycopene/Lutein [Theragran-M Premier 50+ Caplet] 1 each PO DAILY 08/13/16 Pantoprazole Sodium 40 mg PO DAILY 08/13/16 Potassium Chloride [Klor-Con] 20 meq PO BID 08/13/16 Prednisone [Deltasone -] 5 mg PO DAILY 08/13/16 Promethazine HCl 12.5 mg PO Q6H 08/13/16 Thyroid,Pork [[place] Thyroid] 30 mg PO BID 08/13/16 This patient is new to me today: No Emergency Visit: Yes ED Registration Date: 08/13/16 Care time: The patient presented to the Emergency Department on the above date and was hospitalized for further evaluation of their emergent condition. Critical Care patient: No - Discharge Referral Referred to [facility] Med P.C.: Yes Physician Referral: Eloy Lazar MD ([facility])
[2016-08-26 10:46] VITALS: PULSE 70
[2016-08-26 11:08] VITALS: BP 124/70; TEMP 98
[2016-08-26] MEDS: CHOLECALCIFEROL (VITAMIN D3) 1,000 UNIT TABLET (FP) PO SCH (11:31)
[2016-08-26] MEDS: MULTIVITAMINS THER W-MINERALS COMBO TABLET (FP) PO SCH (11:32)
[2016-08-26] MEDS: PANTOPRAZOLE 40 MG TABLET (FP) PO SCH (11:32)
[2016-08-26] MEDS: MAGNESIUM CL 64 MG TABLET.SA PO SCH (11:32)
[2016-08-26] MEDS: amLODIPine BESYLATE 2.5 MG TABLET (FP) PO SCH (11:32)
[2016-08-26] MEDS: LIDOCAINE 5% TOPICAL PATCH TP SCH ×2 (11:34)
[2016-08-26] MEDS: THYROID 30 MG TABLET PO SCH (11:35)
[2016-08-26] MEDS: FLUDROCORTISONE ACETATE 0.1 MG TABLET (FP) PO SCH (11:36)
[2016-08-26] MEDS: POTASSIUM CHLORIDE 40 MEQ/30 ML UNIT DOSE CUP PO SCH (11:39)
[2016-08-26] MEDS: ASCORBIC ACID 500 MG TABLET (FP) PO SCH (11:39)
[2016-08-26] MEDS: PATIENT'S OWN MEDICATION (NON-FORMULARY) (Lifitegrast [Xiidra] 1 EACH) OU SCH (11:40)
--- NOTE | 2016-08-26 14:35 | PN ---
Progress Note, Physician History of Present Illness: patient stable doing well no new issues - Current Medication List Current Medications: Active Medications Acetaminophen (Tylenol -) 650 mg PO Q4H PRN PRN Reason: FEVER OR PAIN Albuterol Sulfate (Ventolin 0.083% Nebulizer Soln -) 1 amp NEB QIDR PRN PRN Reason: shortness of breath/wheezing Albuterol/Ipratropium (Duoneb -) 1 amp NEB QIDR [facility] Last Admin: 08/26/16 11:06 Dose: 1 amp Amlodipine Besylate (Norvasc -) 2.5 mg PO BID [facility] Last Admin: 08/26/16 11:32 Dose: 2.5 mg Ascorbic Acid (Vitamin C -) 1,000 mg PO BID [facility] Last Admin: 08/26/16 11:39 Dose: 1,000 mg Cholecalciferol (Vitamin D3 -) 5,000 unit PO DAILY [facility] Last Admin: 08/26/16 11:31 Dose: 5,000 unit Clindamycin HCl (Cleocin -) 300 mg PO Q6HPO [facility] Last Admin: 08/26/16 11:57 Dose: 300 mg Docusate Sodium (Colace -) 100 mg PO BID PRN PRN Reason: CONSTIPATION Fludrocortisone Acetate (Florinef -) 0.15 mg PO BID [facility] Last Admin: 08/26/16 11:36 Dose: 0.15 mg Fluoxetine HCl (Prozac -) 20 mg PO HS [facility] Last Admin: 08/25/16 21:24 Dose: 20 mg Heparin Sodium (Porcine) (Heparin -) 5,000 unit SQ TID [facility] Last Admin: 08/26/16 07:00 Dose: 5,000 unit Insulin Aspart (Novolog Vial Sliding Scale -) 1 vial SQ ACHS [facility] PRN Reason: Protocol Last Admin: 08/26/16 11:52 Dose: Not Given Lidocaine (Lidoderm Patch -) 1 patch TP DAILY [facility] Last Admin: 08/26/16 11:34 Dose: 1 patch Lidocaine (Lidoderm Patch -) 1 patch TP DAILY [facility] Last Admin: 08/26/16 11:34 Dose: 1 patch Magnesium Chloride (Slow-Mag -) 64 mg PO DAILY [facility] Last Admin: 08/26/16 11:32 Dose: 64 mg Melatonin (Melatonin) 5 mg PO HS PRN PRN Reason: INSOMNIA Methylprednisolone Sodium Succinate (Solu-Medrol -) 40 mg IVPB Q8H-IV [facility] Last Admin: 08/26/16 11:41 Dose: Not Given Mirtazapine (Remeron -) 3.75 mg PO HS [facility] Last Admin: 08/25/16 21:24 Dose: 3.75 mg Multivitamins/Minerals (Theragran-M) 1 each PO DAILY [facility] Last Admin: 08/26/16 11:32 Dose: 1 each Non-Formulary Medication (Lifitegrast [Xiidra]) 1 each OU BID [facility] Last Admin: 08/26/16 11:40 Dose: Not Given Ondansetron HCl (Zofran Injection) 4 mg IVPB Q6H PRN PRN Reason: NAUSEA Pantoprazole Sodium (Protonix -) 40 mg PO DAILY [facility] Last Admin: 08/26/16 11:32 Dose: 40 mg Potassium Chloride (Kcl Oral Solution -) 40 meq PO DAILY [facility] Last Admin: 08/26/16 11:39 Dose: 40 meq Thyroid ([place] Thyroid -) 30 mg PO BID [facility] Last Admin: 08/26/16 11:35 Dose: 30 mg - Objective Vital Signs: Vital Signs Temperature 98 F 08/26/16 09:00 Pulse Rate 70 08/26/16 10:46 Respiratory Rate 16 08/26/16 09:00 Blood Pressure 124/70 08/26/16 09:00 O2 Sat by Pulse Oximetry (%) 97 08/26/16 10:46 Constitutional: Yes: No Distress Cardiovascular: Yes: Regular Rate and Rhythm Respiratory: Yes: Regular, Poor Air Entry, Rhonchi Gastrointestinal: Yes: Normal Bowel Sounds, Soft Musculoskeletal: Yes: WNL Extremities: Yes: WNL Neurological: Yes: Alert, Oriented Psychiatric: Yes: Alert Labs: CBC, BMP 08/26/16 05:45 08/26/16 05:45 Assessment/Plan This is an 81-year-old woman who presented to the ER with generalized weakness, cough, abdominal pain, nausea and vomiting. She was recently treated with Cipro followed by Cefdinir for UTI. She was found to have temp 100.2, O2 sat 90% on RA , WBC 6.9, sodium 133, potassium 2.6, BUN 21, creatinine 1.0. She is being admitted now for treatment of an emergent condition. 1. Hypokalemia 2. Hyponatremia 3. Dehydration 4. Hypoxia secondary to influenza A with pulmonary fibrosis 5. Orthostatic hypotension, adrenal insufficiency 6. Scleroderma, Sjogren syndrome, Raynaud's syndrome 7. Hypothyroidism immunocompromised - Problems (1) Acute respiratory failure with hypoxia Code(s): J96.01 - ACUTE RESPIRATORY FAILURE WITH HYPOXIA (2) Influenza A Code(s): J10.1 - FLU DUE TO OTH IDENT INFLUENZA VIRUS W OTH RESP MANIFEST (3) Pulmonary fibrosis Code(s): J84.10 - PULMONARY FIBROSIS, UNSPECIFIED (4) Scleroderma Code(s): M34.9 - SYSTEMIC SCLEROSIS, UNSPECIFIED (5) Sjoegren syndrome Code(s): M35.00 - SICCA SYNDROME, UNSPECIFIED (6) Interstitial lung disease Code(s): J84.9 - INTERSTITIAL PULMONARY DISEASE, UNSPECIFIED (7) Hypothyroid Code(s): E03.9 - HYPOTHYROIDISM, UNSPECIFIED (8) Orthostatic hypotension Code(s): I95.1 - ORTHOSTATIC HYPOTENSION resp failure leukocytosis plan patient stbale off of abx continue current mgmt close watch
--- NOTE | 2016-08-26 14:54 | PN ---
Progress Note (short form) - Note Progress Note: Overall appears improved. No CP or SOB. No acute events overnight. Intake & Output 08/23/16 08/24/16 08/25/16 08/26/16 23:59 23:59 23:59 23:59 Intake Total 100 200 530 200 Balance 100 200 530 200 Weight 111 lb Last Vital Signs Temp Pulse Resp BP Pulse Ox 98 F 70 16 124/70 97 08/26/16 09:00 08/26/16 10:46 08/26/16 09:00 08/26/16 09:00 08/26/16 10:46 Active Medications Acetaminophen (Tylenol -) 650 mg PO Q4H PRN PRN Reason: FEVER OR PAIN Albuterol Sulfate (Ventolin 0.083% Nebulizer Soln -) 1 amp NEB QIDR PRN PRN Reason: shortness of breath/wheezing Albuterol/Ipratropium (Duoneb -) 1 amp NEB QIDR [facility] Last Admin: 08/26/16 11:06 Dose: 1 amp Amlodipine Besylate (Norvasc -) 2.5 mg PO BID [facility] Last Admin: 08/26/16 11:32 Dose: 2.5 mg Ascorbic Acid (Vitamin C -) 1,000 mg PO BID [facility] Last Admin: 08/26/16 11:39 Dose: 1,000 mg Cholecalciferol (Vitamin D3 -) 5,000 unit PO DAILY [facility] Last Admin: 08/26/16 11:31 Dose: 5,000 unit Clindamycin HCl (Cleocin -) 300 mg PO Q6HPO [facility] Last Admin: 08/26/16 11:57 Dose: 300 mg Docusate Sodium (Colace -) 100 mg PO BID PRN PRN Reason: CONSTIPATION Fludrocortisone Acetate (Florinef -) 0.15 mg PO BID [facility] Last Admin: 08/26/16 11:36 Dose: 0.15 mg Fluoxetine HCl (Prozac -) 20 mg PO HS [facility] Last Admin: 08/25/16 21:24 Dose: 20 mg Heparin Sodium (Porcine) (Heparin -) 5,000 unit SQ TID [facility] Last Admin: 08/26/16 07:00 Dose: 5,000 unit Insulin Aspart (Novolog Vial Sliding Scale -) 1 vial SQ ACHS [facility] PRN Reason: Protocol Last Admin: 08/26/16 11:52 Dose: Not Given Lidocaine (Lidoderm Patch -) 1 patch TP DAILY [facility] Last Admin: 08/26/16 11:34 Dose: 1 patch Lidocaine (Lidoderm Patch -) 1 patch TP DAILY [facility] Last Admin: 08/26/16 11:34 Dose: 1 patch Magnesium Chloride (Slow-Mag -) 64 mg PO DAILY [facility] Last Admin: 08/26/16 11:32 Dose: 64 mg Melatonin (Melatonin) 5 mg PO HS PRN PRN Reason: INSOMNIA Methylprednisolone Sodium Succinate (Solu-Medrol -) 40 mg IVPB Q8H-IV [facility] Last Admin: 08/26/16 11:41 Dose: Not Given Mirtazapine (Remeron -) 3.75 mg PO HS [facility] Last Admin: 08/25/16 21:24 Dose: 3.75 mg Multivitamins/Minerals (Theragran-M) 1 each PO DAILY [facility] Last Admin: 08/26/16 11:32 Dose: 1 each Non-Formulary Medication (Lifitegrast [Xiidra]) 1 each OU BID [facility] Last Admin: 08/26/16 11:40 Dose: Not Given Ondansetron HCl (Zofran Injection) 4 mg IVPB Q6H PRN PRN Reason: NAUSEA Pantoprazole Sodium (Protonix -) 40 mg PO DAILY [facility] Last Admin: 08/26/16 11:32 Dose: 40 mg Potassium Chloride (Kcl Oral Solution -) 40 meq PO DAILY [facility] Last Admin: 08/26/16 11:39 Dose: 40 meq Thyroid ([place] Thyroid -) 30 mg PO BID [facility] Last Admin: 08/26/16 11:35 Dose: 30 mg Gen: Awake and alert, NAD HEENT: dry mucous membranes Heart: RRR Lung: scattered rhonchi / basilar crackles Abd: soft, nontender Ext: no edema Laboratory Results - last 24 hr 08/25/16 08/25/16 08/25/16 17:22 19:00 21:23 WBC RBC Hgb Hct MCV MCHC RDW Plt Count MPV Neutrophils % Lymphocytes % Monocytes % Eosinophils % Band Neutrophils Myelocytes Differential Comment Sodium Potassium Chloride Carbon Dioxide Anion Gap BUN Creatinine Creat Clearance w eGFR POC Glucometer 148 154 Random Glucose Calcium Total Bilirubin AST ALT Alkaline Phosphatase Total Protein Albumin Urine Color Yellow Urine Appearance Slcloudy Urine pH 7.0 D Ur Specific [place] 1.017 Urine Protein Negative Urine Glucose (UA) Negative Urine Ketones Negative Urine Blood Negative Urine Nitrite Negative Urine Bilirubin Negative Urine Urobilinogen Negative Ur Leukocyte Esterase Negative 08/26/16 08/26/16 08/26/16 05:45 05:45 05:53 WBC 18.0 H RBC 4.15 Hgb 11.6 Hct 35.4 MCV 85.2 MCHC 32.8 RDW 16.9 H Plt Count 319 MPV 7.6 Neutrophils % 91.0 H Lymphocytes % 1.0 L D Monocytes % 5.0 D Eosinophils % 1.0 D Band Neutrophils 1.0 Myelocytes 1 D Differential Comment Manual diff done Sodium 139 Potassium 3.4 L D Chloride 96 L Carbon Dioxide 34 H Anion Gap 9 BUN 20 H Creatinine 0.8 Creat Clearance w eGFR > 60 POC Glucometer 102 Random Glucose 99 Calcium 8.7 Total Bilirubin 0.4 D AST 17 D ALT 29 Alkaline Phosphatase 74 Total Protein 5.9 L Albumin 2.7 L Urine Color Urine Appearance Urine pH Ur Specific [place] Urine Protein Urine Glucose (UA) Urine Ketones Urine Blood Urine Nitrite Urine Bilirubin Urine Urobilinogen Ur Leukocyte Esterase 08/26/16 11:51 WBC RBC Hgb Hct MCV MCHC RDW Plt Count MPV Neutrophils % Lymphocytes % Monocytes % Eosinophils % Band Neutrophils Myelocytes Differential Comment Sodium Potassium Chloride Carbon Dioxide Anion Gap BUN Creatinine Creat Clearance w eGFR POC Glucometer 140 Random Glucose Calcium Total Bilirubin AST ALT Alkaline Phosphatase Total Protein Albumin Urine Color Urine Appearance Urine pH Ur Specific [place] Urine Protein Urine Glucose (UA) Urine Ketones Urine Blood Urine Nitrite Urine Bilirubin Urine Urobilinogen Ur Leukocyte Esterase Problem List - Problems (1) Acute respiratory failure with hypoxia Code(s): J96.01 - ACUTE RESPIRATORY FAILURE WITH HYPOXIA (2) Influenza A Code(s): J10.1 - FLU DUE TO OTH IDENT INFLUENZA VIRUS W OTH RESP MANIFEST (3) Pulmonary fibrosis Code(s): J84.10 - PULMONARY FIBROSIS, UNSPECIFIED (4) Scleroderma Code(s): M34.9 - SYSTEMIC SCLEROSIS, UNSPECIFIED (5) Sjoegren syndrome Code(s): M35.00 - SICCA SYNDROME, UNSPECIFIED (6) Interstitial lung disease Code(s): J84.9 - INTERSTITIAL PULMONARY DISEASE, UNSPECIFIED (7) Hypothyroid Code(s): E03.9 - HYPOTHYROIDISM, UNSPECIFIED (8) Orthostatic hypotension Code(s): I95.1 - ORTHOSTATIC HYPOTENSION ASSESSMENT AND PLAN: Acute Hypoxic Respiratory Failure Influenza A Interstitial Lung Disease Scleroderma/Sjogren Syndrome Adrenal Insufficiency (?) Hypertensive Urgency episode - ?Acute Pulmonary Edema vs Pneumonia - Prednisone taper - Florinef - O2 - D/C planning Dr Kincaid
--- NOTE | 2016-09-02 10:29 | PN ---
Progress Note, Physician History of Present Illness: improving still sob and confusion but better requiring ventimask - Objective Vital Signs: Vital Signs Temperature 98 F 08/26/16 09:00 Pulse Rate 70 08/26/16 10:46 Respiratory Rate 16 08/26/16 09:00 Blood Pressure 124/70 08/26/16 09:00 O2 Sat by Pulse Oximetry (%) 97 08/26/16 10:46 Constitutional: Yes: Calm, Mild Distress Cardiovascular: Yes: Regular Rate and Rhythm, Tachycardia Respiratory: Yes: Poor Air Entry, Rhonchi Gastrointestinal: Yes: Normal Bowel Sounds, Soft Musculoskeletal: Yes: WNL Extremities: Yes: WNL Integumentary: Yes: WNL Neurological: Yes: Alert, Oriented Psychiatric: Yes: Alert Labs: CBC, BMP 08/26/16 05:45 08/26/16 05:45 Assessment/Plan This is an 81-year-old woman who presented to the ER with generalized weakness, cough, abdominal pain, nausea and vomiting. She was recently treated with Cipro followed by Cefdinir for UTI. She was found to have temp 100.2, O2 sat 90% on RA , WBC 6.9, sodium 133, potassium 2.6, BUN 21, creatinine 1.0. She is being admitted now for treatment of an emergent condition. 1. Hypokalemia 2. Hyponatremia 3. Dehydration 4. Hypoxia secondary to influenza A with pulmonary fibrosis 5. Orthostatic hypotension, adrenal insufficiency 6. Scleroderma, Sjogren syndrome, Raynaud's syndrome 7. Hypothyroidism immunocompromised - Problems (1) Acute respiratory failure with hypoxia Code(s): J96.01 - ACUTE RESPIRATORY FAILURE WITH HYPOXIA (2) Influenza A Code(s): J10.1 - FLU DUE TO OTH IDENT INFLUENZA VIRUS W OTH RESP MANIFEST (3) Pulmonary fibrosis Code(s): J84.10 - PULMONARY FIBROSIS, UNSPECIFIED (4) Scleroderma Code(s): M34.9 - SYSTEMIC SCLEROSIS, UNSPECIFIED (5) Sjoegren syndrome Code(s): M35.00 - SICCA SYNDROME, UNSPECIFIED (6) Interstitial lung disease Code(s): J84.9 - INTERSTITIAL PULMONARY DISEASE, UNSPECIFIED (7) Hypothyroid Code(s): E03.9 - HYPOTHYROIDISM, UNSPECIFIED (8) Orthostatic hypotension Code(s): I95.1 - ORTHOSTATIC HYPOTENSION resp failure leukocytosis plan patient now better breathing better still not completely better awaiting final results result awaited for pjp incentive rg cc time 40 min
== END 2016-08-26 15:13 | disposition home or self-care (01) | DRG 189 ==
LOC: JER 14:19 → JERBED 16:21 → J6S 19:15 → JICU 08-18 14:07 → J4W 08-23 00:17
PROVIDERS: ADMIT Internal Medicine; ATTEND Nurse Practitioner Family
DX: J96.01 Acute respiratory failure with hypoxia (principal); E43 Unspecified severe protein-calorie malnutrition; E27.1 Primary adrenocortical insufficiency; E87.1 Hypo-osmolality and hyponatremia; Z68.1 Body mass index [BMI] 19.9 or less, adult; J11.1 Influenza due to unidentified influenza virus with other respiratory manifestations; E03.9 Hypothyroidism, unspecified; M34.9 Systemic sclerosis, unspecified; E87.6 Hypokalemia; I73.00 Raynaud's syndrome without gangrene; Z87.891 Personal history of nicotine dependence; E86.0 Dehydration; K22.0 Achalasia of cardia; I95.1 Orthostatic hypotension; R29.6 Repeated falls; J84.10 Pulmonary fibrosis, unspecified; F39 Unspecified mood [affective] disorder; I16.0 Hypertensive urgency; E11.9 Type 2 diabetes mellitus without complications; M81.0 Age-related osteoporosis without current pathological fracture
CPT/HCPCS: 36415; 36600; 71010-TC; 74230-TC; 76775-TC; 80048; 80053; 81003; 81015; 82550; 82803; 83605; 83735; 84100; 84484; 85025; 85027; 87040; 87086; 87254; 87324; 87449; 87804; 92611-GN; 93005; 93010; 93306-TC; 94010; 94150; 94640; 94761; 97116-GP; 97161-GP; 99284-25; J1644

== ENCOUNTER 2016-08-27 12:37 | Observation (INO) | payer OTHER, BC ==
--- NOTE | 2016-08-27 12:51 | PDOC ---
History of Present Illness - History of Present Illness Initial Comments: 08/27/16 14:05 This is an 81-year-old female with significant past medical history of pulmonary fibrosis, hypothyroidism, sjogren syndrome, scleroderma, Raynauds syndrome, adrenal insufficiency, and orthostatic hypotension who presents to the emergency department from [facility] with shortness of breath for 1 day. The patient was recently admitted to [facility] on and discharged home on 08/26/16 after being treated for generalized weakness and the flu. The patient reports shortness of breath but denies any chest pain. She denies any palpitations. The patient denies any abdominal pain, nausea, vomiting, or diarrhea. She denies fevers or chills. The patient does report generalized weakness and was unable to walk around at her long-term facility yesterday. She does also state that she feels very nervous. PMD: Dr. Cuba <Veronika Ramon - Last Filed: 08/27/16 14:05> - General History Source: Patient, Old Records Exam Limitations: No Limitations <Bette Lan - Last Filed: 08/28/16 13:11> - General Chief Complaint: Shortness of Breath Stated Complaint: Shortness of Breath Time Seen by Provider: 08/27/16 12:42 Past History <Veronika Ramon - Last Filed: 08/27/16 14:05> - Past Medical History Anemia: No COPD: Yes (pulmonary fibrosis) GI Disorders: Yes (reflux) Disorders: Yes (UTI) HTN: (hypotension, orthostatic HTN) Thyroid Disease: Yes (hypo) - Surgical History Abdominal Surgery: Yes Cholecystectomy: Yes (1974) Orthopedic Surgery: Yes (rt knee arthroscopy) - Immunization History Immunization Up to Date: No (does not get flu shot) - Psycho/Social/Smoking Cessation Hx Anxiety: No Suicidal Ideation: No Smoking History: Former smoker Have you smoked in the past 12 months: No Number of Cigarettes Smoked Daily: 20 If you are a former smoker, when did you quit?: 1969 Hx Alcohol Use: No Drug/Substance Use Hx: No Substance Use Type: None Hx Substance Use Treatment: No <Bette Lan - Last Filed: 08/28/16 13:11> - Past Medical History Allergies/Adverse Reactions: Allergies Allergy/AdvReac Type Severity Reaction Status Date / Time No Known Allergies Allergy Verified 08/27/16 13:04 Home Medications: Ambulatory Orders Ascorbic Acid [C-1000] 1,000 mg PO BID 08/13/16 Cholecalciferol (Vitamin D3) [Vitamin D -] 5,000 unit PO DAILY 08/13/16 Docusate Sodium 100 mg PO BID PRN 08/13/16 Fludrocortisone Acetate 0.15 mg PO BID 08/13/16 Fluoxetine HCl 20 mg PO HS 08/13/16 Hydrocortisone [Cortef -] 10 mg PO DAILY 08/13/16 Hydrocortisone [Cortef -] 15 mg PO HS 08/13/16 Lifitegrast [Xiidra] 1 each OP BID 08/13/16 Magnesium Chloride [Mag64] 64 mg PO DAILY 08/13/16 Mineral Oil/Petrolatum,White [Genteal Pm Ointment] 3.5 gm OP PRN PRN 08/13/16 Mirtazapine 3.75 mg PO HS 08/13/16 Mv-Mn/FA/Coq10/Lycopene/Lutein [Theragran-M Premier 50+ Caplet] 1 each PO DAILY 08/13/16 Pantoprazole Sodium 40 mg PO DAILY 08/13/16 Potassium Chloride [Klor-Con] 20 meq PO BID 08/13/16 Promethazine HCl 12.5 mg PO Q6H 08/13/16 Thyroid,Pork [[place] Thyroid] 30 mg PO BID 08/13/16 Albuterol 2.5/Ipratropium 0.5 [Duoneb -] 1 amp NEB QIDR amp 08/26/16 Amlodipine Besylate [Norvasc -] 2.5 mg PO BID #60 tablet 08/26/16 Clindamycin [Cleocin -] 300 mg PO Q6HPO #30 capsule 08/26/16 Melatonin 5 mg PO HS PRN #0 cap 08/26/16 Nebulizer [Aeroeclipse II] 1 each MC QID #1 each 08/26/16 Prednisone See Taper PO DAILY #70 tablet 08/26/16 Review of Systems - Review of Systems Able to Perform ROS?: Yes Comments:: 08/27/16 14:05 GENERAL/CONSTITUTIONAL: +Weakness. No: fever, chills, loss of appetite. HEAD, EYES, EARS, NOSE AND THROAT: No: change in vision, ear pain, discharge, sore throat, throat swelling. CARDIOVASCULAR: No: chest pain, lightheadedness, palpitations, syncope RESPIRATORY: +SOB. No: cough, wheezing, hemoptysis, stridor. GASTROINTESTINAL: No: nausea, vomiting, abdominal cramping, diarrhea, rectal bleeding, constipation. GENITOURINARY: No: dysuria, hematuria, frequency, urgency, flank pain. MUSCULOSKELETAL: No: back pain, neck pain, joint pain, muscle swelling or pain SKIN AND BREASTS: No: lesions, pallor, rash or easy bruising. NEUROLOGIC: No: headache, vertigo, paresthesias, weakness ENDOCRINE: No: unexplained weight gain or loss HEMATOLOGIC/LYMPHATIC: No: anemia, easy bleeding, swelling nodes <Veronika Ramon - Last Filed: 08/27/16 14:05> *Physical Exam - Vital Signs Last Vital Signs Temp Pulse Resp BP Pulse Ox 97.6 F 83 26 H 103/42 100 08/27/16 12:59 08/27/16 13:00 08/27/16 12:59 08/27/16 12:59 08/27/16 13:00 - Physical Exam Comments: 08/27/16 14:05 GENERAL: The patient is in no acute distress. HEAD: Normal with no signs of trauma. EYES: PERRLA, EOMI, sclera anicteric, conjunctiva clear. ENT: Ears normal, nares patent, oropharynx clear without exudates. Moist mucous membranes. NECK: Normal range of motion, supple without lymphadenopathy, JVD, or masses. LUNGS: +Inspiratory and expiratory rhonchi in all lung hope with bibasilar crackles, but speaking in clear sentences. No wheezing. HEART: Regular rate and rhythm, normal S1 and S2 without murmur, rub or gallop. ABDOMEN: Soft, nontender, normoactive bowel sounds. No guarding, no rebound. EXTREMITIES: Normal range of motion, no edema. No clubbing or cyanosis. No erythema, or tenderness. NEUROLOGICAL: Cranial nerves II through XII grossly intact. Normal speech. No focal neurological deficits. MUSCULOSKELETAL: Back non-tender to palpation, no CVA tenderness SKIN: Warm, Dry, normal turgor, no rashes or lesions noted. <Veroniak Ramon - Last Filed: 08/27/16 14:05> ED Treatment Course - LABORATORY CBC & Chemistry Diagram: 08/27/16 13:42 08/27/16 13:42 <Bette Lan - Last Filed: 08/28/16 13:11> Medical Decision Making - Medical Decision Making 08/27/16 12:50 A portion of this note was documented by scribe services under my direction. I have reviewed the details of the note, within reason, and agree with the documentation with the following case summary and management plan written by me. Nursing documentation reviewed and incorporated into medical decision making This is an 81-year-old female with a history of chronic lung disease who presents emergency department with increasing weakness and shortness of breath. Patient was discharged from the hospital yesterday to her assisted living facility. Patient is typically ambulatory with a walker but states due to generalized weakness she was unable to do so No known fevers No chest pain No nausea, vomiting, diarrhea No leg swelling 08/27/16 14:59 Laboratory Tests 08/26/16 08/27/16 08/27/16 05:45 13:42 13:42 WBC 18.0 H 18.6 H Hgb 11.6 12.1 Hct 35.4 36.8 Plt Count 319 313 Neutrophils % 91.0 H 90.4 H BUN 29 H D Creatinine 0.8 Creatine Kinase 81 Troponin I < 0.02 B-Natriuretic Peptide 744.27 H CXR: chronic lung changes Labs stable Pt seen by Dr More in the ER (she appears better than prior to when she was admitted to the ICU) Case reviewed with Dr. Glez 08/27/16 15:[address] on observation Pt will need to go to Rehab as she is deconditioned, too weak to ambulate with walker back to her baseline Clinical Impression: Shortness of breath <Bette Lan - Last Filed: 08/28/16 13:11> *DC/Admit/Observation/Transfer - Attestations Scribe Attestion: 08/27/16 14:06 Documentation prepared by Veronika Ramon, acting as medical transcription editor for Bette Lan MD. <Veronika Ramon - Last Filed: 08/27/16 14:05> - Discharge Dispostion Admit: Yes Decision to Admit order Date/Time: 08/27/16 15:45 <Bette Lan - Last Filed: 08/28/16 13:11> Diagnosis at time of Disposition: Shortness of breath - Discharge Dispostion Condition at time of disposition: Stable
[2016-08-27 13:04] VITALS: BMI 18.6
--- NOTE | 2016-08-27 13:57 | CON.PULM ---
Consult Consult Specialty:: PULMONARY Referred by:: Dr. Lan Reason for Consultation:: shortness of breath - History of Present Illness Chief Complaint: shortness of breath/cough History of Present Illness: 81yo female with h/o scleroderma/sjogrens syndrome with associasted interstitial lung disease/pulmonary fibrosis, adrenal insufficiency, hypothyroidism, recently admitted for interstitial lung disease exacerbation +/ - pneumonia who was discharged day prior to presentation with worsening cough. Seen by nurse at her assisted living facility who sent her to the ER. She denies any chest pain or palpitations. No fevers, chills or sweats. Breathing not significantly different from when she was discharged and has a nonproductive cough. No nausea, vomiting or abdominal pain. No diarrhea. She was discharged on home O2 which she was not on prior to this past admission. She was discharge in the afternoon, did not get a chance to get her morning meds this AM. - History Source History Provided By: Patient, Caregiver Limitations to Obtaining History: Clinical Condition - Past Medical History Cardio/Vascular: Yes: Other (orthostatic hypotension) Pulmonary: Yes: Pulmonary Fibrosis Rheumatology: Yes: Other (Sjogrens, Raynauds, scleroderma) Endocrine: Yes: Hypothyroidism, [place]'s Disease - Past Surgical History Past Surgical History: Yes: Cholecystectomy (open) - Alcohol/Substance Use Hx Alcohol Use: No History of Substance Use: reports: None - Smoking History Smoking history: Never smoked Have you smoked in the past 12 months: No Aproximately how many cigarettes per day: 20 If you are a former smoker, when did you quit?: 1969 - Social History ADL: Independent (lives with [facility], [place]) 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 History of Recent Travel: No Home Medications - Allergies Allergies/Adverse Reactions: Allergies Allergy/AdvReac Type Severity Reaction Status Date / Time No Known Allergies Allergy Verified 08/27/16 13:04 - Home Medications Home Medications: Ambulatory Orders Ascorbic Acid [C-1000] 1,000 mg PO BID 08/13/16 Cholecalciferol (Vitamin D3) [Vitamin D -] 5,000 unit PO DAILY 08/13/16 Docusate Sodium 100 mg PO BID PRN 08/13/16 Fludrocortisone Acetate 0.15 mg PO BID 08/13/16 Fluoxetine HCl 20 mg PO HS 08/13/16 Hydrocortisone [Cortef -] 10 mg PO DAILY 08/13/16 Hydrocortisone [Cortef -] 15 mg PO HS 08/13/16 Lifitegrast [Xiidra] 1 each OP BID 08/13/16 Magnesium Chloride [Mag64] 64 mg PO DAILY 08/13/16 Mineral Oil/Petrolatum,White [Genteal Pm Ointment] 3.5 gm OP PRN PRN 08/13/16 Mirtazapine 3.75 mg PO HS 08/13/16 Mv-Mn/FA/Coq10/Lycopene/Lutein [Theragran-M Premier 50+ Caplet] 1 each PO DAILY 08/13/16 Pantoprazole Sodium 40 mg PO DAILY 08/13/16 Potassium Chloride [Klor-Con] 20 meq PO BID 08/13/16 Promethazine HCl 12.5 mg PO Q6H 08/13/16 Thyroid,Pork [[place] Thyroid] 30 mg PO BID 08/13/16 Albuterol 2.5/Ipratropium 0.5 [Duoneb -] 1 amp NEB QIDR amp 08/26/16 Amlodipine Besylate [Norvasc -] 2.5 mg PO BID #60 tablet 08/26/16 Clindamycin [Cleocin -] 300 mg PO Q6HPO #30 capsule 08/26/16 Melatonin 5 mg PO HS PRN #0 cap 08/26/16 Nebulizer [Aeroeclipse II] 1 each MC QID #1 each 08/26/16 Prednisone See Taper PO DAILY #70 tablet 08/26/16 Family Disease History - Family Disease History Family Disease History: Heart Disease: Mother, CA: Father (colon) Review of Systems - Review of Systems Constitutional: reports: Weakness. denies: Chills, Fever Eyes: denies: Recent Change in Vision HENT: denies: Nasal Congestion, Throat Pain Neck: denies: Stiffness, Tenderness Cardiovascular: reports: Shortness of Breath. denies: Chest Pain, Edema, Palpitations Respiratory: reports: Cough, Exercise Intolerance, SOB, SOB on Exertion. denies : Wheezing Gastrointestinal: denies: Abdominal Pain, Nausea, Vomiting Genitourinary: denies: Dysuria, Hematuria Neurological: denies: Dizziness, Headache Physical Exam Vital Sings: Vital Signs Temperature 97.6 F 08/27/16 12:59 Pulse Rate 83 08/27/16 13:00 Respiratory Rate 26 H 08/27/16 12:59 Blood Pressure 103/42 08/27/16 12:59 O2 Sat by Pulse Oximetry (%) 100 08/27/16 13:00 Constitutional: Yes: Other (frail appearing) Eyes: Yes: Conjunctiva Clear, EOM Intact HENT: Yes: Atraumatic, Normocephalic Neck: Yes: Supple, Trachea Midline Cardiovascular: Yes: Regular Rate and Rhythm Respiratory: Yes: Rales, Rhonchi (coarse) ...Clubbing: No Gastrointestinal: Yes: Normal Bowel Sounds, Soft. No: Tenderness Edema: No Neurological: Yes: Alert, Oriented Imaging - Results Chest X-ray: Report Reviewed, Image Reviewed (bilateral interstitial changes) Assessment/Plan Interstitial Lung Disease/Pulmonary Fibrosis Chronic Hypoxic Respiratory Failure Scleroderma/Sjogrens Disease Recent Pneumonia - CXR not significantly changed or even improved from the last film - exam likely chronic and likely due to resolving pulmonary process - continue prednisone taper until she she gets down to her hydrocortisone level - inhaled bronchodilators - O2 to keep SpO2 >90% - DVT prophylaxis - will likely need subacute placement thank you for this consult Neftali More MD
[2016-08-27 14:11] LABS: ARTERIAL BLD GAS O2 SATURATION 95.4 % (90-98.9); ARTERIAL BLOOD GAS BASE EXCESS 7.8 meq/l (-2-2); ARTERIAL BLOOD GAS HCO3 30.9 meq/L (22-26); ARTERIAL BLOOD GAS PO2 72.6 mmHg (68-100)
[2016-08-27 14:12] LABS: ALLENS TEST POSITIVE; ART PUNCT SITE RIGHT RADIAL; LPM/O2% 2.5; METHEMOGLOBIN 1.6 % (0.4-1.5); PT. ON O2? YES; TYPE OF O2 N/C
[2016-08-27 14:13] LABS: ARTERIAL BLOOD GAS pH 7.52 (7.35-7.45)
[2016-08-27 14:17] LABS: BASOPHIL 0.3 % (0-2.0); EOSINOPHIL 0.1 % (0-4.5); MCH 28.2 pg (25.7-33.7); MCHC 32.9 g/dl (32.0-36.0); MEAN CELL VOLUME 85.7 fl (80-96); MEAN PLT VOLUME 7.4 fl (7.5-11.1); NEUTROPHILS 90.4 % (42.8-82.8); PLATELET COUNT 313 K/MM3 (134-434); RDW 17.4 % (11.6-15.6); WHITE BLOOD COUNT 18.6 K/mm3 (4.0-10.0)
[2016-08-27 14:31] LABS: ALBUMIN 2.8 g/dl (3.4-5.0); ANION GAP 8 (8-16); CO2 34 mmol/L (21-32); CREATININE 0.8 mg/dL (0.55-1.02); GLUCOSE,RANDOM 80 mg/dL (74-106); SGPT/ALT 29 U/L (12-78)
[2016-08-27 14:36] LABS: ALK PHOS 78 U/L (45-117); BILIRUBIN,TOTAL 0.3 mg/dL (0.2-1.0); TOT PROT 6.6 g/dl (6.4-8.2); TROPONIN I < 0.02 ng/ml (0.00-0.05)
[2016-08-27 14:39] LABS: SGOT/AST 25 U/L (15-37)
[2016-08-27] MEDS ORDERED: DOCUSATE SODIUM 100 MG CAPSULE (FP) PO PRN (16:53)
[2016-08-27] MEDS ORDERED: MELATONIN 5 MG TABLETS PO PRN (16:56)
[2016-08-27] MEDS ORDERED: ONDANSETRON 4 MG/2 ML VIAL IVPB PRN (17:01)
[2016-08-27] MEDS ORDERED: ACETAMINOPHEN 325 MG TABLET (FP) PO PRN (17:01)
--- NOTE | 2016-08-27 17:09 | HP ---
PCP: Guero Cuba CHIEF COMPLAINT: Shortness of breath HISTORY OF PRESENT ILLNESS: This is an 81-year-old woman who presents to the ER from [facility] complaining of shortness of breath. She had recently been admitted with influenza, acute hypoxic respiratory failure and possible pneumonia. She was discharged yesterday on oxygen, Prednisone, Clindamycin, DuoNeb. She was unable to get a nebulizer and so has not been receiving DuoNeb treatments. She says that this morning she felt more short of breath. Family notes that she appears more short of breath today than last night. She also complains of weakness. She denies fever, chills, cough, chest pain. PAST MEDICAL HISTORY Pulmonary fibrosis Hypothyroidism Hypertension Sjogren syndrome Scleroderma Raynaud's syndrome Adrenal insufficiency Orthostatic hypotension PAST SURGICAL HISTORY Cholecystectomy Allergies No Known Allergies Allergy (Verified 08/27/16 13:04) HOME MEDICATIONS 3 Medication Instructions Recorded Ascorbic Acid [C-1000] 1,000 mg PO BID 08/13/16 Cholecalciferol (Vitamin D3) 5,000 unit PO DAILY 08/13/16 [Vitamin D -] Docusate Sodium 100 mg PO BID PRN 08/13/16 Fludrocortisone Acetate 0.15 mg PO BID 08/13/16 Fluoxetine HCl 20 mg PO HS 08/13/16 Hydrocortisone [Cortef -] 10 mg PO DAILY 08/13/16 Hydrocortisone [Cortef -] 15 mg PO HS 08/13/16 Lifitegrast [Xiidra] 1 each OP BID 08/13/16 Magnesium Chloride [Mag64] 64 mg PO DAILY 08/13/16 Mineral Oil/Petrolatum,White 3.5 gm OP PRN PRN 08/13/16 [Genteal Pm Ointment] Mirtazapine 3.75 mg PO HS 08/13/16 Mv-Mn/FA/Coq10/Lycopene/Lutein 1 each PO DAILY 08/13/16 [Theragran-M Premier 50+ Caplet] Pantoprazole Sodium 40 mg PO DAILY 08/13/16 Potassium Chloride [Klor-Con] 20 meq PO BID 08/13/16 Promethazine HCl 12.5 mg PO Q6H 08/13/16 Thyroid,Pork [[place] Thyroid] 30 mg PO BID 08/13/16 Albuterol 2.5/Ipratropium 0.5 1 amp NEB QIDR amp 08/26/16 [Duoneb -] Amlodipine Besylate [Norvasc -] 2.5 mg PO BID #60 tablet 08/26/16 Clindamycin [Cleocin -] 300 mg PO Q6HPO #30 capsule 08/26/16 Melatonin 5 mg PO HS PRN #0 cap 08/26/16 Nebulizer [Aeroeclipse II] 1 each MC QID #1 each 08/26/16 Prednisone See Taper PO DAILY #70 tablet 08/26/16 Social History: Smoking: Quit smoking 44 years ago Alcohol: None Drugs: None Recent Travel: No Family History Mother - Heart disease Father - colon cancer REVIEW OF SYSTEMS CONSTITUTIONAL: Present: generalized weakness. Absent: fever, chills, diaphoresis, malaise, loss of appetite, weight change HEENT: Absent: rhinorrhea, nasal congestion, throat pain, throat swelling, difficulty swallowing, mouth swelling, ear pain, eye pain, visual changes CARDIOVASCULAR: Absent: chest pain, syncope, palpitations, lightheadedness, peripheral edema RESPIRATORY: Present: shortness of breath, wheezing. Absent: cough, orthopnea, stridor, hemoptysis GASTROINTESTINAL: Absent: abdominal pain, abdominal distension, nausea, vomiting , diarrhea, constipation, melena, hematochezia GENITOURINARY: Absent: dysuria, frequency, urgency, hesitancy, hematuria, flank pain MUSCULOSKELETAL: Absent: myalgia, arthralgia, joint swelling, back pain, neck pain SKIN: Absent: rash, itching, pallor HEMATOLOGIC/IMMUNOLOGIC: Absent: easy bleeding, easy bruising, lymphadenopathy, frequent infections ENDOCRINE: Absent: unexplained weight gain, unexplained weight loss, heat intolerance, cold intolerance NEUROLOGIC: Absent: headache, focal weakness, paresthesias, dizziness, unsteady gait, seizure, mental status changes, bladder or bowel incontinence PSYCHIATRIC: Absent: anxiety, depression, suicidal or homicidal ideation, hallucinations. PHYSICAL EXAMINATION Vital Signs Period Temp Pulse Resp BP Sys/Xavier Pulse Ox Last 24 Hr 97.6 F 81-105 22-26 103-159/42-85 95-100 GENERAL: Awake, alert, and fully oriented, in no acute distress. HEAD: Normal with no signs of trauma. EYES: Pupils equal, round and reactive to light, extraocular movements intact, sclerae anicteric, conjunctivae clear. EARS, NOSE, THROAT: Ears normal, nares patent, oropharynx clear without exudates. Moist mucous membranes. NECK: Normal range of motion, supple without lymphadenopathy, JVD, or masses. LUNGS: Bilateral crackles. Scattered rhonchi. No accessory muscle use. HEART: Regular rate and rhythm, normal S1 and S2, (+) 2/6 systolic murmur. ABDOMEN: Soft, nontender, not distended, normoactive bowel sounds, no guarding, no rebound, no masses. No hepatomegaly or splenomegaly. MUSCULOSKELETAL: Normal range of motion at all joints. No bony deformities or tenderness. No CVA tenderness. UPPER EXTREMITIES: 2+ pulses, warm, well-perfused. No cyanosis. No clubbing. Cap refill <2 seconds. No peripheral edema. LOWER EXTREMITIES: 1+ pulses, warm, well-perfused. No calf tenderness. No peripheral edema. NEUROLOGICAL: Cranial nerves II-XII intact. Normal speech. Gait not observed. PSYCHIATRIC: Cooperative. Good eye contact. Appropriate mood and affect. SKIN: Warm, dry, normal turgor, no rashes or lesions noted. Laboratory Tests 08/27/16 08/27/16 08/27/16 13:42 13:42 14:00 WBC 18.6 H RBC 4.29 Hgb 12.1 Hct 36.8 MCV 85.7 MCHC 32.9 RDW 17.4 H Plt Count 313 MPV 7.4 L Neutrophils % 90.4 H Lymphocytes % 5.2 L D Monocytes % 4.0 Eosinophils % 0.1 D Basophils % 0.3 D Puncture Site Right radial ABG pH 7.52 H ABG pCO2 at Pt Temp 37.8 ABG pO2 at Pt Temp 72.6 ABG HCO3 30.9 H ABG O2 Sat (Measured) 95.4 ABG O2 Content 15.8 ABG Base Excess 7.8 H Francisco Test Positive Carboxyhemoglobin 1.2 Methemoglobin 1.6 H O2 Delivery Device N/c Oxygen Flow Rate 2.5 PEEP 0.0 Sodium 142 Potassium 3.7 Chloride 100 Carbon Dioxide 34 H Anion Gap 8 BUN 29 H D Creatinine 0.8 Creat Clearance w eGFR > 60 Random Glucose 80 Calcium 9.0 Total Bilirubin 0.3 D AST 25 D ALT 29 Alkaline Phosphatase 78 Creatine Kinase 81 Troponin I < 0.02 B-Natriuretic Peptide 744.27 H Total Protein 6.6 Albumin 2.8 L Chest x-ray: Interstitial lung disease. Improvement in RADHA airspace disease. ASSESSMENT/PLAN: This is an 81-year-old woman with a history of chronic hypoxic respiratory failure, pulmonary fibrosis, hypothyroidism, HTN, Sjogren syndrome, scleroderma , Raynaud's syndrome, adrenal insufficiency, orthostatic hypotension who was recently admitted with influenza and acute hypoxic respiratory failure, and discharged yesterday, who returns today with shortness of breath. She is being placed in observation for further evaluation of an emergent condition. 1. Shortness of breath and chronic hypoxic respiratory failure secondary to pulmonary fibrosis, resolving pneumonia - Continue oxygen - Complete course of Clindamycin - Continue tapering Prednisone back to her usual dose of 5 mg daily - Restart DuoNeb 2. Orthostatic hypotension, adrenal insufficiency - Continue Cortef, Florinef - Midodrine was discontinued during recent admission secondary to hypertension 3. Hypertension - Continue Norvasc 4. Scleroderma, Sjogren syndrome, Raynaud's syndrome 5. Hypothyroidism - Continue [place] thyroid 6. Leukocytosis secondary to steroids 7. Disposition - Physical therapy - Consider subacute rehab Problem List - Problem (1) Hypertension Code(s): I10 - ESSENTIAL (PRIMARY) HYPERTENSION Visit type - Emergency Visit Emergency Visit: Yes ED Registration Date: 08/27/16 Care time: The patient presented to the Emergency Department on the above date and was hospitalized for further evaluation of their emergent condition. - New Patient This patient is new to me today: Yes Date on this admission: 08/27/16 - Critical Care Critical Care patient: No
[2016-08-27] MEDS ORDERED: OCULAR LUBRICANT OPHTHALMIC OINTMENT 7 GM TUBE OU PRN (17:44)
[2016-08-27] MEDS: ASCORBIC ACID 500 MG TABLET (FP) PO SCH (21:22)
[2016-08-27] MEDS: HEPARIN NA (PORCINE) 5,000 UNITS/ML 1ML VIAL SQ SCH (21:22)
[2016-08-27] MEDS: POTASSIUM CHLORIDE TABS 20 MEQ TABLET.ER (FP) PO SCH (21:22)
[2016-08-27] MEDS: FLUDROCORTISONE ACETATE 0.1 MG TABLET (FP) PO SCH (21:23)
[2016-08-27] MEDS: THYROID 30 MG TABLET PO SCH (21:26)
[2016-08-27] MEDS ORDERED: HYDROCORTISONE 5 MG TABLET PO SCH (22:00)
[2016-08-27] MEDS ORDERED: MIRTAZAPINE 3.75 MG PO SCH (22:00)
[2016-08-27] MEDS ORDERED: FLUoxetine HCL 20 MG CAPSULE (FP) PO SCH (22:00)
[2016-08-27] MEDS ORDERED: PATIENT'S OWN MEDICATION (NON-FORMULARY) (Lifitegrast [Xiidra] 1 EACH) OP SCH (22:00)
[2016-08-27 23:09] LABS: URINE APPEARANCE CLEAR; URINE BILIRUBIN NEGATIVE (NEGATIVE); URINE BLOOD NEGATIVE (NEGATIVE); URINE COLOR LT. YELLOW; URINE GLUCOSE (UA) NEGATIVE (NEGATIVE); URINE KETONE NEGATIVE (NEGATIVE); URINE LEUK ESTERASE NEGATIVE (NEGATIVE); URINE NITRITE NEGATIVE (NEGATIVE); URINE PROTEIN NEGATIVE (NEGATIVE); URINE UROBILINOGEN 0.2 E.U/dl E.U./dl (0.2-1.0)
[2016-08-28] MEDS: ALBUTEROL SO4 2.5/IPRATROPIUM 0.5 INH SOL 3 ML VIAL.NEB. NEB SCH ×3 (00:01→12:00)
[2016-08-28] MEDS: CLINDAMYCIN HCL 150 MG CAPSULE (FP) PO SCH ×3 (01:00→12:18)
[2016-08-28] MEDS: PROMETHAZINE HCL 25 MG TABLET PO SCH ×3 (01:00→12:19)
[2016-08-28] MEDS ORDERED: PT OWN MED DRAWER 7, Y5N ONE ×3 (02:28→09:30)
[2016-08-28] MEDS: HEPARIN NA (PORCINE) 5,000 UNITS/ML 1ML VIAL SQ SCH ×2 (06:33→15:43)
[2016-08-28] MEDS: THYROID 30 MG TABLET PO SCH (09:35)
[2016-08-28] MEDS: FLUDROCORTISONE ACETATE 0.1 MG TABLET (FP) PO SCH (09:36)
[2016-08-28] MEDS: POTASSIUM CHLORIDE TABS 20 MEQ TABLET.ER (FP) PO SCH (09:37)
[2016-08-28] MEDS: ASCORBIC ACID 500 MG TABLET (FP) PO SCH (09:38)
[2016-08-28] MEDS ORDERED: MAGNESIUM CL 64 MG TABLET.SA PO SCH (10:00)
[2016-08-28] MEDS ORDERED: CHOLECALCIFEROL (VITAMIN D3) 1,000 UNIT TABLET (FP) PO SCH (10:00)
[2016-08-28] MEDS ORDERED: HYDROCORTISONE 10 MG TABLET PO SCH (10:00)
[2016-08-28] MEDS ORDERED: predniSONE 20 MG TABLET (UD) PO ONE (10:00)
[2016-08-28] MEDS ORDERED: PANTOPRAZOLE 40 MG TABLET (FP) PO SCH (10:00)
[2016-08-28] MEDS ORDERED: MULTIVITAMINS THER W-MINERALS COMBO TABLET (FP) PO SCH (10:00)
[2016-08-28] MEDS ORDERED: LORazepam 0.5 MG TABLET PO ONE (11:40)
--- NOTE | 2016-08-28 12:31 | PN ---
Progress Note (short form) - Note Progress Note: Subjective: The patient was seen and examined at the bedside, she reports feeling better today. She states it is not as difficult to breathe. Current Medications Generic Name Dose Route Start Last Admin Trade Name Freq PRN Reason Stop Dose Admin Acetaminophen 650 mg 08/27/16 17:01 Tylenol - PO Q4H PRN FEVER OR PAIN Albuterol/Ipratropium 1 amp 08/27/16 18:00 08/28/16 06:37 Duoneb - NEB 1 amp QIDR BOBBY Administration Artificial Tears 1 applic 08/27/16 17:44 Lacri-Lube Eye Ointment - OU HS PRN DRY EYES Ascorbic Acid 1,000 mg 08/27/16 22:00 08/28/16 09:38 Vitamin C - PO 1,000 mg BID BOBBY Administration Cholecalciferol 5,000 unit 08/28/16 10:00 08/28/16 09:39 Vitamin D3 - PO 5,000 unit DAILY BOBBY Administration Clindamycin HCl 300 mg 08/27/16 18:00 08/28/16 12:18 Cleocin - PO 08/31/16 23:59 300 mg Q6HPO BOBBY Administration Docusate Sodium 100 mg 08/27/16 16:53 Colace - PO BID PRN CONSTIPATION Fludrocortisone Acetate 0.15 mg 08/27/16 22:00 08/28/16 09:36 Florinef - PO 0.15 mg BID BOBBY Administration Fluoxetine HCl 20 mg 08/27/16 22:00 08/27/16 21:29 Prozac - PO 20 mg HS BOBBY Administration Heparin Sodium (Porcine) 5,000 unit 08/27/16 22:00 08/28/16 06:33 Heparin - SQ 5,000 unit TID BOBBY Administration Hydrocortisone 10 mg 08/28/16 10:00 08/28/16 09:36 Cortef - PO 10 mg DAILY BOBBY Administration Hydrocortisone 15 mg 08/27/16 22:00 08/27/16 21:28 Cortef - PO 15 mg HS BOBBY Administration Magnesium Chloride 64 mg 08/28/16 10:00 08/28/16 12:18 Slow-Mag - PO 64 mg DAILY BOBBY Administration Melatonin 5 mg 08/27/16 16:56 Melatonin PO HS PRN INSOMNIA Multivitamins/Minerals 1 each 08/28/16 10:00 08/28/16 09:38 Theragran-M PO 1 each DAILY BOBBY Administration Non-Formulary Medication 1 each 08/27/16 22:00 Lifitegrast [Xiidra] OP BID BOBBY Non-Formulary Medication 3.75 mg 08/27/16 22:00 Mirtazapine [Mirtazapine] PO HS BOBBY Ondansetron HCl 4 mg 08/27/16 17:01 Zofran Injection IVPB Q6H PRN NAUSEA Pantoprazole Sodium 40 mg 08/28/16 10:00 08/28/16 09:37 Protonix - PO 40 mg DAILY BOBBY Administration Potassium Chloride 20 meq 08/27/16 22:00 08/28/16 09:37 K-Dur - PO 20 meq BID BOBBY Administration Prednisone 80 mg 08/29/16 10:00 Deltasone - PO 08/30/16 23:59 DAILY BOBBY Promethazine HCl 12.5 mg 08/27/16 18:00 08/28/16 12:19 Phenergan - PO 12.5 mg Q6HPO BOBBY Administration Thyroid 30 mg 08/27/16 22:00 08/28/16 09:35 [place] Thyroid - PO 30 mg BID BOBBY Administration Objective: Vital Signs Period Temp Pulse Resp BP Sys/Xavier Pulse Ox Last 24 Hr 97.6 F-98 F 78-105 18-26 103-161/42-85 95-100 Physical Exam: General: NAD, A&Ox3 Lungs: B/l course rhonchi Heart: RRR, S1S2 Abd: Soft, non-tender, non-distended. Normoactive bowel sounds Ext: Warm, well-perfused. 2+ DP/PT bilaterally Neuro: CN 2-12 intact CBCD WBC 18.6 K/mm3 (4.0-10.0) H 08/27/16 13:42 RBC 4.29 M/mm3 (3.60-5.2) 08/27/16 13:42 Hgb 12.1 GM/dL (10.7-15.3) 08/27/16 13:42 Hct 36.8 % (32.4-45.2) 08/27/16 13:42 MCV 85.7 fl (80-96) 08/27/16 13:42 MCHC 32.9 g/dl (32.0-36.0) 08/27/16 13:42 RDW 17.4 % (11.6-15.6) H 08/27/16 13:42 Plt Count 313 K/MM3 (134-434) 08/27/16 13:42 MPV 7.4 fl (7.5-11.1) L 08/27/16 13:42 CMP Sodium 142 mmol/L (136-145) 08/27/16 13:42 Potassium 3.7 mmol/L (3.5-5.1) 08/27/16 13:42 Chloride 100 mmol/L (98-107) 08/27/16 13:42 Carbon Dioxide 34 mmol/L (21-32) H 08/27/16 13:42 Anion Gap 8 (8-16) 08/27/16 13:42 BUN 29 mg/dL (7-18) H D 08/27/16 13:42 Creatinine 0.8 mg/dL (0.55-1.02) 08/27/16 13:42 Creat Clearance w eGFR > 60 (>60) 08/27/16 13:42 Random Glucose 80 mg/dL (74-106) 08/27/16 13:42 Calcium 9.0 mg/dL (8.5-10.1) 08/27/16 13:42 Total Bilirubin 0.3 mg/dL (0.2-1.0) D 08/27/16 13:42 AST 25 U/L (15-37) D 08/27/16 13:42 ALT 29 U/L (12-78) 08/27/16 13:42 Alkaline Phosphatase 78 U/L (45-117) 08/27/16 13:42 Total Protein 6.6 g/dl (6.4-8.2) 08/27/16 13:42 Albumin 2.8 g/dl (3.4-5.0) L 08/27/16 13:42 CARDIAC ENZYMES Creatine Kinase 81 IU/L (26-192) 08/27/16 13:42 Troponin I < 0.02 ng/ml (0.00-0.05) 08/27/16 13:42 Assessment: This is an 81 year old female with PMHx of pulmonary fibrosis, achalasia s/p botox treatment (October 2015), aspiration pneumonia (October 2015), Sjogrens, Raynauds, hypothyroidism, adrenal insufficiency, orthostatic hypotension, scleroderma, T12 compression fracture, and frequent falls who presented to the ED with increased shortness of breath. Plan: 1) Pulmonary: Acute hypoxic respiratory failure 2/2 pulmonary fibrosis - Chest X-ray today with diffuse interstitial and alveolar changes have increased slightly - Keep O2 saturation >90% - - Chest PT bid - F/u sputum culture, uncollected - F/u respiratory virus panel, pending - Appreciate pulmonary consult - Appreciate ID consult 2) Cardiology: Orthostatic hypotension - Still with episodes of hypertensive - Continue to hold Midodrine - Continue to monitor closely - Orthostatics 3) Scleroderma, Sjogren syndrome, Raynaud's syndrome - Stable 4) Endocrine: Hypothyroidism - Continue [place] thyroid 5) F/E/N: - Dysphagia chopped - Monitor electrolytes - Severe protein malnutrition 6) Prophylaxis: - Heparin 5,000u sq tid - PT 7) Dispo: - For SNF placement, CHRIS sent by case management CODE STATUS: FULL CODE
--- NOTE | 2016-08-28 13:31 | DS ---
Physical Examination Vital Signs: Vital Signs Temperature 97.9 F 08/28/16 06:00 Pulse Rate 82 08/28/16 06:00 Respiratory Rate 18 08/28/16 06:00 Blood Pressure 161/84 08/28/16 06:00 O2 Sat by Pulse Oximetry (%) 96 08/27/16 17:30 Findings/Remarks: GENERAL: Awake, alert, and fully oriented, in no acute distress. HEAD: Normal with no signs of trauma. LUNGS: Bilateral crackles. Scattered rhonchi. No accessory muscle use. HEART: Regular rate and rhythm, normal S1 and S2, (+) 2/6 systolic murmur. ABDOMEN: Soft, nontender, not distended, normoactive bowel sounds, no guarding, no rebound, no masses. No hepatomegaly or splenomegaly. MUSCULOSKELETAL: Normal range of motion at all joints. No bony deformities or tenderness. No CVA tenderness. UPPER EXTREMITIES: 2+ pulses, warm, well-perfused. No cyanosis. No clubbing. Cap refill <2 seconds. No peripheral edema. LOWER EXTREMITIES: 1+ pulses, warm, well-perfused. No calf tenderness. No peripheral edema. NEUROLOGICAL: Cranial nerves II-XII intact. Normal speech. Gait not observed. PSYCHIATRIC: Cooperative. Good eye contact. Appropriate mood and affect. SKIN: Warm, dry, normal turgor, no rashes or lesions noted. Discharge Summary Reason For Visit: Shortness of Breath Current Active Problems Shortness of breath (Acute) Weakness generalized (Acute) Weight loss, unintentional (Acute) Adrenal insufficiency (Chronic) Ambulatory dysfunction (Chronic) Decreased appetite (Chronic) Dysphagia (Chronic) Dysphonia (Chronic) Frequent falls (Chronic) Hypertension (Chronic) Hypothyroid (Chronic) Interstitial lung disease (Chronic) Odynophagia (Chronic) Orthostatic hypotension (Chronic) Osteoporosis (Chronic) Pulmonary fibrosis (Chronic) Raynaud disease (Chronic) Renal insufficiency, mild (Chronic) Scleroderma (Chronic) Sjoegren syndrome (Chronic) Hospital Course: This is an 81 year old female with PMHx of pulmonary fibrosis, achalasia s/p botox treatment (October 2015), aspiration pneumonia (October 2015), Sjogrens, Raynauds, hypothyroidism, adrenal insufficiency, orthostatic hypotension, scleroderma, T12 compression fracture, and frequent falls who presented to the ED with shortness of breath The patient was continued on steroid taper. Chest x-ray with likely chronic changes and due to resolving pulmonary process. The patient has agreed to go to SNF. Please return to the ED with new, persistent, or worsening symptoms. Condition: Stable - Instructions Diet, Activity, Other Instructions: Please return to the ED with new, persistent, or worsening symptoms. Please follow-up with providers as indicated. Prednisone taper: 80mg po daily on 08/29, 08/30 60mg po daily on 08/31, 09/01 40mg po daily on 09/02, 09/03 20mg po daily on 09/04, 09/05 10mg po daily on 09/06, 09/07 Restart home dose of 5mg po daily on 09/08 Referrals: Neftali More MD, [Staff Physician] - (Please follow-up with pulmonary within 1 week for further management of your pulmonary fibrosis) Disposition: [facility] - Home Medications Comprehensive Discharge Medication List: Ambulatory Orders Ascorbic Acid [C-1000] 1,000 mg PO BID 08/13/16 Cholecalciferol (Vitamin D3) [Vitamin D -] 5,000 unit PO DAILY 08/13/16 Docusate Sodium 100 mg PO BID PRN 08/13/16 Fludrocortisone Acetate 0.15 mg PO BID 08/13/16 Fluoxetine HCl 20 mg PO HS 08/13/16 Hydrocortisone [Cortef -] 10 mg PO DAILY 08/13/16 Hydrocortisone [Cortef -] 15 mg PO HS 08/13/16 Lifitegrast [Xiidra] 1 each OP BID 08/13/16 Magnesium Chloride [Mag64] 64 mg PO DAILY 08/13/16 Mineral Oil/Petrolatum,White [Genteal Pm Ointment] 3.5 gm OP PRN PRN 08/13/16 Mirtazapine 3.75 mg PO HS 08/13/16 Mv-Mn/FA/Coq10/Lycopene/Lutein [Theragran-M Premier 50+ Caplet] 1 each PO DAILY 08/13/16 Pantoprazole Sodium 40 mg PO DAILY 08/13/16 Potassium Chloride [Klor-Con] 20 meq PO BID 08/13/16 Promethazine HCl 12.5 mg PO Q6H 08/13/16 Thyroid,Pork [[place] Thyroid] 30 mg PO BID 08/13/16 Albuterol 2.5/Ipratropium 0.5 [Duoneb -] 1 amp NEB QIDR amp 08/26/16 Amlodipine Besylate [Norvasc -] 2.5 mg PO BID #60 tablet 08/26/16 Clindamycin [Cleocin -] 300 mg PO Q6HPO #30 capsule 08/26/16 Melatonin 5 mg PO HS PRN #0 cap 08/26/16 Nebulizer [Aeroeclipse II] 1 each MC QID #1 each 08/26/16 Prednisone See Taper PO DAILY #70 tablet 08/26/16 This patient is new to me today: Yes Date on this admission: 08/28/16 Emergency Visit: Yes ED Registration Date: 08/27/16 Care time: The patient presented to the Emergency Department on the above date and was hospitalized for further evaluation of their emergent condition. Critical Care patient: No - Discharge Referral Referred to [facility] No
[2016-08-28 15:21] VITALS: TEMP 98.6
--- NOTE | 2016-08-28 16:37 | PN ---
Progress Note (short form) - Note Progress Note: PULMONARY Breathing slightly improved. Still with nonproductive cough. No fevers or chills. Last Vital Signs Temp Pulse Resp BP Pulse Ox 98.6 F 88 16 162/96 97 08/28/16 15:18 08/28/16 15:18 08/28/16 15:18 08/28/16 15:18 08/28/16 12:00 Gen: NAD at rest Heart: RRR Lung: coarse rhonchi, rales Abd: soft, nontender Ext: no edema CBC, BMP 08/27/16 13:42 08/27/16 13:42 Active Medications Acetaminophen (Tylenol -) 650 mg PO Q4H PRN PRN Reason: FEVER OR PAIN Albuterol/Ipratropium (Duoneb -) 1 amp NEB QIDR [facility] Last Admin: 08/28/16 12:00 Dose: 1 amp Artificial Tears (Lacri-Lube Eye Ointment -) 1 applic OU HS PRN PRN Reason: DRY EYES Ascorbic Acid (Vitamin C -) 1,000 mg PO BID [facility] Last Admin: 08/28/16 09:38 Dose: 1,000 mg Cholecalciferol (Vitamin D3 -) 5,000 unit PO DAILY [facility] Last Admin: 08/28/16 09:39 Dose: 5,000 unit Clindamycin HCl (Cleocin -) 300 mg PO Q6HPO [facility] Stop: 08/31/16 23:59 Last Admin: 08/28/16 12:18 Dose: 300 mg Docusate Sodium (Colace -) 100 mg PO BID PRN PRN Reason: CONSTIPATION Fludrocortisone Acetate (Florinef -) 0.15 mg PO BID [facility] Last Admin: 08/28/16 09:36 Dose: 0.15 mg Fluoxetine HCl (Prozac -) 20 mg PO HS [facility] Last Admin: 08/27/16 21:29 Dose: 20 mg Heparin Sodium (Porcine) (Heparin -) 5,000 unit SQ TID [facility] Last Admin: 08/28/16 15:43 Dose: Not Given Hydrocortisone (Cortef -) 10 mg PO DAILY [facility] Last Admin: 08/28/16 09:36 Dose: 10 mg Hydrocortisone (Cortef -) 15 mg PO HS [facility] Last Admin: 08/27/16 21:28 Dose: 15 mg Magnesium Chloride (Slow-Mag -) 64 mg PO DAILY [facility] Last Admin: 08/28/16 12:18 Dose: 64 mg Melatonin (Melatonin) 5 mg PO HS PRN PRN Reason: INSOMNIA Multivitamins/Minerals (Theragran-M) 1 each PO DAILY [facility] Last Admin: 08/28/16 09:38 Dose: 1 each Non-Formulary Medication (Lifitegrast [Xiidra]) 1 each OP BID [facility] Non-Formulary Medication (Mirtazapine [Mirtazapine]) 3.75 mg PO HS [facility] Ondansetron HCl (Zofran Injection) 4 mg IVPB Q6H PRN PRN Reason: NAUSEA Pantoprazole Sodium (Protonix -) 40 mg PO DAILY [facility] Last Admin: 08/28/16 09:37 Dose: 40 mg Potassium Chloride (K-Dur -) 20 meq PO BID [facility] Last Admin: 08/28/16 09:37 Dose: 20 meq Prednisone (Deltasone -) 80 mg PO DAILY [facility] Stop: 08/30/16 23:59 Promethazine HCl (Phenergan -) 12.5 mg PO Q6HPO [facility] Last Admin: 08/28/16 12:19 Dose: 12.5 mg Thyroid ([place] Thyroid -) 30 mg PO BID [facility] Last Admin: 08/28/16 09:35 Dose: 30 mg A/P Interstitial Lung Disease/Pulmonary Fibrosis Chronic Hypoxic Respiratory Failure Scleroderma/Sjogrens Disease Recent Pneumonia - CXR not significantly changed or even improved from the last film - exam likely chronic and likely due to resolving pulmonary process - prednisone taper as outpt - inhaled bronchodilators - O2 to keep SpO2 >90% - DVT prophylaxis - agree with SNF placement
[2016-08-28 17:34] VITALS: BP 145/71; PULSE 95
[2016-08-29] MEDS ORDERED: predniSONE 20 MG TABLET (UD) PO SCH (10:00)
== END 2016-08-28 18:03 ==
LOC: JER 12:37 → JERBED 15:59 → J8W 17:45
PROVIDERS: ADMIT Internal Medicine; ATTEND Registered Nurse
DX: J84.10 Pulmonary fibrosis, unspecified (principal); K22.0 Achalasia of cardia; M35.00 Sjogren syndrome, unspecified; E03.9 Hypothyroidism, unspecified; M34.89 Other systemic sclerosis; M48.53XD Collapsed vertebra, not elsewhere classified, cervicothoracic region, subsequent encounter for fracture with routine healing; E27.49 Other adrenocortical insufficiency; J96.11 Chronic respiratory failure with hypoxia; D72.828 Other elevated white blood cell count; I95.1 Orthostatic hypotension; J84.89 Other specified interstitial pulmonary diseases
CPT/HCPCS: 36415; 36600; 71010-TC; 80053; 81003; 82375; 82550; 82803; 83050; 83880; 84484; 85025; 87086; 94640; 97116-GP; 97161-GP; 99285-25; G0378; J1644

== ENCOUNTER 2016-10-30 13:45 | Inpatient (IN) | payer OTHER, BC ==
--- NOTE | 2016-10-30 14:05 | PDOC ---
Attending Attestation - Resident Resident Name: Randy Oliva - ED Attending Attestation I have performed the following: I have examined & evaluated the patient, The case was reviewed & discussed with the resident, I agree w/resident's findings & plan, Exceptions are as noted - HPI HPI: 10/30/16 14:16 The patient is an 81 year old female with multiple medical problems who presents with several days of productive cough and increasing dyspnea. She denies fever,chills, sweats. 10/30/16 14:55 - Physicial Exam PE: 10/30/16 14:16 Vitals noted She is well appearing and in no acute distress She has scattered rhonchi, scattered crackles and diffuse expiratory wheezes bilaterally 10/30/16 14:38 Chest x-ray noted: She is severely kyphotic and rotated, there are severe infiltrative changes bilaterally There does seem to be a significant interval change, though interpretation is limited 10/30/16 14:42 EKG interpretation: Normal sinus rhythm at 84, normal axis, normal intervals, no ST changes, physiologic Q waves in 1, aVL 10/30/16 14:55 10/30/16 15:42 - Medical Decision Making 10/30/16 14:17 Will obtain CXR 10/30/16 14:56 Chest x-ray with interval worsening Will treat for healthcare associated pneumonia and admit 10/30/16 15:39 Labs noted including leukocytosis, elevated bicarbonate, hypokalemia, normal lactic acid Clinical impression: Healthcare associated pneumonia Bronchospasm Hypokalemia Leukocytosis Case discussed in detail with admitting provider including history, physical exam and ancillary studies. Admitting physician has assumed care for the patient, will follow all pending diagnostics and will complete the evaluation and treatment. 10/30/16 15:42 10/30/16 15:44 Discharge Disposition - Diagnosis Shortness of breath, Pneumonia, Hypokalemia - Discharge Dispostion Last Admission D/C Date: 08/26/16 Admit: Yes - Referrals Referrals: STAFF,NOT ON [Primary Care Provider] - - Patient Instructions - Post Discharge Activity
--- NOTE | 2016-10-30 14:41 | PDOC ---
History of Present Illness <Randy Oliva - Last Filed: 10/30/16 15:03> - General History Source: Patient, Care Provider Exam Limitations: No Limitations - History of Present Illness Initial Comments: 10/30/16 14:41 The patient is an 81 year old female, with a significant past medical history of scleroderma, Sjogrens syndrome (esophageal dysmotility), pulmonary fibrosis , adrenal insufficiency, orthostatic hypotension with frequent falls, and hypothyroidism, who presents to the emergency department from [facility], complaining of shortness of breath and a cough for several days. As per senior network systems engineer, the patient was admitted in August for generalized weakness and the flu, and discharged to rehab for 2 weeks. Manager Floral reports the patients cough subsided while in rehab. However, the cough began again approximately 10 days ago. Patient reports the cough is productive of thick dark yellow sputum(nonbloody). Patient states her cough this morning is worse than during her last presentation in the ED. The patient is typically on O2 at home. Patients last breathing treatment was at approximately 12:30, with no relief. The patient reports associated nausea, but denies vomiting, abdominal pain, diarrhea, or constipation. The patient denies any fever, chills, sore throat, ear pain, rhinorrhea, headache, or dizziness. The patient denies any chest pain, diaphoresis, palpitations, or lower extremity edema. The patient denies any hematuria, dysuria, frequency, or urgency. Allergies: None reported. Past Surgical History: None reported. Social History: Non-smoker. Denies alcohol or drug use. PCP: Dr. Cuba <Gilma Phelps - Last Filed: 10/30/16 16:08> - General Chief Complaint: Cold Symptoms Stated Complaint: R/O PNE Time Seen by Provider: 10/30/16 14:02 Past History - Past Medical History Anemia: No COPD: Yes (pulmonary fibrosis) GI Disorders: Yes (reflux) Disorders: Yes (UTI) HTN: (hypotension, orthostatic HTN) Thyroid Disease: Yes (hypo) - Surgical History Abdominal Surgery: Yes Cholecystectomy: Yes (1974) Orthopedic Surgery: Yes (rt knee arthroscopy) - Immunization History Immunization Up to Date: No (does not get flu shot) - Psycho/Social/Smoking Cessation Hx Anxiety: No Suicidal Ideation: No Smoking History: Never smoked Have you smoked in the past 12 months: No Number of Cigarettes Smoked Daily: 20 If you are a former smoker, when did you quit?: 1969 Information on smoking cessation initiated: No Hx Alcohol Use: No Drug/Substance Use Hx: No Substance Use Type: None Hx Substance Use Treatment: No <Randy Oliva - Last Filed: 10/30/16 15:03> <Gilma Phelps - Last Filed: 10/30/16 16:08> - Past Medical History Allergies/Adverse Reactions: Allergies Allergy/AdvReac Type Severity Reaction Status Date / Time No Known Allergies Allergy Verified 10/30/16 14:21 Home Medications: Ambulatory Orders Ascorbic Acid [C-1000] 1,000 mg PO BID 08/13/16 Cholecalciferol (Vitamin D3) [Vitamin D -] 5,000 unit PO DAILY 08/13/16 Docusate Sodium 100 mg PO BID PRN 08/13/16 Fludrocortisone Acetate 0.15 mg PO BID 08/13/16 Fluoxetine HCl 20 mg PO HS 08/13/16 Hydrocortisone [Cortef -] 10 mg PO DAILY 08/13/16 Hydrocortisone [Cortef -] 15 mg PO HS 08/13/16 Lifitegrast [Xiidra] 1 each OP BID 08/13/16 Magnesium Chloride [Mag64] 64 mg PO DAILY 08/13/16 Mirtazapine 3.75 mg PO HS PRN 08/13/16 Pantoprazole Sodium 40 mg PO DAILY 08/13/16 Promethazine HCl 12.5 mg PO Q6H 08/13/16 Thyroid,Pork [[place] Thyroid] 30 mg PO BID 08/13/16 Albuterol 2.5/Ipratropium 0.5 [Duoneb -] 1 amp NEB QIDR amp 08/26/16 Amlodipine Besylate [Norvasc -] 2.5 mg PO BID #60 tablet 08/26/16 Melatonin 5 mg PO HS PRN #0 cap 08/26/16 Prednisone 5 mg PO DAILY #30 tablet 08/28/16 Guaifenesin [Mucinex] 600 mg PO BID 10/30/16 Potassium Chloride [K-Dur -] 20 meq PO DAILY 10/30/16 Review of Systems - Review of Systems Able to Perform ROS?: Yes Comments:: 10/30/16 14:42 CONSTITUTIONAL: Present: +malaise Absent: fever, chills, diaphoresis, generalized weakness, loss of appetite HEENT: Absent: rhinorrhea, nasal congestion, throat pain, throat swelling, difficulty swallowing, mouth swelling, ear pain, eye pain, visual Changes CARDIOVASCULAR: Absent: chest pain, syncope, palpitations, irregular heart rate, lightheadedness , peripheral edema RESPIRATORY: Present: +cough, +shortness of breath Absent: dyspnea with exertion, orthopnea, stridor, hemoptysis GASTROINTESTINAL: Present: +nausea Absent: abdominal pain, abdominal distension, vomiting, diarrhea, constipation, melena, hematochezia GENITOURINARY: Absent: dysuria, frequency, urgency, hesitancy, hematuria, flank pain, genital pain MUSCULOSKELETAL: Absent: myalgia, arthralgia, joint swelling SKIN: Absent: rash, itching, pallor HEMATOLOGIC/IMMUNOLOGIC: Absent: easy bleeding, easy bruising, lymphadenopathy, frequent infections ENDOCRINE: Absent: unexplained weight gain, unexplained weight loss, heat intolerance, cold intolerance NEUROLOGIC: Absent: headache, focal weakness or paresthesias, dizziness, unsteady gait, seizure, mental status changes, bladder or bowel incontinence PSYCHIATRIC: Absent: anxiety, depression, suicidal or homicidal ideation, hallucinations. <Gilma Phelps - Last Filed: 10/30/16 16:08> *Physical Exam - Vital Signs Last Vital Signs Temp Pulse Resp BP Pulse Ox 98.0 F 79 18 117/62 97 10/30/16 14:18 10/30/16 14:18 10/30/16 14:18 10/30/16 14:18 10/30/16 14:18 <Randy Oliva - Last Filed: 10/30/16 15:03> - Vital Signs Last Vital Signs Temp Pulse Resp BP Pulse Ox 98.0 F 79 18 117/62 97 10/30/16 14:18 10/30/16 14:18 10/30/16 14:18 10/30/16 14:18 10/30/16 14:18 - Physical Exam Comments: 10/30/16 14:42 GENERAL: Well developed, well nourished. Awake and alert. No acute distress. HEENT: Normocephalic, atraumatic. PERRLA, EOMI. No conjunctival pallor. Sclera are non- icteric. Moist mucous membranes. Oropharynx is clear. NECK: Supple. Full ROM. No JVD. Carotid pulses 2+ and symmetric, without bruits. No thyromegaly. No lymphadenopathy. CARDIOVASCULAR: Grade 2/6 systolic ejection murmur. No rubs or gallops. Regular rate. Distal pulses are 2+ and symmetric. PULMONARY: Coarse bilateral crackles. Scattered ronchi. No accessory muscle use. No rales. ABDOMINAL: Soft. Non-tender. Non-distended. No rebound or guarding. No organomegaly. Normoactive bowel sounds. MUSCULOSKELETAL Normal range of motion at all joints. No bony deformities or tenderness. No CVA tenderness. EXTREMITIES: No cyanosis. No clubbing. No edema. No calf tenderness. SKIN: Warm and dry. Normal capillary refill. No rashes. No jaundice. NEUROLOGICAL: Alert, awake, appropriate. Cranial nerves 2-12 intact. No deficits to light touch and temperature in face, upper extremities and lower extremities. No motor deficits in the in face, upper extremities and lower extremities. Normoreflexic in the upper and lower extremities. Normal speech. Toes are downgoing bilaterally. Gait is normal without ataxia. PSYCHIATRIC: Cooperative. Good eye contact. Appropriate mood and affect. <Gilma Phelps - Last Filed: 10/30/16 16:08> ED Treatment Course - LABORATORY CBC & Chemistry Diagram: 10/30/16 14:53 10/30/16 14:53 - RADIOLOGY Radiograph Interpretation: 10/30/16 15:08 EXAM#: TYPE/EXAM: RESULT: [id number] RAD/CHEST PA LAT Chest: HISTORY: Rule out infiltrate. Frontal view of the chest is provided. Prior study is dated August 27, 2016. Diffuse bilateral interstitial changes left greater than right is again noted similar in appearance to prior study. These changes appear more advanced when compared to remote studies dating back to June 18, 2014. This may reflect progression of chronic interstitial disease. Possibility of superimposed infiltrates cannot be excluded. Patient is rotated which exaggerates cardiomediastinal silhouette. There is a tortuous aorta. There is a levoscoliosis of the thoracic spine. IMPRESSION: Diffuse bilateral interstitial changes left greater than right similar in appearance to prior study of August 27, 2016 although increased in severity when compared to remote studies dating back to June 18, 2014. See above. Reported By: Hector Magana MD <Randy Oliva - Last Filed: 10/30/16 15:03> - LABORATORY CBC & Chemistry Diagram: 10/30/16 14:53 10/30/16 14:53 - RADIOLOGY Radiograph Interpretation: 10/30/16 15:14 EXAM: CXR INTERPRETED BY: Dr. Magana REVIEWED BY: Dr. Tapia IMPRESSION: Diffuse bilateral interstitial changes left greater than right similar in appearance to prior study of August 27, 2016 although increased in severity when compared to remote studies dating back to June 18, 2014. See above. <Gilma Phelps - Last Filed: 10/30/16 16:08> Medical Decision Making - Medical Decision Making 10/30/16 15:03 81 yo F with significant PMHx of scleroderma and pulmonary fibrosis presents with worsening SOB and cough. Will send out sepsis protocol. Pulmonary called. Most likely HCAP. Labs sent CBC, CMP, UA, blood cultures. <Randy Oliva - Last Filed: 10/30/16 15:03> *DC/Admit/Observation/Transfer <Randy Oliva - Last Filed: 10/30/16 15:03> - Attestations Scribe Attestion: 10/30/16 14:43 Documentation prepared by Gilma Phelps, acting as medical/surgery registered nurse for Randy Oliva MD. <Gilma Phelps - Last Filed: 10/30/16 16:08> Diagnosis at time of Disposition: Shortness of breath, Pneumonia, Hypokalemia
[2016-10-30] MEDS ORDERED: ALBUTEROL SO4 2.5/IPRATROPIUM 0.5 INH SOL 3 ML VIAL.NEB. NEB ONE ×2 (14:43→16:10)
[2016-10-30] MEDS ORDERED: PIPERACILLIN/TAZOB 4.5 GM 4.5 GM in DEXTROSE 5%-WATER 100 ML IVPB ONE (14:55)
[2016-10-30] MEDS ORDERED: VANCOMYCIN 1,000 MG in DEXTROSE 5%-WATER - 250 ML IVPB ONE (14:55)
[2016-10-30] MEDS ORDERED: methylPREDNISolone NA SUCC 125 MG/2 ML VIAL IVPB ONE (14:56)
[2016-10-30 15:00] LABS: MCH 29.6 pg (25.7-33.7); MCHC 33.3 g/dl (32.0-36.0); MEAN CELL VOLUME 88.9 fl (80-96); MEAN PLT VOLUME 6.5 fl (7.5-11.1); PLATELET COUNT 415 K/MM3 (134-434); RDW 19.8 % (11.6-15.6); WHITE BLOOD COUNT 28.5 K/mm3 (4.0-10.0)
[2016-10-30] MEDS ORDERED: SODIUM CHLORIDE 1,000 ML IV SCH ×2 (15:00→18:30)
[2016-10-30] MEDS ORDERED: LEVOFLOXACIN 750 MG IVPB 150 ML IVPB ONE (15:02)
[2016-10-30] MEDS ORDERED: methylPREDNISolone NA SUCC 125 MG/2 ML VIAL ONE (15:02)
[2016-10-30] MEDS ORDERED: PIPERACILLIN/TAZOB 4.5 GM 100 ML IVPB ONE (15:02)
[2016-10-30] MEDS ORDERED: VANCOMYCIN 1 GRAM (PRE-DOCKED) 250 ML IVPB ONE (15:02)
[2016-10-30 15:11] VITALS: BMI 17.4
[2016-10-30 15:21] LABS: ALBUMIN 3.1 g/dl (3.4-5.0); ANION GAP 10 (8-16); BILIRUBIN,TOTAL 0.5 mg/dL (0.2-1.0); CO2 34 mmol/L (21-32); CREATININE 0.7 mg/dL (0.55-1.02); GLUCOSE,RANDOM 97 mg/dL (74-106); SGOT/AST 25 U/L (15-37); SGPT/ALT 18 U/L (12-78); TOT PROT 7.1 g/dl (6.4-8.2)
[2016-10-30 15:26] LABS: ALK PHOS 103 U/L (45-117); TROPONIN I < 0.02 ng/ml (0.00-0.05)
[2016-10-30 15:37] LABS: INR 0.91 (0.82-1.09)
[2016-10-30 15:39] LABS: ACTIVATED PTT 27.5 SECONDS (26.9-34.4)
[2016-10-30] MEDS ORDERED: POTASSIUM CHLORIDE TABS 20 MEQ TABLET.ER (FP) PO ONE (15:44)
[2016-10-30] MEDS ORDERED: ONDANSETRON 4 MG/2 ML VIAL IVPB ONE (16:02)
[2016-10-30] MEDS ORDERED: ONDANSETRON 4 MG/2 ML VIAL ONE (16:03)
[2016-10-30] MEDS ORDERED: POTASSIUM CHLORIDE TABS 10 MEQ TABLET.ER (FP) ONE (16:09)
--- NOTE | 2016-10-30 17:39 | HP ---
Admitting History and Physical - Admission Chief Complaint: Nausea, shortness of breath History of Present Illness: This 81 year old pleasant female with PMHx of pulmonary fibrosis, achalasia s/p botox treatment (October 2015), aspiration pneumonia (October 2015), Sjogrens, Raynauds, hypothyroidism, adrenal insufficiency, orthostatic hypotension, scleroderma, T12 compression fracture, and frequent falls, recent vision difficultly for lose cornea for which she is on eye drops and seeing a specialist and most recently admitted in 08/2015 for influenza A and pneumonia presented to the ED from [facility] with shortness of breath, cough, nausea and gurgling. Per daughter, last Thursday patient was with a dry cough, she was told by investigations consultant Dr. Matos call her PCP, PCP was unable to see pt until Thursday when she was prescribed muscinex. In between Thursday and today daughter noted cough became worse with sounds of gurgling and rattling persisted along with dyspnea while conversing. Currently she denies CP, abdominal pain, nausea, vomiting, and she is not tachypneic, and her nausea is improved. She has never been intubated ED course: - Zosyn/levaquin/vanco for HCAP - Albuterol nebulizer - Potassium 40meq x1 - Solumedrol 125mg x1 History Source: Patient, Family Member, Medical Record Limitations to Obtaining History: No Limitations - Past Medical History Cardiovascular: Yes: HTN, Other (orthostatic hypotension) Pulmonary: Yes: Pulmonary Fibrosis Rheumatology: Yes: Other (Sjogrens, Raynauds, scleroderma) Endocrine: Yes: Hypothyroidism, Docena's Disease - Past Surgical History Past Surgical History: Yes: Cholecystectomy (open) - Smoking History Smoking history: Never smoked Have you smoked in the past 12 months: No Aproximately how many cigarettes per day: 20 If you are a former smoker, when did you quit?: 1969 - Alcohol/Substance Use Hx Alcohol Use: No History of Substance Use: reports: None - Social History Usual Living Arrangement: Yes: Assisted Living ADL: Independent (lives with huisband) 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 History of Recent Travel: No Home Medications - Allergies Allergies/Adverse Reactions: Allergies Allergy/AdvReac Type Severity Reaction Status Date / Time No Known Allergies Allergy Verified 10/30/16 14:21 - Home Medications Home Medications: Ambulatory Orders Ascorbic Acid [C-1000] 1,000 mg PO BID 08/13/16 Cholecalciferol (Vitamin D3) [Vitamin D -] 5,000 unit PO DAILY 08/13/16 Docusate Sodium 100 mg PO BID PRN 08/13/16 Fludrocortisone Acetate 0.15 mg PO BID 08/13/16 Fluoxetine HCl 20 mg PO HS 08/13/16 Hydrocortisone [Cortef -] 10 mg PO DAILY 08/13/16 Hydrocortisone [Cortef -] 15 mg PO HS 08/13/16 Lifitegrast [Xiidra] 1 each OP BID 08/13/16 Magnesium Chloride [Mag64] 64 mg PO DAILY 08/13/16 Mirtazapine 3.75 mg PO HS PRN 08/13/16 Pantoprazole Sodium 40 mg PO DAILY 08/13/16 Promethazine HCl 12.5 mg PO Q6H 08/13/16 Thyroid,Pork [[place] Thyroid] 30 mg PO BID 08/13/16 Albuterol 2.5/Ipratropium 0.5 [Duoneb -] 1 amp NEB QIDR amp 08/26/16 Amlodipine Besylate [Norvasc -] 2.5 mg PO BID #60 tablet 08/26/16 Melatonin 5 mg PO HS PRN #0 cap 08/26/16 Prednisone 5 mg PO DAILY #30 tablet 08/28/16 Guaifenesin [Mucinex] 600 mg PO BID 10/30/16 Potassium Chloride [K-Dur -] 20 meq PO DAILY 10/30/16 Family Disease History - Family Disease History Family Disease History: Heart Disease: Mother, CA: Father (colon) Review of Systems - Review of Systems Constitutional: reports: No Symptoms Eyes: reports: Blurred Vision HENT: reports: No Symptoms Neck: reports: No Symptoms Cardiovascular: reports: No Symptoms Respiratory: reports: SOB on Exertion, Wheezing Gastrointestinal: reports: No Symptoms Genitourinary: reports: No Symptoms Breasts: reports: No Symptoms Reported Musculoskeletal: reports: No Symptoms Integumentary: reports: No Symptoms Neurological: reports: No Symptoms Endocrine: reports: No Symptoms Hematology/Lymphatic: reports: No Symptoms Psychiatric: reports: No Symptoms Physical Examination Vital Signs: Vital Signs Temperature 98.0 F 10/30/16 14:18 Pulse Rate 85 10/30/16 17:23 Respiratory Rate 22 10/30/16 17:23 Blood Pressure 143/85 10/30/16 17:23 O2 Sat by Pulse Oximetry (%) 96 10/30/16 17:23 Constitutional: Yes: Calm Eyes: Yes: WNL Neck: Yes: WNL Cardiovascular: Yes: Regular Rate and Rhythm, S1, S2 Respiratory: Yes: On Nasal O2, Rales, Wheezes, Other (gurgling) Gastrointestinal: Yes: Normal Bowel Sounds, Soft Renal/: Yes: WNL Musculoskeletal: Yes: WNL Extremities: Yes: WNL Edema: No Peripheral Pulses WNL: Yes Neurological: Yes: WNL, Alert, Oriented, Cran Nerves II-XII Intact ...Motor Strength: WNL Psychiatric: Yes: Alert, Oriented Imaging - Results Chest X-ray: Report Reviewed, Image Reviewed ( Diffuse bilateral interstitial changes left greater than right similar in appearance to prior study of August 27, 2016 although increased in severity when compared to remote studies dating back to June 18, 2014. See above.) Problem List - Problems (1) Hypokalemia Code(s): E87.6 - HYPOKALEMIA (2) Pneumonia Code(s): J18.9 - PNEUMONIA, UNSPECIFIED ORGANISM (3) Shortness of breath Code(s): R06.02 - SHORTNESS OF BREATH (4) Hypothyroid Code(s): E03.9 - HYPOTHYROIDISM, UNSPECIFIED (5) Adrenal insufficiency Code(s): E27.40 - UNSPECIFIED ADRENOCORTICAL INSUFFICIENCY (6) Hypertension Code(s): I10 - ESSENTIAL (PRIMARY) HYPERTENSION (7) Interstitial lung disease Code(s): J84.9 - INTERSTITIAL PULMONARY DISEASE, UNSPECIFIED (8) Orthostatic hypotension Code(s): I95.1 - ORTHOSTATIC HYPOTENSION (9) Pulmonary fibrosis Code(s): J84.10 - PULMONARY FIBROSIS, UNSPECIFIED (10) Raynaud disease Code(s): I73.00 - RAYNAUD'S SYNDROME WITHOUT GANGRENE Qualifiers: (11) Scleroderma Code(s): M34.9 - SYSTEMIC SCLEROSIS, UNSPECIFIED (12) Sjoegren syndrome Code(s): M35.00 - SICCA SYNDROME, UNSPECIFIED Assessment/Plan Assessment: 81 year old female with PMHx of pulmonary fibrosis, achalasia s/p botox treatment (October 2015), aspiration pneumonia (October 2015), Sjogrens, Raynauds, hypothyroidism, adrenal insufficiency, orthostatic hypotension, scleroderma, T12 compression fracture, and frequent falls who presented to the ED with generalized weakness and was found to have influenza A. Plan: 1. HCAP - s/p vanco/zosyn/levaquin in ED - Continue zosyn per ID, spoke with Dr. Marinelli - Continue supplemental O2 - Lactic acid wnl - Check viral panel, legionella, influenza - Blood cx pending - UA to be collected 2. Worsening interstitial lung disease/pulmonary fibrosis - Start medrol 60mg q6hr - Duonebs q4 светлана - Continue supplemental o2 - D/w Pulm will see pt 3. Leukocytosis - Due to above - Will trend 4. Hypokalemia - Replete 40meq x1 in ED - Additionally dose at 2100 - Admit non cardiac tele 5. Hypothyroidism - Continue [place] thyroid 6. Adrenal Insufficiency - Hold low dose cortef and prednisone, while on IV 7. Scleroderma, Sjogren syndrome, Raynaud's syndrome - Stable 8. Orthostatic hypotension 9. Nutrition - Dysphagia chopped - Severe protein malnutrition due to scleroderma Visit type - Emergency Visit Emergency Visit: Yes ED Registration Date: 10/30/16 Care time: The patient presented to the Emergency Department on the above date and was hospitalized for further evaluation of their emergent condition. - New Patient This patient is new to me today: Yes Date on this admission: 10/30/16 - Critical Care Critical Care patient: No
[2016-10-30] MEDS ORDERED: POTASSIUM CHLORIDE ORAL LIQUID 20 MEQ/15 ML PO ONE (21:00)
[2016-10-30] MEDS: methylPREDNISolone NA SUCC 40 MG/1 ML VIAL IVPB SCH (21:33)
[2016-10-30] MEDS: amLODIPine BESYLATE 2.5 MG TABLET (FP) PO SCH (21:53)
[2016-10-30] MEDS: HEPARIN NA (PORCINE) 5,000 UNITS/ML 1ML VIAL SQ SCH (21:53)
[2016-10-30] MEDS: FLUoxetine HCL 20 MG CAPSULE (FP) PO SCH (21:53)
[2016-10-30] MEDS: THYROID 30 MG TABLET PO SCH (21:53)
[2016-10-30] MEDS: ALBUTEROL SO4 2.5/IPRATROPIUM 0.5 INH SOL 3 ML VIAL.NEB. NEB SCH (23:48)
[2016-10-31] MEDS ORDERED: PIPERACILLIN/TAZOB 3.375 GM/50 ML PRE-DOCKED IVPB SCH (02:00)
[2016-10-31] MEDS: PIPERACILLIN/TAZOB 3.375 GM 50 ML IVPB SCH ×3 (02:14→17:47)
[2016-10-31] MEDS: methylPREDNISolone NA SUCC 40 MG/1 ML VIAL IVPB SCH ×4 (02:15→21:02)
[2016-10-31] MEDS: ALBUTEROL SO4 2.5/IPRATROPIUM 0.5 INH SOL 3 ML VIAL.NEB. NEB SCH ×3 (06:52→18:15)
[2016-10-31 07:11] LABS: BASOPHIL 0.2 % (0-2.0); MCH 29.6 pg (25.7-33.7); MCHC 33.4 g/dl (32.0-36.0); MEAN CELL VOLUME 88.5 fl (80-96); NEUTROPHILS 96.7 % (42.8-82.8); PLATELET COUNT 383 K/MM3 (134-434); RDW 19.3 % (11.6-15.6)
[2016-10-31 07:44] LABS: ALBUMIN 2.6 g/dl (3.4-5.0); ALK PHOS 85 U/L (45-117); ANION GAP 9 (8-16); BILIRUBIN,TOTAL 0.6 mg/dL (0.2-1.0); CALCIUM 8.2 mg/dL (8.5-10.1); CO2 32 mmol/L (21-32); COCKROFT - GAULT 42.6445; CREATININE 0.8 mg/dL (0.55-1.02); GLUCOSE,RANDOM 102 mg/dL (74-106); MAGNESIUM 1.9 mg/dL (1.8-2.4); PHOSPHOROUS 2.5 mg/dL (2.5-4.9); SGOT/AST 18 U/L (15-37); SGPT/ALT 15 U/L (12-78); TOT PROT 6.2 g/dl (6.4-8.2)
[2016-10-31] MEDS: THYROID 30 MG TABLET PO SCH ×2 (09:14→21:02)
[2016-10-31] MEDS: HEPARIN NA (PORCINE) 5,000 UNITS/ML 1ML VIAL SQ SCH ×2 (09:18→21:02)
[2016-10-31] MEDS: amLODIPine BESYLATE 2.5 MG TABLET (FP) PO SCH ×2 (09:18→21:02)
--- NOTE | 2016-10-31 10:04 | EKG ---
Test Reason : Blood Pressure : / mmHG Vent. Rate : 085 BPM Atrial Rate : 085 BPM P-R Int : 132 ms QRS Dur : 080 ms QT Int : 396 ms P-R-T Axes : 007 -10 006 degrees QTc Int : 471 ms NORMAL SINUS RHYTHM NONSPECIFIC ST ABNORMALITY ABNORMAL ECG WHEN COMPARED WITH ECG OF 13-AUG-2016 14:53, PREMATURE ATRIAL COMPLEXES ARE NO LONGER PRESENT RIGHT BUNDLE BRANCH BLOCK IS NO LONGER PRESENT Confirmed by MAYELIN NAJERA MD ([id number]) on 10/31/2016 10:03:51 AM Referred By: Confirmed By:MAYELIN NAJERA MD
[2016-10-31] MEDS ORDERED: PT OWN MED DRAWER 7, Y5N ONE ×2 (10:05→20:56)
--- NOTE | 2016-10-31 11:30 | CONSULT ---
Consult Consult Specialty:: infectious diseases Reason for Consultation:: pneumonia - History of Present Illness Chief Complaint: cough,sputum production. weakness History of Present Illness: this patient well known to me from last admission 81 year old pleasant female with PMHx of pulmonary fibrosis, achalasia s/p botox treatment (October 2015), aspiration pneumonia (October 2015), Sjogrens, Raynauds, hypothyroidism, adrenal insufficiency, orthostatic hypotension, scleroderma, T12 compression fracture, and frequent falls, recent vision difficultly for lose cornea for which she is on eye drops and seeing a specialist and most recently admitted in 08/2015 for influenza A and pneumonia presented to [facility] with shortness of breath, cough, nausea and gurgling. Per daughter, last Thursday patient was with a dry cough, patient was supposed to see her primary patient admitted and worked up and found to have new infiltrates - History Source History Provided By: Patient, Medical Record Limitations to Obtaining History: No Limitations - Past Medical History Cardio/Vascular: Yes: HTN, Other (orthostatic hypotension) Pulmonary: Yes: Pulmonary Fibrosis Rheumatology: Yes: Other (Sjogrens, Raynauds, scleroderma) Endocrine: Yes: Hypothyroidism, Tillman's Disease - Past Surgical History Past Surgical History: Yes: Cholecystectomy (open) - Alcohol/Substance Use Hx Alcohol Use: No History of Substance Use: reports: None - Smoking History Smoking history: Never smoked Have you smoked in the past 12 months: No Aproximately how many cigarettes per day: 20 If you are a former smoker, when did you quit?: 1969 - Social History ADL: Independent (lives with [place]) 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 History of Recent Travel: No Home Medications - Allergies Allergies/Adverse Reactions: Allergies Allergy/AdvReac Type Severity Reaction Status Date / Time No Known Allergies Allergy Verified 10/30/16 14:21 - Home Medications Home Medications: Ambulatory Orders Ascorbic Acid [C-1000] 1,000 mg PO BID 08/13/16 Cholecalciferol (Vitamin D3) [Vitamin D -] 5,000 unit PO DAILY 08/13/16 Docusate Sodium 100 mg PO BID PRN 08/13/16 Fludrocortisone Acetate 0.15 mg PO BID 08/13/16 Fluoxetine HCl 20 mg PO HS 08/13/16 Hydrocortisone [Cortef -] 10 mg PO DAILY 08/13/16 Hydrocortisone [Cortef -] 15 mg PO HS 08/13/16 Lifitegrast [Xiidra] 1 each OP BID 08/13/16 Magnesium Chloride [Mag64] 64 mg PO DAILY 08/13/16 Mirtazapine 3.75 mg PO HS PRN 08/13/16 Pantoprazole Sodium 40 mg PO DAILY 08/13/16 Promethazine HCl 12.5 mg PO Q6H 08/13/16 Thyroid,Pork [[place] Thyroid] 30 mg PO BID 08/13/16 Albuterol 2.5/Ipratropium 0.5 [Duoneb -] 1 amp NEB QIDR amp 08/26/16 Amlodipine Besylate [Norvasc -] 2.5 mg PO BID #60 tablet 08/26/16 Melatonin 5 mg PO HS PRN #0 cap 08/26/16 Guaifenesin [Mucinex] 600 mg PO BID 10/30/16 Potassium Chloride [K-Dur -] 20 meq PO DAILY 10/30/16 Family Disease History - Family Disease History Family Disease History: Heart Disease: Mother, CA: Father (colon) Review of Systems - Review of Systems Constitutional: reports: Weakness, Other Eyes: reports: No Symptoms HENT: reports: No Symptoms Neck: reports: No Symptoms Cardiovascular: reports: No Symptoms Respiratory: reports: Cough, SOB, Other (sputum production) Gastrointestinal: reports: No Symptoms Genitourinary: reports: No Symptoms Musculoskeletal: reports: No Symptoms Integumentary: reports: No Symptoms Neurological: reports: No Symptoms Endocrine: reports: No Symptoms Hematology/Lymphatic: reports: No Symptoms Psychiatric: reports: No Symptoms Physical Exam Vital Signs: Vital Signs Temperature 98.2 F 10/31/16 07:28 Pulse Rate 90 10/31/16 07:28 Respiratory Rate 20 10/31/16 07:30 Blood Pressure 152/88 10/31/16 07:28 O2 Sat by Pulse Oximetry (%) 95 10/31/16 07:30 Constitutional: Yes: Thin, Other Eyes: Yes: Conjunctiva Clear HENT: Yes: Atraumatic, Normocephalic Neck: Yes: Supple, Trachea Midline Cardiovascular: Yes: Regular Rate and Rhythm Respiratory: Yes: Poor Air Entry, Rhonchi, SOB, SOB on Exertion, Wheezes Gastrointestinal: Yes: Normal Bowel Sounds, Soft Musculoskeletal: Yes: Other Extremities: Yes: Other Integumentary: Yes: WNL Neurological: Yes: Alert, Oriented Psychiatric: Yes: Alert, Oriented Labs: CBC, BMP 10/31/16 05:35 10/31/16 05:35 Imaging - Results Chest X-ray: Report Reviewed, Image Reviewed Assessment/Plan Problem List - Problems (1) Pneumonia Code(s): J18.9 - PNEUMONIA, UNSPECIFIED ORGANISM (2) Shortness of breath Code(s): R06.02 - SHORTNESS OF BREATH (3) Weakness generalized Code(s): R53.1 - WEAKNESS (4) Hypothyroid Code(s): E03.9 - HYPOTHYROIDISM, UNSPECIFIED (5) Adrenal insufficiency Code(s): E27.40 - UNSPECIFIED ADRENOCORTICAL INSUFFICIENCY (6) Hypertension Code(s): I10 - ESSENTIAL (PRIMARY) HYPERTENSION (7) Interstitial lung disease Code(s): J84.9 - INTERSTITIAL PULMONARY DISEASE, UNSPECIFIED (8) Orthostatic hypotension Code(s): I95.1 - ORTHOSTATIC HYPOTENSION (9) Pulmonary fibrosis Code(s): J84.10 - PULMONARY FIBROSIS, UNSPECIFIED (10) Raynaud disease Code(s): I73.00 - RAYNAUD'S SYNDROME WITHOUT GANGRENE Qualifiers: (11) Scleroderma Code(s): M34.9 - SYSTEMIC SCLEROSIS, UNSPECIFIED (12) Sjoegren syndrome Code(s): M35.00 - SICCA SYNDROME, UNSPECIFIED plan abx chest pt close monitoring resp support pul on case
--- NOTE | 2016-10-31 13:29 | PN ---
Progress Note (short form) - Note Progress Note: PULMONARY CONSULTATION DICTATED 10/31/16 IMP SHORTNESS OF BREATH ADVANCED INTERSTATIAL LUNG DISEASE /PULMONARY FIBROSIS PNEUMONIA SCLERODERMA H/O ASPIRATION PNEUMONIA ACHALASIA S/P BOTOX HTN ORTHOSTATIC HYPOTENSION ADRENAL INSUFFICIENCY PLAN IV ANTIBIOTICS INHALED BRONCHODILATORS NASAL O2 ' IV STEROIDS CULTURES CHEST PT F/U CHEST X-RAY DR ALEJO Problem List - Problems (1) Pneumonia Code(s): J18.9 - PNEUMONIA, UNSPECIFIED ORGANISM (2) Shortness of breath Code(s): R06.02 - SHORTNESS OF BREATH (3) Weakness generalized Code(s): R53.1 - WEAKNESS (4) Hypothyroid Code(s): E03.9 - HYPOTHYROIDISM, UNSPECIFIED (5) Adrenal insufficiency Code(s): E27.40 - UNSPECIFIED ADRENOCORTICAL INSUFFICIENCY (6) Hypertension Code(s): I10 - ESSENTIAL (PRIMARY) HYPERTENSION (7) Interstitial lung disease Code(s): J84.9 - INTERSTITIAL PULMONARY DISEASE, UNSPECIFIED (8) Orthostatic hypotension Code(s): I95.1 - ORTHOSTATIC HYPOTENSION (9) Pulmonary fibrosis Code(s): J84.10 - PULMONARY FIBROSIS, UNSPECIFIED (10) Raynaud disease Code(s): I73.00 - RAYNAUD'S SYNDROME WITHOUT GANGRENE Qualifiers: (11) Scleroderma Code(s): M34.9 - SYSTEMIC SCLEROSIS, UNSPECIFIED (12) Sjoegren syndrome Code(s): M35.00 - SICCA SYNDROME, UNSPECIFIED
[2016-10-31] MEDS ORDERED: ALBUTEROL SO4 0.083% IH SOL 2.5 MG/3 ML VIAL.NEB. NEB PRN (13:33)
[2016-10-31 15:09] LABS: URINE APPEARANCE CLOUDY; URINE BILIRUBIN NEGATIVE (NEGATIVE); URINE BLOOD NEGATIVE (NEGATIVE); URINE COLOR YELLOW; URINE GLUCOSE (UA) NEGATIVE (NEGATIVE); URINE KETONE NEGATIVE (NEGATIVE); URINE LEUK ESTERASE 3+ (NEGATIVE); URINE NITRITE NEGATIVE (NEGATIVE); URINE PROTEIN NEGATIVE (NEGATIVE); URINE UROBILINOGEN NEGATIVE E.U./dl (0.2-1.0)
[2016-10-31 15:14] LABS: URINE RBC 10 /hpf (0-3); URINE WBC 443 /hpf (3-5)
--- NOTE | 2016-10-31 15:49 | CONS ---
DATE OF CONSULTATION: 10/30/2016 REFERRING PHYSICIAN: Laron Glez MD HISTORY OF PRESENT ILLNESS: The patient is an 81-year-old white female known tome from previous hospitalization with a past medical history of scleroderma, Reynauds, history of pulmonary fibrosis, interstitial lung disease, achalasia, status post Botox October 2015, aspiration pneumonia in 2014, adrenal insufficiency, orthostatic hypotension, T12 compression fracture, recently hospitalized at [facility] secondary to influenza A and pneumonia. She was transferred back to [facility] and apparently was doing well until the past few days, when the patient started noticing increasing cough and mild chest congestion. She called PCD, was prescribed Mucinex. Despite these measures, she had increasing shortness of breath, chest congestion, and gurgling, at which time, she presented to the emergency room. On admission, she denied any fevers or chills. She denied any hemoptysis. She denied any chest pains or palpitations. On admission, she was felt to have possible pneumonia. She was admitted to the telemetry unit. She was started on IV steroids as well as inhaled bronchodilators and antibiotic therapy. Patient has history of tobacco use 30 years ago. There is no history of occupational exposure to chemical fumes. There is no history of group B streptococcus. There is no history of DVT or PE in the past. PAST MEDICAL HISTORY: Again includes pulmonary fibrosis, advanced interstitial lung disease, Sjogrens syndrome, Reynauds, scleroderma, hypothyroidism, Addisons disease, hypertension, orthostatic hypotension, achalasia, status post Botox, history of aspiration pneumonia, hypothyroidism, and T12 compression fracture. REVIEW OF SYSTEMS: Positive cough. Positive chest congestion. Positive shortness of breath. No fever. No chills. No hemoptysis. No chest pain. No palpitations. No abdominal pain. CURRENT MEDICATIONS: Include Zofran, Solu-Medrol, Tylenol, piperacillin, heparin, Prozac, Duo-Neb, Norvasc, and [place] Thyroid PHYSICAL EXAMINATION: General: The patient is an elderly white female, thin, well-developed, awake, alert, in no acute distress. Vital signs: She is currently afebrile, blood pressure is 152/88, respiratory rate is 20, O2 saturation is 95% on 2 L. HEENT: Head is normocephalic atraumatic. Neck: Supple. Heart: Regular with S1, S2. Chest: Bilateral rhonchi and wheezes throughout. Abdomen: Soft. Bowel sounds positive. Extremities: No cyanosis or edema. LABORATORIES: WBC is 18, hemoglobin 10.7, hematocrit 32.2, and platelet count 383,000, 96 neutrophils, 1 lymphocyte, 1 monocyte. INR is 0.91. BUN 15, creatinine 0.8, lactate level 2.099. Chest x-ray reveals chronic interstitial changes bilaterally. No significant change from previous exam in August of 2016. IMPRESSION: 1. Advanced interstitial lung disease. 2. Possible pneumonia, possible aspiration. Rule out pneumonia, [id number] pneumonia, although not evident on chest x-ray. 3. Scleroderma. 4. History of aspiration. 5. History of achalasia, status post Botox. 6. History of hypertension. 7. History of orthostatic hypertension. PLAN: IV steroids, inhaled bronchodilators, supplemental O2, antibiotic therapy as per infectious disease, sputum for culture and sensitivity, chest PT, obtain followup chest x-rays. CAROLYN ALEJO M.D. [id number]
[2016-10-31] MEDS ORDERED: methylPREDNISolone NA SUCC 40 MG/1 ML VIAL IVPB SCH (18:00)
--- NOTE | 2016-10-31 18:39 | PN ---
Physical Exam: SUBJECTIVE: Patient seen and examined. She says she feels better, her nausea has subsided. OBJECTIVE: Vital Signs Period Temp Pulse Resp BP Sys/Xavier Pulse Ox Last 24 Hr 97.5 F-98.7 F 81-95 20-22 107-154/67-90 95-95 PE Neuro: alert, awake, cn 2-12intact Pulm: diffuse audible rhonchi, gurgling, + nc, no tachypnea CV: s1 s2 rrr no mrg Abd: s nt nd + bs Ext: warm, no le edema Laboratory Results - last 24 hr 10/30/16 10/31/16 10/31/16 21:40 05:35 05:35 WBC 18.0 H D RBC 3.64 Hgb 10.7 D Hct 32.2 L MCV 88.5 MCHC 33.4 RDW 19.3 H Plt Count 383 MPV 7.0 L Neutrophils % 96.7 H Lymphocytes % 1.6 L D Monocytes % 1.5 L Eosinophils % 0.0 D Basophils % 0.2 Sodium 138 Potassium 4.4 D Chloride 97 L Carbon Dioxide 32 Anion Gap 9 BUN 15 D Creatinine 0.8 Creat Clearance w eGFR > 60 Random Glucose 102 Lactic Acid 2.099 H* Calcium 8.2 L Phosphorus 2.5 Magnesium 1.9 Total Bilirubin 0.6 AST 18 D ALT 15 Alkaline Phosphatase 85 Total Protein 6.2 L Albumin 2.6 L Urine Color Urine Appearance Urine pH Ur Specific [place] Urine Protein Urine Glucose (UA) Urine Ketones Urine Blood Urine Nitrite Urine Bilirubin Urine Urobilinogen Ur Leukocyte Esterase Urine RBC Urine WBC 10/31/16 10/31/16 05:35 14:00 WBC RBC Hgb Hct MCV MCHC RDW Plt Count MPV Neutrophils % Lymphocytes % Monocytes % Eosinophils % Basophils % Sodium Potassium Chloride Carbon Dioxide Anion Gap BUN Creatinine Creat Clearance w eGFR Random Glucose Lactic Acid 0.870 Calcium Phosphorus Magnesium Total Bilirubin AST ALT Alkaline Phosphatase Total Protein Albumin Urine Color Yellow Urine Appearance Cloudy Urine pH 5.0 Ur Specific [place]ining 1.019 Urine Protein Negative Urine Glucose (UA) Negative Urine Ketones Negative Urine Blood Negative Urine Nitrite Negative Urine Bilirubin Negative Urine Urobilinogen Negative Ur Leukocyte Esterase 3+ H Urine RBC 10 Urine WBC 443 Active Medications Generic Name Dose Route Start Last Admin Trade Name Freq PRN Reason Stop Dose Admin Acetaminophen 650 mg 10/30/16 18:27 Tylenol - PO Q4H PRN FEVER OR PAIN Albuterol Sulfate 1 amp 10/31/16 13:33 Ventolin 0.083% Nebulizer Soln - NEB Q4H PRN SHORT OF BREATH/WHEEZING Albuterol/Ipratropium 1 amp 10/31/16 00:00 10/31/16 11:01 Duoneb - NEB Not Given QIDR СВЕТЛАНА Amlodipine Besylate 2.5 mg 10/30/16 22:00 10/31/16 09:18 Norvasc - PO 2.5 mg BID СВЕТЛАНА Administration Fluoxetine HCl 20 mg 10/30/16 22:00 10/30/16 21:53 Prozac - PO 20 mg HS СВЕТЛАНА Administration Heparin Sodium (Porcine) 5,000 unit 10/30/16 22:00 10/31/16 09:18 Heparin - SQ 5,000 unit BID СВЕТЛАНА Administration Piperacillin Sod/Tazobactam Sod 50 mls @ 100 mls/hr 10/31/16 02:00 10/31/16 17: 47 Zosyn 3.375gm Ivpb (Pre-Docked) IVPB 100 mls/hr Q8H-IV СВЕТЛАНА Administration Protocol Methylprednisolone Sodium Succinate 40 mg 10/31/16 15:00 10/31/16 14:47 Solu-Medrol - IVPB 40 mg Q6H-IV СВЕТЛАНА Administration Ondansetron HCl 4 mg 10/30/16 18:35 Zofran Injection IVPUSH Q6H PRN NAUSEA AND/OR VOMITING Thyroid 30 mg 10/30/16 22:00 10/31/16 09:14 [place] Thyroid - PO 30 mg BID СВЕТЛАНА Administration Microbiology 10/30/16 14:53 Blood Culture - Preliminary Blood - Peripheral Venous NO GROWTH OBTAINED AFTER 24 HOURS, INCUBATION TO CONTINUE FOR 4 DAYS. 10/30/16 14:53 Blood Culture - Preliminary Blood - Peripheral Venous NO GROWTH OBTAINED AFTER 24 HOURS, INCUBATION TO CONTINUE FOR 4 DAYS. Assessment: 81 year old female with PMHx of pulmonary fibrosis, achalasia s/p botox treatment (October 2015), aspiration pneumonia (October 2015), Sjogrens, Raynauds, hypothyroidism, adrenal insufficiency, orthostatic hypotension, scleroderma, T12 compression fracture, and frequent falls who presented to the ED with generalized weakness and was found to have influenza A. Plan: 1. HCAP - Continue zosyn - Continue supplemental O2 - pending viral panel, legionella, influenza - Blood cx ngtd 2. UTI - Asymptomatic pyuria per UA - On zosyn 3. Worsening interstitial lung disease/pulmonary fibrosis - [place] Medrol 40mg q6hr - Duonebs q4 светлана - Continue supplemental o2 4. Leukocytosis - Due to above, now down trending 5. Hypothyroidism - Continue [place] thyroid 6. Adrenal Insufficiency - Hold low dose cortef and prednisone, while on IV 7. Scleroderma, Sjogren syndrome, Raynaud's syndrome - Stable 8. Orthostatic hypotension 9. Nutrition - Dysphagia chopped - Severe protein malnutrition due to scleroderma Problem List - Problems (1) Hypokalemia Code(s): E87.6 - HYPOKALEMIA (2) Pneumonia Code(s): J18.9 - PNEUMONIA, UNSPECIFIED ORGANISM (3) Shortness of breath Code(s): R06.02 - SHORTNESS OF BREATH (4) Hypothyroid Code(s): E03.9 - HYPOTHYROIDISM, UNSPECIFIED (5) Adrenal insufficiency Code(s): E27.40 - UNSPECIFIED ADRENOCORTICAL INSUFFICIENCY (6) Hypertension Code(s): I10 - ESSENTIAL (PRIMARY) HYPERTENSION (7) Interstitial lung disease Code(s): J84.9 - INTERSTITIAL PULMONARY DISEASE, UNSPECIFIED (8) Orthostatic hypotension Code(s): I95.1 - ORTHOSTATIC HYPOTENSION (9) Pulmonary fibrosis Code(s): J84.10 - PULMONARY FIBROSIS, UNSPECIFIED (10) Raynaud disease Code(s): I73.00 - RAYNAUD'S SYNDROME WITHOUT GANGRENE Qualifiers: (11) Scleroderma Code(s): M34.9 - SYSTEMIC SCLEROSIS, UNSPECIFIED (12) Sjoegren syndrome Code(s): M35.00 - SICCA SYNDROME, UNSPECIFIED Visit type - Emergency Visit Emergency Visit: Yes ED Registration Date: 10/30/16 Care time: The patient presented to the Emergency Department on the above date and was hospitalized for further evaluation of their emergent condition. - New Patient This patient is new to me today: No - Critical Care Critical Care patient: No
[2016-10-31] MEDS: FLUoxetine HCL 20 MG CAPSULE (FP) PO SCH (21:02)
[2016-11-01] MEDS: ALBUTEROL SO4 2.5/IPRATROPIUM 0.5 INH SOL 3 ML VIAL.NEB. NEB SCH ×4 (00:19→17:33)
[2016-11-01] MEDS: PIPERACILLIN/TAZOB 3.375 GM 50 ML IVPB SCH ×3 (01:02→17:07)
[2016-11-01] MEDS: methylPREDNISolone NA SUCC 40 MG/1 ML VIAL IVPB SCH ×4 (03:28→21:10)
[2016-11-01] MEDS: ONDANSETRON 4 MG/2 ML VIAL IVPUSH PRN (05:13)
[2016-11-01 08:03] LABS: BASOPHIL 0.1 % (0-2.0); MCHC 32.7 g/dl (32.0-36.0); MEAN CELL VOLUME 88.7 fl (80-96); MEAN PLT VOLUME 6.9 fl (7.5-11.1); PLATELET COUNT 393 K/MM3 (134-434); RDW 19.5 % (11.6-15.6); WHITE BLOOD COUNT 18.7 K/mm3 (4.0-10.0)
[2016-11-01 08:55] LABS: ALBUMIN 2.7 g/dl (3.4-5.0); ALK PHOS 80 U/L (45-117); ANION GAP 8 (8-16); BILIRUBIN,TOTAL 0.3 mg/dL (0.2-1.0); CALCIUM 8.5 mg/dL (8.5-10.1); CO2 31 mmol/L (21-32); CREATININE 0.7 mg/dL (0.55-1.02); GLUCOSE,RANDOM 104 mg/dL (74-106); SGOT/AST 19 U/L (15-37); SGPT/ALT 18 U/L (12-78); TOT PROT 6.3 g/dl (6.4-8.2)
--- NOTE | 2016-11-01 09:36 | PN ---
Progress Note (short form) - Note Progress Note: Subjective: The patient was seen and examined at the bedside, she reports her breathing has improved since yesterday. Chest X-ray 10/31 with chronic interstitial lung disease with suggestion of superimposed infiltrates, Current Medications Generic Name Dose Route Start Last Admin Trade Name Freq PRN Reason Stop Dose Admin Acetaminophen 650 mg 10/30/16 18:27 Tylenol - PO Q4H PRN FEVER OR PAIN Albuterol Sulfate 1 amp 10/31/16 13:33 Ventolin 0.083% Nebulizer Soln - NEB Q4H PRN SHORT OF BREATH/WHEEZING Albuterol/Ipratropium 1 amp 10/31/16 00:00 11/01/16 07:17 Duoneb - NEB 1 amp QIDR BOBBY Administration Amlodipine Besylate 2.5 mg 10/30/16 22:00 10/31/16 21:02 Norvasc - PO 2.5 mg BID BOBBY Administration Fluoxetine HCl 20 mg 10/30/16 22:00 10/31/16 21:02 Prozac - PO 20 mg HS BOBBY Administration Heparin Sodium (Porcine) 5,000 unit 10/30/16 22:00 10/31/16 21:02 Heparin - SQ 5,000 unit BID BOBBY Administration Piperacillin Sod/Tazobactam Sod 50 mls @ 100 mls/hr 10/31/16 02:00 11/01/16 01: 02 Zosyn 3.375gm Ivpb (Pre-Docked) IVPB 100 mls/hr Q8H-IV BOBBY Administration Protocol Methylprednisolone Sodium Succinate 40 mg 10/31/16 15:00 11/01/16 03:28 Solu-Medrol - IVPB 40 mg Q6H-IV BOBBY Administration Ondansetron HCl 4 mg 10/30/16 18:35 11/01/16 05:13 Zofran Injection IVPUSH 4 mg Q6H PRN Administration NAUSEA AND/OR VOMITING Potassium Chloride 40 meq 11/01/16 09:45 K-Dur - PO 11/01/16 09:46 ONCE ONE Thyroid 30 mg 10/30/16 22:00 10/31/16 21:02 [place] Thyroid - PO 30 mg BID BOBBY Administration Objective: Vital Signs Period Temp Pulse Resp BP Sys/Xavier Pulse Ox Last 24 Hr 97.4 F-98.3 F 88-95 16-20 133-151/79-89 96 Physical Exam: General: NAD, A&Ox3 Lungs: B/l rhonchi and wheezing throughout Heart: RRR, S1S2 Abd: Soft, non-tender, non-distended. Normoactive bowel sounds Ext: Warm, well-perfused. 2+ DP/PT bilaterally Neuro: CN 2-12 intact CBCD WBC 18.7 K/mm3 (4.0-10.0) H 11/01/16 06:00 RBC 3.67 M/mm3 (3.60-5.2) 11/01/16 06:00 Hgb 10.7 GM/dL (10.7-15.3) 11/01/16 06:00 Hct 32.6 % (32.4-45.2) 11/01/16 06:00 MCV 88.7 fl (80-96) 11/01/16 06:00 MCHC 32.7 g/dl (32.0-36.0) 11/01/16 06:00 RDW 19.5 % (11.6-15.6) H 11/01/16 06:00 Plt Count 393 K/MM3 (134-434) 11/01/16 06:00 MPV 6.9 fl (7.5-11.1) L 11/01/16 06:00 CMP Sodium 140 mmol/L (136-145) 11/01/16 06:00 Potassium 3.2 mmol/L (3.5-5.1) L D 11/01/16 06:00 Chloride 101 mmol/L (98-107) 11/01/16 06:00 Carbon Dioxide 31 mmol/L (21-32) 11/01/16 06:00 Anion Gap 8 (8-16) 11/01/16 06:00 BUN 15 mg/dL (7-18) 11/01/16 06:00 Creatinine 0.7 mg/dL (0.55-1.02) 11/01/16 06:00 Creat Clearance w eGFR > 60 (>60) 11/01/16 06:00 Random Glucose 104 mg/dL (74-106) 11/01/16 06:00 Calcium 8.5 mg/dL (8.5-10.1) 11/01/16 06:00 Total Bilirubin 0.3 mg/dL (0.2-1.0) D 11/01/16 06:00 AST 19 U/L (15-37) 11/01/16 06:00 ALT 18 U/L (12-78) 11/01/16 06:00 Alkaline Phosphatase 80 U/L (45-117) 11/01/16 06:00 Total Protein 6.3 g/dl (6.4-8.2) L 11/01/16 06:00 Albumin 2.7 g/dl (3.4-5.0) L 11/01/16 06:00 CARDIAC ENZYMES Creatine Kinase 74 IU/L (26-192) 10/30/16 14:53 Troponin I < 0.02 ng/ml (0.00-0.05) 10/30/16 14:53 Microbiology 10/30/16 14:53 Blood - Peripheral Venous Blood Culture - Preliminary NO GROWTH OBTAINED AFTER 24 HOURS, INCUBATION TO CONTINUE FOR 4 DAYS. 10/30/16 14:53 Blood - Peripheral Venous Blood Culture - Preliminary NO GROWTH OBTAINED AFTER 24 HOURS, INCUBATION TO CONTINUE FOR 4 DAYS. Assessment: This is an 81 year old female with PMHx of pulmonary fibrosis, achalasia s/p botox treatment (October 2015), aspiration pneumonia (October 2015), Sjogrens, Raynauds, hypothyroidism, adrenal insufficiency, orthostatic hypotension, scleroderma, T12 compression fracture, and frequent falls who presented to the ED with shortness of breath, cough, nausea, gurgling. Plan: 1) ID: Hospital acquired pneumonia - Afebrile - WBC remain elevated and have trended down from admission, stable today 18.7 - Continue Zosyn (10/30- ) - Received dose of Vancomyin on 10/30 - F/u blood cultures, NGTD - F/u influenza A&B ab - F/u urine legionella Ag - F/u urine culture - Appreciate ID consult UTI - UA with 3+ leuks, WBC 443 - F/u urine culture - Abx as above 2) Pulmonary: Interstitial lung disease/pulmonary fibrosis - Worsening - Continue IV steroids at current dose - Duonebs scheduled - O2 via nc prn (patient is not on home O2, will need pre/post prior to discharge) - Appreciate pulmonary consult 3) Scleroderma, Sjogren syndrome, Raynaud's syndrome - Stable 4) Endocrine: Hypothyroidism - Continue [place] thyroid 5) Adrenal Insufficiency - Hold low dose cortef and prednisone, while on IV 6) F/E/N: - Dysphagia chopped - Monitor electrolytes - Severe protein malnutrition 7) Prophylaxis: - Heparin 5,000u sq tid - PT 8) Dispo: - Requires continued inpatient care CODE STATUS: FULL CODE Visit type - Emergency Visit Emergency Visit: Yes ED Registration Date: 10/30/16 Care time: The patient presented to the Emergency Department on the above date and was hospitalized for further evaluation of their emergent condition. - New Patient This patient is new to me today: Yes Date on this admission: 11/01/16 - Critical Care Critical Care patient: No
--- NOTE | 2016-11-01 09:37 | PN ---
Progress Note, Physician History of Present Illness: PULMONARY ALERT,LESS CONGESTED,+COUGH - Current Medication List Current Medications: Active Medications Acetaminophen (Tylenol -) 650 mg PO Q4H PRN PRN Reason: FEVER OR PAIN Albuterol Sulfate (Ventolin 0.083% Nebulizer Soln -) 1 amp NEB Q4H PRN PRN Reason: SHORT OF BREATH/WHEEZING Albuterol/Ipratropium (Duoneb -) 1 amp NEB QIDR BOBBY Last Admin: 11/01/16 07:17 Dose: 1 amp Amlodipine Besylate (Norvasc -) 2.5 mg PO BID BOBBY Last Admin: 10/31/16 21:02 Dose: 2.5 mg Fluoxetine HCl (Prozac -) 20 mg PO HS COUNTS INCLUDE 234 BEDS AT THE [facility] Last Admin: 10/31/16 21:02 Dose: 20 mg Heparin Sodium (Porcine) (Heparin -) 5,000 unit SQ BID BOBBY Last Admin: 10/31/16 21:02 Dose: 5,000 unit Piperacillin Sod/Tazobactam Sod (Zosyn 3.375gm Ivpb (Pre-Docked)) 50 mls @ 100 mls/hr IVPB Q8H-IV BOBBY PRN Reason: Protocol Last Admin: 11/01/16 01:02 Dose: 100 mls/hr Methylprednisolone Sodium Succinate (Solu-Medrol -) 40 mg IVPB Q6H-IV BOBBY Last Admin: 11/01/16 03:28 Dose: 40 mg Ondansetron HCl (Zofran Injection) 4 mg IVPUSH Q6H PRN PRN Reason: NAUSEA AND/OR VOMITING Last Admin: 11/01/16 05:13 Dose: 4 mg Potassium Chloride (K-Dur -) 40 meq PO ONCE ONE Stop: 11/01/16 09:46 Thyroid ([place] Thyroid -) 30 mg PO BID BOBBY Last Admin: 10/31/16 21:02 Dose: 30 mg - Objective Vital Signs: Vital Signs Temperature 98.1 F 11/01/16 05:56 Pulse Rate 90 11/01/16 05:56 Respiratory Rate 16 11/01/16 05:56 Blood Pressure 149/81 11/01/16 05:56 O2 Sat by Pulse Oximetry (%) 96 10/31/16 20:37 Constitutional: Yes: Calm, Thin Eyes: Yes: WNL HENT: Yes: WNL Neck: Yes: WNL Cardiovascular: Yes: Regular Rate and Rhythm, S1, S2 Respiratory: Yes: Rhonchi (EMILY RHONCHI) Gastrointestinal: Yes: Normal Bowel Sounds, Soft Extremities: Yes: WNL Edema: No Labs: CBC, BMP 11/01/16 06:00 11/01/16 06:00 INR, PTT INR 0.91 (0.82-1.09) 10/30/16 14:53 Problem List - Problems (1) Pneumonia Code(s): J18.9 - PNEUMONIA, UNSPECIFIED ORGANISM (2) Shortness of breath Code(s): R06.02 - SHORTNESS OF BREATH (3) Weakness generalized Code(s): R53.1 - WEAKNESS (4) Hypothyroid Code(s): E03.9 - HYPOTHYROIDISM, UNSPECIFIED (5) Adrenal insufficiency Code(s): E27.40 - UNSPECIFIED ADRENOCORTICAL INSUFFICIENCY (6) Hypertension Code(s): I10 - ESSENTIAL (PRIMARY) HYPERTENSION (7) Interstitial lung disease Code(s): J84.9 - INTERSTITIAL PULMONARY DISEASE, UNSPECIFIED (8) Orthostatic hypotension Code(s): I95.1 - ORTHOSTATIC HYPOTENSION (9) Pulmonary fibrosis Code(s): J84.10 - PULMONARY FIBROSIS, UNSPECIFIED (10) Raynaud disease Code(s): I73.00 - RAYNAUD'S SYNDROME WITHOUT GANGRENE Qualifiers: (11) Scleroderma Code(s): M34.9 - SYSTEMIC SCLEROSIS, UNSPECIFIED (12) Sjoegren syndrome Code(s): M35.00 - SICCA SYNDROME, UNSPECIFIED Assessment/Plan IMP SHORTNESS OF BREATH ADVANCED INTERSTATIAL LUNG DISEASE /PULMONARY FIBROSIS PNEUMONIA SCLERODERMA H/O ASPIRATION PNEUMONIA ACHALASIA S/P BOTOX HTN ORTHOSTATIC HYPOTENSION ADRENAL INSUFFICIENCY PLAN ANTIBIOTICS PER ID INHALED BRONCHODILATORS NASAL O2 ' CONTINUE IV STEROIDS CHEST PT F/U CHEST X-RAY DR ALEJO Problem List - Problems (1) Pneumonia Code(s): J18.9 - PNEUMONIA, UNSPECIFIED ORGANISM (2) Shortness of breath Code(s): R06.02 - SHORTNESS OF BREATH (3) Weakness generalized Code(s): R53.1 - WEAKNESS (4) Hypothyroid Code(s): E03.9 - HYPOTHYROIDISM, UNSPECIFIED (5) Adrenal insufficiency Code(s): E27.40 - UNSPECIFIED ADRENOCORTICAL INSUFFICIENCY (6) Hypertension Code(s): I10 - ESSENTIAL (PRIMARY) HYPERTENSION (7) Interstitial lung disease Code(s): J84.9 - INTERSTITIAL PULMONARY DISEASE, UNSPECIFIED (8) Orthostatic hypotension Code(s): I95.1 - ORTHOSTATIC HYPOTENSION (9) Pulmonary fibrosis Code(s): J84.10 - PULMONARY FIBROSIS, UNSPECIFIED (10) Raynaud disease Code(s): I73.00 - RAYNAUD'S SYNDROME WITHOUT GANGRENE Qualifiers: (11) Scleroderma Code(s): M34.9 - SYSTEMIC SCLEROSIS, UNSPECIFIED (12) Sjoegren syndrome Code(s): M35.00 - SICCA SYNDROME, UNSPECIFIED
[2016-11-01] MEDS: amLODIPine BESYLATE 2.5 MG TABLET (FP) PO SCH ×2 (09:40→21:10)
[2016-11-01] MEDS: THYROID 30 MG TABLET PO SCH ×2 (09:40→21:19)
[2016-11-01] MEDS: HEPARIN NA (PORCINE) 5,000 UNITS/ML 1ML VIAL SQ SCH ×2 (09:40→21:10)
[2016-11-01] MEDS ORDERED: POTASSIUM CHLORIDE TABS 20 MEQ TABLET.ER (FP) PO ONE (09:45)
--- NOTE | 2016-11-01 12:52 | PN ---
Progress Note, Physician History of Present Illness: patient feeling well no issues - Current Medication List Current Medications: Active Medications Acetaminophen (Tylenol -) 650 mg PO Q4H PRN PRN Reason: FEVER OR PAIN Albuterol Sulfate (Ventolin 0.083% Nebulizer Soln -) 1 amp NEB Q4H PRN PRN Reason: SHORT OF BREATH/WHEEZING Albuterol/Ipratropium (Duoneb -) 1 amp NEB QIDR [facility] Last Admin: 11/01/16 11:57 Dose: 1 amp Amlodipine Besylate (Norvasc -) 2.5 mg PO BID [facility] Last Admin: 11/01/16 09:40 Dose: 2.5 mg Fluoxetine HCl (Prozac -) 20 mg PO HS [facility] Last Admin: 10/31/16 21:02 Dose: 20 mg Heparin Sodium (Porcine) (Heparin -) 5,000 unit SQ BID [facility] Last Admin: 11/01/16 09:40 Dose: 5,000 unit Piperacillin Sod/Tazobactam Sod (Zosyn 3.375gm Ivpb (Pre-Docked)) 50 mls @ 100 mls/hr IVPB Q8H-IV BOBBY PRN Reason: Protocol Last Admin: 11/01/16 09:40 Dose: 100 mls/hr Methylprednisolone Sodium Succinate (Solu-Medrol -) 40 mg IVPB Q6H-IV [facility] Last Admin: 11/01/16 09:40 Dose: 40 mg Ondansetron HCl (Zofran Injection) 4 mg IVPUSH Q6H PRN PRN Reason: NAUSEA AND/OR VOMITING Last Admin: 11/01/16 05:13 Dose: 4 mg Thyroid ([place] Thyroid -) 30 mg PO BID [facility] Last Admin: 11/01/16 09:40 Dose: 30 mg - Objective Vital Signs: Vital Signs Temperature 98.4 F 11/01/16 09:37 Pulse Rate 94 H 11/01/16 09:37 Respiratory Rate 16 11/01/16 09:37 Blood Pressure 142/90 11/01/16 09:37 O2 Sat by Pulse Oximetry (%) 96 11/01/16 09:00 Constitutional: Yes: Calm, Mild Distress Cardiovascular: Yes: Regular Rate and Rhythm Respiratory: Yes: Poor Air Entry, Rhonchi, Other Gastrointestinal: Yes: Normal Bowel Sounds, Soft Musculoskeletal: Yes: Other Neurological: Yes: Alert, Oriented Psychiatric: Yes: Alert, Oriented Labs: CBC, BMP 11/01/16 06:00 11/01/16 06:00 INR, PTT INR 0.91 (0.82-1.09) 10/30/16 14:53 Assessment/Plan Problem List - Problems (1) Pneumonia Code(s): J18.9 - PNEUMONIA, UNSPECIFIED ORGANISM (2) Shortness of breath Code(s): R06.02 - SHORTNESS OF BREATH (3) Weakness generalized Code(s): R53.1 - WEAKNESS (4) Hypothyroid Code(s): E03.9 - HYPOTHYROIDISM, UNSPECIFIED (5) Adrenal insufficiency Code(s): E27.40 - UNSPECIFIED ADRENOCORTICAL INSUFFICIENCY (6) Hypertension Code(s): I10 - ESSENTIAL (PRIMARY) HYPERTENSION (7) Interstitial lung disease Code(s): J84.9 - INTERSTITIAL PULMONARY DISEASE, UNSPECIFIED (8) Orthostatic hypotension Code(s): I95.1 - ORTHOSTATIC HYPOTENSION (9) Pulmonary fibrosis Code(s): J84.10 - PULMONARY FIBROSIS, UNSPECIFIED (10) Raynaud disease Code(s): I73.00 - RAYNAUD'S SYNDROME WITHOUT GANGRENE Qualifiers: (11) Scleroderma Code(s): M34.9 - SYSTEMIC SCLEROSIS, UNSPECIFIED (12) Sjoegren syndrome Code(s): M35.00 - SICCA SYNDROME, UNSPECIFIED plan abx chest pt close monitoring resp support pul on case follow xray chest
[2016-11-01] MEDS: FLUoxetine HCL 20 MG CAPSULE (FP) PO SCH (21:10)
[2016-11-02] MEDS: ALBUTEROL SO4 2.5/IPRATROPIUM 0.5 INH SOL 3 ML VIAL.NEB. NEB SCH ×5 (00:11→23:18)
[2016-11-02] MEDS: PIPERACILLIN/TAZOB 3.375 GM 50 ML IVPB SCH ×3 (01:27→17:26)
[2016-11-02] MEDS: methylPREDNISolone NA SUCC 40 MG/1 ML VIAL IVPB SCH ×4 (01:59→22:25)
[2016-11-02] MEDS ORDERED: PT OWN MED DRAWER 7, Y5N ONE (05:10)
[2016-11-02] MEDS: THYROID 30 MG TABLET PO SCH ×2 (05:38→17:26)
[2016-11-02 08:11] LABS: BASOPHIL 0.2 % (0-2.0); MCH 29.5 pg (25.7-33.7); MCHC 33.4 g/dl (32.0-36.0); MEAN CELL VOLUME 88.3 fl (80-96); MEAN PLT VOLUME 6.9 fl (7.5-11.1); NEUTROPHILS 94.8 % (42.8-82.8); PLATELET COUNT 407 K/MM3 (134-434); RDW 18.9 % (11.6-15.6); WHITE BLOOD COUNT 18.7 K/mm3 (4.0-10.0)
[2016-11-02 08:44] LABS: CALCIUM 8.6 mg/dL (8.5-10.1); COCKROFT - GAULT 48.739; CREATININE 0.7 mg/dL (0.55-1.02)
--- NOTE | 2016-11-02 09:18 | PN ---
Progress Note (short form) - Note Progress Note: Subjective: The patient was seen and examined at the bedside, she reports she has not had a bowel movement in "a while", but is passing gas. She is declining any laxatives stating she would like to attempt to go on her own. Current Medications Generic Name Dose Route Start Last Admin Trade Name Freq PRN Reason Stop Dose Admin Acetaminophen 650 mg 10/30/16 18:27 Tylenol - PO Q4H PRN FEVER OR PAIN Albuterol Sulfate 1 amp 10/31/16 13:33 Ventolin 0.083% Nebulizer Soln - NEB Q4H PRN SHORT OF BREATH/WHEEZING Albuterol/Ipratropium 1 amp 10/31/16 00:00 11/02/16 06:34 Duoneb - NEB 1 amp QIDR BOBBY Administration Amlodipine Besylate 2.5 mg 10/30/16 22:00 11/01/16 21:10 Norvasc - PO 2.5 mg BID BOBBY Administration Fluoxetine HCl 20 mg 10/30/16 22:00 11/01/16 21:10 Prozac - PO 20 mg HS BOBBY Administration Heparin Sodium (Porcine) 5,000 unit 10/30/16 22:00 11/01/16 21:10 Heparin - SQ 5,000 unit BID BOBBY Administration Piperacillin Sod/Tazobactam Sod 50 mls @ 100 mls/hr 10/31/16 02:00 11/02/16 01: 27 Zosyn 3.375gm Ivpb (Pre-Docked) IVPB 100 mls/hr Q8H-IV BOBBY Administration Protocol Methylprednisolone Sodium Succinate 40 mg 10/31/16 15:00 11/02/16 01:59 Solu-Medrol - IVPB 40 mg Q6H-IV BOBBY Administration Non-Formulary Medication 1 each 11/01/16 22:00 Lifitegrast [Xiidra] OP BID BOBBY Ondansetron HCl 4 mg 10/30/16 18:35 11/01/16 05:13 Zofran Injection IVPUSH 4 mg Q6H PRN Administration NAUSEA AND/OR VOMITING Potassium Chloride 40 meq 11/02/16 09:09 K-Dur - PO 11/02/16 09:10 ONCE ONE Potassium Chloride 40 meq 11/02/16 16:00 K-Dur - PO 11/02/16 16:01 ONCE ONE Thyroid 30 mg 11/02/16 06:00 11/02/16 05:38 [place] Thyroid - PO 30 mg BID@06,18 BOBBY Administration Objective: Vital Signs Period Temp Pulse Resp BP Sys/Xavier Pulse Ox Last 24 Hr 97.9 F-98.6 F 89-100 16-20 127-153/57-96 98 Physical Exam: General: NAD, A&Ox3 Lungs: B/l rhonchi and wheezing throughout Heart: RRR, S1S2 Abd: Soft, non-tender, non-distended. Normoactive bowel sounds Ext: Warm, well-perfused. 2+ DP/PT bilaterally Neuro: CN 2-12 intact CBCD WBC 18.7 K/mm3 (4.0-10.0) H 11/02/16 06:00 RBC 3.57 M/mm3 (3.60-5.2) L 11/02/16 06:00 Hgb 10.5 GM/dL (10.7-15.3) L 11/02/16 06:00 Hct 31.6 % (32.4-45.2) L 11/02/16 06:00 MCV 88.3 fl (80-96) 11/02/16 06:00 MCHC 33.4 g/dl (32.0-36.0) 11/02/16 06:00 RDW 18.9 % (11.6-15.6) H 11/02/16 06:00 Plt Count 407 K/MM3 (134-434) 11/02/16 06:00 MPV 6.9 fl (7.5-11.1) L 11/02/16 06:00 CMP Sodium 141 mmol/L (136-145) 11/02/16 06:00 Potassium 3.2 mmol/L (3.5-5.1) L 11/02/16 06:00 Chloride 100 mmol/L (98-107) 11/02/16 06:00 Carbon Dioxide 30 mmol/L (21-32) 11/02/16 06:00 Anion Gap 11 (8-16) 11/02/16 06:00 BUN 14 mg/dL (7-18) 11/02/16 06:00 Creatinine 0.7 mg/dL (0.55-1.02) 11/02/16 06:00 Creat Clearance w eGFR > 60 (>60) 11/01/16 06:00 Random Glucose 102 mg/dL (74-106) 11/02/16 06:00 Calcium 8.6 mg/dL (8.5-10.1) 11/02/16 06:00 Total Bilirubin 0.3 mg/dL (0.2-1.0) D 11/01/16 06:00 AST 19 U/L (15-37) 11/01/16 06:00 ALT 18 U/L (12-78) 11/01/16 06:00 Alkaline Phosphatase 80 U/L (45-117) 11/01/16 06:00 Total Protein 6.3 g/dl (6.4-8.2) L 11/01/16 06:00 Albumin 2.7 g/dl (3.4-5.0) L 11/01/16 06:00 CARDIAC ENZYMES Creatine Kinase 74 IU/L (26-192) 10/30/16 14:53 Troponin I < 0.02 ng/ml (0.00-0.05) 10/30/16 14:53 Microbiology 10/30/16 14:53 Blood - Peripheral Venous Blood Culture - Preliminary NO GROWTH OBTAINED AFTER 48 HOURS, INCUBATION TO CONTINUE FOR 3 DAYS. 10/30/16 14:53 Blood - Peripheral Venous Blood Culture - Preliminary NO GROWTH OBTAINED AFTER 48 HOURS, INCUBATION TO CONTINUE FOR 3 DAYS. 10/31/16 14:00 Urine - Urine - Catheterized Legionella Antigen - Final 10/31/16 14:00 Urine - Urine - Catheterized Streptococcus pneumoniae Antigen (M - Final Assessment: This is an 81 year old female with PMHx of pulmonary fibrosis, achalasia s/p botox treatment (October 2015), aspiration pneumonia (October 2015), Sjogrens, Raynauds, hypothyroidism, adrenal insufficiency, orthostatic hypotension, scleroderma, T12 compression fracture, and frequent falls who presented to the ED with shortness of breath, cough, nausea, gurgling. Plan: 1) ID: Hospital acquired pneumonia - Afebrile - WBC remain elevated and have trended down from admission, stable today 18.7 - Continue Zosyn (10/30- ) - Received dose of Vancomyin on 10/30 - Urine legionella Ag negative - F/u blood cultures, NGTD - F/u influenza A&B ab - F/u urine culture - F/u sputum culture (uncollected) - Appreciate ID consult UTI - UA with 3+ leuks, WBC 443 - F/u urine culture - Abx as above 2) Pulmonary: Interstitial lung disease/pulmonary fibrosis - Continue IV steroids at current dose - Duonebs scheduled - Chest PT bid - O2 via nc prn (patient is not on home O2, will need pre/post prior to discharge) - Appreciate pulmonary consult 3) Scleroderma, Sjogren syndrome, Raynaud's syndrome - Stable 4) Endocrine: Hypothyroidism - Continue [place] thyroid 5) Adrenal Insufficiency - Hold low dose cortef and prednisone, while on IV 6) F/E/N: - Dysphagia chopped - Monitor electrolytes - Severe protein malnutrition 7) Prophylaxis: - Heparin 5,000u sq tid - PT 8) Dispo: - Requires continued inpatient care CODE STATUS: FULL CODE Visit type - Emergency Visit Emergency Visit: Yes ED Registration Date: 10/30/16 Care time: The patient presented to the Emergency Department on the above date and was hospitalized for further evaluation of their emergent condition. - New Patient This patient is new to me today: No - Critical Care Critical Care patient: No
[2016-11-02] MEDS ORDERED: POTASSIUM CHLORIDE TABS 20 MEQ TABLET.ER (FP) PO ONE ×2 (09:30→16:30)
[2016-11-02] MEDS: amLODIPine BESYLATE 2.5 MG TABLET (FP) PO SCH ×2 (09:53→22:24)
[2016-11-02] MEDS: HEPARIN NA (PORCINE) 5,000 UNITS/ML 1ML VIAL SQ SCH ×2 (09:54→22:25)
--- NOTE | 2016-11-02 10:30 | PN ---
Progress Note, Physician History of Present Illness: pulmonary alert,less dyspneic,still congested,unable to bring up sputum - Current Medication List Current Medications: Active Medications Acetaminophen (Tylenol -) 650 mg PO Q4H PRN PRN Reason: FEVER OR PAIN Albuterol Sulfate (Ventolin 0.083% Nebulizer Soln -) 1 amp NEB Q4H PRN PRN Reason: SHORT OF BREATH/WHEEZING Albuterol/Ipratropium (Duoneb -) 1 amp NEB QIDR [facility] Last Admin: 11/02/16 06:34 Dose: 1 amp Amlodipine Besylate (Norvasc -) 2.5 mg PO BID [facility] Last Admin: 11/02/16 09:53 Dose: 2.5 mg Fluoxetine HCl (Prozac -) 20 mg PO HS [facility] Last Admin: 11/01/16 21:10 Dose: 20 mg Heparin Sodium (Porcine) (Heparin -) 5,000 unit SQ BID [facility] Last Admin: 11/02/16 09:54 Dose: 5,000 unit Piperacillin Sod/Tazobactam Sod (Zosyn 3.375gm Ivpb (Pre-Docked)) 50 mls @ 100 mls/hr IVPB Q8H-IV BOBBY PRN Reason: Protocol Last Admin: 11/02/16 09:53 Dose: 100 mls/hr Methylprednisolone Sodium Succinate (Solu-Medrol -) 40 mg IVPB Q6H-IV BOBBY Last Admin: 11/02/16 09:54 Dose: 40 mg Non-Formulary Medication (Lifitegrast [Xiidra]) 1 each OP BID [facility] Ondansetron HCl (Zofran Injection) 4 mg IVPUSH Q6H PRN PRN Reason: NAUSEA AND/OR VOMITING Last Admin: 11/01/16 05:13 Dose: 4 mg Potassium Chloride (K-Dur -) 40 meq PO ONCE ONE Stop: 11/02/16 16:31 Thyroid ([place] Thyroid -) 30 mg PO BID@,18 [facility] Last Admin: 11/02/16 05:38 Dose: 30 mg - Objective Vital Signs: Vital Signs Temperature 97.9 F 11/02/16 05:42 Pulse Rate 90 11/02/16 05:42 Respiratory Rate 18 11/02/16 05:42 Blood Pressure 153/96 11/02/16 05:42 O2 Sat by Pulse Oximetry (%) 98 11/01/16 20:34 Constitutional: Yes: Calm, Thin Eyes: Yes: WNL HENT: Yes: WNL Neck: Yes: WNL Cardiovascular: Yes: Regular Rate and Rhythm, S1, S2 Respiratory: Yes: Rhonchi (tye rhonchi) Gastrointestinal: Yes: Normal Bowel Sounds, Soft Extremities: Yes: WNL Edema: No Labs: CBC, BMP 11/02/16 06:00 11/02/16 06:00 INR, PTT INR 0.91 (0.82-1.09) 10/30/16 14:53 Problem List - Problems (1) Pneumonia Code(s): J18.9 - PNEUMONIA, UNSPECIFIED ORGANISM (2) Shortness of breath Code(s): R06.02 - SHORTNESS OF BREATH (3) Weakness generalized Code(s): R53.1 - WEAKNESS (4) Hypothyroid Code(s): E03.9 - HYPOTHYROIDISM, UNSPECIFIED (5) Adrenal insufficiency Code(s): E27.40 - UNSPECIFIED ADRENOCORTICAL INSUFFICIENCY (6) Hypertension Code(s): I10 - ESSENTIAL (PRIMARY) HYPERTENSION (7) Interstitial lung disease Code(s): J84.9 - INTERSTITIAL PULMONARY DISEASE, UNSPECIFIED (8) Orthostatic hypotension Code(s): I95.1 - ORTHOSTATIC HYPOTENSION (9) Pulmonary fibrosis Code(s): J84.10 - PULMONARY FIBROSIS, UNSPECIFIED (10) Raynaud disease Code(s): I73.00 - RAYNAUD'S SYNDROME WITHOUT GANGRENE Qualifiers: (11) Scleroderma Code(s): M34.9 - SYSTEMIC SCLEROSIS, UNSPECIFIED (12) Sjoegren syndrome Code(s): M35.00 - SICCA SYNDROME, UNSPECIFIED Assessment/Plan IMP SHORTNESS OF BREATH ADVANCED INTERSTITIAL LUNG DISEASE /PULMONARY FIBROSIS PNEUMONIA SCLERODERMA H/O ASPIRATION PNEUMONIA ACHALASIA S/P BOTOX HTN ORTHOSTATIC HYPOTENSION ADRENAL INSUFFICIENCY PLAN ANTIBIOTICS PER ID INHALED BRONCHODILATORS NASAL O2 ' CONTINUE IV STEROIDS CHEST PT DR BRILL Problem List - Problems (1) Pneumonia Code(s): J18.9 - PNEUMONIA, UNSPECIFIED ORGANISM (2) Shortness of breath Code(s): R06.02 - SHORTNESS OF BREATH (3) Weakness generalized Code(s): R53.1 - WEAKNESS (4) Hypothyroid Code(s): E03.9 - HYPOTHYROIDISM, UNSPECIFIED (5) Adrenal insufficiency Code(s): E27.40 - UNSPECIFIED ADRENOCORTICAL INSUFFICIENCY (6) Hypertension Code(s): I10 - ESSENTIAL (PRIMARY) HYPERTENSION (7) Interstitial lung disease Code(s): J84.9 - INTERSTITIAL PULMONARY DISEASE, UNSPECIFIED (8) Orthostatic hypotension Code(s): I95.1 - ORTHOSTATIC HYPOTENSION (9) Pulmonary fibrosis Code(s): J84.10 - PULMONARY FIBROSIS, UNSPECIFIED (10) Raynaud disease Code(s): I73.00 - RAYNAUD'S SYNDROME WITHOUT GANGRENE Qualifiers: (11) Scleroderma Code(s): M34.9 - SYSTEMIC SCLEROSIS, UNSPECIFIED (12) Sjoegren syndrome Code(s): M35.00 - SICCA SYNDROME, UNSPECIFIED
[2016-11-02] MEDS ORDERED: ALPRAZolam 0.25 MG TABLET PO ONE (18:36)
[2016-11-02] MEDS: FLUoxetine HCL 20 MG CAPSULE (FP) PO SCH (22:24)
[2016-11-03] MEDS: PIPERACILLIN/TAZOB 3.375 GM 50 ML IVPB SCH ×3 (01:51→17:44)
[2016-11-03] MEDS: methylPREDNISolone NA SUCC 40 MG/1 ML VIAL IVPB SCH ×4 (03:30→22:13)
[2016-11-03] MEDS: ALBUTEROL SO4 2.5/IPRATROPIUM 0.5 INH SOL 3 ML VIAL.NEB. NEB SCH ×3 (06:40→18:00)
[2016-11-03] MEDS: THYROID 30 MG TABLET PO SCH ×3 (06:44→17:44)
[2016-11-03] MEDS: ACETAMINOPHEN 325 MG TABLET (FP) PO PRN ×2 (06:57→12:08)
[2016-11-03 08:20] LABS: MCH 29.6 pg (25.7-33.7); MCHC 33.3 g/dl (32.0-36.0); MEAN CELL VOLUME 88.8 fl (80-96); MEAN PLT VOLUME 6.8 fl (7.5-11.1); PLATELET COUNT 434 K/MM3 (134-434); RDW 19.2 % (11.6-15.6)
[2016-11-03 08:53] LABS: ALBUMIN 3.1 g/dl (3.4-5.0); ALK PHOS 81 U/L (45-117); ANION GAP 13 (8-16); BILIRUBIN,TOTAL 0.5 mg/dL (0.2-1.0); CALCIUM 9.1 mg/dL (8.5-10.1); CO2 29 mmol/L (21-32); COCKROFT - GAULT 42.6445; CREATININE 0.8 mg/dL (0.55-1.02); GLUCOSE,RANDOM 91 mg/dL (74-106); SGOT/AST 15 U/L (15-37); SGPT/ALT 19 U/L (12-78)
[2016-11-03] MEDS ORDERED: PT OWN MED DRAWER 7, Y5N ONE (09:03)
[2016-11-03] MEDS: amLODIPine BESYLATE 2.5 MG TABLET (FP) PO SCH ×2 (09:12→22:14)
[2016-11-03] MEDS: HEPARIN NA (PORCINE) 5,000 UNITS/ML 1ML VIAL SQ SCH ×2 (09:13→22:13)
[2016-11-03] MEDS ORDERED: guaiFENesin 200 MG/10 ML 10 ML UNIT-DOSE CUPS PO PRN (09:18)
[2016-11-03 10:25] LABS: PLATELET ESTIMATE ADEQUATE (NORMAL)
--- NOTE | 2016-11-03 11:29 | PN ---
Physical Exam: SUBJECTIVE: Patient seen and examined. She says she feels "terrible today" she just feels sick and nauseated. OBJECTIVE: Events: - Leukocytosis increased Vital Signs Period Temp Pulse Resp BP Sys/Xavier Pulse Ox Last 24 Hr 97.7 F-98.8 F 80-102 18-20 142-167/53-95 91-97 PE Gen: Neuro: alert, awake, cn 2-12intact Pulm: diffuse rhonchi, +NC no gurgling, no wheezing CV: s1 s2 rrr no mrg Abd: s nt nd + bs Ext: warm, no le edema Laboratory Results - last 24 hr 11/03/16 11/03/16 06:18 06:18 WBC 22.0 H RBC 3.75 Hgb 11.1 Hct 33.3 MCV 88.8 MCHC 33.3 RDW 19.2 H Plt Count 434 MPV 6.8 L Neutrophils % 95.0 H Lymphocytes % 1.0 L D Monocytes % 4.0 Differential Comment Manual diff done Platelet Estimate Adequate Sodium 139 Potassium 4.0 D Chloride 97 L Carbon Dioxide 29 Anion Gap 13 BUN 14 Creatinine 0.8 Creat Clearance w eGFR > 60 Random Glucose 91 Calcium 9.1 Total Bilirubin 0.5 D AST 15 D ALT 19 Alkaline Phosphatase 81 Total Protein 7.0 Albumin 3.1 L Active Medications Generic Name Dose Route Start Last Admin Trade Name Freq PRN Reason Stop Dose Admin Acetaminophen 650 mg 10/30/16 18:27 11/03/16 06:57 Tylenol - PO 650 mg Q4H PRN Administration FEVER OR PAIN Albuterol Sulfate 1 amp 10/31/16 13:33 Ventolin 0.083% Nebulizer Soln - NEB Q4H PRN SHORT OF BREATH/WHEEZING Albuterol/Ipratropium 1 amp 10/31/16 00:00 11/03/16 11:18 Duoneb - NEB 1 amp QIDR BOBBY Administration Amlodipine Besylate 2.5 mg 10/30/16 22:00 11/03/16 09:12 Norvasc - PO 2.5 mg BID BOBBY Administration Fluoxetine HCl 20 mg 10/30/16 22:00 11/02/16 22:24 Prozac - PO 20 mg HS BOBBY Administration Guaifenesin 1 tablet 11/03/16 10:00 Mucinex Dm - PO BID BOBBY Guaifenesin 10 ml 11/03/16 09:18 11/03/16 10:02 Robitussin - PO 10 ml Q6H PRN Administration COUGH Heparin Sodium (Porcine) 5,000 unit 10/30/16 22:00 11/03/16 09:13 Heparin - SQ 5,000 unit BID BOBBY Administration Piperacillin Sod/Tazobactam Sod 50 mls @ 100 mls/hr 10/31/16 02:00 11/03/16 09: 12 Zosyn 3.375gm Ivpb (Pre-Docked) IVPB 100 mls/hr Q8H-IV BOBBY Administration Protocol Methylprednisolone Sodium Succinate 40 mg 10/31/16 15:00 11/03/16 09:13 Solu-Medrol - IVPB 40 mg Q6H-IV BOBBY Administration Non-Formulary Medication 1 each 11/01/16 22:00 Lifitegrast [Xiidra] OP BID BOBBY Ondansetron HCl 4 mg 10/30/16 18:35 11/01/16 05:13 Zofran Injection IVPUSH 4 mg Q6H PRN Administration NAUSEA AND/OR VOMITING Thyroid 30 mg 11/02/16 06:00 11/03/16 06:59 [place] Thyroid - PO 30 mg BID@,18 BOBBY Administration Microbiology 10/30/16 14:53 Blood - Peripheral Venous Blood Culture - Preliminary NO GROWTH OBTAINED AFTER 72 HOURS, INCUBATION TO CONTINUE FOR 2 DAYS. 10/30/16 14:53 Blood - Peripheral Venous Blood Culture - Preliminary NO GROWTH OBTAINED AFTER 72 HOURS, INCUBATION TO CONTINUE FOR 2 DAYS. 10/31/16 14:00 Urine - Urine - Catheterized Urine Culture - Final NO GROWTH OBTAINED 10/31/16 14:00 Urine - Urine - Catheterized Legionella Antigen - Final 10/31/16 14:00 Urine - Urine - Catheterized Streptococcus pneumoniae Antigen (M - Final Assessment: 81 year old female with PMHx of pulmonary fibrosis, achalasia s/p botox treatment (October 2015), aspiration pneumonia (October 2015), Sjogrens, Raynauds, hypothyroidism, adrenal insufficiency, orthostatic hypotension, scleroderma, T12 compression fracture, and frequent falls admitted with shortness of breath, cough, nausea, gurgling. Plan: 1. Hospital acquired pneumonia - Continue Zosyn (day 5) - s/p Vancomyin on 10/30 - F/u sputum culture (uncollected) 2. Interstitial lung disease/pulmonary fibrosis - Continue IV steroids at current dose - Duonebs scheduled - Chest PT bid - Start Mucinex BID 3. UTI - Urine cx negative - Abx as above 4. Scleroderma, Sjogren syndrome, Raynaud's syndrome - Stable 5. Hypothyroidism - Continue [place] thyroid 6. Adrenal Insufficiency - Hold low dose cortef and prednisone, while on IV 7. Severe protein malnutrition - Pt prefers regular diet 8. Prophylaxis - DVT: Heparin 5,000u sq tid - PT 9. Hypokalemia - Resolved Problem List - Problems (1) Hypokalemia Code(s): E87.6 - HYPOKALEMIA (2) Pneumonia Code(s): J18.9 - PNEUMONIA, UNSPECIFIED ORGANISM (3) Shortness of breath Code(s): R06.02 - SHORTNESS OF BREATH (4) Hypothyroid Code(s): E03.9 - HYPOTHYROIDISM, UNSPECIFIED (5) Adrenal insufficiency Code(s): E27.40 - UNSPECIFIED ADRENOCORTICAL INSUFFICIENCY (6) Hypertension Code(s): I10 - ESSENTIAL (PRIMARY) HYPERTENSION (7) Interstitial lung disease Code(s): J84.9 - INTERSTITIAL PULMONARY DISEASE, UNSPECIFIED (8) Orthostatic hypotension Code(s): I95.1 - ORTHOSTATIC HYPOTENSION (9) Pulmonary fibrosis Code(s): J84.10 - PULMONARY FIBROSIS, UNSPECIFIED (10) Raynaud disease Code(s): I73.00 - RAYNAUD'S SYNDROME WITHOUT GANGRENE Qualifiers: (11) Scleroderma Code(s): M34.9 - SYSTEMIC SCLEROSIS, UNSPECIFIED (12) Sjoegren syndrome Code(s): M35.00 - SICCA SYNDROME, UNSPECIFIED Visit type - Emergency Visit Emergency Visit: Yes ED Registration Date: 10/30/16 Care time: The patient presented to the Emergency Department on the above date and was hospitalized for further evaluation of their emergent condition. - New Patient This patient is new to me today: No - Critical Care Critical Care patient: No
--- NOTE | 2016-11-03 11:54 | PN ---
Progress Note, Physician History of Present Illness: PULMONARY ALERT,LESS CONGESTED,-RESP DISTRESS - Current Medication List Current Medications: Active Medications Acetaminophen (Tylenol -) 650 mg PO Q4H PRN PRN Reason: FEVER OR PAIN Last Admin: 11/03/16 06:57 Dose: 650 mg Albuterol Sulfate (Ventolin 0.083% Nebulizer Soln -) 1 amp NEB Q4H PRN PRN Reason: SHORT OF BREATH/WHEEZING Albuterol/Ipratropium (Duoneb -) 1 amp NEB QIDR [facility] Last Admin: 11/03/16 11:18 Dose: 1 amp Amlodipine Besylate (Norvasc -) 2.5 mg PO BID [facility] Last Admin: 11/03/16 09:12 Dose: 2.5 mg Fluoxetine HCl (Prozac -) 20 mg PO HS [facility] Last Admin: 11/02/16 22:24 Dose: 20 mg Guaifenesin (Mucinex Dm -) 1 tablet PO BID [facility] Guaifenesin (Robitussin -) 10 ml PO Q6H PRN PRN Reason: COUGH Last Admin: 11/03/16 10:02 Dose: 10 ml Heparin Sodium (Porcine) (Heparin -) 5,000 unit SQ BID [facility] Last Admin: 11/03/16 09:13 Dose: 5,000 unit Piperacillin Sod/Tazobactam Sod (Zosyn 3.375gm Ivpb (Pre-Docked)) 50 mls @ 100 mls/hr IVPB Q8H-IV [facility]OBBY PRN Reason: Protocol Last Admin: 11/03/16 09:12 Dose: 100 mls/hr Methylprednisolone Sodium Succinate (Solu-Medrol -) 40 mg IVPB Q6H-IV [facility] Last Admin: 11/03/16 09:13 Dose: 40 mg Non-Formulary Medication (Lifitegrast [Xiidra]) 1 each OP BID [facility] Ondansetron HCl (Zofran Injection) 4 mg IVPUSH Q6H PRN PRN Reason: NAUSEA AND/OR VOMITING Last Admin: 11/01/16 05:13 Dose: 4 mg Thyroid ([place] Thyroid -) 30 mg PO BID@06,18 [facility] Last Admin: 11/03/16 06:59 Dose: 30 mg - Objective Vital Signs: Vital Signs Temperature 97.7 F 11/03/16 02:31 Pulse Rate 80 11/03/16 11:17 Respiratory Rate 20 11/03/16 06:00 Blood Pressure 167/95 11/03/16 06:00 O2 Sat by Pulse Oximetry (%) 97 11/03/16 11:17 Constitutional: Yes: Calm, Thin Eyes: Yes: WNL HENT: Yes: WNL Neck: Yes: WNL Cardiovascular: Yes: Regular Rate and Rhythm, S1, S2 Respiratory: Yes: Rhonchi (LESS RHONCHI BILATERALLY) Gastrointestinal: Yes: Normal Bowel Sounds, Soft Extremities: Yes: WNL Edema: No Labs: CBC, BMP 11/03/16 06:18 11/03/16 06:18 INR, PTT INR 0.91 (0.82-1.09) 10/30/16 14:53 Problem List - Problems (1) Pneumonia Code(s): J18.9 - PNEUMONIA, UNSPECIFIED ORGANISM (2) Shortness of breath Code(s): R06.02 - SHORTNESS OF BREATH (3) Weakness generalized Code(s): R53.1 - WEAKNESS (4) Hypothyroid Code(s): E03.9 - HYPOTHYROIDISM, UNSPECIFIED (5) Adrenal insufficiency Code(s): E27.40 - UNSPECIFIED ADRENOCORTICAL INSUFFICIENCY (6) Hypertension Code(s): I10 - ESSENTIAL (PRIMARY) HYPERTENSION (7) Interstitial lung disease Code(s): J84.9 - INTERSTITIAL PULMONARY DISEASE, UNSPECIFIED (8) Orthostatic hypotension Code(s): I95.1 - ORTHOSTATIC HYPOTENSION (9) Pulmonary fibrosis Code(s): J84.10 - PULMONARY FIBROSIS, UNSPECIFIED (10) Raynaud disease Code(s): I73.00 - RAYNAUD'S SYNDROME WITHOUT GANGRENE Qualifiers: (11) Scleroderma Code(s): M34.9 - SYSTEMIC SCLEROSIS, UNSPECIFIED (12) Sjoegren syndrome Code(s): M35.00 - SICCA SYNDROME, UNSPECIFIED Assessment/Plan IMP SHORTNESS OF BREATH IMPROVING ADVANCED INTERSTITIAL LUNG DISEASE /PULMONARY FIBROSIS PNEUMONIA SCLERODERMA H/O ASPIRATION PNEUMONIA ACHALASIA S/P BOTOX HTN ORTHOSTATIC HYPOTENSION ADRENAL INSUFFICIENCY PLAN ANTIBIOTICS PER ID INHALED BRONCHODILATORS NASAL O2 ' CONTINUE IV STEROIDS CHEST PT DR BRILL Problem List - Problems (1) Pneumonia Code(s): J18.9 - PNEUMONIA, UNSPECIFIED ORGANISM (2) Shortness of breath Code(s): R06.02 - SHORTNESS OF BREATH (3) Weakness generalized Code(s): R53.1 - WEAKNESS (4) Hypothyroid Code(s): E03.9 - HYPOTHYROIDISM, UNSPECIFIED (5) Adrenal insufficiency Code(s): E27.40 - UNSPECIFIED ADRENOCORTICAL INSUFFICIENCY (6) Hypertension Code(s): I10 - ESSENTIAL (PRIMARY) HYPERTENSION (7) Interstitial lung disease Code(s): J84.9 - INTERSTITIAL PULMONARY DISEASE, UNSPECIFIED (8) Orthostatic hypotension Code(s): I95.1 - ORTHOSTATIC HYPOTENSION (9) Pulmonary fibrosis Code(s): J84.10 - PULMONARY FIBROSIS, UNSPECIFIED (10) Raynaud disease Code(s): I73.00 - RAYNAUD'S SYNDROME WITHOUT GANGRENE Qualifiers: (11) Scleroderma Code(s): M34.9 - SYSTEMIC SCLEROSIS, UNSPECIFIED (12) Sjoegren syndrome Code(s): M35.00 - SICCA SYNDROME, UNSPECIFIED
[2016-11-03] MEDS: guaiFENesin/D-METHORPHAN HB 1 EACH TAB.ER.12H PO SCH ×2 (12:08→22:13)
[2016-11-03] MEDS ORDERED: traMADol HCL 50 MG TABLET PO ONE (15:37)
[2016-11-03] MEDS: LIDOCAINE 5% TOPICAL PATCH TP SCH (18:44)
--- NOTE | 2016-11-03 19:23 | PN ---
Progress Note, Physician History of Present Illness: says she does not feel much better still with cough and sob - Current Medication List Current Medications: Active Medications Acetaminophen (Tylenol -) 650 mg PO Q4H PRN PRN Reason: FEVER OR PAIN Last Admin: 11/03/16 12:08 Dose: 650 mg Albuterol Sulfate (Ventolin 0.083% Nebulizer Soln -) 1 amp NEB Q4H PRN PRN Reason: SHORT OF BREATH/WHEEZING Albuterol/Ipratropium (Duoneb -) 1 amp NEB QIDR [facility] Last Admin: 11/03/16 18:00 Dose: 1 amp Amlodipine Besylate (Norvasc -) 2.5 mg PO BID [facility] Last Admin: 11/03/16 09:12 Dose: 2.5 mg Fluoxetine HCl (Prozac -) 20 mg PO HS [facility] Last Admin: 11/02/16 22:24 Dose: 20 mg Guaifenesin (Mucinex Dm -) 1 tablet PO BID [facility] Last Admin: 11/03/16 12:08 Dose: 1 tablet Guaifenesin (Robitussin -) 10 ml PO Q6H PRN PRN Reason: COUGH Last Admin: 11/03/16 10:02 Dose: 10 ml Heparin Sodium (Porcine) (Heparin -) 5,000 unit SQ BID [facility] Last Admin: 11/03/16 09:13 Dose: 5,000 unit Piperacillin Sod/Tazobactam Sod (Zosyn 3.375gm Ivpb (Pre-Docked)) 50 mls @ 100 mls/hr IVPB Q8H-IV [facility] PRN Reason: Protocol Last Admin: 11/03/16 17:44 Dose: 100 mls/hr Lidocaine (Lidoderm Patch -) 1 patch TP DAILY [facility] Last Admin: 11/03/16 18:44 Dose: 1 patch Methylprednisolone Sodium Succinate (Solu-Medrol -) 40 mg IVPB Q6H-IV [facility] Last Admin: 11/03/16 14:49 Dose: 40 mg Non-Formulary Medication (Lifitegrast [Xiidra]) 1 each OP BID [facility] Ondansetron HCl (Zofran Injection) 4 mg IVPUSH Q6H PRN PRN Reason: NAUSEA AND/OR VOMITING Last Admin: 11/01/16 05:13 Dose: 4 mg Thyroid ([place] Thyroid -) 30 mg PO BID@06,18 [facility] Last Admin: 11/03/16 17:44 Dose: 30 mg - Objective Vital Signs: Vital Signs Temperature 97.5 F L 11/03/16 15:49 Pulse Rate 86 11/03/16 15:49 Respiratory Rate 20 11/03/16 15:49 Blood Pressure 123/78 11/03/16 15:49 O2 Sat by Pulse Oximetry (%) 97 11/03/16 11:17 Constitutional: Yes: Calm, Mild Distress Cardiovascular: Yes: Regular Rate and Rhythm Respiratory: Yes: Poor Air Entry, Rhonchi, SOB on Exertion, Other Gastrointestinal: Yes: Normal Bowel Sounds, Soft Musculoskeletal: Yes: Other Extremities: Yes: Other Neurological: Yes: Alert, Oriented Psychiatric: Yes: Alert, Oriented Labs: CBC, BMP 11/03/16 06:18 11/03/16 06:18 INR, PTT INR 0.91 (0.82-1.09) 10/30/16 14:53 Assessment/Plan Problem List - Problems (1) Pneumonia Code(s): J18.9 - PNEUMONIA, UNSPECIFIED ORGANISM (2) Shortness of breath Code(s): R06.02 - SHORTNESS OF BREATH (3) Weakness generalized Code(s): R53.1 - WEAKNESS (4) Hypothyroid Code(s): E03.9 - HYPOTHYROIDISM, UNSPECIFIED (5) Adrenal insufficiency Code(s): E27.40 - UNSPECIFIED ADRENOCORTICAL INSUFFICIENCY (6) Hypertension Code(s): I10 - ESSENTIAL (PRIMARY) HYPERTENSION (7) Interstitial lung disease Code(s): J84.9 - INTERSTITIAL PULMONARY DISEASE, UNSPECIFIED (8) Orthostatic hypotension Code(s): I95.1 - ORTHOSTATIC HYPOTENSION (9) Pulmonary fibrosis Code(s): J84.10 - PULMONARY FIBROSIS, UNSPECIFIED (10) Raynaud disease Code(s): I73.00 - RAYNAUD'S SYNDROME WITHOUT GANGRENE Qualifiers: (11) Scleroderma Code(s): M34.9 - SYSTEMIC SCLEROSIS, UNSPECIFIED (12) Sjoegren syndrome Code(s): M35.00 - SICCA SYNDROME, UNSPECIFIED plan continue current mgmt incentive rg continue to monitor
[2016-11-03] MEDS: FLUoxetine HCL 20 MG CAPSULE (FP) PO SCH (22:14)
[2016-11-04] MEDS: PIPERACILLIN/TAZOB 3.375 GM 50 ML IVPB SCH ×3 (03:42→17:37)
[2016-11-04] MEDS: methylPREDNISolone NA SUCC 40 MG/1 ML VIAL IVPB SCH ×4 (03:42→20:37)
[2016-11-04] MEDS: THYROID 30 MG TABLET PO SCH ×2 (06:16→17:37)
[2016-11-04] MEDS: ALBUTEROL SO4 2.5/IPRATROPIUM 0.5 INH SOL 3 ML VIAL.NEB. NEB SCH ×4 (06:35→19:17)
[2016-11-04] MEDS ORDERED: PT OWN MED DRAWER 7, Y5N ONE (09:26)
[2016-11-04] MEDS: HEPARIN NA (PORCINE) 5,000 UNITS/ML 1ML VIAL SQ SCH ×2 (09:28→21:40)
[2016-11-04] MEDS: LIDOCAINE 5% TOPICAL PATCH TP SCH (09:28)
[2016-11-04] MEDS: amLODIPine BESYLATE 2.5 MG TABLET (FP) PO SCH ×2 (09:29→21:40)
[2016-11-04] MEDS: guaiFENesin/D-METHORPHAN HB 1 EACH TAB.ER.12H PO SCH ×2 (09:29→21:59)
[2016-11-04] MEDS: POLYETHYLENE GLYCOL 3350 119 GM BTL PO SCH (09:29)
[2016-11-04] MEDS: ALPRAZolam 0.25 MG TABLET PO PRN (09:47)
--- NOTE | 2016-11-04 12:00 | PN ---
Progress Note, Physician History of Present Illness: pulmonary alert,nad,less congested - Current Medication List Current Medications: Active Medications Acetaminophen (Tylenol -) 650 mg PO Q4H PRN PRN Reason: FEVER OR PAIN Last Admin: 11/03/16 12:08 Dose: 650 mg Albuterol Sulfate (Ventolin 0.083% Nebulizer Soln -) 1 amp NEB Q4H PRN PRN Reason: SHORT OF BREATH/WHEEZING Albuterol/Ipratropium (Duoneb -) 1 amp NEB QIDR [facility] Last Admin: 11/04/16 11:55 Dose: 1 amp Alprazolam (Xanax -) 0.25 mg PO DAILY PRN PRN Reason: ANXIETY Last Admin: 11/04/16 09:47 Dose: 0.25 mg Amlodipine Besylate (Norvasc -) 2.5 mg PO BID [facility] Last Admin: 11/04/16 09:29 Dose: 2.5 mg Fluoxetine HCl (Prozac -) 20 mg PO HS [facility] Last Admin: 11/03/16 22:14 Dose: 20 mg Guaifenesin (Mucinex Dm -) 1 tablet PO BID [facility] Last Admin: 11/04/16 09:29 Dose: 1 tablet Guaifenesin (Robitussin -) 10 ml PO Q6H PRN PRN Reason: COUGH Last Admin: 11/03/16 10:02 Dose: 10 ml Heparin Sodium (Porcine) (Heparin -) 5,000 unit SQ BID [facility] Last Admin: 11/04/16 09:28 Dose: 5,000 unit Piperacillin Sod/Tazobactam Sod (Zosyn 3.375gm Ivpb (Pre-Docked)) 50 mls @ 100 mls/hr IVPB Q8H-IV [facility] PRN Reason: Protocol Last Admin: 11/04/16 09:48 Dose: 100 mls/hr Lidocaine (Lidoderm Patch -) 1 patch TP DAILY [facility] Last Admin: 11/04/16 09:28 Dose: 1 patch Methylprednisolone Sodium Succinate (Solu-Medrol -) 40 mg IVPB Q6H-IV [facility] Last Admin: 11/04/16 09:12 Dose: 40 mg Lifitegrast (Xiidra) 5% Eye Drops (Pt's Own) 1 each OU BID [facility] Ondansetron HCl (Zofran Injection) 4 mg IVPUSH Q6H PRN PRN Reason: NAUSEA AND/OR VOMITING Last Admin: 11/01/16 05:13 Dose: 4 mg Polyethylene Glycol (Miralax (For Daily Use) -) 17 gm PO DAILY [facility] Last Admin: 11/04/16 09:29 Dose: 17 gm Senna (Senna -) 1 tab PO HS [facility] Thyroid ([place] Thyroid -) 30 mg PO BID@06,18 [facility] Last Admin: 11/04/16 06:16 Dose: 30 mg - Objective Vital Signs: Vital Signs Temperature 97.5 F L 11/04/16 09:00 Pulse Rate 91 H 11/04/16 09:00 Respiratory Rate 22 11/04/16 09:00 Blood Pressure 150/89 11/04/16 09:00 O2 Sat by Pulse Oximetry (%) 98 11/03/16 21:00 Constitutional: Yes: Calm, Thin Eyes: Yes: WNL HENT: Yes: WNL Neck: Yes: WNL Cardiovascular: Yes: Regular Rate and Rhythm, S1, S2 Respiratory: Yes: Rhonchi (less rhonchi bilaterally) Extremities: Yes: WNL Edema: No Labs: CBC, BMP 11/03/16 06:18 11/03/16 06:18 INR, PTT INR 0.91 (0.82-1.09) 10/30/16 14:53 Problem List - Problems (1) Pneumonia Code(s): J18.9 - PNEUMONIA, UNSPECIFIED ORGANISM (2) Shortness of breath Code(s): R06.02 - SHORTNESS OF BREATH (3) Weakness generalized Code(s): R53.1 - WEAKNESS (4) Hypothyroid Code(s): E03.9 - HYPOTHYROIDISM, UNSPECIFIED (5) Adrenal insufficiency Code(s): E27.40 - UNSPECIFIED ADRENOCORTICAL INSUFFICIENCY (6) Hypertension Code(s): I10 - ESSENTIAL (PRIMARY) HYPERTENSION (7) Interstitial lung disease Code(s): J84.9 - INTERSTITIAL PULMONARY DISEASE, UNSPECIFIED (8) Orthostatic hypotension Code(s): I95.1 - ORTHOSTATIC HYPOTENSION (9) Pulmonary fibrosis Code(s): J84.10 - PULMONARY FIBROSIS, UNSPECIFIED (10) Raynaud disease Code(s): I73.00 - RAYNAUD'S SYNDROME WITHOUT GANGRENE Qualifiers: (11) Scleroderma Code(s): M34.9 - SYSTEMIC SCLEROSIS, UNSPECIFIED (12) Sjoegren syndrome Code(s): M35.00 - SICCA SYNDROME, UNSPECIFIED Assessment/Plan IMP SHORTNESS OF BREATH IMPROVING ADVANCED INTERSTITIAL LUNG DISEASE /PULMONARY FIBROSIS PNEUMONIA SCLERODERMA H/O ASPIRATION PNEUMONIA ACHALASIA S/P BOTOX HTN ORTHOSTATIC HYPOTENSION ADRENAL INSUFFICIENCY PLAN ANTIBIOTICS PER ID INHALED BRONCHODILATORS NASAL O2 ' CONTINUE IV STEROIDS WILL REDUCE TO Q8HR IN AM CHEST PT DR ALEJO Problem List - Problems (1) Pneumonia Code(s): J18.9 - PNEUMONIA, UNSPECIFIED ORGANISM (2) Shortness of breath Code(s): R06.02 - SHORTNESS OF BREATH (3) Weakness generalized Code(s): R53.1 - WEAKNESS (4) Hypothyroid Code(s): E03.9 - HYPOTHYROIDISM, UNSPECIFIED (5) Adrenal insufficiency Code(s): E27.40 - UNSPECIFIED ADRENOCORTICAL INSUFFICIENCY (6) Hypertension Code(s): I10 - ESSENTIAL (PRIMARY) HYPERTENSION (7) Interstitial lung disease Code(s): J84.9 - INTERSTITIAL PULMONARY DISEASE, UNSPECIFIED (8) Orthostatic hypotension Code(s): I95.1 - ORTHOSTATIC HYPOTENSION (9) Pulmonary fibrosis Code(s): J84.10 - PULMONARY FIBROSIS, UNSPECIFIED (10) Raynaud disease Code(s): I73.00 - RAYNAUD'S SYNDROME WITHOUT GANGRENE Qualifiers: (11) Scleroderma Code(s): M34.9 - SYSTEMIC SCLEROSIS, UNSPECIFIED (12) Sjoegren syndrome Code(s): M35.00 - SICCA SYNDROME, UNSPECIFIED
--- NOTE | 2016-11-04 12:23 | PN ---
Physical Exam: SUBJECTIVE: Patient seen and examined. She said she is feeling better, but she is anxious. She wants to sit in chair tomorrow OBJECTIVE: Vital Signs Period Temp Pulse Resp BP Sys/Xavier Pulse Ox Last 24 Hr 97.3 F-97.7 F 86-99 20-22 123-153/78-100 98 PE Gen: Thin Neuro: alert, awake, cn 2-12intact Pulm: bi basilar crackles, left clearing >R, no gurgling, no wheezing/gurgling- improved CV: s1 s2 rrr no mrg Abd: s nt nd + bs Ext: warm, no le edema Active Medications Generic Name Dose Route Start Last Admin Trade Name Freq PRN Reason Stop Dose Admin Acetaminophen 650 mg 10/30/16 18:27 11/03/16 12:08 Tylenol - PO 650 mg Q4H PRN Administration FEVER OR PAIN Albuterol Sulfate 1 amp 10/31/16 13:33 Ventolin 0.083% Nebulizer Soln - NEB Q4H PRN SHORT OF BREATH/WHEEZING Albuterol/Ipratropium 1 amp 10/31/16 00:00 11/04/16 11:55 Duoneb - NEB 1 amp QIDR [facility] Administration Alprazolam 0.25 mg 11/04/16 09:18 11/04/16 09:47 Xanax - PO 0.25 mg DAILY PRN Administration ANXIETY Amlodipine Besylate 2.5 mg 10/30/16 22:00 11/04/16 09:29 Norvasc - PO 2.5 mg BID [facility] Administration Fluoxetine HCl 20 mg 10/30/16 22:00 11/03/16 22:14 Prozac - PO 20 mg HS [facility] Administration Guaifenesin 1 tablet 11/03/16 10:00 11/04/16 09:29 Mucinex Dm - PO 1 tablet BID [facility] Administration Guaifenesin 10 ml 11/03/16 09:18 11/03/16 10:02 Robitussin - PO 10 ml Q6H PRN Administration COUGH Heparin Sodium (Porcine) 5,000 unit 10/30/16 22:00 11/04/16 09:28 Heparin - SQ 5,000 unit BID [facility] Administration Piperacillin Sod/Tazobactam Sod 50 mls @ 100 mls/hr 10/31/16 02:00 11/04/16 09: 48 Zosyn 3.375gm Ivpb (Pre-Docked) IVPB 100 mls/hr Q8H-IV [facility] Administration Protocol Lidocaine 1 patch 11/03/16 18:45 11/04/16 09:28 Lidoderm Patch - TP 1 patch DAILY [facility] Administration Methylprednisolone Sodium Succinate 40 mg 10/31/16 15:00 11/04/16 09:12 Solu-Medrol - IVPB 11/04/16 21:00 40 mg Q6H-IV [facility] Administration Methylprednisolone Sodium Succinate 40 mg 11/05/16 02:00 Solu-Medrol - IVPB Q8H-IV [facility] Lifitegrast (Xiidra) 1 each 11/01/16 22:00 5% Eye Drops (Pt's OU Own) BID [facility] Ondansetron HCl 4 mg 10/30/16 18:35 11/01/16 05:13 Zofran Injection IVPUSH 4 mg Q6H PRN Administration NAUSEA AND/OR VOMITING Polyethylene Glycol 17 gm 11/04/16 10:00 11/04/16 09:29 Miralax (For Daily Use) - PO 17 gm DAILY [facility] Administration Senna 1 tab 11/04/16 22:00 Senna - PO HS [facility] Thyroid 30 mg 11/02/16 06:00 11/04/16 06:16 [place] Thyroid - PO 30 mg BID@,18 [facility] Administration Assessment: 81 year old female with PMHx of pulmonary fibrosis, achalasia s/p botox treatment (October 2015), aspiration pneumonia (October 2015), Sjogrens, Raynauds, hypothyroidism, adrenal insufficiency, orthostatic hypotension, scleroderma, T12 compression fracture, and frequent falls admitted with shortness of breath, cough, nausea, gurgling. Plan: 1. Hospital acquired pneumonia - Continue Zosyn (day 6) - s/p Vancomyin on 10/30 2. Interstitial lung disease/pulmonary fibrosis - Taper medrol 40mg q8 tomorrow - Duonebs scheduled - Chest PT bid - Mucinex BID 3. UTI - Urine cx negative - Abx as above 4. Scleroderma, Sjogren syndrome, Raynaud's syndrome - Stable 5. Hypothyroidism - Continue [place] thyroid 6. Adrenal Insufficiency - Hold low dose cortef and prednisone, while on IV 7. Severe protein malnutrition - Pt prefers regular diet 8. Cataracts - Continue gtt both eyes (pt needs to bring in own) 9. Prophylaxis - DVT: Heparin 5,000u sq tid - PT daily Problem List - Problems (1) Hypokalemia Code(s): E87.6 - HYPOKALEMIA (2) Pneumonia Code(s): J18.9 - PNEUMONIA, UNSPECIFIED ORGANISM (3) Shortness of breath Code(s): R06.02 - SHORTNESS OF BREATH (4) Hypothyroid Code(s): E03.9 - HYPOTHYROIDISM, UNSPECIFIED (5) Adrenal insufficiency Code(s): E27.40 - UNSPECIFIED ADRENOCORTICAL INSUFFICIENCY (6) Hypertension Code(s): I10 - ESSENTIAL (PRIMARY) HYPERTENSION (7) Interstitial lung disease Code(s): J84.9 - INTERSTITIAL PULMONARY DISEASE, UNSPECIFIED (8) Orthostatic hypotension Code(s): I95.1 - ORTHOSTATIC HYPOTENSION (9) Pulmonary fibrosis Code(s): J84.10 - PULMONARY FIBROSIS, UNSPECIFIED (10) Raynaud disease Code(s): I73.00 - RAYNAUD'S SYNDROME WITHOUT GANGRENE Qualifiers: (11) Scleroderma Code(s): M34.9 - SYSTEMIC SCLEROSIS, UNSPECIFIED (12) Sjoegren syndrome Code(s): M35.00 - SICCA SYNDROME, UNSPECIFIED Visit type - Emergency Visit Emergency Visit: Yes ED Registration Date: 10/30/16 Care time: The patient presented to the Emergency Department on the above date and was hospitalized for further evaluation of their emergent condition. - New Patient This patient is new to me today: No - Critical Care Critical Care patient: No
--- NOTE | 2016-11-04 20:35 | PN ---
Progress Note, Physician History of Present Illness: feels slightly better still coughing less dyspnea - Current Medication List Current Medications: Active Medications Acetaminophen (Tylenol -) 650 mg PO Q4H PRN PRN Reason: FEVER OR PAIN Last Admin: 11/03/16 12:08 Dose: 650 mg Albuterol Sulfate (Ventolin 0.083% Nebulizer Soln -) 1 amp NEB Q4H PRN PRN Reason: SHORT OF BREATH/WHEEZING Albuterol/Ipratropium (Duoneb -) 1 amp NEB QIDR [facility] Last Admin: 11/04/16 19:17 Dose: 1 amp Alprazolam (Xanax -) 0.25 mg PO DAILY PRN PRN Reason: ANXIETY Last Admin: 11/04/16 09:47 Dose: 0.25 mg Amlodipine Besylate (Norvasc -) 2.5 mg PO BID [facility] Last Admin: 11/04/16 09:29 Dose: 2.5 mg Fluoxetine HCl (Prozac -) 20 mg PO HS [facility] Last Admin: 11/03/16 22:14 Dose: 20 mg Guaifenesin (Mucinex Dm -) 1 tablet PO BID [facility] Last Admin: 11/04/16 09:29 Dose: 1 tablet Guaifenesin (Robitussin -) 10 ml PO Q6H PRN PRN Reason: COUGH Last Admin: 11/03/16 10:02 Dose: 10 ml Heparin Sodium (Porcine) (Heparin -) 5,000 unit SQ BID [facility] Last Admin: 11/04/16 09:28 Dose: 5,000 unit Piperacillin Sod/Tazobactam Sod (Zosyn 3.375gm Ivpb (Pre-Docked)) 50 mls @ 100 mls/hr IVPB Q8H-IV [facility] PRN Reason: Protocol Last Admin: 11/04/16 17:37 Dose: 100 mls/hr Lidocaine (Lidoderm Patch -) 1 patch TP DAILY [facility] Last Admin: 11/04/16 09:28 Dose: 1 patch Methylprednisolone Sodium Succinate (Solu-Medrol -) 40 mg IVPB Q6H-IV [facility] Stop: 11/04/16 21:00 Last Admin: 11/04/16 15:07 Dose: 40 mg Methylprednisolone Sodium Succinate (Solu-Medrol -) 40 mg IVPB Q8H-IV [facility] Lifitegrast (Xiidra) 5% Eye Drops (Pt's Own) 1 each OU BID [facility] Ondansetron HCl (Zofran Injection) 4 mg IVPUSH Q6H PRN PRN Reason: NAUSEA AND/OR VOMITING Last Admin: 11/01/16 05:13 Dose: 4 mg Polyethylene Glycol (Miralax (For Daily Use) -) 17 gm PO DAILY [facility] Last Admin: 11/04/16 09:29 Dose: 17 gm Senna (Senna -) 1 tab PO HS [facility] Thyroid ([place] Thyroid -) 30 mg PO BID@06,18 [facility] Last Admin: 11/04/16 17:37 Dose: 30 mg - Objective Vital Signs: Vital Signs Temperature 97.7 F 11/04/16 18:00 Pulse Rate 93 H 11/04/16 18:00 Respiratory Rate 20 11/04/16 18:00 Blood Pressure 152/96 11/04/16 18:00 O2 Sat by Pulse Oximetry (%) 92 L 11/04/16 09:00 Constitutional: Yes: Calm, Mild Distress Cardiovascular: Yes: Regular Rate and Rhythm Respiratory: Yes: Rhonchi Gastrointestinal: Yes: Normal Bowel Sounds, Soft Neurological: Yes: Alert, Oriented Psychiatric: Yes: Alert, Oriented Labs: CBC, BMP 11/03/16 06:18 11/03/16 06:18 INR, PTT INR 0.91 (0.82-1.09) 10/30/16 14:53 Assessment/Plan Problem List - Problems (1) Pneumonia Code(s): J18.9 - PNEUMONIA, UNSPECIFIED ORGANISM (2) Shortness of breath Code(s): R06.02 - SHORTNESS OF BREATH (3) Weakness generalized Code(s): R53.1 - WEAKNESS (4) Hypothyroid Code(s): E03.9 - HYPOTHYROIDISM, UNSPECIFIED (5) Adrenal insufficiency Code(s): E27.40 - UNSPECIFIED ADRENOCORTICAL INSUFFICIENCY (6) Hypertension Code(s): I10 - ESSENTIAL (PRIMARY) HYPERTENSION (7) Interstitial lung disease Code(s): J84.9 - INTERSTITIAL PULMONARY DISEASE, UNSPECIFIED (8) Orthostatic hypotension Code(s): I95.1 - ORTHOSTATIC HYPOTENSION (9) Pulmonary fibrosis Code(s): J84.10 - PULMONARY FIBROSIS, UNSPECIFIED (10) Raynaud disease Code(s): I73.00 - RAYNAUD'S SYNDROME WITHOUT GANGRENE Qualifiers: (11) Scleroderma Code(s): M34.9 - SYSTEMIC SCLEROSIS, UNSPECIFIED (12) Sjoegren syndrome Code(s): M35.00 - SICCA SYNDROME, UNSPECIFIED plan continue current mgmt incentive rg continue to monitor rest as per primary
--- NOTE | 2016-11-04 20:36 | PN ---
Progress Note, Physician History of Present Illness: patient still producing cough says she is not doing too well daughter in room - Current Medication List Current Medications: Active Medications Acetaminophen (Tylenol -) 650 mg PO Q4H PRN PRN Reason: FEVER OR PAIN Last Admin: 11/03/16 12:08 Dose: 650 mg Albuterol Sulfate (Ventolin 0.083% Nebulizer Soln -) 1 amp NEB Q4H PRN PRN Reason: SHORT OF BREATH/WHEEZING Albuterol/Ipratropium (Duoneb -) 1 amp NEB QIDR [facility] Last Admin: 11/04/16 19:17 Dose: 1 amp Alprazolam (Xanax -) 0.25 mg PO DAILY PRN PRN Reason: ANXIETY Last Admin: 11/04/16 09:47 Dose: 0.25 mg Amlodipine Besylate (Norvasc -) 2.5 mg PO BID [facility] Last Admin: 11/04/16 09:29 Dose: 2.5 mg Fluoxetine HCl (Prozac -) 20 mg PO HS [facility] Last Admin: 11/03/16 22:14 Dose: 20 mg Guaifenesin (Mucinex Dm -) 1 tablet PO BID [facility] Last Admin: 11/04/16 09:29 Dose: 1 tablet Guaifenesin (Robitussin -) 10 ml PO Q6H PRN PRN Reason: COUGH Last Admin: 11/03/16 10:02 Dose: 10 ml Heparin Sodium (Porcine) (Heparin -) 5,000 unit SQ BID [facility] Last Admin: 11/04/16 09:28 Dose: 5,000 unit Piperacillin Sod/Tazobactam Sod (Zosyn 3.375gm Ivpb (Pre-Docked)) 50 mls @ 100 mls/hr IVPB Q8H-IV [facility] PRN Reason: Protocol Last Admin: 11/04/16 17:37 Dose: 100 mls/hr Lidocaine (Lidoderm Patch -) 1 patch TP DAILY [facility] Last Admin: 11/04/16 09:28 Dose: 1 patch Methylprednisolone Sodium Succinate (Solu-Medrol -) 40 mg IVPB Q6H-IV [facility] Stop: 11/04/16 21:00 Last Admin: 11/04/16 15:07 Dose: 40 mg Methylprednisolone Sodium Succinate (Solu-Medrol -) 40 mg IVPB Q8H-IV [facility] Lifitegrast (Xiidra) 5% Eye Drops (Pt's Own) 1 each OU BID [facility] Ondansetron HCl (Zofran Injection) 4 mg IVPUSH Q6H PRN PRN Reason: NAUSEA AND/OR VOMITING Last Admin: 11/01/16 05:13 Dose: 4 mg Polyethylene Glycol (Miralax (For Daily Use) -) 17 gm PO DAILY [facility] Last Admin: 11/04/16 09:29 Dose: 17 gm Senna (Senna -) 1 tab PO HS [facility] Thyroid ([place] Thyroid -) 30 mg PO BID@06,18 [facility] Last Admin: 11/04/16 17:37 Dose: 30 mg - Objective Vital Signs: Vital Signs Temperature 97.7 F 11/04/16 18:00 Pulse Rate 93 H 11/04/16 18:00 Respiratory Rate 20 11/04/16 18:00 Blood Pressure 152/96 11/04/16 18:00 O2 Sat by Pulse Oximetry (%) 92 L 11/04/16 09:00 Constitutional: Yes: Calm, Mild Distress Cardiovascular: Yes: Regular Rate and Rhythm Respiratory: Yes: Rhonchi, Wheezes, Other Gastrointestinal: Yes: Normal Bowel Sounds, Soft Musculoskeletal: Yes: Other Extremities: Yes: Other Neurological: Yes: Alert, Oriented Psychiatric: Yes: Alert, Oriented Labs: CBC, BMP 11/03/16 06:18 11/03/16 06:18 INR, PTT INR 0.91 (0.82-1.09) 10/30/16 14:53 Assessment/Plan Problem List - Problems (1) Pneumonia Code(s): J18.9 - PNEUMONIA, UNSPECIFIED ORGANISM (2) Shortness of breath Code(s): R06.02 - SHORTNESS OF BREATH (3) Weakness generalized Code(s): R53.1 - WEAKNESS (4) Hypothyroid Code(s): E03.9 - HYPOTHYROIDISM, UNSPECIFIED (5) Adrenal insufficiency Code(s): E27.40 - UNSPECIFIED ADRENOCORTICAL INSUFFICIENCY (6) Hypertension Code(s): I10 - ESSENTIAL (PRIMARY) HYPERTENSION (7) Interstitial lung disease Code(s): J84.9 - INTERSTITIAL PULMONARY DISEASE, UNSPECIFIED (8) Orthostatic hypotension Code(s): I95.1 - ORTHOSTATIC HYPOTENSION (9) Pulmonary fibrosis Code(s): J84.10 - PULMONARY FIBROSIS, UNSPECIFIED (10) Raynaud disease Code(s): I73.00 - RAYNAUD'S SYNDROME WITHOUT GANGRENE Qualifiers: (11) Scleroderma Code(s): M34.9 - SYSTEMIC SCLEROSIS, UNSPECIFIED (12) Sjoegren syndrome Code(s): M35.00 - SICCA SYNDROME, UNSPECIFIED plan continue abx continue chest pt as per pulmonary incentive rg rest as per primary
[2016-11-04] MEDS: FLUoxetine HCL 20 MG CAPSULE (FP) PO SCH (21:40)
[2016-11-04] MEDS: SENNOSIDES 8.6MG TABLET (FP) PO SCH (21:40)
[2016-11-05] MEDS: ALBUTEROL SO4 2.5/IPRATROPIUM 0.5 INH SOL 3 ML VIAL.NEB. NEB SCH ×5 (00:05→23:39)
[2016-11-05] MEDS: methylPREDNISolone NA SUCC 40 MG/1 ML VIAL IVPB SCH ×3 (01:19→18:04)
[2016-11-05] MEDS: PIPERACILLIN/TAZOB 3.375 GM 50 ML IVPB SCH ×3 (01:19→18:03)
[2016-11-05] MEDS ORDERED: amLODIPine BESYLATE 2.5 MG TABLET (FP) PO ONE (05:12)
[2016-11-05] MEDS ORDERED: PT OWN MED DRAWER 7, Y5N ONE ×3 (05:19→21:59)
[2016-11-05] MEDS: THYROID 30 MG TABLET PO SCH ×2 (05:21→18:04)
[2016-11-05 08:12] LABS: MCH 28.8 pg (25.7-33.7); MCHC 32.5 g/dl (32.0-36.0); MEAN CELL VOLUME 88.5 fl (80-96); PLATELET COUNT 366 K/MM3 (134-434); RDW 19.3 % (11.6-15.6)
[2016-11-05 08:56] LABS: COCKROFT - GAULT 56.865; CREATININE 0.6 mg/dL (0.55-1.02)
[2016-11-05 08:57] LABS: CALCIUM 8.8 mg/dL (8.5-10.1)
[2016-11-05] MEDS: amLODIPine BESYLATE 2.5 MG TABLET (FP) PO SCH ×2 (09:19→22:50)
[2016-11-05] MEDS: guaiFENesin/D-METHORPHAN HB 1 EACH TAB.ER.12H PO SCH ×2 (09:20→22:18)
[2016-11-05] MEDS: LIDOCAINE 5% TOPICAL PATCH TP SCH (09:21)
[2016-11-05] MEDS: HEPARIN NA (PORCINE) 5,000 UNITS/ML 1ML VIAL SQ SCH ×2 (09:21→22:18)
[2016-11-05] MEDS: POLYETHYLENE GLYCOL 3350 119 GM BTL PO SCH (09:22)
[2016-11-05] MEDS: ALPRAZolam 0.25 MG TABLET PO PRN (09:36)
--- NOTE | 2016-11-05 11:33 | PN ---
Progress Note, Physician History of Present Illness: pulmonary alert,comfortable,less congested - Current Medication List Current Medications: Active Medications Acetaminophen (Tylenol -) 650 mg PO Q4H PRN PRN Reason: FEVER OR PAIN Last Admin: 11/03/16 12:08 Dose: 650 mg Albuterol Sulfate (Ventolin 0.083% Nebulizer Soln -) 1 amp NEB Q4H PRN PRN Reason: SHORT OF BREATH/WHEEZING Albuterol/Ipratropium (Duoneb -) 1 amp NEB QIDR [facility] Last Admin: 11/05/16 07:05 Dose: 1 amp Alprazolam (Xanax -) 0.25 mg PO DAILY PRN PRN Reason: ANXIETY Last Admin: 11/05/16 09:36 Dose: 0.25 mg Amlodipine Besylate (Norvasc -) 2.5 mg PO BID [facility] Last Admin: 11/05/16 09:19 Dose: 2.5 mg Fluoxetine HCl (Prozac -) 20 mg PO HS [facility] Last Admin: 11/04/16 21:40 Dose: 20 mg Guaifenesin (Mucinex Dm -) 1 tablet PO BID [facility] Last Admin: 11/05/16 09:20 Dose: 1 tablet Guaifenesin (Robitussin -) 10 ml PO Q6H PRN PRN Reason: COUGH Last Admin: 11/03/16 10:02 Dose: 10 ml Heparin Sodium (Porcine) (Heparin -) 5,000 unit SQ BID [facility] Last Admin: 11/05/16 09:21 Dose: 5,000 unit Piperacillin Sod/Tazobactam Sod (Zosyn 3.375gm Ivpb (Pre-Docked)) 50 mls @ 100 mls/hr IVPB Q8H-IV [facility] PRN Reason: Protocol Last Admin: 11/05/16 09:19 Dose: 100 mls/hr Lidocaine (Lidoderm Patch -) 1 patch TP DAILY [facility] Last Admin: 11/05/16 09:21 Dose: 1 patch Methylprednisolone Sodium Succinate (Solu-Medrol -) 40 mg IVPB Q8H-IV [facility] Last Admin: 11/05/16 09:19 Dose: 40 mg Lifitegrast (Xiidra) 5% Eye Drops (Pt's Own) 1 each OU BID [facility] Ondansetron HCl (Zofran Injection) 4 mg IVPUSH Q6H PRN PRN Reason: NAUSEA AND/OR VOMITING Last Admin: 11/01/16 05:13 Dose: 4 mg Polyethylene Glycol (Miralax (For Daily Use) -) 17 gm PO DAILY [facility] Last Admin: 11/05/16 09:22 Dose: 17 gm Senna (Senna -) 1 tab PO HS [facility] Last Admin: 11/04/16 21:40 Dose: 1 tab Thyroid ([place] Thyroid -) 30 mg PO BID@06,18 [facility] Last Admin: 11/05/16 05:21 Dose: 30 mg - Objective Vital Signs: Vital Signs Temperature 98 F 11/05/16 05:15 Pulse Rate 88 11/05/16 06:41 Respiratory Rate 20 11/05/16 06:41 Blood Pressure 181/97 11/05/16 06:41 O2 Sat by Pulse Oximetry (%) 98 11/04/16 21:00 Constitutional: Yes: Calm, Thin Eyes: Yes: WNL HENT: Yes: WNL Neck: Yes: WNL Cardiovascular: Yes: Regular Rate and Rhythm, S1, S2 Respiratory: Yes: Rhonchi (tye rhonchi) Gastrointestinal: Yes: Normal Bowel Sounds, Soft Extremities: Yes: WNL Edema: No Labs: CBC, BMP 11/05/16 05:40 11/05/16 05:40 INR, PTT INR 0.91 (0.82-1.09) 10/30/16 14:53 Problem List - Problems (1) Pneumonia Code(s): J18.9 - PNEUMONIA, UNSPECIFIED ORGANISM (2) Shortness of breath Code(s): R06.02 - SHORTNESS OF BREATH (3) Weakness generalized Code(s): R53.1 - WEAKNESS (4) Hypothyroid Code(s): E03.9 - HYPOTHYROIDISM, UNSPECIFIED (5) Adrenal insufficiency Code(s): E27.40 - UNSPECIFIED ADRENOCORTICAL INSUFFICIENCY (6) Hypertension Code(s): I10 - ESSENTIAL (PRIMARY) HYPERTENSION (7) Interstitial lung disease Code(s): J84.9 - INTERSTITIAL PULMONARY DISEASE, UNSPECIFIED (8) Orthostatic hypotension Code(s): I95.1 - ORTHOSTATIC HYPOTENSION (9) Pulmonary fibrosis Code(s): J84.10 - PULMONARY FIBROSIS, UNSPECIFIED (10) Raynaud disease Code(s): I73.00 - RAYNAUD'S SYNDROME WITHOUT GANGRENE Qualifiers: (11) Scleroderma Code(s): M34.9 - SYSTEMIC SCLEROSIS, UNSPECIFIED (12) Sjoegren syndrome Code(s): M35.00 - SICCA SYNDROME, UNSPECIFIED Assessment/Plan IMP SHORTNESS OF BREATH IMPROVING ADVANCED INTERSTITIAL LUNG DISEASE /PULMONARY FIBROSIS PNEUMONIA SCLERODERMA H/O ASPIRATION PNEUMONIA ACHALASIA S/P BOTOX HTN ORTHOSTATIC HYPOTENSION ADRENAL INSUFFICIENCY PLAN ANTIBIOTICS PER ID INHALED BRONCHODILATORS NASAL O2 ' IV STEROIDS CHEST PT OOB -CHAIR PT EVAL DR ALEJO Problem List - Problems (1) Pneumonia Code(s): J18.9 - PNEUMONIA, UNSPECIFIED ORGANISM (2) Shortness of breath Code(s): R06.02 - SHORTNESS OF BREATH (3) Weakness generalized Code(s): R53.1 - WEAKNESS (4) Hypothyroid Code(s): E03.9 - HYPOTHYROIDISM, UNSPECIFIED (5) Adrenal insufficiency Code(s): E27.40 - UNSPECIFIED ADRENOCORTICAL INSUFFICIENCY (6) Hypertension Code(s): I10 - ESSENTIAL (PRIMARY) HYPERTENSION (7) Interstitial lung disease Code(s): J84.9 - INTERSTITIAL PULMONARY DISEASE, UNSPECIFIED (8) Orthostatic hypotension Code(s): I95.1 - ORTHOSTATIC HYPOTENSION (9) Pulmonary fibrosis Code(s): J84.10 - PULMONARY FIBROSIS, UNSPECIFIED (10) Raynaud disease Code(s): I73.00 - RAYNAUD'S SYNDROME WITHOUT GANGRENE Qualifiers: (11) Scleroderma Code(s): M34.9 - SYSTEMIC SCLEROSIS, UNSPECIFIED (12) Sjoegren syndrome Code(s): M35.00 - SICCA SYNDROME, UNSPECIFIED
[2016-11-05 11:42] LABS: METAMYELOCYTE 1 % (0-2); PLATELET ESTIMATE ADEQUATE (NORMAL)
--- NOTE | 2016-11-05 12:43 | PN ---
Progress Note, Physician History of Present Illness: says during the day she is starting to feel better during the night still with cough - Current Medication List Current Medications: Active Medications Acetaminophen (Tylenol -) 650 mg PO Q4H PRN PRN Reason: FEVER OR PAIN Last Admin: 11/03/16 12:08 Dose: 650 mg Albuterol Sulfate (Ventolin 0.083% Nebulizer Soln -) 1 amp NEB Q4H PRN PRN Reason: SHORT OF BREATH/WHEEZING Albuterol/Ipratropium (Duoneb -) 1 amp NEB QIDR [facility] Last Admin: 11/05/16 11:43 Dose: 1 amp Alprazolam (Xanax -) 0.25 mg PO DAILY PRN PRN Reason: ANXIETY Last Admin: 11/05/16 09:36 Dose: 0.25 mg Amlodipine Besylate (Norvasc -) 2.5 mg PO BID [facility] Last Admin: 11/05/16 09:19 Dose: 2.5 mg Fluoxetine HCl (Prozac -) 20 mg PO HS [facility] Last Admin: 11/04/16 21:40 Dose: 20 mg Guaifenesin (Mucinex Dm -) 1 tablet PO BID [facility] Last Admin: 11/05/16 09:20 Dose: 1 tablet Guaifenesin (Robitussin -) 10 ml PO Q6H PRN PRN Reason: COUGH Last Admin: 11/03/16 10:02 Dose: 10 ml Heparin Sodium (Porcine) (Heparin -) 5,000 unit SQ BID [facility] Last Admin: 11/05/16 09:21 Dose: 5,000 unit Piperacillin Sod/Tazobactam Sod (Zosyn 3.375gm Ivpb (Pre-Docked)) 50 mls @ 100 mls/hr IVPB Q8H-IV [facility] PRN Reason: Protocol Last Admin: 11/05/16 09:19 Dose: 100 mls/hr Lidocaine (Lidoderm Patch -) 1 patch TP DAILY [facility] Last Admin: 11/05/16 09:21 Dose: 1 patch Methylprednisolone Sodium Succinate (Solu-Medrol -) 40 mg IVPB Q8H-IV [facility] Last Admin: 11/05/16 09:19 Dose: 40 mg Lifitegrast (Xiidra) 5% Eye Drops (Pt's Own) 1 each OU BID [facility] Ondansetron HCl (Zofran Injection) 4 mg IVPUSH Q6H PRN PRN Reason: NAUSEA AND/OR VOMITING Last Admin: 11/01/16 05:13 Dose: 4 mg Polyethylene Glycol (Miralax (For Daily Use) -) 17 gm PO DAILY [facility] Last Admin: 11/05/16 09:22 Dose: 17 gm Senna (Senna -) 1 tab PO HS [facility] Last Admin: 11/04/16 21:40 Dose: 1 tab Thyroid ([place] Thyroid -) 30 mg PO BID@18 [facility] Last Admin: 11/05/16 05:21 Dose: 30 mg - Objective Vital Signs: Vital Signs Temperature 97.9 F 11/05/16 10:00 Pulse Rate 98 H 11/05/16 10:00 Respiratory Rate 22 11/05/16 10:00 Blood Pressure 139/80 11/05/16 10:00 O2 Sat by Pulse Oximetry (%) 98 11/05/16 09:00 Constitutional: Yes: Calm, Mild Distress Cardiovascular: Yes: Regular Rate and Rhythm Respiratory: Yes: Rhonchi, Other Gastrointestinal: Yes: Normal Bowel Sounds, Soft Musculoskeletal: Yes: WNL Extremities: Yes: WNL Neurological: Yes: Alert, Oriented Psychiatric: Yes: Alert, Oriented Labs: CBC, BMP 11/05/16 05:40 11/05/16 05:40 INR, PTT INR 0.91 (0.82-1.09) 10/30/16 14:53 Assessment/Plan Problem List - Problems (1) Pneumonia Code(s): J18.9 - PNEUMONIA, UNSPECIFIED ORGANISM (2) Shortness of breath Code(s): R06.02 - SHORTNESS OF BREATH (3) Weakness generalized Code(s): R53.1 - WEAKNESS (4) Hypothyroid Code(s): E03.9 - HYPOTHYROIDISM, UNSPECIFIED (5) Adrenal insufficiency Code(s): E27.40 - UNSPECIFIED ADRENOCORTICAL INSUFFICIENCY (6) Hypertension Code(s): I10 - ESSENTIAL (PRIMARY) HYPERTENSION (7) Interstitial lung disease Code(s): J84.9 - INTERSTITIAL PULMONARY DISEASE, UNSPECIFIED (8) Orthostatic hypotension Code(s): I95.1 - ORTHOSTATIC HYPOTENSION (9) Pulmonary fibrosis Code(s): J84.10 - PULMONARY FIBROSIS, UNSPECIFIED (10) Raynaud disease Code(s): I73.00 - RAYNAUD'S SYNDROME WITHOUT GANGRENE Qualifiers: (11) Scleroderma Code(s): M34.9 - SYSTEMIC SCLEROSIS, UNSPECIFIED (12) Sjoegren syndrome Code(s): M35.00 - SICCA SYNDROME, UNSPECIFIED plan chest pt continue abx for now cough decreasing will monitor
--- NOTE | 2016-11-05 16:21 | PN ---
Physical Exam: SUBJECTIVE: Patient seen and examined. She has no acute complaints. She walked with PT. Still with cough. OBJECTIVE: Vital Signs Period Temp Pulse Resp BP Sys/Xavier Pulse Ox Last 24 Hr 97.7 F-98.5 F 88-98 20-22 124-185/69-101 98-98 PE Gen: Thin Neuro: alert, awake, cn 2-12intact Pulm: diffuse rhonchi , + wet cough +NC CV: s1 s2 rrr no mrg Abd: s nt nd + bs Ext: warm, no le edema Laboratory Results - last 24 hr 10/30/16 11/05/16 11/05/16 21:40 05:40 05:40 WBC 20.0 H RBC 3.85 Hgb 11.1 Hct 34.1 MCV 88.5 MCHC 32.5 RDW 19.3 H Plt Count 366 MPV 7.0 L Neutrophils % 92.0 H Lymphocytes % 2.0 L D Monocytes % 5.0 Metamyelocytes 1 D Differential Comment Manual diff done Platelet Estimate Adequate Sodium 138 Potassium 3.5 Chloride 94 L Carbon Dioxide 31 Anion Gap 13 BUN 23 H D Creatinine 0.6 D Random Glucose 96 Calcium 8.8 Influenza Type A Ab 1:128 H Influenza Type B Ab 1:8 H Active Medications Generic Name Dose Route Start Last Admin Trade Name Freq PRN Reason Stop Dose Admin Acetaminophen 650 mg 10/30/16 18:27 11/03/16 12:08 Tylenol - PO 650 mg Q4H PRN Administration FEVER OR PAIN Albuterol Sulfate 1 amp 10/31/16 13:33 Ventolin 0.083% Nebulizer Soln - NEB Q4H PRN SHORT OF BREATH/WHEEZING Albuterol/Ipratropium 1 amp 10/31/16 00:00 11/05/16 11:43 Duoneb - NEB 1 amp QIDR [facility] Administration Alprazolam 0.25 mg 11/04/16 09:18 11/05/16 09:36 Xanax - PO 0.25 mg DAILY PRN Administration ANXIETY Amlodipine Besylate 2.5 mg 10/30/16 22:00 11/05/16 09:19 Norvasc - PO 2.5 mg BID [facility] Administration Fluoxetine HCl 20 mg 10/30/16 22:00 11/04/16 21:40 Prozac - PO 20 mg HS [facility] Administration Guaifenesin 1 tablet 11/03/16 10:00 11/05/16 09:20 Mucinex Dm - PO 1 tablet BID [facility] Administration Guaifenesin 10 ml 11/03/16 09:18 11/03/16 10:02 Robitussin - PO 10 ml Q6H PRN Administration COUGH Heparin Sodium (Porcine) 5,000 unit 10/30/16 22:00 11/05/16 09:21 Heparin - SQ 5,000 unit BID [facility] Administration Piperacillin Sod/Tazobactam Sod 50 mls @ 100 mls/hr 10/31/16 02:00 11/05/16 09: 19 Zosyn 3.375gm Ivpb (Pre-Docked) IVPB 100 mls/hr Q8H-IV [facility] Administration Protocol Lidocaine 1 patch 11/03/16 18:45 11/05/16 09:21 Lidoderm Patch - TP 1 patch DAILY [facility] Administration Methylprednisolone Sodium Succinate 40 mg 11/05/16 02:00 11/05/16 09:19 Solu-Medrol - IVPB 40 mg Q8H-IV [facility] Administration Lifitegrast (Xiidra) 1 each 11/01/16 22:00 5% Eye Drops (Pt's OU Own) BID [facility] Ondansetron HCl 4 mg 10/30/16 18:35 11/01/16 05:13 Zofran Injection IVPUSH 4 mg Q6H PRN Administration NAUSEA AND/OR VOMITING Polyethylene Glycol 17 gm 11/04/16 10:00 11/05/16 09:22 Miralax (For Daily Use) - PO 17 gm DAILY [facility] Administration Senna 1 tab 11/04/16 22:00 11/04/16 21:40 Senna - PO 1 tab HS [facility] Administration Thyroid 30 mg 11/02/16 06:00 11/05/16 05:21 [place] Thyroid - PO 30 mg BID@06,18 [facility] Administration Assessment: 81 year old female with PMHx of pulmonary fibrosis, achalasia s/p botox treatment (October 2015), aspiration pneumonia (October 2015), Sjogrens, Raynauds, hypothyroidism, adrenal insufficiency, orthostatic hypotension, scleroderma, T12 compression fracture, and frequent falls admitted with shortness of breath, cough, nausea, gurgling. Plan: 1. Hospital acquired pneumonia - Continue Zosyn (day 7) - s/p Vancomyin on 10/30 2. Interstitial lung disease/pulmonary fibrosis - Solumedrol 40mg q8 - Duonebs scheduled - Chest PT bid - Mucinex BID 3. UTI - Urine cx negative - Abx as above 4. Scleroderma, Sjogren syndrome, Raynaud's syndrome - Stable 5. Hypothyroidism - Continue [place] thyroid 6. Adrenal Insufficiency - Hold low dose cortef and prednisone, while on IV 7. Severe protein malnutrition - Pt prefers regular diet 8. Cataracts - Continue gtt both eyes (pt needs to bring in own) 9. Prophylaxis - DVT: Heparin 5,000u sq tid - PT daily Problem List - Problems (1) Hypokalemia Code(s): E87.6 - HYPOKALEMIA (2) Pneumonia Code(s): J18.9 - PNEUMONIA, UNSPECIFIED ORGANISM (3) Shortness of breath Code(s): R06.02 - SHORTNESS OF BREATH (4) Hypothyroid Code(s): E03.9 - HYPOTHYROIDISM, UNSPECIFIED (5) Adrenal insufficiency Code(s): E27.40 - UNSPECIFIED ADRENOCORTICAL INSUFFICIENCY (6) Hypertension Code(s): I10 - ESSENTIAL (PRIMARY) HYPERTENSION (7) Interstitial lung disease Code(s): J84.9 - INTERSTITIAL PULMONARY DISEASE, UNSPECIFIED (8) Orthostatic hypotension Code(s): I95.1 - ORTHOSTATIC HYPOTENSION (9) Pulmonary fibrosis Code(s): J84.10 - PULMONARY FIBROSIS, UNSPECIFIED (10) Raynaud disease Code(s): I73.00 - RAYNAUD'S SYNDROME WITHOUT GANGRENE Qualifiers: (11) Scleroderma Code(s): M34.9 - SYSTEMIC SCLEROSIS, UNSPECIFIED (12) Sjoegren syndrome Code(s): M35.00 - SICCA SYNDROME, UNSPECIFIED Visit type - Emergency Visit Emergency Visit: Yes ED Registration Date: 10/30/16 Care time: The patient presented to the Emergency Department on the above date and was hospitalized for further evaluation of their emergent condition. - New Patient This patient is new to me today: No - Critical Care Critical Care patient: No
[2016-11-05] MEDS: SENNOSIDES 8.6MG TABLET (FP) PO SCH (22:51)
[2016-11-05] MEDS: FLUoxetine HCL 20 MG CAPSULE (FP) PO SCH (22:51)
[2016-11-05] MEDS: EYE OU SCH (22:53)
[2016-11-05] MEDS: LIFITEGRAST 5% OU SCH (22:53)
[2016-11-06] MEDS: PIPERACILLIN/TAZOB 3.375 GM 50 ML IVPB SCH ×3 (02:45→17:09)
[2016-11-06] MEDS: methylPREDNISolone NA SUCC 40 MG/1 ML VIAL IVPB SCH ×3 (03:00→17:09)
[2016-11-06] MEDS: THYROID 30 MG TABLET PO SCH ×2 (06:15→17:09)
[2016-11-06] MEDS: amLODIPine BESYLATE 2.5 MG TABLET (FP) PO SCH ×3 (06:15→21:21)
[2016-11-06] MEDS: ALBUTEROL SO4 2.5/IPRATROPIUM 0.5 INH SOL 3 ML VIAL.NEB. NEB SCH ×5 (07:03→23:25)
[2016-11-06] MEDS: AMINO ACIDS/PROTEIN HYDROLYS 30 ML LIQUID.PKT PO SCH ×2 (08:45→17:09)
--- NOTE | 2016-11-06 09:03 | PN ---
Progress Note (short form) - Note Progress Note: Subjective: The patient was seen and examined at the bedside, she reports feeling better today. Current Medications Generic Name Dose Route Start Last Admin Trade Name Freq PRN Reason Stop Dose Admin Acetaminophen 650 mg 10/30/16 18:27 11/03/16 12:08 Tylenol - PO 650 mg Q4H PRN Administration FEVER OR PAIN Albuterol Sulfate 1 amp 10/31/16 13:33 Ventolin 0.083% Nebulizer Soln - NEB Q4H PRN SHORT OF BREATH/WHEEZING Albuterol/Ipratropium 1 amp 10/31/16 00:00 11/06/16 07:03 Duoneb - NEB 1 amp QIDR [facility] Administration Alprazolam 0.25 mg 11/04/16 09:18 11/05/16 09:36 Xanax - PO 0.25 mg DAILY PRN Administration ANXIETY Amino Acids 30 ml 11/06/16 08:00 11/06/16 08:45 Prosource No Carb Liquid Pkt PO 30 ml BID@0800,1730 [facility] Administration Amlodipine Besylate 2.5 mg 10/30/16 22:00 11/06/16 06:15 Norvasc - PO 2.5 mg BID [facility] Administration Fluoxetine HCl 20 mg 10/30/16 22:00 11/05/16 22:51 Prozac - PO 20 mg HS [facility] Administration Guaifenesin 1 tablet 11/03/16 10:00 11/05/16 22:18 Mucinex Dm - PO 1 tablet BID [facility] Administration Guaifenesin 10 ml 11/03/16 09:18 11/03/16 10:02 Robitussin - PO 10 ml Q6H PRN Administration COUGH Heparin Sodium (Porcine) 5,000 unit 10/30/16 22:00 11/05/16 22:18 Heparin - SQ 5,000 unit BID [facility] Administration Piperacillin Sod/Tazobactam Sod 50 mls @ 100 mls/hr 10/31/16 02:00 11/06/16 02: 45 Zosyn 3.375gm Ivpb (Pre-Docked) IVPB 100 mls/hr Q8H-IV [facility] Administration Protocol Lidocaine 1 patch 11/03/16 18:45 11/05/16 09:21 Lidoderm Patch - TP 1 patch DAILY [facility] Administration Methylprednisolone Sodium Succinate 40 mg 11/05/16 02:00 11/06/16 03:00 Solu-Medrol - IVPB 40 mg Q8H-IV [facility] Administration Lifitegrast (Xiidra) 1 each 11/05/16 22:00 11/05/16 22:53 5% Eye Drops (Pt's OU 1 each Own) BID [facility] Administration Ondansetron HCl 4 mg 10/30/16 18:35 11/01/16 05:13 Zofran Injection IVPUSH 4 mg Q6H PRN Administration NAUSEA AND/OR VOMITING Polyethylene Glycol 17 gm 11/04/16 10:00 11/05/16 09:22 Miralax (For Daily Use) - PO 17 gm DAILY [facility] Administration Senna 1 tab 11/04/16 22:00 11/05/16 22:51 Senna - PO 1 tab HS [facility] Administration Thyroid 30 mg 11/02/16 06:00 11/06/16 06:15 [place] Thyroid - PO 30 mg BID@,18 [facility] Administration Objective: Vital Signs Period Temp Pulse Resp BP Sys/Xavier Pulse Ox Last 24 Hr 97.8 F-98.7 F 80-98 18-22 128-160/78-90 94 Physical Exam: General: NAD, A&Ox3 Lungs: B/l rhonchi, no wheezing noted Heart: RRR, S1S2 Abd: Soft, non-tender, non-distended. Normoactive bowel sounds Ext: Warm, well-perfused. 2+ DP/PT bilaterally Neuro: CN 2-12 intact CBCD WBC 20.0 K/mm3 (4.0-10.0) H 11/05/16 05:40 RBC 3.85 M/mm3 (3.60-5.2) 11/05/16 05:40 Hgb 11.1 GM/dL (10.7-15.3) 11/05/16 05:40 Hct 34.1 % (32.4-45.2) 11/05/16 05:40 MCV 88.5 fl (80-96) 11/05/16 05:40 MCHC 32.5 g/dl (32.0-36.0) 11/05/16 05:40 RDW 19.3 % (11.6-15.6) H 11/05/16 05:40 Plt Count 366 K/MM3 (134-434) 11/05/16 05:40 MPV 7.0 fl (7.5-11.1) L 11/05/16 05:40 CMP Sodium 138 mmol/L (136-145) 11/05/16 05:40 Potassium 3.5 mmol/L (3.5-5.1) 11/05/16 05:40 Chloride 94 mmol/L (98-107) L 11/05/16 05:40 Carbon Dioxide 31 mmol/L (21-32) 11/05/16 05:40 Anion Gap 13 (8-16) 11/05/16 05:40 BUN 23 mg/dL (7-18) H D 11/05/16 05:40 Creatinine 0.6 mg/dL (0.55-1.02) D 11/05/16 05:40 Creat Clearance w eGFR > 60 (>60) 11/03/16 06:18 Random Glucose 96 mg/dL (74-106) 11/05/16 05:40 Calcium 8.8 mg/dL (8.5-10.1) 11/05/16 05:40 Total Bilirubin 0.5 mg/dL (0.2-1.0) D 11/03/16 06:18 AST 15 U/L (15-37) D 11/03/16 06:18 ALT 19 U/L (12-78) 11/03/16 06:18 Alkaline Phosphatase 81 U/L (45-117) 11/03/16 06:18 Total Protein 7.0 g/dl (6.4-8.2) 11/03/16 06:18 Albumin 3.1 g/dl (3.4-5.0) L 11/03/16 06:18 CARDIAC ENZYMES Creatine Kinase 74 IU/L (26-192) 10/30/16 14:53 Troponin I < 0.02 ng/ml (0.00-0.05) 10/30/16 14:53 Microbiology 10/30/16 14:53 Blood - Peripheral Venous Blood Culture - Final NO GROWTH AFTER 5 DAYS INCUBATION 10/30/16 14:53 Blood - Peripheral Venous Blood Culture - Final NO GROWTH AFTER 5 DAYS INCUBATION 10/31/16 14:00 Urine - Urine - Catheterized Urine Culture - Final NO GROWTH OBTAINED 10/31/16 14:00 Urine - Urine - Catheterized Legionella Antigen - Final 10/31/16 14:00 Urine - Urine - Catheterized Streptococcus pneumoniae Antigen (M - Final Assessment: This is an 81 year old female with PMHx of pulmonary fibrosis, achalasia s/p botox treatment (October 2015), aspiration pneumonia (October 2015), Sjogrens, Raynauds, hypothyroidism, adrenal insufficiency, orthostatic hypotension, scleroderma, T12 compression fracture, and frequent falls who presented to the ED with shortness of breath, cough, nausea, gurgling. Plan: 1) ID: Hospital acquired pneumonia - Continue Zosyn (10/30- ) - Received dose of Vancomyin on 10/30 - Appreciate ID consult UTI - Urine culture negative - Abx as above 2) Pulmonary: Interstitial lung disease/pulmonary fibrosis - Continue Solumedrol 40mg q8h - Duonebs scheduled - Chest PT bid - O2 via nc prn (patient is not on home O2, will need pre/post prior to discharge) - Appreciate pulmonary consult 3) Scleroderma, Sjogren syndrome, Raynaud's syndrome - Stable 4) Endocrine: Hypothyroidism - Continue [place] thyroid 5) Adrenal Insufficiency - Hold low dose cortef and prednisone, while on IV 6) F/E/N: - Regular diet - Per dietary, will consult for swallow evaluation - Monitor electrolytes - Severe protein malnutrition - Start Prosource 7) Prophylaxis: - Heparin 5,000u sq bid - PT 8) Dispo: - Requires continued inpatient care CODE STATUS: FULL CODE Visit type - Emergency Visit Emergency Visit: Yes ED Registration Date: 10/30/16 Care time: The patient presented to the Emergency Department on the above date and was hospitalized for further evaluation of their emergent condition. - New Patient This patient is new to me today: No - Critical Care Critical Care patient: No
[2016-11-06] MEDS: LIDOCAINE 5% TOPICAL PATCH TP SCH (09:31)
[2016-11-06] MEDS: HEPARIN NA (PORCINE) 5,000 UNITS/ML 1ML VIAL SQ SCH ×2 (09:32→21:18)
[2016-11-06] MEDS: POLYETHYLENE GLYCOL 3350 119 GM BTL PO SCH (09:32)
[2016-11-06] MEDS: LIFITEGRAST 5% OU SCH ×2 (09:36→21:18)
[2016-11-06] MEDS: EYE OU SCH ×2 (09:36→21:18)
[2016-11-06] MEDS: ALPRAZolam 0.25 MG TABLET PO PRN (09:44)
--- NOTE | 2016-11-06 10:51 | PN ---
Progress Note, Physician History of Present Illness: pulmnonary alert,feeling better,less congested - Current Medication List Current Medications: Active Medications Acetaminophen (Tylenol -) 650 mg PO Q4H PRN PRN Reason: FEVER OR PAIN Last Admin: 11/03/16 12:08 Dose: 650 mg Albuterol Sulfate (Ventolin 0.083% Nebulizer Soln -) 1 amp NEB Q4H PRN PRN Reason: SHORT OF BREATH/WHEEZING Albuterol/Ipratropium (Duoneb -) 1 amp NEB QIDR [facility] Last Admin: 11/06/16 07:03 Dose: 1 amp Alprazolam (Xanax -) 0.25 mg PO DAILY PRN PRN Reason: ANXIETY Last Admin: 11/06/16 09:44 Dose: 0.25 mg Amino Acids (Prosource No Carb Liquid Pkt) 30 ml PO BID@0800,1730 [facility] Last Admin: 11/06/16 08:45 Dose: 30 ml Amlodipine Besylate (Norvasc -) 2.5 mg PO BID [facility] Last Admin: 11/06/16 09:33 Dose: Not Given Fluoxetine HCl (Prozac -) 20 mg PO HS [facility] Last Admin: 11/05/16 22:51 Dose: 20 mg Guaifenesin (Mucinex Dm -) 1 tablet PO BID [facility] Last Admin: 11/05/16 22:18 Dose: 1 tablet Guaifenesin (Robitussin -) 10 ml PO Q6H PRN PRN Reason: COUGH Last Admin: 11/03/16 10:02 Dose: 10 ml Heparin Sodium (Porcine) (Heparin -) 5,000 unit SQ BID [facility] Last Admin: 11/06/16 09:32 Dose: 5,000 unit Piperacillin Sod/Tazobactam Sod (Zosyn 3.375gm Ivpb (Pre-Docked)) 50 mls @ 100 mls/hr IVPB Q8H-IV [facility] PRN Reason: Protocol Last Admin: 11/06/16 09:30 Dose: 100 mls/hr Lidocaine (Lidoderm Patch -) 1 patch TP DAILY [facility] Last Admin: 11/06/16 09:31 Dose: 1 patch Methylprednisolone Sodium Succinate (Solu-Medrol -) 40 mg IVPB Q8H-IV [facility] Last Admin: 11/06/16 09:30 Dose: 40 mg Lifitegrast (Xiidra) 5% Eye Drops (Pt's Own) 1 each OU BID [facility] Last Admin: 11/06/16 09:36 Dose: 1 each Ondansetron HCl (Zofran Injection) 4 mg IVPUSH Q6H PRN PRN Reason: NAUSEA AND/OR VOMITING Last Admin: 11/01/16 05:13 Dose: 4 mg Polyethylene Glycol (Miralax (For Daily Use) -) 17 gm PO DAILY [facility] Last Admin: 11/06/16 09:32 Dose: 17 gm Senna (Senna -) 1 tab PO HS [facility] Last Admin: 11/05/16 22:51 Dose: 1 tab Thyroid ([place] Thyroid -) 30 mg PO BID@ [facility] Last Admin: 11/06/16 06:15 Dose: 30 mg - Objective Vital Signs: Vital Signs Temperature 97.8 F 11/06/16 05:52 Pulse Rate 88 11/06/16 05:52 Respiratory Rate 20 11/06/16 05:52 Blood Pressure 160/90 11/06/16 05:52 O2 Sat by Pulse Oximetry (%) 94 L 11/05/16 21:00 Constitutional: Yes: Calm, Thin Eyes: Yes: WNL HENT: Yes: WNL Neck: Yes: WNL Cardiovascular: Yes: Regular Rate and Rhythm, S1, S2 Respiratory: Yes: Rhonchi (less rhonchi bilaterally) Gastrointestinal: Yes: Normal Bowel Sounds, Soft Extremities: Yes: WNL Edema: No Labs: CBC, BMP 11/05/16 05:40 11/05/16 05:40 INR, PTT INR 0.91 (0.82-1.09) 10/30/16 14:53 Problem List - Problems (1) Pneumonia Code(s): J18.9 - PNEUMONIA, UNSPECIFIED ORGANISM (2) Shortness of breath Code(s): R06.02 - SHORTNESS OF BREATH (3) Weakness generalized Code(s): R53.1 - WEAKNESS (4) Hypothyroid Code(s): E03.9 - HYPOTHYROIDISM, UNSPECIFIED (5) Adrenal insufficiency Code(s): E27.40 - UNSPECIFIED ADRENOCORTICAL INSUFFICIENCY (6) Hypertension Code(s): I10 - ESSENTIAL (PRIMARY) HYPERTENSION (7) Interstitial lung disease Code(s): J84.9 - INTERSTITIAL PULMONARY DISEASE, UNSPECIFIED (8) Orthostatic hypotension Code(s): I95.1 - ORTHOSTATIC HYPOTENSION (9) Pulmonary fibrosis Code(s): J84.10 - PULMONARY FIBROSIS, UNSPECIFIED (10) Raynaud disease Code(s): I73.00 - RAYNAUD'S SYNDROME WITHOUT GANGRENE Qualifiers: (11) Scleroderma Code(s): M34.9 - SYSTEMIC SCLEROSIS, UNSPECIFIED (12) Sjoegren syndrome Code(s): M35.00 - SICCA SYNDROME, UNSPECIFIED Assessment/Plan IMP SHORTNESS OF BREATH IMPROVING ADVANCED INTERSTITIAL LUNG DISEASE /PULMONARY FIBROSIS PNEUMONIA SCLERODERMA H/O ASPIRATION PNEUMONIA ACHALASIA S/P BOTOX HTN ORTHOSTATIC HYPOTENSION ADRENAL INSUFFICIENCY PLAN ANTIBIOTICS PER ID INHALED BRONCHODILATORS NASAL O2 ' CONTINUE IV STEROIDS CHEST PT OOB -CHAIR PT EVAL DR ALEJO Problem List - Problems (1) Pneumonia Code(s): J18.9 - PNEUMONIA, UNSPECIFIED ORGANISM (2) Shortness of breath Code(s): R06.02 - SHORTNESS OF BREATH (3) Weakness generalized Code(s): R53.1 - WEAKNESS (4) Hypothyroid Code(s): E03.9 - HYPOTHYROIDISM, UNSPECIFIED (5) Adrenal insufficiency Code(s): E27.40 - UNSPECIFIED ADRENOCORTICAL INSUFFICIENCY (6) Hypertension Code(s): I10 - ESSENTIAL (PRIMARY) HYPERTENSION (7) Interstitial lung disease Code(s): J84.9 - INTERSTITIAL PULMONARY DISEASE, UNSPECIFIED (8) Orthostatic hypotension Code(s): I95.1 - ORTHOSTATIC HYPOTENSION (9) Pulmonary fibrosis Code(s): J84.10 - PULMONARY FIBROSIS, UNSPECIFIED (10) Raynaud disease Code(s): I73.00 - RAYNAUD'S SYNDROME WITHOUT GANGRENE Qualifiers: (11) Scleroderma Code(s): M34.9 - SYSTEMIC SCLEROSIS, UNSPECIFIED (12) Sjoegren syndrome Code(s): M35.00 - SICCA SYNDROME, UNSPECIFIED
[2016-11-06] MEDS ORDERED: PT OWN MED DRAWER 7, Y5N ONE ×4 (12:09→21:13)
[2016-11-06] MEDS: guaiFENesin/D-METHORPHAN HB 1 EACH TAB.ER.12H PO SCH ×2 (12:19→21:20)
--- NOTE | 2016-11-06 13:14 | CONSULT ---
Admitting History and Physical - Primary Care Physician PCP: Esperanza Stoddard - Admission History of Present Illness: Per EMR: "Admitting History and Physical - Admission Chief Complaint: Nausea, shortness of breath History of Present Illness: This 81 year old pleasant female with PMHx of pulmonary fibrosis, achalasia s/p botox treatment (October 2015), aspiration pneumonia (October 2015), Sjogrens, Raynauds, hypothyroidism, adrenal insufficiency, orthostatic hypotension, scleroderma, T12 compression fracture, and frequent falls, recent vision difficultly for lose cornea for which she is on eye drops and seeing a specialist and most recently admitted in 08/2015 for influenza A and pneumonia presented to the ED from [facility] with shortness of breath, cough, nausea and gurgling. Per daughter, last Thursday patient was with a dry cough, she was told by nurse behavioral health care Dr. Matos call her PCP, PCP was unable to see pt until Thursday when she was prescribed muscinex. In between Thursday and today daughter noted cough became worse with sounds of gurgling and rattling persisted along with dyspnea while conversing. Currently she denies CP, abdominal pain, nausea, vomiting, and she is not tachypneic, and her nausea is improved. She has never been intubated " "SHORTNESS OF BREATH IMPROVING ADVANCED INTERSTITIAL LUNG DISEASE /PULMONARY FIBROSIS PNEUMONIA SCLERODERMA H/O ASPIRATION PNEUMONIA ACHALASIA S/P BOTOX HTN ORTHOSTATIC HYPOTENSION ADRENAL INSUFFICIENCY" Pt known to me from October 2015 admission. MBS- High grade esophageal obstruction EGD - Dr. Boogie Kuhn- Foreign body removal Ba swallow- Achalasia CT chest bilateral infiltrates EGD Praveena ring dilated/Botox injections Seen in Aug 2016, with unremarkable MBS. Pt seen bedside, eating lunch. She remembers me well. Denies dysphagia. Intermittent early satiety, waits a while, then drinks supplements b/n meals. Always remains upright after meals. Dinner at 5, with bedtime at 10. Selected Entries 11/04/16 11/04/16 11/05/16 12:37 19:56 02:00 Breakfast 50% Lunch 50% Supper 50% Temperature 98.5 F 11/05/16 11/05/16 11/05/16 05:15 10:00 11:19 Breakfast 50% Lunch Supper Temperature 98 F 97.9 F 11/05/16 11/05/16 11/05/16 14:10 15:08 18:00 Breakfast Lunch 50% Supper 75% Temperature 98 F 98.7 F 11/05/16 11/06/16 11/06/16 22:00 05:52 10:00 Breakfast Lunch Supper Temperature 97.9 F 97.8 F 99.2 F Laboratory Tests 11/02/16 11/03/16 11/05/16 06:00 06:18 05:40 WBC 18.7 H 22.0 H 20.0 H History Source: Patient, Caregiver Limitations to Obtaining History: No Limitations - Past Medical History Cardiovascular: Yes: HTN, Other (orthostatic hypotension) Pulmonary: Yes: Pulmonary Fibrosis Rheumatology: Yes: Other (Sjogrens, Raynauds, scleroderma) Endocrine: Yes: Hypothyroidism, Garvin's Disease - Past Surgical History Past Surgical History: Yes: Cholecystectomy (open) - Smoking History Smoking history: Never smoked Have you smoked in the past 12 months: No Aproximately how many cigarettes per day: 20 If you are a former smoker, when did you quit?: 1969 - Alcohol/Substance Use Hx Alcohol Use: No History of Substance Use: reports: None - Social History ADL: Independent (lives with isband) 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 History of Recent Travel: No History - Admission Reason For Visit: PNEUMONIA; HYPOKALEMIA - Diagnostics X-ray: Report Reviewed - General Mental Status: Alert and Oriented, Awake and Alert, Able to Follow Commands Attention: Intact Head/Neck Control: WFL - Hearing Hearing: Functional Hearing: Impaired Hearing Aide: No Speech Evaluation - Communication Primary Language: ARMENIAN Communication: Yes: Within Normal Limits Oral Expression Ability: Yes: No Impairment - Speech Production Able to Make Needs Known: Yes: WNL Intelligibility: Yes: WNL - Speech Characteristics Voice Loudness: Mildly Soft/Quiet Voice Pitch: Yes: Mildly High Voice Phonatory-based Quality: Yes: Dysphonia (mild) Speech Clarity: < 100% Nasal Resonance: Normal Articulation: Yes: Precise Rate of Speech: Intact - Language/Auditory Comprehension Follows: Yes: Complex Commands Observation: Able to respond to yes/no queries: Yes, Comprehends Conversational Speech: Yes - Language/Verbal Expression Able to Communicate Wants and Needs: Yes: WNL Functional Communication Status: Yes: WNL - Memory/Perception assisted Memory: Yes: WNL Short Term Memory: Yes: WNL - Swallow Evaluation/Bedside Assessment Current Nutritional Intake: Regular, Thin Liquids Oral Secretions: Yes: WFL Dentition: Yes: Adequate Facial Symmetry at Rest: Symmetrical Facial Symmetry on Retraction: Symmetrical Against Resistance Opening: Normal Against Resistance Closing: Normal Pucker Lips: Normal Smile: Normal Lingual Movement: Normal Lingual Speed of Movement: Normal Lingual Movement Strgth Against Opposition: Normal Velopharyngeal Movement: Normal Laryngeal Elevation: WFL Rate of Intake: WFL Bolus Size: WFL Labial Seal: WFL A-P Transit: WFL Pocketing: None Timing of Swallow: WFL Coughing/Throat Clear: No Change in Voice: No Recommendations - Speech Evaluation, Impression/Plan Impression: Swallowing overtly intact. h/o esophaGEAL DYSPHAGIA. EGD Schatzkis ring dilated/Botox injections. Doubt recurrence, however, with recurrent dysphagia and early satiety, it is possible.Seen in Aug 2016, with unremarkable MBS. - Dysphagia Impressions/Plan Dysphagia Impressions: Ongoing Evaluation *Silent aspiration: cannot be R/O at bedside Recommendations: Other (Alternate solids with liquids. Several small meals throughout the day. If aspiration pna is suspected, consider GI consult/ esophagram.) - Recommendations Diet Consistency: Regular Medication Administration: Whole with water Liquids: Thin Liquids
[2016-11-06] MEDS ORDERED: BISACODYL 10 MG SUPP.RECT RC ONE (15:30)
--- NOTE | 2016-11-06 16:22 | PN ---
Progress Note, Physician History of Present Illness: feeling well no issues still at night coughing a lot and producing sputum during day doing good - Current Medication List Current Medications: Active Medications Acetaminophen (Tylenol -) 650 mg PO Q4H PRN PRN Reason: FEVER OR PAIN Last Admin: 11/03/16 12:08 Dose: 650 mg Albuterol Sulfate (Ventolin 0.083% Nebulizer Soln -) 1 amp NEB Q4H PRN PRN Reason: SHORT OF BREATH/WHEEZING Albuterol/Ipratropium (Duoneb -) 1 amp NEB QIDR [facility] Last Admin: 11/06/16 11:10 Dose: 1 amp Alprazolam (Xanax -) 0.25 mg PO DAILY PRN PRN Reason: ANXIETY Last Admin: 11/06/16 09:44 Dose: 0.25 mg Amino Acids (Prosource No Carb Liquid Pkt) 30 ml PO BID@0800,1730 [facility] Last Admin: 11/06/16 08:45 Dose: 30 ml Amlodipine Besylate (Norvasc -) 2.5 mg PO BID [facility] Last Admin: 11/06/16 09:33 Dose: Not Given Fluoxetine HCl (Prozac -) 20 mg PO HS [facility] Last Admin: 11/05/16 22:51 Dose: 20 mg Guaifenesin (Mucinex Dm -) 1 tablet PO BID [facility] Last Admin: 11/06/16 12:19 Dose: 1 tablet Guaifenesin (Robitussin -) 10 ml PO Q6H PRN PRN Reason: COUGH Last Admin: 11/03/16 10:02 Dose: 10 ml Heparin Sodium (Porcine) (Heparin -) 5,000 unit SQ BID [facility] Last Admin: 11/06/16 09:32 Dose: 5,000 unit Piperacillin Sod/Tazobactam Sod (Zosyn 3.375gm Ivpb (Pre-Docked)) 50 mls @ 100 mls/hr IVPB Q8H-IV [facility] PRN Reason: Protocol Last Admin: 11/06/16 09:30 Dose: 100 mls/hr Lidocaine (Lidoderm Patch -) 1 patch TP DAILY [facility] Last Admin: 11/06/16 09:31 Dose: 1 patch Methylprednisolone Sodium Succinate (Solu-Medrol -) 40 mg IVPB Q8H-IV [facility] Last Admin: 11/06/16 09:30 Dose: 40 mg Lifitegrast (Xiidra) 5% Eye Drops (Pt's Own) 1 each OU BID BOBBY Last Admin: 11/06/16 09:36 Dose: 1 each Ondansetron HCl (Zofran Injection) 4 mg IVPUSH Q6H PRN PRN Reason: NAUSEA AND/OR VOMITING Last Admin: 11/01/16 05:13 Dose: 4 mg Polyethylene Glycol (Miralax (For Daily Use) -) 17 gm PO DAILY BOBBY Last Admin: 11/06/16 09:32 Dose: 17 gm Senna (Senna -) 1 tab PO HS BOBBY Last Admin: 11/05/16 22:51 Dose: 1 tab Thyroid ([place] Thyroid -) 30 mg PO BID@18 BOBBY Last Admin: 11/06/16 06:15 Dose: 30 mg - Objective Vital Signs: Vital Signs Temperature 98.2 F 11/06/16 14:00 Pulse Rate 98 H 11/06/16 14:00 Respiratory Rate 20 11/06/16 14:00 Blood Pressure 116/75 11/06/16 14:00 O2 Sat by Pulse Oximetry (%) 99 11/06/16 10:35 Constitutional: Yes: No Distress, Calm Cardiovascular: Yes: Pulse Irregular Respiratory: Yes: Regular, CTA Bilaterally Gastrointestinal: Yes: Normal Bowel Sounds, Soft Musculoskeletal: Yes: WNL Extremities: Yes: WNL Neurological: Yes: Alert, Oriented Psychiatric: Yes: Alert, Oriented Labs: CBC, BMP 11/05/16 05:40 11/05/16 05:40 INR, PTT INR 0.91 (0.82-1.09) 10/30/16 14:53 Assessment/Plan Problem List - Problems (1) Pneumonia Code(s): J18.9 - PNEUMONIA, UNSPECIFIED ORGANISM (2) Shortness of breath Code(s): R06.02 - SHORTNESS OF BREATH (3) Weakness generalized Code(s): R53.1 - WEAKNESS (4) Hypothyroid Code(s): E03.9 - HYPOTHYROIDISM, UNSPECIFIED (5) Adrenal insufficiency Code(s): E27.40 - UNSPECIFIED ADRENOCORTICAL INSUFFICIENCY (6) Hypertension Code(s): I10 - ESSENTIAL (PRIMARY) HYPERTENSION (7) Interstitial lung disease Code(s): J84.9 - INTERSTITIAL PULMONARY DISEASE, UNSPECIFIED (8) Orthostatic hypotension Code(s): I95.1 - ORTHOSTATIC HYPOTENSION (9) Pulmonary fibrosis Code(s): J84.10 - PULMONARY FIBROSIS, UNSPECIFIED (10) Raynaud disease Code(s): I73.00 - RAYNAUD'S SYNDROME WITHOUT GANGRENE Qualifiers: (11) Scleroderma Code(s): M34.9 - SYSTEMIC SCLEROSIS, UNSPECIFIED (12) Sjoegren syndrome Code(s): M35.00 - SICCA SYNDROME, UNSPECIFIED plan chest pt continue abx for now cough decreasing will monitor will conside deescalating in a day or so
[2016-11-06] MEDS: SENNOSIDES 8.6MG TABLET (FP) PO SCH (21:21)
[2016-11-06] MEDS: FLUoxetine HCL 20 MG CAPSULE (FP) PO SCH (21:21)
[2016-11-07] MEDS: PIPERACILLIN/TAZOB 3.375 GM 50 ML IVPB SCH ×2 (03:00→09:46)
[2016-11-07] MEDS: methylPREDNISolone NA SUCC 40 MG/1 ML VIAL IVPB SCH ×3 (03:00→21:48)
[2016-11-07] MEDS: ALBUTEROL SO4 2.5/IPRATROPIUM 0.5 INH SOL 3 ML VIAL.NEB. NEB SCH ×4 (06:30→23:17)
[2016-11-07] MEDS: THYROID 30 MG TABLET PO SCH ×2 (06:41→17:15)
[2016-11-07] MEDS: AMINO ACIDS/PROTEIN HYDROLYS 30 ML LIQUID.PKT PO SCH ×2 (07:48→17:18)
[2016-11-07 08:11] LABS: MCH 28.9 pg (25.7-33.7); MCHC 32.5 g/dl (32.0-36.0); MEAN CELL VOLUME 88.8 fl (80-96); MEAN PLT VOLUME 7.1 fl (7.5-11.1); PLATELET COUNT 377 K/MM3 (134-434); RDW 18.7 % (11.6-15.6); WHITE BLOOD COUNT 22.6 K/mm3 (4.0-10.0)
[2016-11-07] MEDS ORDERED: PT OWN MED DRAWER 7, Y5N ONE (09:05)
--- NOTE | 2016-11-07 09:16 | PN ---
Progress Note (short form) - Note Progress Note: Subjective: The patient was seen and examined at the bedside, she reports feeling better today. Eval from speech and swallow, reg diet with thin liquids Per ID, continue Zosyn Current Medications Generic Name Dose Route Start Last Admin Trade Name Freq PRN Reason Stop Dose Admin Acetaminophen 650 mg 10/30/16 18:27 11/03/16 12:08 Tylenol - PO 650 mg Q4H PRN Administration FEVER OR PAIN Albuterol Sulfate 1 amp 10/31/16 13:33 Ventolin 0.083% Nebulizer Soln - NEB Q4H PRN SHORT OF BREATH/WHEEZING Albuterol/Ipratropium 1 amp 10/31/16 00:00 11/07/16 06:30 Duoneb - NEB 1 amp QIDR BOBBY Administration Alprazolam 0.25 mg 11/04/16 09:18 11/06/16 09:44 Xanax - PO 0.25 mg DAILY PRN Administration ANXIETY Amino Acids 30 ml 11/06/16 08:00 11/06/16 17:09 Prosource No Carb Liquid Pkt PO 30 ml BID@0800,1730 BOBBY Administration Amlodipine Besylate 2.5 mg 10/30/16 22:00 11/06/16 21:21 Norvasc - PO 2.5 mg BID BOBBY Administration Fluoxetine HCl 20 mg 10/30/16 22:00 11/06/16 21:21 Prozac - PO 20 mg HS BOBBY Administration Guaifenesin 1 tablet 11/03/16 10:00 11/06/16 21:20 Mucinex Dm - PO 1 tablet BID BOBBY Administration Guaifenesin 10 ml 11/03/16 09:18 11/03/16 10:02 Robitussin - PO 10 ml Q6H PRN Administration COUGH Piperacillin Sod/Tazobactam Sod 50 mls @ 100 mls/hr 10/31/16 02:00 11/07/16 03: 00 Zosyn 3.375gm Ivpb (Pre-Docked) IVPB 100 mls/hr Q8H-IV BOBBY Administration Protocol Lidocaine 1 patch 11/03/16 18:45 11/06/16 09:31 Lidoderm Patch - TP 1 patch DAILY BOBBY Administration Methylprednisolone Sodium Succinate 40 mg 11/05/16 02:00 11/07/16 03:00 Solu-Medrol - IVPB 40 mg Q8H-IV BOBBY Administration Lifitegrast (Xiidra) 1 each 11/05/16 22:00 11/06/16 21:18 5% Eye Drops (Pt's OU 1 each Own) BID BOBBY Administration Ondansetron HCl 4 mg 10/30/16 18:35 11/01/16 05:13 Zofran Injection IVPUSH 4 mg Q6H PRN Administration NAUSEA AND/OR VOMITING Polyethylene Glycol 17 gm 11/04/16 10:00 11/06/16 09:32 Miralax (For Daily Use) - PO 17 gm DAILY BOBBY Administration Senna 1 tab 11/04/16 22:00 11/06/16 21:21 Senna - PO 1 tab HS BOBBY Administration Thyroid 30 mg 11/02/16 06:00 11/07/16 06:41 [place] Thyroid - PO 30 mg BID@06,18 BOBBY Administration Objective: Vital Signs Period Temp Pulse Resp BP Sys/Xavier Pulse Ox Last 24 Hr 97.8 F-99.2 F 88-98 20-22 116-160/70-92 95-99 Physical Exam: General: NAD, A&Ox3 Lungs: B/l rhonchi, no wheezing noted Heart: RRR, S1S2 Abd: Soft, non-tender, non-distended. Normoactive bowel sounds Ext: Warm, well-perfused. 2+ DP/PT bilaterally Neuro: CN 2-12 intact CBCD WBC 22.6 K/mm3 (4.0-10.0) H 11/07/16 05:38 RBC 3.80 M/mm3 (3.60-5.2) 11/07/16 05:38 Hgb 11.0 GM/dL (10.7-15.3) 11/07/16 05:38 Hct 33.7 % (32.4-45.2) 11/07/16 05:38 MCV 88.8 fl (80-96) 11/07/16 05:38 MCHC 32.5 g/dl (32.0-36.0) 11/07/16 05:38 RDW 18.7 % (11.6-15.6) H 11/07/16 05:38 Plt Count 377 K/MM3 (134-434) 11/07/16 05:38 MPV 7.1 fl (7.5-11.1) L 11/07/16 05:38 CMP Sodium 138 mmol/L (136-145) 11/05/16 05:40 Potassium 3.5 mmol/L (3.5-5.1) 11/05/16 05:40 Chloride 94 mmol/L (98-107) L 11/05/16 05:40 Carbon Dioxide 31 mmol/L (21-32) 11/05/16 05:40 Anion Gap 13 (8-16) 11/05/16 05:40 BUN 23 mg/dL (7-18) H D 11/05/16 05:40 Creatinine 0.6 mg/dL (0.55-1.02) D 11/05/16 05:40 Creat Clearance w eGFR > 60 (>60) 11/03/16 06:18 Random Glucose 96 mg/dL (74-106) 11/05/16 05:40 Calcium 8.8 mg/dL (8.5-10.1) 11/05/16 05:40 Total Bilirubin 0.5 mg/dL (0.2-1.0) D 11/03/16 06:18 AST 15 U/L (15-37) D 11/03/16 06:18 ALT 19 U/L (12-78) 11/03/16 06:18 Alkaline Phosphatase 81 U/L (45-117) 11/03/16 06:18 Total Protein 7.0 g/dl (6.4-8.2) 11/03/16 06:18 Albumin 3.1 g/dl (3.4-5.0) L 11/03/16 06:18 CARDIAC ENZYMES Creatine Kinase 74 IU/L (26-192) 10/30/16 14:53 Troponin I < 0.02 ng/ml (0.00-0.05) 10/30/16 14:53 Microbiology 10/30/16 14:53 Blood - Peripheral Venous Blood Culture - Final NO GROWTH AFTER 5 DAYS INCUBATION 10/30/16 14:53 Blood - Peripheral Venous Blood Culture - Final NO GROWTH AFTER 5 DAYS INCUBATION 10/31/16 14:00 Urine - Urine - Catheterized Urine Culture - Final NO GROWTH OBTAINED 10/31/16 14:00 Urine - Urine - Catheterized Legionella Antigen - Final 10/31/16 14:00 Urine - Urine - Catheterized Streptococcus pneumoniae Antigen (M - Final Assessment: This is an 81 year old female with PMHx of pulmonary fibrosis, achalasia s/p botox treatment (October 2015), aspiration pneumonia (October 2015), Sjogrens, Raynauds, hypothyroidism, adrenal insufficiency, orthostatic hypotension, scleroderma, T12 compression fracture, and frequent falls who presented to the ED with shortness of breath, cough, nausea, gurgling. Plan: 1) ID: Hospital acquired pneumonia - Continue Zosyn (10/30- ) per ID, will de escalate in "a day or so" - Received dose of Vancomyin on 10/30 - Appreciate ID consult UTI - Urine culture negative - Abx as above 2) Pulmonary: Interstitial lung disease/pulmonary fibrosis - Continue Solumedrol 40mg q8h - Duonebs scheduled - Chest PT bid - O2 via nc prn (patient is not on home O2, will need pre/post prior to discharge) - Appreciate pulmonary consult 3) Scleroderma, Sjogren syndrome, Raynaud's syndrome - Stable 4) Endocrine: Hypothyroidism - Continue [place] thyroid 5) Adrenal Insufficiency - Hold low dose cortef and prednisone, while on IV 6) F/E/N: - Regular diet, thin liquids - Monitor electrolytes - Severe protein malnutrition - Continue Prosource 7) Prophylaxis: - Heparin 5,000u sq bid - PT 8) Dispo: - Requires continued inpatient care CODE STATUS: FULL CODE Visit type - Emergency Visit Emergency Visit: Yes ED Registration Date: 10/30/16 Care time: The patient presented to the Emergency Department on the above date and was hospitalized for further evaluation of their emergent condition. - New Patient This patient is new to me today: No - Critical Care Critical Care patient: No
[2016-11-07] MEDS: LIDOCAINE 5% TOPICAL PATCH TP SCH (09:47)
[2016-11-07] MEDS: ONDANSETRON 4 MG/2 ML VIAL IVPUSH PRN (09:48)
[2016-11-07] MEDS: POLYETHYLENE GLYCOL 3350 119 GM BTL PO SCH (09:49)
[2016-11-07] MEDS: guaiFENesin/D-METHORPHAN HB 1 EACH TAB.ER.12H PO SCH ×2 (09:50→21:47)
[2016-11-07] MEDS: amLODIPine BESYLATE 2.5 MG TABLET (FP) PO SCH ×2 (09:52→21:47)
[2016-11-07] MEDS: EYE OU SCH (09:53)
[2016-11-07] MEDS: LIFITEGRAST 5% OU SCH (09:53)
--- NOTE | 2016-11-07 11:13 | PN ---
Progress Note, Physician History of Present Illness: PULMONARY ALERT,FEELING BETTER,LESS CONGESTED - Current Medication List Current Medications: Active Medications Acetaminophen (Tylenol -) 650 mg PO Q4H PRN PRN Reason: FEVER OR PAIN Last Admin: 11/03/16 12:08 Dose: 650 mg Albuterol Sulfate (Ventolin 0.083% Nebulizer Soln -) 1 amp NEB Q4H PRN PRN Reason: SHORT OF BREATH/WHEEZING Albuterol/Ipratropium (Duoneb -) 1 amp NEB QIDR [facility] Last Admin: 11/07/16 06:30 Dose: 1 amp Amino Acids (Prosource No Carb Liquid Pkt) 30 ml PO BID@0800,1730 [facility] Last Admin: 11/07/16 07:48 Dose: 30 ml Amlodipine Besylate (Norvasc -) 2.5 mg PO BID [facility] Last Admin: 11/07/16 09:52 Dose: 2.5 mg Fluoxetine HCl (Prozac -) 20 mg PO HS [facility] Last Admin: 11/06/16 21:21 Dose: 20 mg Guaifenesin (Mucinex Dm -) 1 tablet PO BID [facility] Last Admin: 11/07/16 09:50 Dose: 1 tablet Guaifenesin (Robitussin -) 10 ml PO Q6H PRN PRN Reason: COUGH Last Admin: 11/03/16 10:02 Dose: 10 ml Piperacillin Sod/Tazobactam Sod (Zosyn 3.375gm Ivpb (Pre-Docked)) 50 mls @ 100 mls/hr IVPB Q8H-IV [facility] PRN Reason: Protocol Last Admin: 11/07/16 09:46 Dose: 100 mls/hr Lidocaine (Lidoderm Patch -) 1 patch TP DAILY [facility] Last Admin: 11/07/16 09:47 Dose: 1 patch Methylprednisolone Sodium Succinate (Solu-Medrol -) 40 mg IVPB Q8H-IV [facility] Last Admin: 11/07/16 09:48 Dose: 40 mg Lifitegrast (Xiidra) 5% Eye Drops (Pt's Own) 1 each OU BID [facility] Last Admin: 11/07/16 09:53 Dose: 1 each Ondansetron HCl (Zofran Injection) 4 mg IVPUSH Q6H PRN PRN Reason: NAUSEA AND/OR VOMITING Last Admin: 11/07/16 09:48 Dose: 4 mg Polyethylene Glycol (Miralax (For Daily Use) -) 17 gm PO DAILY [facility] Last Admin: 11/07/16 09:49 Dose: 17 gm Senna (Senna -) 1 tab PO HS BOBBY Last Admin: 11/06/16 21:21 Dose: 1 tab Thyroid ([place] Thyroid -) 30 mg PO BID@06,18 BOBBY Last Admin: 11/07/16 06:41 Dose: 30 mg - Objective Vital Signs: Vital Signs Temperature 97.8 F 11/07/16 08:15 Pulse Rate 90 11/07/16 08:15 Respiratory Rate 20 11/07/16 08:15 Blood Pressure 157/89 11/07/16 08:15 O2 Sat by Pulse Oximetry (%) 95 11/06/16 20:49 Constitutional: Yes: Well Nourished, Calm Eyes: Yes: WNL HENT: Yes: WNL Neck: Yes: WNL Cardiovascular: Yes: Regular Rate and Rhythm, S1, S2 Respiratory: Yes: Rhonchi (EMILY RHONCHI) Gastrointestinal: Yes: Normal Bowel Sounds, Soft Extremities: Yes: WNL Edema: No Labs: CBC, BMP 11/07/16 05:38 11/05/16 05:40 INR, PTT INR 0.91 (0.82-1.09) 10/30/16 14:53 Problem List - Problems (1) Pneumonia Code(s): J18.9 - PNEUMONIA, UNSPECIFIED ORGANISM (2) Shortness of breath Code(s): R06.02 - SHORTNESS OF BREATH (3) Weakness generalized Code(s): R53.1 - WEAKNESS (4) Hypothyroid Code(s): E03.9 - HYPOTHYROIDISM, UNSPECIFIED (5) Adrenal insufficiency Code(s): E27.40 - UNSPECIFIED ADRENOCORTICAL INSUFFICIENCY (6) Hypertension Code(s): I10 - ESSENTIAL (PRIMARY) HYPERTENSION (7) Interstitial lung disease Code(s): J84.9 - INTERSTITIAL PULMONARY DISEASE, UNSPECIFIED (8) Orthostatic hypotension Code(s): I95.1 - ORTHOSTATIC HYPOTENSION (9) Pulmonary fibrosis Code(s): J84.10 - PULMONARY FIBROSIS, UNSPECIFIED (10) Raynaud disease Code(s): I73.00 - RAYNAUD'S SYNDROME WITHOUT GANGRENE Qualifiers: (11) Scleroderma Code(s): M34.9 - SYSTEMIC SCLEROSIS, UNSPECIFIED (12) Sjoegren syndrome Code(s): M35.00 - SICCA SYNDROME, UNSPECIFIED Assessment/Plan IMP SHORTNESS OF BREATH IMPROVING ADVANCED INTERSTITIAL LUNG DISEASE /PULMONARY FIBROSIS PNEUMONIA SCLERODERMA H/O ASPIRATION PNEUMONIA ACHALASIA S/P BOTOX HTN ORTHOSTATIC HYPOTENSION ADRENAL INSUFFICIENCY PLAN ANTIBIOTICS PER ID INHALED BRONCHODILATORS NASAL O2 ' STEROIDS TAPER CHEST PT OOB -CHAIR PT EVAL DR ALEJO Problem List - Problems (1) Pneumonia Code(s): J18.9 - PNEUMONIA, UNSPECIFIED ORGANISM (2) Shortness of breath Code(s): R06.02 - SHORTNESS OF BREATH (3) Weakness generalized Code(s): R53.1 - WEAKNESS (4) Hypothyroid Code(s): E03.9 - HYPOTHYROIDISM, UNSPECIFIED (5) Adrenal insufficiency Code(s): E27.40 - UNSPECIFIED ADRENOCORTICAL INSUFFICIENCY (6) Hypertension Code(s): I10 - ESSENTIAL (PRIMARY) HYPERTENSION (7) Interstitial lung disease Code(s): J84.9 - INTERSTITIAL PULMONARY DISEASE, UNSPECIFIED (8) Orthostatic hypotension Code(s): I95.1 - ORTHOSTATIC HYPOTENSION (9) Pulmonary fibrosis Code(s): J84.10 - PULMONARY FIBROSIS, UNSPECIFIED (10) Raynaud disease Code(s): I73.00 - RAYNAUD'S SYNDROME WITHOUT GANGRENE Qualifiers: (11) Scleroderma Code(s): M34.9 - SYSTEMIC SCLEROSIS, UNSPECIFIED (12) Sjoegren syndrome Code(s): M35.00 - SICCA SYNDROME, UNSPECIFIED
[2016-11-07 11:29] LABS: ANISOCYTOSIS 1+; MICROCYTOSIS 1+; PLATELET ESTIMATE ADEQUATE (NORMAL)
--- NOTE | 2016-11-07 11:34 | PN ---
Progress Note, AN/SSN 2 4 OPERATOR - Note Progress Note: Selected Entries 11/06/16 11/06/16 11/06/16 05:52 10:00 14:00 Supper Temperature 97.8 F 99.2 F 98.2 F 11/06/16 11/06/16 11/06/16 18:00 19:37 22:00 Supper 75% Temperature 98.4 F 98.4 F 11/07/16 11/07/16 06:00 08:15 Supper Temperature 98.0 F 97.8 F Tolerating diet at this time. Monitor PO tolerance.Upright during and after meals. Will sign off for now.
[2016-11-07] MEDS ORDERED: ALPRAZolam 0.25 MG TABLET PO ONE (14:00)
--- NOTE | 2016-11-07 15:24 | PN ---
Progress Note, Physician History of Present Illness: feeling well cough decreasing patient loks good breathing better - Current Medication List Current Medications: Active Medications Acetaminophen (Tylenol -) 650 mg PO Q4H PRN PRN Reason: FEVER OR PAIN Last Admin: 11/03/16 12:08 Dose: 650 mg Albuterol Sulfate (Ventolin 0.083% Nebulizer Soln -) 1 amp NEB Q4H PRN PRN Reason: SHORT OF BREATH/WHEEZING Albuterol/Ipratropium (Duoneb -) 1 amp NEB QIDR [facility] Last Admin: 11/07/16 12:09 Dose: 1 amp Amino Acids (Prosource No Carb Liquid Pkt) 30 ml PO BID@0800,1730 [facility] Last Admin: 11/07/16 07:48 Dose: 30 ml Amlodipine Besylate (Norvasc -) 2.5 mg PO BID [facility] Last Admin: 11/07/16 09:52 Dose: 2.5 mg Fluoxetine HCl (Prozac -) 20 mg PO HS [facility] Last Admin: 11/06/16 21:21 Dose: 20 mg Guaifenesin (Mucinex Dm -) 1 tablet PO BID [facility] Last Admin: 11/07/16 09:50 Dose: 1 tablet Guaifenesin (Robitussin -) 10 ml PO Q6H PRN PRN Reason: COUGH Last Admin: 11/03/16 10:02 Dose: 10 ml Lidocaine (Lidoderm Patch -) 1 patch TP DAILY [facility] Last Admin: 11/07/16 09:47 Dose: 1 patch Methylprednisolone Sodium Succinate (Solu-Medrol -) 40 mg IVPB BID [facility] Lifitegrast (Xiidra) 5% Eye Drops (Pt's Own) 1 each OU BID [facility] Last Admin: 11/07/16 09:53 Dose: 1 each Ondansetron HCl (Zofran Injection) 4 mg IVPUSH Q6H PRN PRN Reason: NAUSEA AND/OR VOMITING Last Admin: 11/07/16 09:48 Dose: 4 mg Polyethylene Glycol (Miralax (For Daily Use) -) 17 gm PO DAILY [facility] Last Admin: 11/07/16 09:49 Dose: 17 gm Senna (Senna -) 1 tab PO HS [facility] Last Admin: 11/06/16 21:21 Dose: 1 tab Thyroid ([place] Thyroid -) 30 mg PO BID@06,18 [facility] Last Admin: 11/07/16 06:41 Dose: 30 mg - Objective Vital Signs: Vital Signs Temperature 98.5 F 11/07/16 14:00 Pulse Rate 91 H 11/07/16 14:00 Respiratory Rate 20 11/07/16 14:00 Blood Pressure 145/85 11/07/16 14:00 O2 Sat by Pulse Oximetry (%) 95 11/06/16 20:49 Constitutional: Yes: No Distress, Calm Cardiovascular: Yes: Regular Rate and Rhythm Respiratory: Yes: Regular, On Nasal O2, Rhonchi Gastrointestinal: Yes: Normal Bowel Sounds, Soft Musculoskeletal: Yes: WNL Extremities: Yes: WNL Neurological: Yes: Alert, Oriented Psychiatric: Yes: Alert, Oriented Labs: CBC, BMP 11/07/16 05:38 11/05/16 05:40 INR, PTT INR 0.91 (0.82-1.09) 10/30/16 14:53 Assessment/Plan Problem List - Problems (1) Pneumonia Code(s): J18.9 - PNEUMONIA, UNSPECIFIED ORGANISM (2) Shortness of breath Code(s): R06.02 - SHORTNESS OF BREATH (3) Weakness generalized Code(s): R53.1 - WEAKNESS (4) Hypothyroid Code(s): E03.9 - HYPOTHYROIDISM, UNSPECIFIED (5) Adrenal insufficiency Code(s): E27.40 - UNSPECIFIED ADRENOCORTICAL INSUFFICIENCY (6) Hypertension Code(s): I10 - ESSENTIAL (PRIMARY) HYPERTENSION (7) Interstitial lung disease Code(s): J84.9 - INTERSTITIAL PULMONARY DISEASE, UNSPECIFIED (8) Orthostatic hypotension Code(s): I95.1 - ORTHOSTATIC HYPOTENSION (9) Pulmonary fibrosis Code(s): J84.10 - PULMONARY FIBROSIS, UNSPECIFIED (10) Raynaud disease Code(s): I73.00 - RAYNAUD'S SYNDROME WITHOUT GANGRENE Qualifiers: (11) Scleroderma Code(s): M34.9 - SYSTEMIC SCLEROSIS, UNSPECIFIED (12) Sjoegren syndrome Code(s): M35.00 - SICCA SYNDROME, UNSPECIFIED plan chest pt changed iv to oral abx cough decreasing will monitor rest continue current mgmt
[2016-11-07] MEDS ORDERED: ONDANSETRON 4 MG/2 ML VIAL IVPUSH PRN (16:28)
[2016-11-07] MEDS ORDERED: ALBUTEROL SO4 0.083% IH SOL 2.5 MG/3 ML VIAL.NEB. NEB PRN (16:28)
[2016-11-07] MEDS ORDERED: ACETAMINOPHEN 325 MG TABLET (FP) PO PRN (16:28)
[2016-11-07] MEDS ORDERED: guaiFENesin 200 MG/10 ML 10 ML UNIT-DOSE CUPS PO PRN (16:28)
[2016-11-07] MEDS: AMOX TR/POT CLAV 875MG/125MG TABLETS (FP) PO SCH (17:17)
[2016-11-07] MEDS: FLUoxetine HCL 20 MG CAPSULE (FP) PO SCH (21:47)
[2016-11-07] MEDS: SENNOSIDES 8.6MG TABLET (FP) PO SCH (21:47)
[2016-11-07] MEDS: ALPRAZolam 0.25 MG TABLET PO SCH (21:47)
[2016-11-07] MEDS: PATIENT'S OWN MEDICATION (NON-FORMULARY) (Lifitegrast [Xiidra] 1 EACH) OU SCH (21:48)
[2016-11-08] MEDS: THYROID 30 MG TABLET PO SCH ×2 (05:44→17:27)
[2016-11-08] MEDS: amLODIPine BESYLATE 2.5 MG TABLET (FP) PO SCH (06:14)
[2016-11-08] MEDS: ALBUTEROL SO4 2.5/IPRATROPIUM 0.5 INH SOL 3 ML VIAL.NEB. NEB SCH ×4 (07:14→23:31)
[2016-11-08] MEDS ORDERED: amLODIPine BESYLATE 5 MG TABLET (FP) PO SCH (08:00)
[2016-11-08] MEDS: AMOX TR/POT CLAV 875MG/125MG TABLETS (FP) PO SCH ×2 (08:53→17:27)
[2016-11-08] MEDS: AMINO ACIDS/PROTEIN HYDROLYS 30 ML LIQUID.PKT PO SCH ×2 (08:53→17:27)
[2016-11-08] MEDS ORDERED: amLODIPine BESYLATE 2.5 MG TABLET (FP) PO ONE (09:15)
[2016-11-08] MEDS ORDERED: ONDANSETRON *ODT* 4 MG TABLET SL ONE (09:20)
[2016-11-08] MEDS ORDERED: PT OWN MED DRAWER 7, Y5N ONE ×5 (09:39→22:49)
[2016-11-08] MEDS: LIDOCAINE 5% TOPICAL PATCH TP SCH (10:02)
[2016-11-08] MEDS: PATIENT'S OWN MEDICATION (NON-FORMULARY) (Lifitegrast [Xiidra] 1 EACH) OU SCH ×2 (10:03→22:13)
[2016-11-08] MEDS: ALPRAZolam 0.25 MG TABLET PO SCH ×2 (10:04→23:19)
[2016-11-08] MEDS: guaiFENesin/D-METHORPHAN HB 1 EACH TAB.ER.12H PO SCH ×2 (10:04→23:17)
[2016-11-08] MEDS: POLYETHYLENE GLYCOL 3350 119 GM BTL PO SCH (10:05)
[2016-11-08] MEDS: methylPREDNISolone NA SUCC 40 MG/1 ML VIAL IVPB SCH ×2 (10:06→23:19)
--- NOTE | 2016-11-08 11:41 | PN ---
Progress Note (short form) - Note Progress Note: Subjective: The patient was seen and examined at the bedside, she reports feeling better today. Abx changed to Augmentin yesterday Current Medications Generic Name Dose Route Start Last Admin Trade Name Lc PRN Reason Stop Dose Admin Acetaminophen 650 mg 11/07/16 16:28 Tylenol - PO Q4H PRN FEVER OR PAIN Albuterol Sulfate 1 amp 11/07/16 16:28 Ventolin 0.083% Nebulizer Soln - NEB Q4H PRN SHORT OF BREATH/WHEEZING Albuterol/Ipratropium 1 amp 11/07/16 18:00 11/08/16 11:01 Duoneb - NEB 1 amp QIDR BOBBY Administration Alprazolam 0.25 mg 11/07/16 22:00 11/08/16 10:04 Xanax - PO 0.25 mg BID BOBBY Administration Amino Acids 30 ml 11/06/16 08:00 11/08/16 08:53 Prosource No Carb Liquid Pkt PO 30 ml BID@0800,1730 BOBBY Administration Amlodipine Besylate 5 mg 11/08/16 22:00 Norvasc - PO BID BOBBY Amoxicillin/Clavulanate Potassium 1 tab 11/07/16 17:30 11/08/16 08:53 Augmentin - 875mg Tablet PO 1 tab BID@0800,1730 BOBBY Administration Fluoxetine HCl 20 mg 11/07/16 22:00 11/07/16 21:47 Prozac - PO 20 mg HS BOBBY Administration Guaifenesin 1 tablet 11/07/16 22:00 11/08/16 10:04 Mucinex Dm - PO 1 tablet BID BOBBY Administration Guaifenesin 10 ml 11/07/16 16:28 Robitussin - PO Q6H PRN COUGH Lidocaine 1 patch 11/08/16 10:00 11/08/16 10:02 Lidoderm Patch - TP 1 patch DAILY [facility]OBBY Administration Methylprednisolone Sodium Succinate 40 mg 11/07/16 22:00 11/08/16 10:06 Solu-Medrol - IVPB 40 mg BID BOBBY Administration Non-Formulary Medication 1 each 11/07/16 22:00 11/08/16 10:03 Lifitegrast [Xiidra] OU 1 each BID [facility]OBBY Administration Polyethylene Glycol 17 gm 11/08/16 10:00 11/08/16 10:05 Miralax (For Daily Use) - PO 17 gm DAILY [facility]OBBY Administration Senna 1 tab 11/07/16 22:00 11/07/16 21:47 Senna - PO 1 tab HS [facility]OBBY Administration Thyroid 30 mg 11/07/16 18:00 11/08/16 05:44 [place] Thyroid - PO 30 mg BID@06,18 BOBBY Administration Objective: Vital Signs Period Temp Pulse Resp BP Sys/Xavier Pulse Ox Last 24 Hr 98.2 F-98.7 F 82-91 18-20 113-181/67-103 95-97 Physical Exam: General: NAD, A&Ox3 Lungs: B/l rhonchi improving Heart: RRR, S1S2 Abd: Soft, non-tender, non-distended. Normoactive bowel sounds Ext: Warm, well-perfused. 2+ DP/PT bilaterally Neuro: CN 2-12 intact CBCD WBC 22.6 K/mm3 (4.0-10.0) H 11/07/16 05:38 RBC 3.80 M/mm3 (3.60-5.2) 11/07/16 05:38 Hgb 11.0 GM/dL (10.7-15.3) 11/07/16 05:38 Hct 33.7 % (32.4-45.2) 11/07/16 05:38 MCV 88.8 fl (80-96) 11/07/16 05:38 MCHC 32.5 g/dl (32.0-36.0) 11/07/16 05:38 RDW 18.7 % (11.6-15.6) H 11/07/16 05:38 Plt Count 377 K/MM3 (134-434) 11/07/16 05:38 MPV 7.1 fl (7.5-11.1) L 11/07/16 05:38 CMP Sodium 138 mmol/L (136-145) 11/05/16 05:40 Potassium 3.5 mmol/L (3.5-5.1) 11/05/16 05:40 Chloride 94 mmol/L (98-107) L 11/05/16 05:40 Carbon Dioxide 31 mmol/L (21-32) 11/05/16 05:40 Anion Gap 13 (8-16) 11/05/16 05:40 BUN 23 mg/dL (7-18) H D 11/05/16 05:40 Creatinine 0.6 mg/dL (0.55-1.02) D 11/05/16 05:40 Creat Clearance w eGFR > 60 (>60) 11/03/16 06:18 Random Glucose 96 mg/dL (74-106) 11/05/16 05:40 Calcium 8.8 mg/dL (8.5-10.1) 11/05/16 05:40 Total Bilirubin 0.5 mg/dL (0.2-1.0) D 11/03/16 06:18 AST 15 U/L (15-37) D 11/03/16 06:18 ALT 19 U/L (12-78) 11/03/16 06:18 Alkaline Phosphatase 81 U/L (45-117) 11/03/16 06:18 Total Protein 7.0 g/dl (6.4-8.2) 11/03/16 06:18 Albumin 3.1 g/dl (3.4-5.0) L 11/03/16 06:18 CARDIAC ENZYMES Creatine Kinase 74 IU/L (26-192) 10/30/16 14:53 Troponin I < 0.02 ng/ml (0.00-0.05) 10/30/16 14:53 Microbiology 10/30/16 14:53 Blood - Peripheral Venous Blood Culture - Final NO GROWTH AFTER 5 DAYS INCUBATION 10/30/16 14:53 Blood - Peripheral Venous Blood Culture - Final NO GROWTH AFTER 5 DAYS INCUBATION 10/31/16 14:00 Urine - Urine - Catheterized Urine Culture - Final NO GROWTH OBTAINED 10/31/16 14:00 Urine - Urine - Catheterized Legionella Antigen - Final 10/31/16 14:00 Urine - Urine - Catheterized Streptococcus pneumoniae Antigen (M - Final Assessment: This is an 81 year old female with PMHx of pulmonary fibrosis, achalasia s/p botox treatment (October 2015), aspiration pneumonia (October 2015), Sjogrens, Raynauds, hypothyroidism, adrenal insufficiency, orthostatic hypotension, scleroderma, T12 compression fracture, and frequent falls who presented to the ED with shortness of breath, cough, nausea, gurgling. Plan: 1) ID: Hospital acquired pneumonia - Abx switched to po yesterday, Augmentin bid - Zosyn (10/30-11/07) - Appreciate ID consult UTI - Urine culture negative - Abx as above 2) Pulmonary: Interstitial lung disease/pulmonary fibrosis - Continue Solumedrol 40mg bid, if continues to improve tomorrow can switch to po steroids - Angel scheduled - Chest PT bid - Pre/post O2: SpO2 dropped to 79% on RA with exercise - Appreciate pulmonary consult 3) Scleroderma, Sjogren syndrome, Raynaud's syndrome - Stable 4) Endocrine: Hypothyroidism - Continue [place] thyroid 5) Adrenal Insufficiency - Hold low dose cortef and prednisone, while on IV 6) F/E/N: - Regular diet, thin liquids - Monitor electrolytes - Severe protein malnutrition - Continue Prosource 7) Prophylaxis: - Heparin 5,000u sq bid - PT 8) Dispo: - Walked 6 feet with PT - Discussed with Genny (case management), will need SNF placement - Left message for daughter to discuss SNF placement, awaiting call back CODE STATUS: FULL CODE Visit type - Emergency Visit Emergency Visit: Yes ED Registration Date: 10/30/16 Care time: The patient presented to the Emergency Department on the above date and was hospitalized for further evaluation of their emergent condition. - New Patient This patient is new to me today: No - Critical Care Critical Care patient: No
--- NOTE | 2016-11-08 12:00 | PN ---
Progress Note (short form) - Note Progress Note: Resting in NAD. Lying flat in bed. No acute events. Intake & Output 11/05/16 11/06/16 11/07/16 11/08/16 23:59 23:59 23:59 23:59 Intake Total 100 100 900 100 Balance 100 100 900 100 Last Vital Signs Temp Pulse Resp BP Pulse Ox 98.7 F 89 18 148/84 95 11/08/16 08:49 11/08/16 11:43 11/08/16 09:00 11/08/16 11:43 11/08/16 09:50 Active Medications Acetaminophen (Tylenol -) 650 mg PO Q4H PRN PRN Reason: FEVER OR PAIN Albuterol Sulfate (Ventolin 0.083% Nebulizer Soln -) 1 amp NEB Q4H PRN PRN Reason: SHORT OF BREATH/WHEEZING Albuterol/Ipratropium (Duoneb -) 1 amp NEB QIDR [facility] Last Admin: 11/08/16 11:01 Dose: 1 amp Alprazolam (Xanax -) 0.25 mg PO BID [facility] Last Admin: 11/08/16 10:04 Dose: 0.25 mg Amino Acids (Prosource No Carb Liquid Pkt) 30 ml PO BID@0800,1730 [facility] Last Admin: 11/08/16 08:53 Dose: 30 ml Amlodipine Besylate (Norvasc -) 5 mg PO BID [facility] Amoxicillin/Clavulanate Potassium (Augmentin - 875mg Tablet) 1 tab PO BID@0800, 1730 [facility] Last Admin: 11/08/16 08:53 Dose: 1 tab Fluoxetine HCl (Prozac -) 20 mg PO HS [facility] Last Admin: 11/07/16 21:47 Dose: 20 mg Guaifenesin (Mucinex Dm -) 1 tablet PO BID [facility] Last Admin: 11/08/16 10:04 Dose: 1 tablet Guaifenesin (Robitussin -) 10 ml PO Q6H PRN PRN Reason: COUGH Lidocaine (Lidoderm Patch -) 1 patch TP DAILY [facility] Last Admin: 11/08/16 10:02 Dose: 1 patch Methylprednisolone Sodium Succinate (Solu-Medrol -) 40 mg IVPB BID [facility] Last Admin: 11/08/16 10:06 Dose: 40 mg Non-Formulary Medication (Lifitegrast [Xiidra]) 1 each OU BID [facility] Last Admin: 11/08/16 10:03 Dose: 1 each Polyethylene Glycol (Miralax (For Daily Use) -) 17 gm PO DAILY [facility] Last Admin: 11/08/16 10:05 Dose: 17 gm Senna (Senna -) 1 tab PO HS [facility] Last Admin: 11/07/16 21:47 Dose: 1 tab Thyroid ([place] Thyroid -) 30 mg PO BID@06,18 [facility] Last Admin: 11/08/16 05:44 Dose: 30 mg Constitutional: Yes: NAD Eyes: Yes: WNL HENT: Yes: WNL Neck: Yes: WNL Cardiovascular: Yes: Regular Rate and Rhythm, S1, S2 Respiratory: Yes: Bilateral scattered Rhonchi Gastrointestinal: Yes: Normal Bowel Sounds, Soft Extremities: Yes: WNL Edema: No Labs: Problem List - Problems (1) Pneumonia Code(s): J18.9 - PNEUMONIA, UNSPECIFIED ORGANISM (2) Shortness of breath Code(s): R06.02 - SHORTNESS OF BREATH (3) Weakness generalized Code(s): R53.1 - WEAKNESS (4) Hypothyroid Code(s): E03.9 - HYPOTHYROIDISM, UNSPECIFIED (5) Adrenal insufficiency Code(s): E27.40 - UNSPECIFIED ADRENOCORTICAL INSUFFICIENCY (6) Hypertension Code(s): I10 - ESSENTIAL (PRIMARY) HYPERTENSION (7) Interstitial lung disease Code(s): J84.9 - INTERSTITIAL PULMONARY DISEASE, UNSPECIFIED (8) Orthostatic hypotension Code(s): I95.1 - ORTHOSTATIC HYPOTENSION (9) Pulmonary fibrosis Code(s): J84.10 - PULMONARY FIBROSIS, UNSPECIFIED (10) Raynaud disease Code(s): I73.00 - RAYNAUD'S SYNDROME WITHOUT GANGRENE Qualifiers: (11) Scleroderma Code(s): M34.9 - SYSTEMIC SCLEROSIS, UNSPECIFIED (12) Sjoegren syndrome Code(s): M35.00 - SICCA SYNDROME, UNSPECIFIED Assessment/Plan IMP SHORTNESS OF BREATH IMPROVING ADVANCED INTERSTITIAL LUNG DISEASE /PULMONARY FIBROSIS PNEUMONIA SCLERODERMA H/O ASPIRATION PNEUMONIA ACHALASIA S/P BOTOX HTN ORTHOSTATIC HYPOTENSION ADRENAL INSUFFICIENCY PLAN ANTIBIOTICS PER ID INHALED BRONCHODILATORS NASAL O2 ' IF STABLE/.IMPROVED IN THE AM -> CAN CHANGE IV STEROIDS TO PO CHEST PT OOB TO CHAIR PT EVAL DR SALVADOR
--- NOTE | 2016-11-08 14:53 | PN ---
Progress Note, Physician History of Present Illness: stable looks comfortable feels much better no other issues - Current Medication List Current Medications: Active Medications Acetaminophen (Tylenol -) 650 mg PO Q4H PRN PRN Reason: FEVER OR PAIN Albuterol Sulfate (Ventolin 0.083% Nebulizer Soln -) 1 amp NEB Q4H PRN PRN Reason: SHORT OF BREATH/WHEEZING Albuterol/Ipratropium (Duoneb -) 1 amp NEB QIDR [facility] Last Admin: 11/08/16 11:01 Dose: 1 amp Alprazolam (Xanax -) 0.25 mg PO BID [facility] Last Admin: 11/08/16 10:04 Dose: 0.25 mg Amino Acids (Prosource No Carb Liquid Pkt) 30 ml PO BID@0800,1730 [facility] Last Admin: 11/08/16 08:53 Dose: 30 ml Amlodipine Besylate (Norvasc -) 5 mg PO BID [facility] Amoxicillin/Clavulanate Potassium (Augmentin - 875mg Tablet) 1 tab PO BID@0800, 1730 [facility] Last Admin: 11/08/16 08:53 Dose: 1 tab Fluoxetine HCl (Prozac -) 20 mg PO HS [facility] Last Admin: 11/07/16 21:47 Dose: 20 mg Guaifenesin (Mucinex Dm -) 1 tablet PO BID [facility] Last Admin: 11/08/16 10:04 Dose: 1 tablet Guaifenesin (Robitussin -) 10 ml PO Q6H PRN PRN Reason: COUGH Lidocaine (Lidoderm Patch -) 1 patch TP DAILY [facility] Last Admin: 11/08/16 10:02 Dose: 1 patch Methylprednisolone Sodium Succinate (Solu-Medrol -) 40 mg IVPB BID [facility] Last Admin: 11/08/16 10:06 Dose: 40 mg Non-Formulary Medication (Lifitegrast [Xiidra]) 1 each OU BID [facility] Last Admin: 11/08/16 10:03 Dose: 1 each Polyethylene Glycol (Miralax (For Daily Use) -) 17 gm PO DAILY [facility] Last Admin: 11/08/16 10:05 Dose: 17 gm Senna (Senna -) 1 tab PO HS [facility] Last Admin: 11/07/16 21:47 Dose: 1 tab Thyroid ([place] Thyroid -) 30 mg PO BID@06,18 [facility] Last Admin: 11/08/16 05:44 Dose: 30 mg - Objective Vital Signs: Vital Signs Temperature 98.4 F 11/08/16 14:37 Pulse Rate 90 11/08/16 14:37 Respiratory Rate 18 11/08/16 14:37 Blood Pressure 137/79 11/08/16 14:37 O2 Sat by Pulse Oximetry (%) 95 11/08/16 09:50 Constitutional: Yes: No Distress, Calm Cardiovascular: Yes: Regular Rate and Rhythm Respiratory: Yes: Regular, On Nasal O2, Poor Air Entry, Rhonchi Gastrointestinal: Yes: Normal Bowel Sounds, Soft Musculoskeletal: Yes: WNL Extremities: Yes: WNL Neurological: Yes: Alert, Oriented Psychiatric: Yes: Alert, Oriented Labs: CBC, BMP 11/07/16 05:38 11/05/16 05:40 INR, PTT INR 0.91 (0.82-1.09) 10/30/16 14:53 Assessment/Plan Problem List - Problems (1) Pneumonia Code(s): J18.9 - PNEUMONIA, UNSPECIFIED ORGANISM (2) Shortness of breath Code(s): R06.02 - SHORTNESS OF BREATH (3) Weakness generalized Code(s): R53.1 - WEAKNESS (4) Hypothyroid Code(s): E03.9 - HYPOTHYROIDISM, UNSPECIFIED (5) Adrenal insufficiency Code(s): E27.40 - UNSPECIFIED ADRENOCORTICAL INSUFFICIENCY (6) Hypertension Code(s): I10 - ESSENTIAL (PRIMARY) HYPERTENSION (7) Interstitial lung disease Code(s): J84.9 - INTERSTITIAL PULMONARY DISEASE, UNSPECIFIED (8) Orthostatic hypotension Code(s): I95.1 - ORTHOSTATIC HYPOTENSION (9) Pulmonary fibrosis Code(s): J84.10 - PULMONARY FIBROSIS, UNSPECIFIED (10) Raynaud disease Code(s): I73.00 - RAYNAUD'S SYNDROME WITHOUT GANGRENE Qualifiers: (11) Scleroderma Code(s): M34.9 - SYSTEMIC SCLEROSIS, UNSPECIFIED (12) Sjoegren syndrome Code(s): M35.00 - SICCA SYNDROME, UNSPECIFIED plan chest pt contineu oral cough decreasing will monitor rest continue current mgmt
[2016-11-08] MEDS: ARTIFICIAL TEARS (POLYVINYL ALCOHOL 1.4%) OPTH DROPS OU PRN (18:14)
[2016-11-08] MEDS: SENNOSIDES 8.6MG TABLET (FP) PO SCH (23:18)
[2016-11-08] MEDS: amLODIPine BESYLATE 5 MG TABLET (FP) PO SCH (23:18)
[2016-11-08] MEDS: FLUoxetine HCL 20 MG CAPSULE (FP) PO SCH (23:18)
[2016-11-09] MEDS: THYROID 30 MG TABLET PO SCH ×2 (06:09→17:37)
[2016-11-09] MEDS: ALBUTEROL SO4 2.5/IPRATROPIUM 0.5 INH SOL 3 ML VIAL.NEB. NEB SCH ×4 (06:53→23:02)
[2016-11-09] MEDS: AMINO ACIDS/PROTEIN HYDROLYS 30 ML LIQUID.PKT PO SCH ×2 (08:24→17:38)
[2016-11-09] MEDS: AMOX TR/POT CLAV 875MG/125MG TABLETS (FP) PO SCH ×2 (08:24→17:37)
[2016-11-09] MEDS: ALPRAZolam 0.25 MG TABLET PO SCH ×2 (09:45→23:20)
[2016-11-09] MEDS: amLODIPine BESYLATE 5 MG TABLET (FP) PO SCH ×2 (09:45→23:20)
[2016-11-09] MEDS: guaiFENesin/D-METHORPHAN HB 1 EACH TAB.ER.12H PO SCH ×2 (09:46→23:19)
[2016-11-09] MEDS: LIDOCAINE 5% TOPICAL PATCH TP SCH (09:46)
[2016-11-09] MEDS: POLYETHYLENE GLYCOL 3350 119 GM BTL PO SCH (09:46)
[2016-11-09] MEDS: PATIENT'S OWN MEDICATION (NON-FORMULARY) (Lifitegrast [Xiidra] 1 EACH) OU SCH ×2 (09:47→23:17)
[2016-11-09] MEDS: methylPREDNISolone NA SUCC 40 MG/1 ML VIAL IVPB SCH (09:47)
--- NOTE | 2016-11-09 12:45 | PN ---
Progress Note (short form) - Note Progress Note: Resting in NAD. Lying flat in bed. No acute events overnight. Intake & Output 11/06/16 11/07/16 11/08/16 11/09/16 23:59 23:59 23:59 23:59 Intake Total 100 900 580 Balance 100 900 580 Last Vital Signs Temp Pulse Resp BP Pulse Ox 98 F 87 18 142/81 95 11/09/16 09:00 11/09/16 09:00 11/09/16 09:00 11/09/16 09:00 11/08/16 21:00 Active Medications Acetaminophen (Tylenol -) 650 mg PO Q4H PRN PRN Reason: FEVER OR PAIN Albuterol Sulfate (Ventolin 0.083% Nebulizer Soln -) 1 amp NEB Q4H PRN PRN Reason: SHORT OF BREATH/WHEEZING Albuterol/Ipratropium (Duoneb -) 1 amp NEB QIDR [facility] Last Admin: 11/09/16 06:53 Dose: 1 amp Alprazolam (Xanax -) 0.25 mg PO BID [facility] Last Admin: 11/09/16 09:45 Dose: 0.25 mg Amino Acids (Prosource No Carb Liquid Pkt) 30 ml PO BID@0800,1730 [facility] Last Admin: 11/09/16 08:24 Dose: 30 ml Amlodipine Besylate (Norvasc -) 5 mg PO BID [facility] Last Admin: 11/09/16 09:45 Dose: 5 mg Amoxicillin/Clavulanate Potassium (Augmentin - 875mg Tablet) 1 tab PO BID@0800, 1730 [facility] Last Admin: 11/09/16 08:24 Dose: 1 tab Artificial Tears (Artificial Tears) 1 drop OU Q8H PRN PRN Reason: dry eye Last Admin: 11/08/16 18:14 Dose: 1 drop Fluoxetine HCl (Prozac -) 20 mg PO HS [facility] Last Admin: 11/08/16 23:18 Dose: 20 mg Guaifenesin (Mucinex Dm -) 1 tablet PO BID [facility] Last Admin: 11/09/16 09:46 Dose: 1 tablet Guaifenesin (Robitussin -) 10 ml PO Q6H PRN PRN Reason: COUGH Lidocaine (Lidoderm Patch -) 1 patch TP DAILY [facility] Last Admin: 11/09/16 09:46 Dose: 1 patch Methylprednisolone Sodium Succinate (Solu-Medrol -) 40 mg IVPB BID [facility] Last Admin: 11/09/16 09:47 Dose: 40 mg Non-Formulary Medication (Lifitegrast [Xiidra]) 1 each OU BID [facility] Last Admin: 11/09/16 09:47 Dose: 1 each Polyethylene Glycol (Miralax (For Daily Use) -) 17 gm PO DAILY [facility] Last Admin: 11/09/16 09:46 Dose: 17 gm Senna (Senna -) 1 tab PO HS [facility] Last Admin: 11/08/16 23:18 Dose: 1 tab Thyroid ([place] Thyroid -) 30 mg PO BID@18 [facility] Last Admin: 11/09/16 06:09 Dose: 30 mg Constitutional: Yes: NAD Eyes: Yes: WNL HENT: Yes: WNL Neck: Yes: WNL Cardiovascular: Yes: Regular Rate and Rhythm, S1, S2 Respiratory: Yes: Bilateral scattered Rhonchi Gastrointestinal: Yes: Normal Bowel Sounds, Soft Extremities: Yes: WNL Edema: No Labs: Problem List - Problems (1) Pneumonia Code(s): J18.9 - PNEUMONIA, UNSPECIFIED ORGANISM (2) Shortness of breath Code(s): R06.02 - SHORTNESS OF BREATH (3) Weakness generalized Code(s): R53.1 - WEAKNESS (4) Hypothyroid Code(s): E03.9 - HYPOTHYROIDISM, UNSPECIFIED (5) Adrenal insufficiency Code(s): E27.40 - UNSPECIFIED ADRENOCORTICAL INSUFFICIENCY (6) Hypertension Code(s): I10 - ESSENTIAL (PRIMARY) HYPERTENSION (7) Interstitial lung disease Code(s): J84.9 - INTERSTITIAL PULMONARY DISEASE, UNSPECIFIED (8) Orthostatic hypotension Code(s): I95.1 - ORTHOSTATIC HYPOTENSION (9) Pulmonary fibrosis Code(s): J84.10 - PULMONARY FIBROSIS, UNSPECIFIED (10) Raynaud disease Code(s): I73.00 - RAYNAUD'S SYNDROME WITHOUT GANGRENE Qualifiers: (11) Scleroderma Code(s): M34.9 - SYSTEMIC SCLEROSIS, UNSPECIFIED (12) Sjoegren syndrome Code(s): M35.00 - SICCA SYNDROME, UNSPECIFIED Assessment/Plan IMP SHORTNESS OF BREATH IMPROVING ADVANCED INTERSTITIAL LUNG DISEASE /PULMONARY FIBROSIS PNEUMONIA SCLERODERMA H/O ASPIRATION PNEUMONIA ACHALASIA S/P BOTOX HTN ORTHOSTATIC HYPOTENSION ADRENAL INSUFFICIENCY PLAN ANTIBIOTICS PER ID INHALED BRONCHODILATORS NASAL O2 ' CHANGE IV STEROIDS TO PO CHEST PT OOB TO CHAIR PT / AMBULATE DR FRANCO
--- NOTE | 2016-11-09 13:30 | PN ---
Physical Exam: SUBJECTIVE: Patient seen and examined. She states she feels well, she is tolerating po diet on her own. D/w daughter Amber [facility] OBJECTIVE: Vital Signs Period Temp Pulse Resp BP Sys/Xavier Pulse Ox Last 24 Hr 97.8 F-98.4 F 80-90 16-18 137-179/77-96 95 PE Neuro: alert, awake, cn 2-12intact Pulm: bilateral rhonchi R>L CV: s1 s2 rrr no mrg Abd: s nt nd + bs Ext: warm, no le edema Active Medications Generic Name Dose Route Start Last Admin Trade Name Freq PRN Reason Stop Dose Admin Acetaminophen 650 mg 11/07/16 16:28 Tylenol - PO Q4H PRN FEVER OR PAIN Albuterol Sulfate 1 amp 11/07/16 16:28 Ventolin 0.083% Nebulizer Soln - NEB Q4H PRN SHORT OF BREATH/WHEEZING Albuterol/Ipratropium 1 amp 11/07/16 18:00 11/09/16 06:53 Duoneb - NEB 1 amp QIDR [facility] Administration Alprazolam 0.25 mg 11/07/16 22:00 11/09/16 09:45 Xanax - PO 0.25 mg BID BOBBY Administration Amino Acids 30 ml 11/06/16 08:00 11/09/16 08:24 Prosource No Carb Liquid Pkt PO 30 ml BID@0800,1730 B[facility] Administration Amlodipine Besylate 5 mg 11/08/16 22:00 11/09/16 09:45 Norvasc - PO 5 mg BID BOBBY Administration Amoxicillin/Clavulanate Potassium 1 tab 11/07/16 17:30 11/09/16 08:24 Augmentin - 875mg Tablet PO 1 tab BID@0800,1730 B[facility] Administration Artificial Tears 1 drop 11/08/16 16:24 11/08/16 18:14 Artificial Tears OU 1 drop Q8H PRN Administration dry eye Fluoxetine HCl 20 mg 11/07/16 22:00 11/08/16 23:18 Prozac - PO 20 mg HS B[facility]BY Administration Guaifenesin 1 tablet 11/07/16 22:00 11/09/16 09:46 Mucinex Dm - PO 1 tablet BID [facility] Administration Guaifenesin 10 ml 11/07/16 16:28 Robitussin - PO Q6H PRN COUGH Lidocaine 1 patch 11/08/16 10:00 11/09/16 09:46 Lidoderm Patch - TP 1 patch DAILY [facility] Administration Non-Formulary Medication 1 each 11/07/16 22:00 11/09/16 09:47 Lifitegrast [Xiidra] OU 1 each BID [facility] Administration Polyethylene Glycol 17 gm 11/08/16 10:00 11/09/16 09:46 Miralax (For Daily Use) - PO 17 gm DAILY [facility] Administration Prednisone 30 mg 11/10/16 10:00 Deltasone - PO DAILY [facility] Senna 1 tab 11/07/16 22:00 11/08/16 23:18 Senna - PO 1 tab HS [facility] Administration Thyroid 30 mg 11/07/16 18:00 11/09/16 06:[address] Thyroid - PO 30 mg BID@,18 [facility]OB[facility] Administration Assessment: 81 year old female with PMHx of pulmonary fibrosis, achalasia s/p botox treatment (October 2015), aspiration pneumonia (October 2015), Sjogrens, Raynauds, hypothyroidism, adrenal insufficiency, orthostatic hypotension, scleroderma, T12 compression fracture, and frequent falls admitted with shortness of breath, cough, nausea, gurgling. Plan: 1. Hospital acquired pneumonia - Augmentin BID (day 2) - Zosyn (10/30-11/07) 2. UTI - Urine culture negative - Abx as above 3. Interstitial lung disease/pulmonary fibrosis - Taper prednisone 30mg daily - Duonebs scheduled - Chest PT bid - Pre/post O2: SpO2 dropped to 79% on RA with exercise, requires outpt o2 4. Scleroderma, Sjogren syndrome, Raynaud's syndrome - Stable 5. Hypothyroidism - Continue [address] thyroid 6. Adrenal Insufficiency - Hold low dose cortef and prednisone, can restart once steroid taper complete 7. Severe protein malnutrition - Regular diet, thin liquids - Continue Prosource 8. Prophylaxis: - Heparin 5,000u sq bid - PT Dispo: - [facility] Problem List - Problems (1) Hypokalemia Code(s): E87.6 - HYPOKALEMIA (2) Pneumonia Code(s): J18.9 - PNEUMONIA, UNSPECIFIED ORGANISM (3) Shortness of breath Code(s): R06.02 - SHORTNESS OF BREATH (4) Hypothyroid Code(s): E03.9 - HYPOTHYROIDISM, UNSPECIFIED (5) Adrenal insufficiency Code(s): E27.40 - UNSPECIFIED ADRENOCORTICAL INSUFFICIENCY (6) Hypertension Code(s): I10 - ESSENTIAL (PRIMARY) HYPERTENSION (7) Interstitial lung disease Code(s): J84.9 - INTERSTITIAL PULMONARY DISEASE, UNSPECIFIED (8) Orthostatic hypotension Code(s): I95.1 - ORTHOSTATIC HYPOTENSION (9) Pulmonary fibrosis Code(s): J84.10 - PULMONARY FIBROSIS, UNSPECIFIED (10) Raynaud disease Code(s): I73.00 - RAYNAUD'S SYNDROME WITHOUT GANGRENE Qualifiers: (11) Scleroderma Code(s): M34.9 - SYSTEMIC SCLEROSIS, UNSPECIFIED (12) Sjoegren syndrome Code(s): M35.00 - SICCA SYNDROME, UNSPECIFIED Visit type - Emergency Visit Emergency Visit: Yes ED Registration Date: 10/30/16 Care time: The patient presented to the Emergency Department on the above date and was hospitalized for further evaluation of their emergent condition. - New Patient This patient is new to me today: No - Critical Care Critical Care patient: No
--- NOTE | 2016-11-09 17:16 | PN ---
Progress Note, Physician History of Present Illness: stable looks comfortable feels much better no other issues - Current Medication List Current Medications: Active Medications Acetaminophen (Tylenol -) 650 mg PO Q4H PRN PRN Reason: FEVER OR PAIN Albuterol Sulfate (Ventolin 0.083% Nebulizer Soln -) 1 amp NEB Q4H PRN PRN Reason: SHORT OF BREATH/WHEEZING Albuterol/Ipratropium (Duoneb -) 1 amp NEB QIDR [facility] Last Admin: 11/09/16 11:45 Dose: 1 amp Alprazolam (Xanax -) 0.25 mg PO BID [facility] Last Admin: 11/09/16 09:45 Dose: 0.25 mg Amino Acids (Prosource No Carb Liquid Pkt) 30 ml PO BID@0800,1730 [facility] Last Admin: 11/09/16 08:24 Dose: 30 ml Amlodipine Besylate (Norvasc -) 5 mg PO BID [facility] Last Admin: 11/09/16 09:45 Dose: 5 mg Amoxicillin/Clavulanate Potassium (Augmentin - 875mg Tablet) 1 tab PO BID@0800, 1730 [facility] Last Admin: 11/09/16 08:24 Dose: 1 tab Artificial Tears (Artificial Tears) 1 drop OU Q8H PRN PRN Reason: dry eye Last Admin: 11/08/16 18:14 Dose: 1 drop Fluoxetine HCl (Prozac -) 20 mg PO [facility] Last Admin: 11/08/16 23:18 Dose: 20 mg Guaifenesin (Mucinex Dm -) 1 tablet PO BID [facility] Last Admin: 11/09/16 09:46 Dose: 1 tablet Guaifenesin (Robitussin -) 10 ml PO Q6H PRN PRN Reason: COUGH Lidocaine (Lidoderm Patch -) 1 patch TP DAILY [facility] Last Admin: 11/09/16 09:46 Dose: 1 patch Non-Formulary Medication (Lifitegrast [Xiidra]) 1 each OU BID [facility] Last Admin: 11/09/16 09:47 Dose: 1 each Polyethylene Glycol (Miralax (For Daily Use) -) 17 gm PO DAILY [facility] Last Admin: 11/09/16 09:46 Dose: 17 gm Prednisone (Deltasone -) 30 mg PO DAILY [facility] Senna (Senna -) 1 tab PO [facility] Last Admin: 11/08/16 23:18 Dose: 1 tab Thyroid ([place] Thyroid -) 30 mg PO BID@06,18 [facility] Last Admin: 11/09/16 06:09 Dose: 30 mg - Objective Vital Signs: Vital Signs Temperature 99 F 11/09/16 15:13 Pulse Rate 94 H 11/09/16 15:13 Respiratory Rate 16 11/09/16 15:13 Blood Pressure 115/73 11/09/16 15:13 O2 Sat by Pulse Oximetry (%) 92 L 11/09/16 09:00 Constitutional: Yes: No Distress, Calm Cardiovascular: Yes: Regular Rate and Rhythm Respiratory: Yes: Regular, Poor Air Entry, Rhonchi Gastrointestinal: Yes: Normal Bowel Sounds, Soft Musculoskeletal: Yes: WNL Extremities: Yes: WNL Neurological: Yes: Alert, Oriented Labs: CBC, BMP 11/07/16 05:38 11/05/16 05:40 INR, PTT INR 0.91 (0.82-1.09) 10/30/16 14:53 Assessment/Plan Problem List - Problems (1) Pneumonia Code(s): J18.9 - PNEUMONIA, UNSPECIFIED ORGANISM (2) Shortness of breath Code(s): R06.02 - SHORTNESS OF BREATH (3) Weakness generalized Code(s): R53.1 - WEAKNESS (4) Hypothyroid Code(s): E03.9 - HYPOTHYROIDISM, UNSPECIFIED (5) Adrenal insufficiency Code(s): E27.40 - UNSPECIFIED ADRENOCORTICAL INSUFFICIENCY (6) Hypertension Code(s): I10 - ESSENTIAL (PRIMARY) HYPERTENSION (7) Interstitial lung disease Code(s): J84.9 - INTERSTITIAL PULMONARY DISEASE, UNSPECIFIED (8) Orthostatic hypotension Code(s): I95.1 - ORTHOSTATIC HYPOTENSION (9) Pulmonary fibrosis Code(s): J84.10 - PULMONARY FIBROSIS, UNSPECIFIED (10) Raynaud disease Code(s): I73.00 - RAYNAUD'S SYNDROME WITHOUT GANGRENE Qualifiers: (11) Scleroderma Code(s): M34.9 - SYSTEMIC SCLEROSIS, UNSPECIFIED (12) Sjoegren syndrome Code(s): M35.00 - SICCA SYNDROME, UNSPECIFIED plan chest pt contineu oral abx cough decreasing will monitor rest continue current mgmt wbc has increased
[2016-11-09] MEDS ORDERED: PT OWN MED DRAWER 7, Y5N ONE ×2 (17:32→18:48)
[2016-11-09] MEDS: ARTIFICIAL TEARS (POLYVINYL ALCOHOL 1.4%) OPTH DROPS OU PRN (17:38)
[2016-11-09] MEDS: FLUoxetine HCL 20 MG CAPSULE (FP) PO SCH (23:20)
[2016-11-09] MEDS: SENNOSIDES 8.6MG TABLET (FP) PO SCH (23:20)
[2016-11-10] MEDS: ALBUTEROL SO4 2.5/IPRATROPIUM 0.5 INH SOL 3 ML VIAL.NEB. NEB SCH ×2 (06:16→10:40)
[2016-11-10] MEDS: THYROID 30 MG TABLET PO SCH (06:48)
[2016-11-10] MEDS: ARTIFICIAL TEARS (POLYVINYL ALCOHOL 1.4%) OPTH DROPS OU PRN ×2 (06:48→15:19)
[2016-11-10 08:27] LABS: MCH 29.5 pg (25.7-33.7); MEAN CELL VOLUME 89.5 fl (80-96); MEAN PLT VOLUME 6.7 fl (7.5-11.1); PLATELET COUNT 339 K/MM3 (134-434); RDW 19.3 % (11.6-15.6)
[2016-11-10] MEDS: AMINO ACIDS/PROTEIN HYDROLYS 30 ML LIQUID.PKT PO SCH (08:45)
[2016-11-10] MEDS: AMOX TR/POT CLAV 875MG/125MG TABLETS (FP) PO SCH (08:45)
[2016-11-10 08:53] LABS: CALCIUM 8.3 mg/dL (8.5-10.1); COCKROFT - GAULT 56.865; CREATININE 0.6 mg/dL (0.55-1.02)
[2016-11-10] MEDS: amLODIPine BESYLATE 5 MG TABLET (FP) PO SCH (09:35)
[2016-11-10] MEDS: ALPRAZolam 0.25 MG TABLET PO SCH (09:35)
[2016-11-10] MEDS: LIDOCAINE 5% TOPICAL PATCH TP SCH (09:36)
[2016-11-10] MEDS: PATIENT'S OWN MEDICATION (NON-FORMULARY) (Lifitegrast [Xiidra] 1 EACH) OU SCH (09:36)
[2016-11-10] MEDS: guaiFENesin/D-METHORPHAN HB 1 EACH TAB.ER.12H PO SCH (09:36)
[2016-11-10] MEDS: POLYETHYLENE GLYCOL 3350 119 GM BTL PO SCH (09:37)
[2016-11-10] MEDS ORDERED: predniSONE 10 MG TABLET (UD) PO SCH (10:00)
[2016-11-10 11:30] LABS: PLATELET ESTIMATE ADEQUATE (NORMAL)
--- NOTE | 2016-11-10 13:22 | DS ---
Physical Exam: SUBJECTIVE: Patient seen and examined. Pt appears well, has no acute issues. Daughter to arrange private aid. OBJECTIVE: Vital Signs Period Temp Pulse Resp BP Sys/Xavier Pulse Ox Last 24 Hr 97.0 F-99 F 66-94 16-18 104-150/61-80 97 PE Neuro: alert, awake, cn 2-12intact Pulm: bilateral rhonchi R>L CV: s1 s2 rrr no mrg Abd: s nt nd + bs Ext: warm, no le edema Laboratory Results - last 24 hr 11/10/16 11/10/16 08:10 08:10 WBC 20.0 H RBC 3.71 Hgb 11.0 Hct 33.2 MCV 89.5 MCHC 33.0 RDW 19.3 H Plt Count 339 MPV 6.7 L Neutrophils % 81.0 Lymphocytes % 10.0 D Monocytes % 5.0 D Eosinophils % 2.0 D Myelocytes 2 D Differential Comment Manual diff done Platelet Estimate Adequate Sodium 136 Potassium 3.4 L Chloride 94 L Carbon Dioxide 37 H Anion Gap 5 L BUN 27 H Creatinine 0.6 Random Glucose 70 L D Calcium 8.3 L HOSPITAL COURSE: Date of Admission:10/30/16 Date of Discharge: 11/10/16 Minutes to complete discharge: 35 Discharge Summary Reason For Visit: PNEUMONIA; HYPOKALEMIA Current Active Problems Hypokalemia (Acute) Pneumonia (Acute) Shortness of breath (Acute) Weakness generalized (Acute) Weight loss, unintentional (Acute) Decreased appetite (Chronic) Dysphagia (Chronic) Dysphonia (Chronic) Hypothyroid (Chronic) Odynophagia (Chronic) Osteoporosis (Chronic) Hospital Course: Initial Hospital Course: Briefly, this 81 year old female with PMHx of pulmonary fibrosis, achalasia s/p botox treatment (October 2015), aspiration pneumonia (October 2015), Sjogrens, Raynauds, hypothyroidism, adrenal insufficiency, orthostatic hypotension, scleroderma, T12 compression fracture, and frequent falls, recent vision difficultly for lose cornea for which she is on eye drops and seeing a specialist and most recently admitted in 08/2015 for influenza A and pneumonia presented to the ED from [facility] with shortness of breath, cough, nausea and gurgling. Per daughter, pt had a dry cough, she was told by hearing aid repairer Dr. Matos call her PCP, PCP was unable to see pt until the following week when she was prescribed muscinex. In between that time a (thursday -thursday) daughter noted cough became worse with sounds of gurgling and rattling persisted along with dyspnea while conversing. She has never been intubated Subsequent Hospital Course/Progress Note/Discharge Summary by a/p: Assessment: 81 year old female with PMHx of pulmonary fibrosis, achalasia s/p botox treatment (October 2015), aspiration pneumonia (October 2015), Sjogrens, Raynauds, hypothyroidism, adrenal insufficiency, orthostatic hypotension, scleroderma, T12 compression fracture, and frequent falls admitted with shortness of breath, cough, nausea, gurgling. Plan: 1. Hospital acquired pneumonia - Home with Augmentin 875mg tab x3 more days, total of 5 - Completed Zosyn (10/30-11/07) 2. Interstitial lung disease/pulmonary fibrosis - s/p IV steroids - Home with Prednisone taper starting tomorrow, 20mg x2 days, 10mg x2 days then complete - Once Taper completed pt can restart low dose cortef and fludrocortisone - Continue supplemental oxygen goal spo2 92% 3. UTI - Urine culture negative - s/p Zosyn 4. Scleroderma, Sjogren syndrome, Raynaud's syndrome - Stable 5. Hypothyroidism - Continue [place] thyroid 6. Adrenal Insufficiency - Resume Cortef and fludrocortisone when steroid taper completed 7. Severe protein malnutrition - Regular diet, thin liquids Dispo: - Return to [facility], daughter to arrange for private aid - Home Medications Comprehensive Discharge Medication List: Ambulatory Orders Ascorbic Acid [C-1000] 1,000 mg PO BID 08/13/16 Cholecalciferol (Vitamin D3) [Vitamin D -] 5,000 unit PO DAILY 08/13/16 Docusate Sodium 100 mg PO BID PRN 08/13/16 Fludrocortisone Acetate 0.15 mg PO BID 08/13/16 Fluoxetine HCl 20 mg PO HS 08/13/16 Hydrocortisone [Cortef -] 10 mg PO DAILY 08/13/16 Hydrocortisone [Cortef -] 15 mg PO HS 08/13/16 Lifitegrast [Xiidra] 1 each OP BID 08/13/16 Magnesium Chloride [Mag64] 64 mg PO DAILY 08/13/16 Mirtazapine 3.75 mg PO HS PRN 08/13/16 Pantoprazole Sodium 40 mg PO DAILY 08/13/16 Promethazine HCl 12.5 mg PO Q6H 08/13/16 Thyroid,Pork [[place] Thyroid] 30 mg PO BID 08/13/16 Albuterol 2.5/Ipratropium 0.5 [Duoneb -] 1 amp NEB QIDR amp 08/26/16 Amlodipine Besylate [Norvasc -] 2.5 mg PO BID #60 tablet 08/26/16 Melatonin 5 mg PO HS PRN #0 cap 08/26/16 Guaifenesin [Mucinex] 600 mg PO BID 10/30/16 Potassium Chloride [K-Dur -] 20 meq PO DAILY 10/30/16 Problem List - Problems (1) Hypokalemia Code(s): E87.6 - HYPOKALEMIA (2) Pneumonia Code(s): J18.9 - PNEUMONIA, UNSPECIFIED ORGANISM (3) Shortness of breath Code(s): R06.02 - SHORTNESS OF BREATH (4) Hypothyroid Code(s): E03.9 - HYPOTHYROIDISM, UNSPECIFIED (5) Adrenal insufficiency Code(s): E27.40 - UNSPECIFIED ADRENOCORTICAL INSUFFICIENCY (6) Hypertension Code(s): I10 - ESSENTIAL (PRIMARY) HYPERTENSION (7) Interstitial lung disease Code(s): J84.9 - INTERSTITIAL PULMONARY DISEASE, UNSPECIFIED (8) Orthostatic hypotension Code(s): I95.1 - ORTHOSTATIC HYPOTENSION (9) Pulmonary fibrosis Code(s): J84.10 - PULMONARY FIBROSIS, UNSPECIFIED (10) Raynaud disease Code(s): I73.00 - RAYNAUD'S SYNDROME WITHOUT GANGRENE Qualifiers: (11) Scleroderma Code(s): M34.9 - SYSTEMIC SCLEROSIS, UNSPECIFIED (12) Sjoegren syndrome Code(s): M35.00 - SICCA SYNDROME, UNSPECIFIED This patient is new to me today: No Emergency Visit: Yes ED Registration Date: 10/30/16 Care time: The patient presented to the Emergency Department on the above date and was hospitalized for further evaluation of their emergent condition. Critical Care patient: No - Discharge Referral Referred to [facility] No
[2016-11-10] MEDS ORDERED: POTASSIUM CHLORIDE ORAL LIQUID 20 MEQ/15 ML PO ONE (13:45)
[2016-11-10 14:41] VITALS: BP 126/71; PULSE 83; TEMP 97.6
[2016-11-10] MEDS ORDERED: PT OWN MED DRAWER 7, Y5N ONE (15:15)
== END 2016-11-10 17:13 | disposition home or self-care (01) | DRG 196 ==
LOC: JER 13:45 → JERBED 15:43 → J4W 17:34 → J5S 11-07 16:11
PROVIDERS: ADMIT Internal Medicine; ATTEND Nurse Practitioner Acute Care
DX: J84.10 Pulmonary fibrosis, unspecified (principal); E43 Unspecified severe protein-calorie malnutrition; J18.9 Pneumonia, unspecified organism; E27.40 Unspecified adrenocortical insufficiency; Z68.1 Body mass index [BMI] 19.9 or less, adult; N39.0 Urinary tract infection, site not specified; E87.6 Hypokalemia; D72.829 Elevated white blood cell count, unspecified; E03.9 Hypothyroidism, unspecified; M34.9 Systemic sclerosis, unspecified; I95.1 Orthostatic hypotension; I10 Essential (primary) hypertension; R13.10 Dysphagia, unspecified
CPT/HCPCS: 36415; 71010-TC; 71020-TC; 80048; 80053; 81003; 81015; 82550; 83605; 83735; 84100; 84484; 85025; 85027; 85610; 85730; 86710; 87040; 87086; 87899; 93005; 93010; 94640; 94761; 97116-GP; 97161-GP; 99283-25; J1644